=== PATIENT | male | born 1940 | race Caucasian/White ===

== ENCOUNTER 2017-09-14 12:47 | Inpatient (IN) | payer OTHER ==
[2017-09-14] MEDS ORDERED: NS 500 ML IV 500 ML IV ONE (15:21)
[2017-09-14 15:59] LABS: BASOPHILS % (AUTO) 0.8 % (0.2-1.0); EOSINOPHILS # (AUTO) 0.1 x10^3/uL (0.0-0.2); EOSINOPHILS % (AUTO) 2.7 % (0.9-2.9); HEMATOCRIT 22.6 % (42.0-54.0); LYMPHOCYTES # (AUTO) 1.3 X10^3/uL (1.3-2.9); LYMPHOCYTES % (AUTO) 23.3 % (21.0-51.0); MEAN CORPUSCULAR HEMOGLOBIN 20.1 pg (27.0-34.0); MEAN CORPUSCULAR HGB CONC 29.2 g/dL (33.0-35.0); MEAN CORPUSCULAR VOLUME 68.8 fL (80.0-100.0); MEAN PLATELET VOLUME 7.1 fL (7.4-11.0); MONOCYTES # (AUTO) 0.4 x10^3/uL (0.3-0.8); MONOCYTES % (AUTO) 6.7 % (0.0-13.0); NEUTROPHILS # (AUTO) 3.7 x10^3/uL (2.2-4.8); NEUTROPHILS % (AUTO) 66.5 % (42.0-75.0); PLATELET COUNT 212 X10^3/uL (150.0-450.0); RED BLOOD COUNT 3.28 X10^6/uL (4.7-6.0); RED CELL DISTRIBUTION WIDTH 18.8 % (11.6-16.5); WHITE BLOOD COUNT 5.6 X10^3/uL (3.6-10.0)
[2017-09-14 16:03] LABS: ALANINE AMINOTRANSFERASE 22 Units/L (12-78); ALBUMIN 3.3 g/dL (3.4-5.0); ALKALINE PHOSPHATASE 71 Units/L (46-116); ASPARTATE AMINO TRANSFERASE 15 Units/L (15-37); BLOOD UREA NITROGEN 16 mg/dL (7-18); CALCIUM 7.8 mg/dL (8.5-10.1); CARBON DIOXIDE 27.8 mmol/L (21-32); CHLORIDE 106 mmol/L (98-107); COR CA(FOR HYPOALB) 8.4 mg/dL (8.5-10.1); CREATININE 0.71 mg/dL (0.70-1.30); HEMOGLOBIN 6.6 g/dL (13.5-18.0); SODIUM 141 mmol/L (136-145); eGFR BLACK RACES > 60 (>60); eGFR NON BLACK RACES > 60 (>60)
[2017-09-14 16:09] LABS: ANISOCYTOSIS 1+; HYPOCHROMASIA 2+; MICROCYTOSIS 1+; PLATELET MORPHOLOGY COMMENT NORMAL (NORMAL)
[2017-09-14 16:32] VITALS: BMI 27.0
[2017-09-14] MEDS ORDERED: NS 250 ML IV 250 ML IV ONE (16:56)
[2017-09-14] MEDS: BENADRYL INJ 50 MG VIAL IVP PRN (17:07)
[2017-09-14] MEDS: TYLENOL 325 MG TAB PO PRN (17:07)
[2017-09-15] MEDS ORDERED: NS 250 ML IV 250 ML IV ONE (01:03)
[2017-09-15] MEDS: NS 1000 ML 1,000 ML IV SCH ×2 (05:58→20:42)
[2017-09-15 06:07] LABS: ALANINE AMINOTRANSFERASE 23 Units/L (12-78); ALKALINE PHOSPHATASE 69 Units/L (46-116); ASPARTATE AMINO TRANSFERASE 14 Units/L (15-37); CALCIUM 7.6 mg/dL (8.5-10.1); CARBON DIOXIDE 29.4 mmol/L (21-32); CHLORIDE 106 mmol/L (98-107); COR CA(FOR HYPOALB) 8.4 mg/dL (8.5-10.1); COR NA(FOR HYPERGLY) 140 mmol/L (136-145); CREATININE 0.79 mg/dL (0.70-1.30); SODIUM 139 mmol/L (136-145); TOTAL PROTEIN 6.4 g/dL (6.4-8.2); eGFR BLACK RACES > 60 (>60); eGFR NON BLACK RACES > 60 (>60)
[2017-09-15 06:18] LABS: BASOPHILS % (AUTO) 0.6 % (0.2-1.0); EOSINOPHILS # (AUTO) 0.2 x10^3/uL (0.0-0.2); EOSINOPHILS % (AUTO) 3.6 % (0.9-2.9); HEMATOCRIT 26.3 % (42.0-54.0); LYMPHOCYTES # (AUTO) 1.9 X10^3/uL (1.3-2.9); LYMPHOCYTES % (AUTO) 33.5 % (21.0-51.0); MEAN CORPUSCULAR HEMOGLOBIN 22.4 pg (27.0-34.0); MEAN CORPUSCULAR HGB CONC 30.6 g/dL (33.0-35.0); MEAN CORPUSCULAR VOLUME 73.3 fL (80.0-100.0); MEAN PLATELET VOLUME 7.3 fL (7.4-11.0); MONOCYTES # (AUTO) 0.4 x10^3/uL (0.3-0.8); MONOCYTES % (AUTO) 7.4 % (0.0-13.0); NEUTROPHILS # (AUTO) 3.1 x10^3/uL (2.2-4.8); NEUTROPHILS % (AUTO) 54.9 % (42.0-75.0); PLATELET COUNT 195 X10^3/uL (150.0-450.0); RED BLOOD COUNT 3.59 X10^6/uL (4.7-6.0); RED CELL DISTRIBUTION WIDTH 21.1 % (11.6-16.5); WHITE BLOOD COUNT 5.6 X10^3/uL (3.6-10.0)
[2017-09-15 06:27] LABS: BLOOD UREA NITROGEN 17 mg/dL (7-18)
[2017-09-15 06:37] LABS: ANISOCYTOSIS SLIGHT; HYPOCHROMASIA 1+; PLATELET MORPHOLOGY COMMENT NORMAL (NORMAL)
[2017-09-15] MEDS ORDERED: NS 500 ML IV 500 ML IV ONE (10:22)
[2017-09-15] MEDS ORDERED: MIRALAX POWDER (255 GM BTL) PO PRN (12:08)
[2017-09-15] MEDS ORDERED: COLACE CAP 100 MG PO PRN (12:08)
[2017-09-15] MEDS ORDERED: PERCOCET TAB 5/325 MG PO PRN (13:10)
[2017-09-15] MEDS: PROTONIX INJ 40 MG VIAL IVP SCH ×2 (13:46→20:38)
[2017-09-15] MEDS: PROCARDIA XL PO SCH (13:46)
[2017-09-15] MEDS: PEPCID 20 MG IV PREMIX* 20 MG/50 ML BAG IV SCH ×2 (13:47→20:38)
[2017-09-15] MEDS: DETROL LA 4 MG CAP EXT REL PO SCH (13:47)
[2017-09-15] MEDS: CYMBALTA PO SCH (13:47)
[2017-09-15] MEDS: ALFUZOSIN HCL 10 MG PO SCH (15:25)
[2017-09-15] MEDS: ELAVIL PO SCH (20:38)
[2017-09-15] MEDS ORDERED: LIPITOR TAB 40 MG PO SCH (21:00)
[2017-09-16] MEDS: BENADRYL INJ 50 MG VIAL IVP PRN (02:28)
[2017-09-16] MEDS: TYLENOL 325 MG TAB PO PRN (02:28)
[2017-09-16] MEDS ORDERED: NS 500 ML IV 500 ML IV ONE (02:33)
[2017-09-16] MEDS: ELAVIL PO SCH (03:04)
[2017-09-16 07:50] LABS: ALANINE AMINOTRANSFERASE 25 Units/L (12-78); ALBUMIN 3.1 g/dL (3.4-5.0); ALKALINE PHOSPHATASE 65 Units/L (46-116); ASPARTATE AMINO TRANSFERASE 14 Units/L (15-37); BLOOD UREA NITROGEN 9 mg/dL (7-18); CALCIUM 7.5 mg/dL (8.5-10.1); CARBON DIOXIDE 27.7 mmol/L (21-32); CHLORIDE 105 mmol/L (98-107); COR CA(FOR HYPOALB) 8.2 mg/dL (8.5-10.1); COR NA(FOR HYPERGLY) 142 mmol/L (136-145); CREATININE 0.74 mg/dL (0.70-1.30); SODIUM 141 mmol/L (136-145); TOTAL PROTEIN 6.5 g/dL (6.4-8.2); eGFR BLACK RACES > 60 (>60); eGFR NON BLACK RACES > 60 (>60)
[2017-09-16 07:58] LABS: BASOPHILS % (AUTO) 0.7 % (0.2-1.0); EOSINOPHILS # (AUTO) 0.3 x10^3/uL (0.0-0.2); EOSINOPHILS % (AUTO) 4.7 % (0.9-2.9); HEMATOCRIT 30.9 % (42.0-54.0); HEMOGLOBIN 9.9 g/dL (13.5-18.0); LYMPHOCYTES # (AUTO) 1.5 X10^3/uL (1.3-2.9); LYMPHOCYTES % (AUTO) 22.6 % (21.0-51.0); MEAN CORPUSCULAR HEMOGLOBIN 23.7 pg (27.0-34.0); MEAN CORPUSCULAR HGB CONC 31.9 g/dL (33.0-35.0); MEAN CORPUSCULAR VOLUME 74.3 fL (80.0-100.0); MEAN PLATELET VOLUME 6.9 fL (7.4-11.0); MONOCYTES # (AUTO) 0.5 x10^3/uL (0.3-0.8); MONOCYTES % (AUTO) 7.5 % (0.0-13.0); NEUTROPHILS # (AUTO) 4.4 x10^3/uL (2.2-4.8); NEUTROPHILS % (AUTO) 64.5 % (42.0-75.0); PLATELET COUNT 197 X10^3/uL (150.0-450.0); RED BLOOD COUNT 4.16 X10^6/uL (4.7-6.0); RED CELL DISTRIBUTION WIDTH 21.1 % (11.6-16.5); WHITE BLOOD COUNT 6.8 X10^3/uL (3.6-10.0)
[2017-09-16 08:05] LABS: ANISOCYTOSIS 1+; HYPOCHROMASIA 1+; PLATELET MORPHOLOGY COMMENT NORMAL (NORMAL); POIKILOCYTOSIS 1+
[2017-09-16 08:17] VITALS: BP 127/76
[2017-09-16] MEDS ORDERED: JANUVIA PO SCH (09:00)
[2017-09-16] MEDS ORDERED: ACCUPRIL PO SCH (09:00)
[2017-09-16] MEDS: PROCARDIA XL PO SCH (09:46)
[2017-09-16] MEDS: ALFUZOSIN HCL 10 MG PO SCH (09:47)
[2017-09-16] MEDS: CYMBALTA PO SCH (09:47)
[2017-09-16] MEDS: DETROL LA 4 MG CAP EXT REL PO SCH (09:47)
[2017-09-16] MEDS: PEPCID 20 MG IV PREMIX* 20 MG/50 ML BAG IV SCH ×2 (09:47→09:48)
[2017-09-16] MEDS: PROTONIX INJ 40 MG VIAL IVP SCH (09:48)
--- NOTE | 2017-09-17 22:24 | DR.UPDATE ---
H&P Update History and Physical Update: History and Physical reviewed and patient examined. Changes noted: Yes with the following: WAS SEEN IN THE OFFICE YESTERDAY FOR LABWORK. LAB RESULTS WERE OBTAINED TODAY AND REVELED A CRITICALLY LOW HEMOGLOBIN. PATIENT WAS CALLED FOR ADMISSION TO THE HOSPITAL FOR TRANSFUSION OF 2 UNITS OF PACKED RED BLOOD CELLS. ON ADMISSION, WE WILL OBTAIN LABS AND TRANSFUSE BLOOD. WE PLAN TO MONITOR H&H FOLLOWING TRANSFUSION.
--- NOTE | 2017-09-17 22:29 | PCM.PROG ---
Progress Note - Progress Note for Day of Date: 09/15/17 - Subjective Subjective: WAS ADMITTED FOR ANEMIA AND GENERALIZED WEAKNESS. TODAY , HE IS ALERT AND ORIENTED, LYING IN BED ON MORNING ROUNDS. HE CONTINUES WITH GENERALIZED WEAKNESS. HE RECEIVED TWO UNITS OF PACKED RED BLOOD CELLS LAST NIGHT. HIS VITAL TODAY ARE 98.4-64-20-94%-138/76. ABNORMAL LAB VALUES INCLUDE THE FOLLOWING: RBC 3.59, HGB 8.0, HCT 26.3, GLUCOSE 131, CALCIUM 7.6, AST 14, ALBUMIN 3.0. TODAY, WE WILL OBTAIN STOOL FOR OCCULT BLOOD. WE WILL TRANSFUSE TWO ADDITIONAL UNITS OF PACKED RED BLOOD CELLS AND CONTINUE TO MONITOR H&H. OTHERWISE, WE WILL FOLLOW UP WITH AM LABS AND CONTINUE TO MONITOR PATIENT. - Past Medical Family Social History Past Med/Fam/Surg Hx: No changes since H&P Allergies: Allergies No Known Drug Allergies Allergy (Verified 09/14/17 15:21) - Review of Systems ROS: No change since H&P - Vital Signs and I&O's Vital Signs: Temperature 97.6 F Pulse Rate [Left Brachial] 70 Pulse Rate [Right Radial] 76 Respiratory Rate 20 Blood Pressure [Right Arm] 145/82 Blood Pressure [Left Arm] 127/76 Blood Pressure 135/61 O2 Sat by Pulse Oximetry 92 Intake and Output: Intake & Output 09/15/17 09/16/17 09/17/17 09/18/17 11:59 11:59 11:59 11:59 Intake Total 1380 1960 Output Total 450 1065 Balance 930 895 - Physical Exam Oriented: Normal Eyes: Normal Ear: Normal Nose: Normal Throat: Normal Respiratory: Normal Cardiovascular: Normal : Normal Auscultation: Bowel Sounds: Normal Palpation: Normal Tenderness: Normal Skin: Normal Musculoskeletal: Normal Psychiatric: Normal Mood Description: Calm Affect: Normal Speech Pattern: Clear, Appropriate - Laboratory and Diagnostics Result Diagrams: 09/16/17 07:07 09/16/17 07:07 Labs: Laboratory WBC 6.8 X10^3/uL (3.6-10.0) 09/16/17 07:07 RBC 4.16 X10^6/uL (4.7-6.0) L 09/16/17 07:07 Hgb 9.9 g/dL (13.5-18.0) L 09/16/17 07:07 Hct 30.9 % (42.0-54.0) L 09/16/17 07:07 MCV 74.3 fL (80.0-100.0) L 09/16/17 07:07 MCH 23.7 pg (27.0-34.0) L 09/16/17 07:07 MCHC 31.9 g/dL (33.0-35.0) L 09/16/17 07:07 RDW 21.1 % (11.6-16.5) H 09/16/17 07:07 Plt Count 197 X10^3/uL (150.0-450.0) 09/16/17 07:07 Plt Count Comment Adequate (ADEQUATE) 09/16/17 07:07 MPV 6.9 fL (7.4-11.0) L 09/16/17 07:07 Neut % (Auto) 64.5 % (42.0-75.0) 09/16/17 07:07 Lymph % (Auto) 22.6 % (21.0-51.0) 09/16/17 07:07 [place] % (Auto) 7.5 % (0.0-13.0) 09/16/17 07:07 Eos % (Auto) 4.7 % (0.9-2.9) H 09/16/17 07:07 Baso % (Auto) 0.7 % (0.2-1.0) 09/16/17 07:07 Neut # (Auto) 4.4 x10^3/uL (2.2-4.8) 09/16/17 07:07 Lymph # (Auto) 1.5 X10^3/uL (1.3-2.9) 09/16/17 07:07 [place] # (Auto) 0.5 x10^3/uL (0.3-0.8) 09/16/17 07:07 Eos # (Auto) 0.3 x10^3/uL (0.0-0.2) H 09/16/17 07:07 Baso # (Auto) 0.0 X10^3/uL (0.0-0.1) 09/16/17 07:07 Absolute Nucleated RBC 0.3 /100WBC 09/16/17 07:07 Plt Morphology Comment Normal (NORMAL) 09/16/17 07:07 RBC Morphology Abnormal (NORMAL) 09/16/17 07:07 Hypochromasia 1+ A 09/16/17 07:07 Poikilocytosis 1+ A 09/16/17 07:07 Anisocytosis 1+ A 09/16/17 07:07 Microcytosis 1+ A 09/14/17 15:32 Sodium 141 mmol/L (136-145) 09/16/17 07:07 Corrected Sodium 142 mmol/L (136-145) 09/16/17 07:07 Potassium 3.7 mmol/L (3.5-5.1) 09/16/17 07:07 Chloride 105 mmol/L (98-107) 09/16/17 07:07 Carbon Dioxide 27.7 mmol/L (21-32) 09/16/17 07:07 BUN 9 mg/dL (7-18) 09/16/17 07:07 Creatinine 0.74 mg/dL (0.70-1.30) 09/16/17 07:07 Est GFR (MDRD) Af Amer > 60 (>60) 09/16/17 07:07 Est GFR (MDRD) Non-Af > 60 (>60) 09/16/17 07:07 Glucose 124 mg/dL (65-99) H 09/16/17 07:07 Calcium 7.5 mg/dL (8.5-10.1) L 09/16/17 07:07 Corrected Calcium 8.2 mg/dL (8.5-10.1) L 09/16/17 07:07 Total Bilirubin 0.40 mg/dL (0.2-1.0) 09/16/17 07:07 AST 14 Units/L (15-37) L 09/16/17 07:07 ALT 25 Units/L (12-78) 09/16/17 07:07 Alkaline Phosphatase 65 Units/L (46-116) 09/16/17 07:07 Total Protein 6.5 g/dL (6.4-8.2) 09/16/17 07:07 Albumin 3.1 g/dL (3.4-5.0) L 09/16/17 07:07 Globulin 3.4 g/dL (2.5-4.5) 09/16/17 07:07 Albumin/Globulin Ratio 0.9 Ratio (1.1-2.1) L 09/16/17 07:07 Stool Description 6oz,semi-formed,brwn 09/15/17 13:07 Stl Occult Blood (IFOB) Positive (NEGATIVE) A 09/15/17 13:07 Blood Type O POSITIVE 09/14/17 15:32 Antibody Screen Negative 09/14/17 15:32 Crossmatch See Detail 09/14/17 15:32 - Plan (1) Anemia Status: Acute Qualifiers: Anemia type: unspecified type Qualified Code(s): D64.9 - Anemia, unspecified Plan: TRANSFUSE 2 UNITS PACKED RED BLOOD CELLS, OBTAIN STOOL FOR OCCULT BLOOD, CONTINUE TO MONITOR
== END 2017-09-16 09:50 | disposition home or self-care (01) | DRG 812 ==
LOC: UNDOADMIN 12:47 → MED/SURG 12:47
PROVIDERS: ADMIT Internal Medicine; ATTEND Internal Medicine
PROC: 30233N1 Transfusion of Nonautologous Red Blood Cells into Peripheral Vein, Percutaneous Approach (ICD-10-PCS; principal; 2017-09-14)
PROC: 30233N1 Transfusion of Nonautologous Red Blood Cells into Peripheral Vein, Percutaneous Approach (ICD-10-PCS; 2017-09-15)
PROC: 30233N1 Transfusion of Nonautologous Red Blood Cells into Peripheral Vein, Percutaneous Approach (ICD-10-PCS; 2017-09-16)
DX: D64.89 Other specified anemias (principal); I10 Essential (primary) hypertension; E78.2 Mixed hyperlipidemia; E11.65 Type 2 diabetes mellitus with hyperglycemia; Z66 Do not resuscitate
CPT/HCPCS: 36415; 36430; 80053; 82274; 85025; 86850; 86900; 86901; 86922; A4216; A4222; C9113; P9016; S0028; J1200

== ENCOUNTER 2018-11-20 16:43 | Inpatient (IN) ==
[2018-11-20] MEDS ORDERED: NS 1/2 1000 ML IV IV ONE (17:46)
[2018-11-20] MEDS ORDERED: ROBITUSSIN DM PO ONE (21:45)
[2018-11-20] MEDS ORDERED: LEVAQUIN PREMIX IV 500 MG IV ONE (21:45)
[2018-11-20] MEDS ORDERED: FORTAZ or TAZICEF VIAL INJ IVP ONE (22:00)
[2018-11-21] MEDS ORDERED: FORTAZ or TAZICEF VIAL INJ IVP ONE ×2 (06:00→22:00)
[2018-11-21] MEDS ORDERED: NS 1/2 1000 ML IV IV ONE ×2 (07:12→08:00)
[2018-11-21] MEDS ORDERED: ROBITUSSIN DM PO ONE ×4 (09:00→21:00)
[2018-11-21] MEDS ORDERED: LEVAQUIN PREMIX IV 500 MG IV ONE ×2 (09:00→09:13)
[2018-11-21] MEDS ORDERED: TYLENOL 325 MG TAB PO ONE (09:13)
[2018-11-21] MEDS ORDERED: BENADRYL CAP/TAB 25 MG PO ONE (09:13)
[2018-11-21] MEDS ORDERED: PROTONIX INJ 40 MG VIAL IVP ONE (10:00)
[2018-11-21] MEDS ORDERED: NS 250 ML IV IV ONE ×2 (11:10→14:28)
[2018-11-21] MEDS ORDERED: LASIX IVP ONE (13:51)
[2018-11-21] MEDS ORDERED: DETROL LA 4 MG CAP EXT REL PO ONE ×2 (16:20→16:21)
[2018-11-21] MEDS ORDERED: FLOMAX PO ONE ×2 (16:21→16:30)
[2018-11-21] MEDS ORDERED: ZyrTEC TAB 10 MG PO ONE ×2 (16:21→16:30)
[2018-11-21] MEDS ORDERED: LIPITOR TAB 40 MG PO ONE (21:22)
[2018-11-21] MEDS ORDERED: ACCUPRIL PO ONE (21:23)
[2018-11-21] MEDS ORDERED: CYMBALTA PO ONE (21:23)
[2018-11-21] MEDS ORDERED: PROCARDIA XL PO ONE (21:23)
[2018-11-21] MEDS ORDERED: COLACE CAP 100 MG PO ONE (21:23)
[2018-11-21] MEDS ORDERED: ELAVIL PO ONE (21:23)
[2018-11-22] MEDS ORDERED: FORTAZ or TAZICEF VIAL INJ IVP ONE ×3 (05:25→22:00)
[2018-11-22] MEDS ORDERED: NS 1/2 1000 ML IV IV ONE ×3 (07:00→22:00)
[2018-11-22] MEDS ORDERED: LEVAQUIN PREMIX IV 500 MG IV ONE (09:20)
[2018-11-22] MEDS ORDERED: DIPRIVAN VIAL ONE ×2 (12:26→12:39)
[2018-11-22] MEDS ORDERED: PROTONIX INJ 40 MG VIAL IVP ONE ×2 (13:45→21:30)
[2018-11-22] MEDS ORDERED: FLOMAX PO ONE (13:45)
[2018-11-22] MEDS ORDERED: ACCUPRIL PO ONE ×2 (13:45→21:26)
[2018-11-22] MEDS ORDERED: ZyrTEC TAB 10 MG PO ONE (13:45)
[2018-11-22] MEDS ORDERED: ROBITUSSIN (PLAIN) PO ONE ×3 (13:45→21:26)
[2018-11-22] MEDS ORDERED: DETROL LA 4 MG CAP EXT REL PO ONE (13:45)
[2018-11-22] MEDS ORDERED: STERILE WATER IRRIGATION ONE (15:47)
[2018-11-22] MEDS ORDERED: COLACE CAP 100 MG PO ONE (21:26)
[2018-11-22] MEDS ORDERED: CYMBALTA PO ONE (21:26)
[2018-11-22] MEDS ORDERED: ELAVIL PO ONE (21:26)
[2018-11-22] MEDS ORDERED: LIPITOR TAB 40 MG PO ONE (21:26)
[2018-11-22] MEDS ORDERED: PROCARDIA XL PO ONE (21:26)
[2018-11-23] MEDS ORDERED: PERCOCET TAB 5/325 MG PO PRN (06:08)
[2018-11-23 06:09] LABS: EOSINOPHILS # (AUTO) 0.3 x10^3/uL (0.0-0.2); HEMOGLOBIN 8.5 g/dL (13.5-18.0); PLATELET COUNT 229 X10^3/uL (150.0-450.0); RED CELL DISTRIBUTION WIDTH 22.2 % (11.6-16.5)
[2018-11-23] MEDS ORDERED: TUSSIONEX PENNKINETIC SUSP PO PRN (06:11)
[2018-11-23 06:18] LABS: BASOPHILS % (AUTO) 0.7 % (0.2-1.0); EOSINOPHILS % (AUTO) 4.8 % (0.9-2.9); HEMATOCRIT 27.5 % (42.0-54.0); LYMPHOCYTES # (AUTO) 2.6 X10^3/uL (1.3-2.9); LYMPHOCYTES % (AUTO) 38.9 % (21.0-51.0); MEAN CORPUSCULAR HEMOGLOBIN 22.3 pg (27.0-34.0); MEAN CORPUSCULAR VOLUME 72.1 fL (80.0-100.0); MEAN PLATELET VOLUME 6.6 fL (7.4-11.0); MONOCYTES # (AUTO) 0.4 x10^3/uL (0.3-0.8); MONOCYTES % (AUTO) 5.6 % (0.0-13.0); NEUTROPHILS # (AUTO) 3.3 x10^3/uL (2.2-4.8); RED BLOOD COUNT 3.82 X10^6/uL (4.7-6.0); WHITE BLOOD COUNT 6.6 X10^3/uL (3.6-10.0)
[2018-11-23 06:24] LABS: ALANINE AMINOTRANSFERASE 18 Units/L (12-78); ALKALINE PHOSPHATASE 83 Units/L (46-116); ASPARTATE AMINO TRANSFERASE 17 Units/L (15-37); BLOOD UREA NITROGEN 8 mg/dL (7-18); CALCIUM 8.1 mg/dL (8.5-10.1); CARBON DIOXIDE 28.8 mmol/L (21-32); CHLORIDE 105 mmol/L (98-107); COR CA(FOR HYPOALB) 8.9 mg/dL (8.5-10.1); COR NA(FOR HYPERGLY) 142 mmol/L (136-145); SODIUM 141 mmol/L (136-145); TOTAL PROTEIN 6.8 g/dL (6.4-8.2); eGFR NON BLACK RACES > 60 (>60)
[2018-11-23 06:40] LABS: ASPARTATE AMINO TRANSFERASE 25 Units/L (15-37); BLOOD UREA NITROGEN 11 mg/dL (7-18); CALCIUM 8.2 mg/dL (8.5-10.1); CARBON DIOXIDE 28.6 mmol/L (21-32); CHLORIDE 106 mmol/L (98-107); COR NA(FOR HYPERGLY) 143 mmol/L (136-145); CREATININE 0.77 mg/dL (0.70-1.30); SODIUM 142 mmol/L (136-145); eGFR NON BLACK RACES > 60 (>60)
[2018-11-23 06:41] LABS: ALANINE AMINOTRANSFERASE 27 Units/L (12-78); ALBUMIN 3.3 g/dL (3.4-5.0); ALKALINE PHOSPHATASE 89 Units/L (46-116); COR CA(FOR HYPOALB) 8.8 mg/dL (8.5-10.1); TOTAL PROTEIN 7.2 g/dL (6.4-8.2)
[2018-11-23 06:43] LABS: BASOPHILS % (AUTO) 0.5 % (0.2-1.0); EOSINOPHILS # (AUTO) 0.1 x10^3/uL (0.0-0.2); EOSINOPHILS % (AUTO) 2.3 % (0.9-2.9); HEMATOCRIT 24.4 % (42.0-54.0); LYMPHOCYTES # (AUTO) 2.7 X10^3/uL (1.3-2.9); LYMPHOCYTES % (AUTO) 45.1 % (21.0-51.0); MEAN CORPUSCULAR HEMOGLOBIN 20.2 pg (27.0-34.0); MEAN CORPUSCULAR HGB CONC 28.8 g/dL (33.0-35.0); MEAN PLATELET VOLUME 6.5 fL (7.4-11.0); MONOCYTES # (AUTO) 0.3 x10^3/uL (0.3-0.8); MONOCYTES % (AUTO) 4.3 % (0.0-13.0); NEUTROPHILS # (AUTO) 2.9 x10^3/uL (2.2-4.8); NEUTROPHILS % (AUTO) 47.8 % (42.0-75.0); PLATELET COUNT 247 X10^3/uL (150.0-450.0); RED BLOOD COUNT 3.49 X10^6/uL (4.7-6.0); RED CELL DISTRIBUTION WIDTH 19.9 % (11.6-16.5); WHITE BLOOD COUNT 6.1 X10^3/uL (3.6-10.0)
[2018-11-23 06:44] LABS: PLATELET MORPHOLOGY COMMENT NORMAL (NORMAL)
[2018-11-23 06:45] LABS: ANISOCYTOSIS SLIGHT; HYPOCHROMASIA 2+; OVALOCYTES PRESENT
[2018-11-23 06:46] LABS: SODIUM 140 mmol/L (136-145)
[2018-11-23 06:47] LABS: BLOOD UREA NITROGEN 11 mg/dL (7-18); CARBON DIOXIDE 26.7 mmol/L (21-32); CHLORIDE 105 mmol/L (98-107); COR NA(FOR HYPERGLY) 141 mmol/L (136-145); CREATININE 0.74 mg/dL (0.70-1.30); IRON 17 ug/dL (50-175); eGFR NON BLACK RACES > 60 (>60)
[2018-11-23 06:48] LABS: ALANINE AMINOTRANSFERASE 28 Units/L (12-78); ALBUMIN 2.9 g/dL (3.4-5.0); ALKALINE PHOSPHATASE 77 Units/L (46-116); ASPARTATE AMINO TRANSFERASE 22 Units/L (15-37); COR CA(FOR HYPOALB) 8.9 mg/dL (8.5-10.1); TOTAL PROTEIN 6.5 g/dL (6.4-8.2)
[2018-11-23 06:49] LABS: RED BLOOD COUNT 3.17 X10^6/uL (4.7-6.0); WHITE BLOOD COUNT 6.3 X10^3/uL (3.6-10.0)
[2018-11-23 06:50] LABS: BASOPHILS % (AUTO) 0.7 % (0.2-1.0); EOSINOPHILS # (AUTO) 0.2 x10^3/uL (0.0-0.2); EOSINOPHILS % (AUTO) 3.1 % (0.9-2.9); HEMATOCRIT 22.2 % (42.0-54.0); HEMOGLOBIN 6.5 g/dL (13.5-18.0); LYMPHOCYTES % (AUTO) 48.2 % (21.0-51.0); MEAN CORPUSCULAR HEMOGLOBIN 20.4 pg (27.0-34.0); MEAN CORPUSCULAR HGB CONC 29.2 g/dL (33.0-35.0); MEAN CORPUSCULAR VOLUME 69.9 fL (80.0-100.0); MEAN PLATELET VOLUME 6.6 fL (7.4-11.0); MONOCYTES # (AUTO) 0.3 x10^3/uL (0.3-0.8); MONOCYTES % (AUTO) 5.1 % (0.0-13.0); NEUTROPHILS # (AUTO) 2.7 x10^3/uL (2.2-4.8); NEUTROPHILS % (AUTO) 42.9 % (42.0-75.0); PLATELET COUNT 220 X10^3/uL (150.0-450.0); RED CELL DISTRIBUTION WIDTH 19.5 % (11.6-16.5)
[2018-11-23 06:51] LABS: ANISOCYTOSIS 1+; HYPOCHROMASIA 2+; MICROCYTOSIS 1+; PLATELET MORPHOLOGY COMMENT NORMAL (NORMAL)
[2018-11-23 06:52] LABS: OVALOCYTES PRESENT
[2018-11-23 06:53] LABS: CHLORIDE 105 mmol/L (98-107); SODIUM 141 mmol/L (136-145)
[2018-11-23 06:54] LABS: ALANINE AMINOTRANSFERASE 23 Units/L (12-78); ALBUMIN 3.1 g/dL (3.4-5.0); ALKALINE PHOSPHATASE 83 Units/L (46-116); ASPARTATE AMINO TRANSFERASE 20 Units/L (15-37); BLOOD UREA NITROGEN 9 mg/dL (7-18); CALCIUM 8.3 mg/dL (8.5-10.1); COR NA(FOR HYPERGLY) 142 mmol/L (136-145); CREATININE 0.76 mg/dL (0.70-1.30); TOTAL PROTEIN 6.9 g/dL (6.4-8.2); eGFR NON BLACK RACES > 60 (>60)
[2018-11-23 06:55] LABS: BASOPHILS % (AUTO) 0.6 % (0.2-1.0); EOSINOPHILS % (AUTO) 3.9 % (0.9-2.9); HEMOGLOBIN 8.7 g/dL (13.5-18.0); LYMPHOCYTES % (AUTO) 33.1 % (21.0-51.0); MEAN CORPUSCULAR HEMOGLOBIN 21.9 pg (27.0-34.0); MEAN CORPUSCULAR HGB CONC 29.9 g/dL (33.0-35.0); MEAN CORPUSCULAR VOLUME 73.3 fL (80.0-100.0); MONOCYTES % (AUTO) 5.7 % (0.0-13.0); NEUTROPHILS % (AUTO) 56.7 % (42.0-75.0); PLATELET COUNT 236 X10^3/uL (150.0-450.0); RED BLOOD COUNT 3.95 X10^6/uL (4.7-6.0); RED CELL DISTRIBUTION WIDTH 22.4 % (11.6-16.5); WHITE BLOOD COUNT 7.5 X10^3/uL (3.6-10.0)
[2018-11-23 06:56] LABS: EOSINOPHILS # (AUTO) 0.3 x10^3/uL (0.0-0.2); LYMPHOCYTES # (AUTO) 2.5 X10^3/uL (1.3-2.9); MONOCYTES # (AUTO) 0.4 x10^3/uL (0.3-0.8); NEUTROPHILS # (AUTO) 4.3 x10^3/uL (2.2-4.8)
[2018-11-23 06:57] LABS: ANISOCYTOSIS 2+; HYPOCHROMASIA 2+; OVALOCYTES PRESENT; PLATELET MORPHOLOGY COMMENT NORMAL (NORMAL); TARGET CELLS PRESENT
[2018-11-23 08:00] LABS: ANISOCYTOSIS 2+; HYPOCHROMASIA 1+; PLATELET MORPHOLOGY COMMENT NORMAL (NORMAL)
[2018-11-23 12:25] LABS: RETICULOCYTE % 2.48 % (0.8-2.2)
[2018-11-23] MEDS: FORTAZ or TAZICEF VIAL INJ IVP SCH ×2 (13:35→20:59)
[2018-11-23] MEDS: NS 1/2 1000 ML IV 1,000 ML IV SCH ×2 (13:55→20:56)
[2018-11-23] MEDS: ACCUPRIL PO SCH ×2 (13:56→20:53)
[2018-11-23] MEDS: PROTONIX INJ 40 MG VIAL IVP SCH ×3 (13:56→20:51)
[2018-11-23] MEDS: LEVAQUIN PREMIX IV 500 MG 500 MG/100 ML BAG IV SCH (13:56)
[2018-11-23] MEDS: FLOMAX PO SCH (13:56)
[2018-11-23] MEDS: DETROL LA 4 MG CAP EXT REL PO SCH (13:56)
[2018-11-23] MEDS: ROBITUSSIN (PLAIN) PO SCH ×3 (13:57→20:50)
[2018-11-23] MEDS: ZyrTEC TAB 10 MG PO SCH (13:57)
[2018-11-23] MEDS: DUONEB 0.5 MG/3 MG NEB SCH ×2 (17:00→20:25)
[2018-11-23] MEDS ORDERED: K-DUR TAB 20 MEQ PO PRN (20:22)
[2018-11-23] MEDS ORDERED: MICRO K EXTEN CAP 10 MEQ PO PRN (20:22)
[2018-11-23] MEDS ORDERED: POTASSIUM CHL 60 MEQ/NS 0.45% 500 ML IV PRN (20:22)
[2018-11-23] MEDS ORDERED: POTASSIUM CHLORIDE LIQ 20 MEQ UDC PO PRN (20:22)
[2018-11-23] MEDS ORDERED: POTASSIUM CHL 40 MEQ/NS 0.45% 500 ML IV PRN (20:22)
[2018-11-23] MEDS ORDERED: K-RIDER 10 MEQ/NS 100 ML 10 MEQ/100 ML BAG IV PRN (20:22)
[2018-11-23] MEDS: ELAVIL PO SCH (20:53)
[2018-11-23] MEDS: LIPITOR TAB 40 MG PO SCH (20:53)
[2018-11-23] MEDS: PROCARDIA XL PO SCH (20:53)
[2018-11-23] MEDS: CYMBALTA PO SCH (20:53)
[2018-11-23] MEDS: COLACE CAP 100 MG PO SCH (20:53)
[2018-11-23] MEDS: KLOR-CON PO PRN (23:35)
--- NOTE | 2018-11-23 23:35 | PCM.PROG ---
Progress Note - Progress Note for Day of Date of Exam: 11/22/18 - Subjective Subjective: the patient is an 78-year-old white male who was admitted secondary to bronchial pneumonia. Patient was also anemic and has received 2 units of packed red blood cells. Patient is scheduled today for an EGD. Patient at present is resting quietly does complain of a dry nonproductive cough. Patient denies any other complaints at present. - Past Medical Family Social History Past Med/Fam/Surg Hx: No changes since H&P Allergies: Allergies No Known Drug Allergies Allergy (Verified 09/14/17 15:21) - Review of Systems ROS: No change since H&P - Vital Signs and I&O's Vital Signs: Temperature 98.7 F Pulse Rate [Right] 83 Pulse Rate 92 Respiratory Rate 22 Blood Pressure [Right Arm] 121/74 Blood Pressure [Left Arm] 127/76 Blood Pressure 127/76 O2 Sat by Pulse Oximetry 97 Intake and Output: Intake & Output 11/20/18 11/21/18 11/22/18 11/23/18 23:59 23:59 23:59 23:59 Intake Total 1020 / 1020 Output Total 950 / 950 Balance 70 / 70 - Physical Exam Oriented: Normal Eyes: Normal Ear: Normal Nose: Normal Throat: Normal Respiratory: Diminished Cardiovascular: Normal : Normal Auscultation: Bowel Sounds: Normal Palpation: Normal Tenderness: Normal Skin: Normal Musculoskeletal: Normal Psychiatric: Normal Mood Description: Calm Affect: Normal Speech Pattern: Clear - Laboratory and Diagnostics Result Diagrams: 11/23/18 04:56 11/23/18 04:56 Labs: 11/20/18 18:29 Blood Blood Culture - Preliminary 11/20/18 18:29 Blood Blood Culture - Preliminary 11/20/18 19:30 Sputum - Expectorated Sputum Sputum Culture - Final 11/20/18 19:30 Sputum - Expectorated Sputum - Final Laboratory WBC 6.6 X10^3/uL (3.6-10.0) 11/23/18 04:56 RBC 3.82 X10^6/uL (4.7-6.0) L 11/23/18 04:56 Hgb 8.5 g/dL (13.5-18.0) L 11/23/18 04:56 Hct 27.5 % (42.0-54.0) L 11/23/18 04:56 MCV 72.1 fL (80.0-100.0) L 11/23/18 04:56 MCH 22.3 pg (27.0-34.0) L 11/23/18 04:56 MCHC 31.0 g/dL (33.0-35.0) L 11/23/18 04:56 RDW 22.2 % (11.6-16.5) H 11/23/18 04:56 Plt Count 229 X10^3/uL (150.0-450.0) 11/23/18 04:56 Plt Count Comment Adequate (ADEQUATE) 11/23/18 04:56 MPV 6.6 fL (7.4-11.0) L 11/23/18 04:56 Neut % (Auto) 50.0 % (42.0-75.0) 11/23/18 04:56 Lymph % (Auto) 38.9 % (21.0-51.0) 11/23/18 04:56 [place] % (Auto) 5.6 % (0.0-13.0) 11/23/18 04:56 Eos % (Auto) 4.8 % (0.9-2.9) H 11/23/18 04:56 Baso % (Auto) 0.7 % (0.2-1.0) 11/23/18 04:56 Neut # (Auto) 3.3 x10^3/uL (2.2-4.8) 11/23/18 04:56 Lymph # (Auto) 2.6 X10^3/uL (1.3-2.9) 11/23/18 04:56 [place] # (Auto) 0.4 x10^3/uL (0.3-0.8) 11/23/18 04:56 Eos # (Auto) 0.3 x10^3/uL (0.0-0.2) H 11/23/18 04:56 Baso # (Auto) 0.0 X10^3/uL (0.0-0.1) 11/23/18 04:56 Absolute Nucleated RBC 0.0 /100WBC 11/23/18 04:56 Total Counted 100 11/23/18 04:56 Neutrophils % (Manual) 74 % (39-76) 11/23/18 04:56 Lymphocytes % (Manual) 24 % (13-43) 11/23/18 04:56 Monocytes % (Manual) 2 % (4-9) L 11/23/18 04:56 Eosinophils % (Manual) 4 % (0-6) 11/23/18 04:56 Plt Morphology Comment Normal (NORMAL) 11/23/18 04:56 RBC Morphology Abnormal (NORMAL) 11/23/18 04:56 Hypochromasia 1+ A 11/23/18 04:56 Anisocytosis 2+ A 11/23/18 04:56 Microcytosis 1+ A 11/21/18 04:42 Target Cells Present 11/22/18 05:04 Ovalocytes Present 11/22/18 05:04 Percent Retic 2.48 % (0.8-2.2) H 11/21/18 04:42 Sodium 141 mmol/L (136-145) 11/23/18 04:56 Corrected Sodium 142 mmol/L (136-145) 11/23/18 04:56 Potassium 3.3 mmol/L (3.5-5.1) L 11/23/18 04:56 Chloride 105 mmol/L (98-107) 11/23/18 04:56 Carbon Dioxide 28.8 mmol/L (21-32) 11/23/18 04:56 BUN 8 mg/dL (7-18) 11/23/18 04:56 Creatinine 0.70 mg/dL (0.70-1.30) 11/23/18 04:56 Est GFR (MDRD) Af Amer > 60 (>60) 11/23/18 04:56 Est GFR (MDRD) Non-Af > 60 (>60) 11/23/18 04:56 Glucose 145 mg/dL (65-99) H 11/23/18 04:56 Calcium 8.1 mg/dL (8.5-10.1) L 11/23/18 04:56 Corrected Calcium 8.9 mg/dL (8.5-10.1) 11/23/18 04:56 Magnesium 1.8 mg/dL (1.7-2.9) 11/23/18 04:56 Iron 17 ug/dL (50-175) L 11/21/18 04:42 Transferrin 290 mg/dL (202-364) 11/21/18 04:42 Ferritin 7 ng/mL (26-388) L 11/21/18 04:42 Total Bilirubin 0.30 mg/dL (0.2-1.0) 11/23/18 04:56 AST 17 Units/L (15-37) 11/23/18 04:56 ALT 18 Units/L (12-78) 11/23/18 04:56 Alkaline Phosphatase 83 Units/L (46-116) 11/23/18 04:56 Total Protein 6.8 g/dL (6.4-8.2) 11/23/18 04:56 Albumin 3.0 g/dL (3.4-5.0) L 11/23/18 04:56 Globulin 3.8 g/dL (2.5-4.5) 11/23/18 04:56 Albumin/Globulin Ratio 0.8 Ratio (1.1-2.1) L 11/23/18 04:56 Vitamin B12 391 pg/mL (193-986) 11/21/18 04:42 Folate 6.5 ng/mL (>8.6) L 11/21/18 04:42 Blood Type O POSITIVE 11/21/18 06:15 Antibody Screen Negative 11/21/18 06:15 Crossmatch See Detail 11/21/18 06:15 Radiology Reviewed: Yes EKG Reviewed: Yes - Plan (1) Anemia Status: Acute Qualifiers: Plan: EGD today. Continue CBC monitoring (2) Bronchopneumonia Status: Acute Plan: IV antibiotics, nebulizer treatments, repeat chest x-ray (3) Diabetes Status: Chronic Qualifiers: Diabetes mellitus type: type 2 Plan: monitor blood sugars with sliding scale coverage as needed (4) Hypertension Status: Chronic Plan: monitor blood pressure. Continue home medications (5) CAD (coronary artery disease) Status: Chronic
--- NOTE | 2018-11-23 23:38 | PCM.PROG ---
Progress Note - Progress Note for Day of Date of Exam: 11/23/18 - Subjective Subjective: the patient is an 78-year-old white male who was admitted secondary to bronchial pneumonia. Patient was also anemic and has received 2 units of packed red blood cells. Patient underwent EGD with findings of esophagitis as well as gastric ulcer. No active bleeding identified. Does have improvement of chest x-ray. Patient states that chest is breaking up. Is having a productive cough. Does continue to be weak. Patient denies any other complaints at present. - Past Medical Family Social History Past Med/Fam/Surg Hx: No changes since H&P Allergies: Allergies No Known Drug Allergies Allergy (Verified 09/14/17 15:21) - Review of Systems ROS: No change since H&P - Vital Signs and I&O's Vital Signs: Temperature 98.7 F Pulse Rate [Right] 83 Pulse Rate 92 Respiratory Rate 22 Blood Pressure [Right Arm] 121/74 Blood Pressure [Left Arm] 127/76 Blood Pressure 127/76 O2 Sat by Pulse Oximetry 97 Intake and Output: Intake & Output 11/20/18 11/21/18 11/22/18 11/23/18 23:59 23:59 23:59 23:59 Intake Total 1020 / 1020 Output Total 950 / 950 Balance 70 / 70 - Physical Exam Oriented: Normal Eyes: Normal Ear: Normal Nose: Normal Throat: Normal Respiratory: Diminished Cardiovascular: Normal : Normal Auscultation: Bowel Sounds: Normal Palpation: Normal Tenderness: Normal Skin: Normal Musculoskeletal: Normal Psychiatric: Normal Mood Description: Calm Affect: Normal Speech Pattern: Clear - Laboratory and Diagnostics Result Diagrams: 11/23/18 04:56 11/23/18 04:56 Labs: 11/20/18 18:29 Blood Blood Culture - Preliminary 11/20/18 18:29 Blood Blood Culture - Preliminary 11/20/18 19:30 Sputum - Expectorated Sputum Sputum Culture - Final 11/20/18 19:30 Sputum - Expectorated Sputum - Final Laboratory WBC 6.6 X10^3/uL (3.6-10.0) 11/23/18 04:56 RBC 3.82 X10^6/uL (4.7-6.0) L 11/23/18 04:56 Hgb 8.5 g/dL (13.5-18.0) L 11/23/18 04:56 Hct 27.5 % (42.0-54.0) L 11/23/18 04:56 MCV 72.1 fL (80.0-100.0) L 11/23/18 04:56 MCH 22.3 pg (27.0-34.0) L 11/23/18 04:56 MCHC 31.0 g/dL (33.0-35.0) L 11/23/18 04:56 RDW 22.2 % (11.6-16.5) H 11/23/18 04:56 Plt Count 229 X10^3/uL (150.0-450.0) 11/23/18 04:56 Plt Count Comment Adequate (ADEQUATE) 11/23/18 04:56 MPV 6.6 fL (7.4-11.0) L 11/23/18 04:56 Neut % (Auto) 50.0 % (42.0-75.0) 11/23/18 04:56 Lymph % (Auto) 38.9 % (21.0-51.0) 11/23/18 04:56 [place] % (Auto) 5.6 % (0.0-13.0) 11/23/18 04:56 Eos % (Auto) 4.8 % (0.9-2.9) H 11/23/18 04:56 Baso % (Auto) 0.7 % (0.2-1.0) 11/23/18 04:56 Neut # (Auto) 3.3 x10^3/uL (2.2-4.8) 11/23/18 04:56 Lymph # (Auto) 2.6 X10^3/uL (1.3-2.9) 11/23/18 04:56 [place] # (Auto) 0.4 x10^3/uL (0.3-0.8) 11/23/18 04:56 Eos # (Auto) 0.3 x10^3/uL (0.0-0.2) H 11/23/18 04:56 Baso # (Auto) 0.0 X10^3/uL (0.0-0.1) 11/23/18 04:56 Absolute Nucleated RBC 0.0 /100WBC 11/23/18 04:56 Total Counted 100 11/23/18 04:56 Neutrophils % (Manual) 74 % (39-76) 11/23/18 04:56 Lymphocytes % (Manual) 24 % (13-43) 11/23/18 04:56 Monocytes % (Manual) 2 % (4-9) L 11/23/18 04:56 Eosinophils % (Manual) 4 % (0-6) 11/23/18 04:56 Plt Morphology Comment Normal (NORMAL) 11/23/18 04:56 RBC Morphology Abnormal (NORMAL) 11/23/18 04:56 Hypochromasia 1+ A 11/23/18 04:56 Anisocytosis 2+ A 11/23/18 04:56 Microcytosis 1+ A 11/21/18 04:42 Target Cells Present 11/22/18 05:04 Ovalocytes Present 11/22/18 05:04 Percent Retic 2.48 % (0.8-2.2) H 11/21/18 04:42 Sodium 141 mmol/L (136-145) 11/23/18 04:56 Corrected Sodium 142 mmol/L (136-145) 11/23/18 04:56 Potassium 3.3 mmol/L (3.5-5.1) L 11/23/18 04:56 Chloride 105 mmol/L (98-107) 11/23/18 04:56 Carbon Dioxide 28.8 mmol/L (21-32) 11/23/18 04:56 BUN 8 mg/dL (7-18) 11/23/18 04:56 Creatinine 0.70 mg/dL (0.70-1.30) 11/23/18 04:56 Est GFR (MDRD) Af Amer > 60 (>60) 11/23/18 04:56 Est GFR (MDRD) Non-Af > 60 (>60) 11/23/18 04:56 Glucose 145 mg/dL (65-99) H 11/23/18 04:56 Calcium 8.1 mg/dL (8.5-10.1) L 11/23/18 04:56 Corrected Calcium 8.9 mg/dL (8.5-10.1) 11/23/18 04:56 Magnesium 1.8 mg/dL (1.7-2.9) 11/23/18 04:56 Iron 17 ug/dL (50-175) L 11/21/18 04:42 Transferrin 290 mg/dL (202-364) 11/21/18 04:42 Ferritin 7 ng/mL (26-388) L 11/21/18 04:42 Total Bilirubin 0.30 mg/dL (0.2-1.0) 11/23/18 04:56 AST 17 Units/L (15-37) 11/23/18 04:56 ALT 18 Units/L (12-78) 11/23/18 04:56 Alkaline Phosphatase 83 Units/L (46-116) 11/23/18 04:56 Total Protein 6.8 g/dL (6.4-8.2) 11/23/18 04:56 Albumin 3.0 g/dL (3.4-5.0) L 11/23/18 04:56 Globulin 3.8 g/dL (2.5-4.5) 11/23/18 04:56 Albumin/Globulin Ratio 0.8 Ratio (1.1-2.1) L 11/23/18 04:56 Vitamin B12 391 pg/mL (193-986) 11/21/18 04:42 Folate 6.5 ng/mL (>8.6) L 11/21/18 04:42 Blood Type O POSITIVE 11/21/18 06:15 Antibody Screen Negative 11/21/18 06:15 Crossmatch See Detail 11/21/18 06:15 - Plan (1) Anemia Status: Acute Qualifiers: Plan: Continue CBC monitoring (2) Bronchopneumonia Status: Acute Plan: IV antibiotics, nebulizer treatments, repeat chest x-ray (3) Diabetes Status: Chronic Qualifiers: Diabetes mellitus type: type 2 Plan: monitor blood sugars with sliding scale coverage as needed (4) Hypertension Status: Chronic Plan: monitor blood pressure. Continue home medications (5) CAD (coronary artery disease) Status: Chronic (6) Gastric ulcer Status: Acute Plan: PPI
[2018-11-24 05:21] LABS: BASOPHILS % (AUTO) 0.6 % (0.2-1.0); EOSINOPHILS # (AUTO) 0.3 x10^3/uL (0.0-0.2); EOSINOPHILS % (AUTO) 4.4 % (0.9-2.9); HEMOGLOBIN 8.6 g/dL (13.5-18.0); LYMPHOCYTES # (AUTO) 1.6 X10^3/uL (1.3-2.9); LYMPHOCYTES % (AUTO) 21.3 % (21.0-51.0); MEAN CORPUSCULAR HEMOGLOBIN 22.4 pg (27.0-34.0); MEAN CORPUSCULAR HGB CONC 30.7 g/dL (33.0-35.0); MEAN CORPUSCULAR VOLUME 72.9 fL (80.0-100.0); MEAN PLATELET VOLUME 6.9 fL (7.4-11.0); MONOCYTES # (AUTO) 0.5 x10^3/uL (0.3-0.8); MONOCYTES % (AUTO) 6.2 % (0.0-13.0); NEUTROPHILS # (AUTO) 5.2 x10^3/uL (2.2-4.8); NEUTROPHILS % (AUTO) 67.5 % (42.0-75.0); PLATELET COUNT 236 X10^3/uL (150.0-450.0); RED BLOOD COUNT 3.83 X10^6/uL (4.7-6.0); RED CELL DISTRIBUTION WIDTH 21.8 % (11.6-16.5); WHITE BLOOD COUNT 7.7 X10^3/uL (3.6-10.0)
[2018-11-24 05:30] LABS: ALANINE AMINOTRANSFERASE 23 Units/L (12-78); ALBUMIN 3.1 g/dL (3.4-5.0); ALKALINE PHOSPHATASE 84 Units/L (46-116); ASPARTATE AMINO TRANSFERASE 17 Units/L (15-37); BLOOD UREA NITROGEN 9 mg/dL (7-18); CALCIUM 8.4 mg/dL (8.5-10.1); CARBON DIOXIDE 27.8 mmol/L (21-32); CHLORIDE 103 mmol/L (98-107); COR CA(FOR HYPOALB) 9.1 mg/dL (8.5-10.1); COR NA(FOR HYPERGLY) 141 mmol/L (136-145); CREATININE 0.68 mg/dL (0.70-1.30); SODIUM 140 mmol/L (136-145); TOTAL PROTEIN 6.9 g/dL (6.4-8.2); eGFR NON BLACK RACES > 60 (>60)
[2018-11-24 06:12] LABS: ANISOCYTOSIS 1+; HYPOCHROMASIA 1+; OVALOCYTES SLIGHT; PLATELET MORPHOLOGY COMMENT NORMAL (NORMAL)
[2018-11-24] MEDS: FORTAZ or TAZICEF VIAL INJ IVP SCH ×3 (06:19→21:23)
[2018-11-24] MEDS: DUONEB 0.5 MG/3 MG NEB SCH ×4 (09:04→19:59)
[2018-11-24] MEDS: FLOMAX PO SCH (09:18)
[2018-11-24] MEDS: ZyrTEC TAB 10 MG PO SCH (09:18)
[2018-11-24] MEDS: DETROL LA 4 MG CAP EXT REL PO SCH (09:18)
[2018-11-24] MEDS: ROBITUSSIN (PLAIN) PO SCH ×4 (09:18→21:02)
[2018-11-24] MEDS: LEVAQUIN PREMIX IV 500 MG 500 MG/100 ML BAG IV SCH (09:19)
[2018-11-24] MEDS: PROTONIX INJ 40 MG VIAL IVP SCH ×3 (09:19→21:18)
[2018-11-24] MEDS: ACCUPRIL PO SCH ×2 (09:26→21:36)
[2018-11-24] MEDS ORDERED: NS 100 ML IV 100 ML with VENOFER 400 MG IV SCH ×2 (11:00)
[2018-11-24] MEDS ORDERED: NS 100 ML IV 100 ML with VENOFER 400 MG IV NR ×2 (12:00)
[2018-11-24] MEDS ORDERED: LEVAQUIN TAB 500 MG ONE (14:54)
[2018-11-24] MEDS: LEVAQUIN TAB 500 MG PO SCH (14:55)
[2018-11-24] MEDS ORDERED: NS 1/2 1000 ML IV 1,000 ML ONE (20:24)
[2018-11-24] MEDS: COLACE CAP 100 MG PO SCH (21:10)
[2018-11-24] MEDS: ELAVIL PO SCH (21:12)
[2018-11-24] MEDS: PROCARDIA XL PO SCH (21:13)
[2018-11-24] MEDS: CYMBALTA PO SCH (21:13)
[2018-11-24] MEDS: LIPITOR TAB 40 MG PO SCH (21:14)
[2018-11-25 04:40] LABS: BASOPHILS % (AUTO) 0.5 % (0.2-1.0); EOSINOPHILS # (AUTO) 0.3 x10^3/uL (0.0-0.2); EOSINOPHILS % (AUTO) 3.9 % (0.9-2.9); HEMATOCRIT 27.5 % (42.0-54.0); HEMOGLOBIN 8.4 g/dL (13.5-18.0); LYMPHOCYTES # (AUTO) 2.4 X10^3/uL (1.3-2.9); LYMPHOCYTES % (AUTO) 35.7 % (21.0-51.0); MEAN CORPUSCULAR HEMOGLOBIN 22.3 pg (27.0-34.0); MEAN CORPUSCULAR HGB CONC 30.6 g/dL (33.0-35.0); MEAN PLATELET VOLUME 6.6 fL (7.4-11.0); MONOCYTES # (AUTO) 0.4 x10^3/uL (0.3-0.8); MONOCYTES % (AUTO) 6.3 % (0.0-13.0); NEUTROPHILS # (AUTO) 3.6 x10^3/uL (2.2-4.8); NEUTROPHILS % (AUTO) 53.6 % (42.0-75.0); PLATELET COUNT 220 X10^3/uL (150.0-450.0); RED BLOOD COUNT 3.77 X10^6/uL (4.7-6.0); RED CELL DISTRIBUTION WIDTH 22.1 % (11.6-16.5); WHITE BLOOD COUNT 6.7 X10^3/uL (3.6-10.0)
[2018-11-25 04:48] LABS: ALANINE AMINOTRANSFERASE 20 Units/L (12-78); ALKALINE PHOSPHATASE 80 Units/L (46-116); ASPARTATE AMINO TRANSFERASE 16 Units/L (15-37); BLOOD UREA NITROGEN 10 mg/dL (7-18); CALCIUM 7.9 mg/dL (8.5-10.1); CARBON DIOXIDE 29.2 mmol/L (21-32); CHLORIDE 105 mmol/L (98-107); COR CA(FOR HYPOALB) 8.7 mg/dL (8.5-10.1); COR NA(FOR HYPERGLY) 143 mmol/L (136-145); CREATININE 0.71 mg/dL (0.70-1.30); SODIUM 142 mmol/L (136-145); TOTAL PROTEIN 6.6 g/dL (6.4-8.2); eGFR NON BLACK RACES > 60 (>60)
[2018-11-25] MEDS: FORTAZ or TAZICEF VIAL INJ IVP SCH ×3 (05:21→22:00)
[2018-11-25] MEDS: KLOR-CON PO PRN (05:39)
[2018-11-25] MEDS ORDERED: NS 100 ML IV 100 ML with VENOFER 200 MG IV SCH ×2 (09:00)
[2018-11-25] MEDS: DUONEB 0.5 MG/3 MG NEB SCH ×4 (09:20→21:00)
[2018-11-25] MEDS: LEVAQUIN TAB 500 MG PO SCH (09:30)
[2018-11-25] MEDS: FLOMAX PO SCH (09:30)
[2018-11-25] MEDS: DETROL LA 4 MG CAP EXT REL PO SCH (09:30)
[2018-11-25] MEDS: ACCUPRIL PO SCH ×2 (09:30→21:34)
[2018-11-25] MEDS: ZyrTEC TAB 10 MG PO SCH (09:30)
[2018-11-25] MEDS: PROTONIX INJ 40 MG VIAL IVP SCH ×3 (09:30→21:15)
[2018-11-25] MEDS: ROBITUSSIN (PLAIN) PO SCH ×4 (09:30→21:36)
[2018-11-25] MEDS ORDERED: NS 1/2 1000 ML IV 1,000 ML ONE ×2 (20:35→21:29)
[2018-11-25] MEDS: NS 1/2 1000 ML IV 1,000 ML IV SCH ×3 (21:31→22:25)
[2018-11-25] MEDS: ELAVIL PO SCH (21:34)
[2018-11-25] MEDS: CYMBALTA PO SCH (21:34)
[2018-11-25] MEDS: PROCARDIA XL PO SCH (21:34)
[2018-11-25] MEDS: LIPITOR TAB 40 MG PO SCH (21:34)
[2018-11-25] MEDS: COLACE CAP 100 MG PO SCH (21:34)
[2018-11-26 05:13] LABS: BASOPHILS # (AUTO) 0.1 X10^3/uL (0.0-0.1); BASOPHILS % (AUTO) 0.8 % (0.2-1.0); EOSINOPHILS # (AUTO) 0.2 x10^3/uL (0.0-0.2); EOSINOPHILS % (AUTO) 3.3 % (0.9-2.9); HEMATOCRIT 27.3 % (42.0-54.0); HEMOGLOBIN 8.4 g/dL (13.5-18.0); LYMPHOCYTES # (AUTO) 2.9 X10^3/uL (1.3-2.9); MEAN CORPUSCULAR HEMOGLOBIN 22.4 pg (27.0-34.0); MEAN CORPUSCULAR HGB CONC 30.8 g/dL (33.0-35.0); MEAN CORPUSCULAR VOLUME 72.6 fL (80.0-100.0); MEAN PLATELET VOLUME 6.8 fL (7.4-11.0); MONOCYTES # (AUTO) 0.3 x10^3/uL (0.3-0.8); MONOCYTES % (AUTO) 4.8 % (0.0-13.0); NEUTROPHILS # (AUTO) 3.8 x10^3/uL (2.2-4.8); NEUTROPHILS % (AUTO) 52.1 % (42.0-75.0); PLATELET COUNT 236 X10^3/uL (150.0-450.0); RED BLOOD COUNT 3.76 X10^6/uL (4.7-6.0); RED CELL DISTRIBUTION WIDTH 22.7 % (11.6-16.5); WHITE BLOOD COUNT 7.3 X10^3/uL (3.6-10.0)
[2018-11-26 05:23] LABS: ALANINE AMINOTRANSFERASE 15 Units/L (12-78); ALBUMIN 2.9 g/dL (3.4-5.0); ALKALINE PHOSPHATASE 79 Units/L (46-116); ASPARTATE AMINO TRANSFERASE 17 Units/L (15-37); BLOOD UREA NITROGEN 9 mg/dL (7-18); CALCIUM 8.3 mg/dL (8.5-10.1); CARBON DIOXIDE 29.2 mmol/L (21-32); CHLORIDE 104 mmol/L (98-107); COR CA(FOR HYPOALB) 9.2 mg/dL (8.5-10.1); COR NA(FOR HYPERGLY) 143 mmol/L (136-145); CREATININE 0.72 mg/dL (0.70-1.30); SODIUM 142 mmol/L (136-145); TOTAL PROTEIN 6.6 g/dL (6.4-8.2); eGFR NON BLACK RACES > 60 (>60)
[2018-11-26] MEDS: FORTAZ or TAZICEF VIAL INJ IVP SCH ×2 (06:10→15:00)
[2018-11-26] MEDS: KLOR-CON PO PRN (06:25)
[2018-11-26] MEDS: DUONEB 0.5 MG/3 MG NEB SCH ×2 (09:17→12:02)
[2018-11-26] MEDS: DETROL LA 4 MG CAP EXT REL PO SCH (10:07)
[2018-11-26] MEDS: LEVAQUIN TAB 500 MG PO SCH (10:07)
[2018-11-26] MEDS: ZyrTEC TAB 10 MG PO SCH (10:07)
[2018-11-26] MEDS: FLOMAX PO SCH (10:07)
[2018-11-26] MEDS: ACCUPRIL PO SCH (10:07)
[2018-11-26] MEDS: ROBITUSSIN (PLAIN) PO SCH ×2 (10:08→15:00)
[2018-11-26] MEDS: PROTONIX INJ 40 MG VIAL IVP SCH ×2 (10:08→10:09)
[2018-11-26] MEDS ORDERED: NS 100 ML IV 100 ML with VENOFER 400 MG IV NR ×2 (14:00)
[2018-11-26 17:36] VITALS: BP 136/84
== END 2018-11-26 16:25 | disposition home or self-care (01) | DRG 193 ==
LOC: MED/SURG 16:43
PROVIDERS: ADMIT Internal Medicine; ATTEND Internal Medicine
DX: K25.9 Gastric ulcer, unspecified as acute or chronic, without hemorrhage or perforation; K21.9 Gastro-esophageal reflux disease without esophagitis; I25.10 Atherosclerotic heart disease of native coronary artery without angina pectoris; I10 Essential (primary) hypertension; D50.8 Other iron deficiency anemias; R06.02 Shortness of breath; K29.61 Other gastritis with bleeding; R53.1 Weakness; J18.0 Bronchopneumonia, unspecified organism; K20.8 Other esophagitis
CPT/HCPCS: 36415; 36430; 71010; 71020; 71045; 71046; 80053; 82607; 82728; 82746; 83540; 83735; 84132; 84466; 85025; 85045; 86850; 86900; 86901; 86922; 87040; 87070; 87205; 94640; 94669; 94760; 97161; 99100; A4217; A4222; C9113; P9016; J0713; J1756; J1940; J1956; J2704; J3490; J7050; J7620

== ENCOUNTER 2019-11-20 15:23 | Inpatient (IN) ==
[2019-11-20] MEDS ORDERED: BENADRYL CAP/TAB 25 MG PO ONE ×2 (17:42→20:05)
[2019-11-20] MEDS ORDERED: TYLENOL 325 MG TAB PO ONE ×2 (17:42→20:05)
[2019-11-20] MEDS ORDERED: LASIX IVP ONE (17:42)
[2019-11-20 18:07] LABS: BASOPHILS % (AUTO) 0.8 % (0.2-1.0); EOSINOPHILS # (AUTO) 0.1 x10^3/uL (0.0-0.2); EOSINOPHILS % (AUTO) 2.5 % (0.9-2.9); LYMPHOCYTES # (AUTO) 1.9 X10^3/uL (1.3-2.9); LYMPHOCYTES % (AUTO) 33.5 % (21.0-51.0); MEAN CORPUSCULAR HEMOGLOBIN 18.7 pg (27.0-34.0); MEAN CORPUSCULAR HGB CONC 27.7 g/dL (33.0-35.0); MEAN CORPUSCULAR VOLUME 67.4 fL (80.0-100.0); MEAN PLATELET VOLUME 7.4 fL (7.4-11.0); MONOCYTES # (AUTO) 0.3 x10^3/uL (0.3-0.8); MONOCYTES % (AUTO) 5.1 % (0.0-13.0); NEUTROPHILS # (AUTO) 3.3 x10^3/uL (2.2-4.8); NEUTROPHILS % (AUTO) 58.1 % (42.0-75.0); PLATELET COUNT 231 X10^3/uL (150.0-450.0); RED BLOOD COUNT 2.96 X10^6/uL (4.7-6.0); WHITE BLOOD COUNT 5.8 X10^3/uL (3.6-10.0)
[2019-11-20 18:09] LABS: HEMOGLOBIN 5.5 g/dL (13.5-18.0)
[2019-11-20 18:14] LABS: PLATELET MORPHOLOGY COMMENT NORMAL (NORMAL)
[2019-11-20 18:16] LABS: ANISOCYTOSIS SLIGHT; HYPOCHROMASIA 3+; MICROCYTOSIS 1+; OVALOCYTES PRESENT
[2019-11-20] MEDS ORDERED: AFLURIA II4 or FLUARIX II4 IM ONE (18:30)
[2019-11-20 18:41] LABS: ALANINE AMINOTRANSFERASE 26 Units/L (12-78); ALBUMIN 3.3 g/dL (3.4-5.0); ALKALINE PHOSPHATASE 90 Units/L (46-116); ASPARTATE AMINO TRANSFERASE 22 Units/L (15-37); BLOOD UREA NITROGEN 17 mg/dL (7-18); CALCIUM 8.6 mg/dL (8.5-10.1); CARBON DIOXIDE 27.4 mmol/L (21-32); CHLORIDE 104 mmol/L (98-107); COR CA(FOR HYPOALB) 9.2 mg/dL (8.5-10.1); COR NA(FOR HYPERGLY) 142 mmol/L (136-145); SODIUM 140 mmol/L (136-145); eGFR NON BLACK RACES > 60 (>60)
[2019-11-20] MEDS: NS 1000 ML 1,000 ML IV SCH (19:00)
[2019-11-20 19:15] LABS: IRON 13 ug/dL (50-175)
[2019-11-20 19:19] LABS: BILIRUBIN,URINE NEGATIVE (NEGATIVE); BLOOD/HEMOGLOBIN,URINE NEGATIVE (NEGATIVE); GLUCOSE, URINE NEGATIVE (NEGATIVE); KETONES,URINE 1+ (NEGATIVE); LEUKOCYTE ESTERASE ,URINE NEGATIVE (NEGATIVE); NITRITES,URINE NEGATIVE (NEGATIVE); PROTEIN,URINE 1+ (NEGATIVE); UROBILINOGEN,URINE NORMAL (NORMAL)
[2019-11-20 19:21] LABS: APPEARANCE,URINE CLEAR (CLEAR); COLOR,URINE YELLOW (YELLOW)
[2019-11-20 19:22] LABS: BACTERIA,URINE TRACE /HPF (NEGATIVE); MUCUS,URINE MODERATE /HPF (NEGATIVE); RBC,URINE 0-2 /HPF (0-3); SQUAMOUS EPITHELIAL CELL,UR RARE /HPF (NEGATIVE)
--- NOTE | 2019-11-20 20:21 | RAD ---
CHEST, PA/LAT ADULTHistory: anemia shortness of breathComparison: NoneFindings: Cardiac silhouette is enlarged without congestive failure. There are patchy opacities within the left lung base. Right lung is clear. No pleural effusion. No pneumothorax.Impression:Patchy left basilar opacities, suspicious for pneumonia. Clinical correlation and continued PA/lateral radiographic follow-up recommended.Electronically signed by: YAN MONTANEZ (Nov 20, 2019 20:20:41)
[2019-11-20] MEDS ORDERED: NS 250 ML IV 250 ML IV ONE (21:10)
[2019-11-20 22:22] VITALS: BMI 30.4
[2019-11-20] MEDS ORDERED: LASIX ONE (22:51)
[2019-11-21 05:24] LABS: BASOPHILS # (AUTO) 0.1 X10^3/uL (0.0-0.1); EOSINOPHILS # (AUTO) 0.2 x10^3/uL (0.0-0.2); EOSINOPHILS % (AUTO) 3.4 % (0.9-2.9); HEMATOCRIT 25.1 % (42.0-54.0); LYMPHOCYTES # (AUTO) 2.4 X10^3/uL (1.3-2.9); MEAN CORPUSCULAR HEMOGLOBIN 21.4 pg (27.0-34.0); MEAN CORPUSCULAR HGB CONC 29.9 g/dL (33.0-35.0); MEAN CORPUSCULAR VOLUME 71.5 fL (80.0-100.0); MEAN PLATELET VOLUME 7.2 fL (7.4-11.0); MONOCYTES # (AUTO) 0.4 x10^3/uL (0.3-0.8); NEUTROPHILS # (AUTO) 3.4 x10^3/uL (2.2-4.8); NEUTROPHILS % (AUTO) 52.6 % (42.0-75.0); PLATELET COUNT 215 X10^3/uL (150.0-450.0); RED BLOOD COUNT 3.51 X10^6/uL (4.7-6.0); RED CELL DISTRIBUTION WIDTH 21.2 % (11.6-16.5); WHITE BLOOD COUNT 6.4 X10^3/uL (3.6-10.0)
[2019-11-21 05:33] LABS: ALANINE AMINOTRANSFERASE 24 Units/L (12-78); ALBUMIN 3.3 g/dL (3.4-5.0); ALKALINE PHOSPHATASE 90 Units/L (46-116); ASPARTATE AMINO TRANSFERASE 21 Units/L (15-37); BLOOD UREA NITROGEN 15 mg/dL (7-18); CARBON DIOXIDE 26.9 mmol/L (21-32); CHLORIDE 103 mmol/L (98-107); COR CA(FOR HYPOALB) 8.6 mg/dL (8.5-10.1); COR NA(FOR HYPERGLY) 142 mmol/L (136-145); CREATININE 0.81 mg/dL (0.70-1.30); SODIUM 140 mmol/L (136-145); TOTAL PROTEIN 6.9 g/dL (6.4-8.2); eGFR NON BLACK RACES > 60 (>60)
[2019-11-21 05:43] LABS: HEMOGLOBIN 7.5 g/dL (13.5-18.0)
[2019-11-21 05:44] LABS: ANISOCYTOSIS 1+; HYPOCHROMASIA 2+; MICROCYTOSIS 1+; OVALOCYTES PRESENT; PLATELET MORPHOLOGY COMMENT NORMAL (NORMAL)
[2019-11-21] MEDS ORDERED: KLOR-CON PO PRN (05:53)
[2019-11-21] MEDS ORDERED: K-DUR TAB 20 MEQ PO PRN (05:53)
[2019-11-21] MEDS ORDERED: POTASSIUM CHL 40 MEQ/NS 0.45% 500 ML IV PRN (05:53)
[2019-11-21] MEDS ORDERED: MICRO K EXTEN CAP 10 MEQ PO PRN (05:53)
[2019-11-21] MEDS ORDERED: K-RIDER 10 MEQ/NS 100 ML 10 MEQ/100 ML BAG IV PRN (05:53)
[2019-11-21] MEDS ORDERED: POTASSIUM CHL 60 MEQ/NS 0.45% 500 ML IV PRN (05:53)
[2019-11-21] MEDS ORDERED: POTASSIUM CHLORIDE LIQ 20 MEQ UDC PO PRN (05:53)
[2019-11-21] MEDS ORDERED: KLOR-CON ONE (06:20)
[2019-11-21] MEDS ORDERED: MAGNESIUM SULFATE 1 GRAM/100 mL PREMIX 1 G/100 ML BAG IV ONE (06:21)
[2019-11-21] MEDS: MAGNESIUM SULFATE 1 GRAM/100 mL PREMIX 1 GM/100 ML BAG IV PRN ×2 (06:25→08:19)
[2019-11-21] MEDS ORDERED: PERCOCET TAB 5/325 MG PO PRN (08:37)
[2019-11-21] MEDS ORDERED: COLACE CAP 100 MG PO PRN (08:37)
[2019-11-21] MEDS ORDERED: NS 250 ML IV 250 ML IV ONE (09:46)
[2019-11-21] MEDS: PROTONIX TAB 40 MG PO SCH ×2 (09:47→20:00)
[2019-11-21] MEDS: ZyrTEC TAB 10 MG PO SCH (09:47)
[2019-11-21] MEDS: FLOMAX PO SCH (09:47)
[2019-11-21] MEDS: HEMOCYTE-PLUS PO SCH (09:51)
[2019-11-21] MEDS: DUONEB 0.5 MG/3 MG (3 mL) NEB SCH ×5 (09:56→21:15)
[2019-11-21] MEDS: FORTAZ or TAZICEF VIAL INJ 1 G in NS 100 ML IV + SPIKE MINIBAG* 100 ML IV SCH ×3 (10:18→22:39)
[2019-11-21] MEDS: QUINAPRIL 40 MG PO SCH ×2 (10:37→20:04)
--- NOTE | 2019-11-21 11:07 | DR.H&P ---
H&P - History & Physical for Day of: H&P Date: 11/20/19 - Chief Complaint Chief Complaint: ANEMIA, WEAKNESS, SOB - History of Present Illness History of Present Illness: IS A 79 YEAR OLD PATIENT OF OURS WHO PRESENTED TO THE HOSPITAL A DIRECT ADMISSION DUE TO COMPLAINTS OF INCREASED SHORTNESS OF BREATH, ELEVATED HEART RATE, AND ANEMIA. HIS PMH INCLUDES: CVA, TIA, HYPERLIPIDEMIA, HTN, GERD, PUD, CONSTIPATION, KIDNEY STONES, DIABETES. ON ARRIVAL TO THE HOSPITAL, VITALS WERE 98.7-86-20-100%-116/71. LABS WERE OBTAINED. ABNORMAL LAB VALUES INCLUDE THE FOLLOWING: RBC 2.96, HGB 5.5, HCT 20.0, GLUCOSE 167, IRON 13, FERRITIN 4, ALBUMIN 3.3. A URINALYSIS WAS OBTAINED AND REVEALED: WBC 0-2, RBC 0-2, LEUKOCYTES NEGATIVE, BACTERIA TRACE, MUCUS MODERATE. BLOOD CULTURES WERE SET UP. A CHEST XRAY WAS OBTAINED ON ADMISSION AND REVEALED: Patchy left basilar opacities, suspicious for pneumonia. WE TYPE AND SCREENED PATIENT FOR TWO UNITS OF PACKED RED BLOOD CELLS AND TRANSFUSED THROUGHOUT THE NIGHT. HE WAS STARTED ON NS AT KVO, DUONEBS QID, FORTAZ 1G IV Q8H, LEVAQUIN 500MG IV DAILY, THE POTASSIUM AND MAGNESIUM PROTOCOLS, AND HIS HOME MEDICATIONS WERE RESUMED. TODAY, WE WILL START HEMOCYTE PLUS 1 TABLET PO DAILY, TRANSFUSE TWO ADDITIONAL UNITS OF PRBC, AND CONSULT WITH , QA DEVELOPER. OTHERWISE, WE WILL FOLLOW UP WITH AM LABS AND CONTINUE TO MONITOR. - Past Medical History Past Medical History: Arthritis, CVA, Diabetes, Dyslipidemia, Hypertension Additional Medical History: TIA, Rheumatoid Athritis - Past Surgical History Surgical History: Other Additional Surgical History: Nasal Fracture with Surgical Repair - Family History Family Medical History: Hypertension - Social History Does patient currently use any type of tobacco product: No Have you used tobacco products in the last 12 months: No Type of Tobacco Use: None Does any household member use tobacco: No Alcohol Use: None Drug Use: None - Medications Home Medications: No Known Drug Allergies Allergy (Verified 11/20/19 18:58) CONTINUE taking the following medications aspirin 325 mg PO DAILY 11/20/19 [History] - Review of Systems Constitutional: Weakness Eyes: No Symptoms Reported ENT: No Symptoms Reported Respiratory: See HPI, Cough, Shortness of Breath, SOB with Excertion Cardiovascular: No Symptoms Reported Gastrointestinal: No Symptoms Reported Genitourinary: No Symptoms Reported Musculoskeletal: No Symptoms Reported Skin: No Symptoms Reported Neurological: Weakness - Physical Exam Vital Signs: Temperature 98.4 F Pulse Rate [Right Brachial] 96 Respiratory Rate 18 Blood Pressure [Right Arm] 169/90 Blood Pressure [Left Arm] 127/76 Blood Pressure 133/76 Oriented: Normal Eyes: Normal Ear: Normal Nose: Normal Throat: Normal Respiratory: Diminished Throughout Cardiovascular: Normal : Normal Auscultation: Bowel Sounds: Normal Palpation: Normal Tenderness: Normal Skin: Normal Musculoskeletal: Normal Psychiatric: Normal Mood Description: Calm Affect: Normal Speech Pattern: Clear - Assessment/Plan (1) Pneumonia Qualifiers: Pneumonia type: due to unspecified organism Laterality: left Lung location: lower lobe of lung Qualified Code(s): J18.9 - Pneumonia, unspecified organism Status: Acute Plan: ADMIT, NS AT [facility], DUONEBS QID, FORTAZ 1G IV Q8H, LEVAQUIN 500MG IV DAILY, THE POTASSIUM AND MAGNESIUM PROTOCOLS, AND HIS HOME MEDICATIONS WERE RESUMED, (2) Anemia Qualifiers: Anemia type: iron deficiency Iron deficiency anemia type: chronic blood loss Qualified Code(s): D50.0 - Iron deficiency anemia secondary to blood loss (chronic) Status: Acute Plan: TRANSFUSE TOTAL OF 4 UNITS PRBC, MONITOR H&H - Allergies Allergies/Adverse Reactions: Allergies Allergy/AdvReac Type Severity Reaction Status Date / Time No Known Drug Allergies Allergy Verified 11/20/19 18:58
[2019-11-21] MEDS: LEVAQUIN PREMIX IV 500 MG 500 MG/100 ML BAG IV SCH (17:19)
[2019-11-21] MEDS: NS 1000 ML 1,000 ML IV SCH (18:07)
[2019-11-21 18:54] LABS: HEMATOCRIT 34.6 % (42.0-54.0); HEMOGLOBIN 10.5 g/dL (13.5-18.0)
[2019-11-21] MEDS ORDERED: RESTORIL CAP 15 MG PO PRN (19:11)
[2019-11-21] MEDS ORDERED: LIPITOR TAB 40 MG ONE (19:51)
[2019-11-21] MEDS ORDERED: CYMBALTA PO ONE (19:51)
[2019-11-21] MEDS ORDERED: ELAVIL ONE (19:51)
[2019-11-21] MEDS ORDERED: ACCUPRIL PO ONE (19:52)
[2019-11-21] MEDS ORDERED: XANAX PO ONE (19:59)
[2019-11-21] MEDS ORDERED: LIPITOR TAB 40 MG PO SCH (21:00)
[2019-11-21] MEDS ORDERED: CYMBALTA PO SCH (21:00)
[2019-11-21] MEDS ORDERED: ELAVIL PO SCH (21:00)
[2019-11-22] MEDS: FORTAZ or TAZICEF VIAL INJ 1 G in NS 100 ML IV + SPIKE MINIBAG* 100 ML IV SCH (06:00)
[2019-11-22 06:16] LABS: BASOPHILS # (AUTO) 0.1 X10^3/uL (0.0-0.1); BASOPHILS % (AUTO) 0.8 % (0.2-1.0); EOSINOPHILS # (AUTO) 0.2 x10^3/uL (0.0-0.2); EOSINOPHILS % (AUTO) 3.6 % (0.9-2.9); HEMATOCRIT 29.9 % (42.0-54.0); HEMOGLOBIN 9.3 g/dL (13.5-18.0); LYMPHOCYTES # (AUTO) 2.3 X10^3/uL (1.3-2.9); LYMPHOCYTES % (AUTO) 33.4 % (21.0-51.0); MEAN CORPUSCULAR HEMOGLOBIN 22.5 pg (27.0-34.0); MEAN CORPUSCULAR VOLUME 72.5 fL (80.0-100.0); MONOCYTES # (AUTO) 0.4 x10^3/uL (0.3-0.8); NEUTROPHILS # (AUTO) 3.8 x10^3/uL (2.2-4.8); NEUTROPHILS % (AUTO) 56.2 % (42.0-75.0); PLATELET COUNT 200 X10^3/uL (150.0-450.0); RED BLOOD COUNT 4.13 X10^6/uL (4.7-6.0); RED CELL DISTRIBUTION WIDTH 21.2 % (11.6-16.5); WHITE BLOOD COUNT 6.8 X10^3/uL (3.6-10.0)
--- NOTE | 2019-11-22 06:19 | RAD ---
HISTORYSOBSTUDYCHEST, 1 [id number] is deviated to the right. Heart size is enlarged with moderate tortuosity and potentially ectasia of the thoracic aorta. There is improved aeration within the left lung base. Chronic interstitial lung changes are noted bilaterally without residual focal airspace consolidation. No pleural effusion or pneumothorax. Healed fracture deformities noted within the right posterior lateral ribs.IMPRESSIONCardiomegaly with tortuosity and/or ectasia of the thoracic aorta.Improved aeration of the left lung base without convincing residual focal airspace opacity or CHF.Electronically signed by: TELLY GUARDADO (Nov 22, 2019 06:18:34)
[2019-11-22 06:28] LABS: ALANINE AMINOTRANSFERASE 24 Units/L (12-78); ALBUMIN 3.1 g/dL (3.4-5.0); ALKALINE PHOSPHATASE 88 Units/L (46-116); ASPARTATE AMINO TRANSFERASE 19 Units/L (15-37); BLOOD UREA NITROGEN 13 mg/dL (7-18); CALCIUM 8.3 mg/dL (8.5-10.1); CARBON DIOXIDE 26.7 mmol/L (21-32); CHLORIDE 106 mmol/L (98-107); COR NA(FOR HYPERGLY) 142 mmol/L (136-145); CREATININE 0.81 mg/dL (0.70-1.30); MAGNESIUM 1.7 mg/dL (1.7-2.9); SODIUM 141 mmol/L (136-145); TOTAL PROTEIN 6.7 g/dL (6.4-8.2); eGFR NON BLACK RACES > 60 (>60)
[2019-11-22 06:39] LABS: ANISOCYTOSIS 1+; HYPOCHROMASIA 1+; MICROCYTOSIS SLIGHT; PLATELET MORPHOLOGY COMMENT NORMAL (NORMAL)
[2019-11-22] MEDS: LEVAQUIN PREMIX IV 500 MG 500 MG/100 ML BAG IV SCH (08:11)
[2019-11-22] MEDS: ZyrTEC TAB 10 MG PO SCH (08:12)
[2019-11-22] MEDS: PROTONIX TAB 40 MG PO SCH (08:12)
[2019-11-22] MEDS: FLOMAX PO SCH (08:12)
[2019-11-22] MEDS: HEMOCYTE-PLUS PO SCH (08:13)
[2019-11-22] MEDS: MAGNESIUM SULFATE 1 GRAM/100 mL PREMIX 1 GM/100 ML BAG IV PRN (08:13)
[2019-11-22] MEDS: DUONEB 0.5 MG/3 MG (3 mL) NEB SCH (08:48)
[2019-11-22] MEDS: QUINAPRIL 40 MG PO SCH (09:11)
[2019-11-22] MEDS ORDERED: MAG-OX TAB PO ONE (10:00)
[2019-11-22 12:37] VITALS: BP 130/80
[2019-11-22] MEDS ORDERED: ACCUPRIL PO SCH (21:00)
== END 2019-11-22 12:40 | disposition home or self-care (01) | DRG 194 ==
LOC: MED/SURG → OBSVTOIN 15:23
PROVIDERS: ADMIT Internal Medicine; ATTEND Internal Medicine
DX: I10 Essential (primary) hypertension; E11.8 Type 2 diabetes mellitus with unspecified complications; R06.02 Shortness of breath; R10.13 Epigastric pain; J18.9 Pneumonia, unspecified organism; D62 Acute posthemorrhagic anemia; E78.5 Hyperlipidemia, unspecified; Z86.73 Personal history of transient ischemic attack (TIA), and cerebral infarction without residual deficits
CPT/HCPCS: 36415; 36430; 71010; 71020; 71045; 71046; 80053; 81001; 82607; 82728; 82746; 83540; 83735; 84132; 84466; 85014; 85018; 85025; 86850; 86900; 86901; 86922; 87040; 94640; A4222; J0713; J1940; J1956; J3475; J3490; J7030; J7050; J7620; P9016

== ENCOUNTER 2020-10-14 11:13 | Inpatient (IN) ==
[2020-10-14] MEDS ORDERED: XOPENEX 1.25 MG/3 ML NEBULE NEB PRN ×2 (13:20→13:26)
[2020-10-14] MEDS ORDERED: TYLENOL 325 MG TAB PO ONE (13:49)
[2020-10-14] MEDS ORDERED: BENADRYL INJ 50 MG VIAL IVP ONE (13:49)
[2020-10-14 14:06] LABS: BASOPHILS % (AUTO) 0.7 % (0.2-1.0); EOSINOPHILS # (AUTO) 0.1 x10^3/uL (0.0-0.2); EOSINOPHILS % (AUTO) 0.9 % (0.9-2.9); HEMATOCRIT 21.2 % (42.0-54.0); LYMPHOCYTES # (AUTO) 2.2 X10^3/uL (1.3-2.9); LYMPHOCYTES % (AUTO) 35.5 % (21.0-51.0); MEAN CORPUSCULAR HGB CONC 28.1 g/dL (33.0-35.0); MEAN CORPUSCULAR VOLUME 67.4 fL (80.0-100.0); MEAN PLATELET VOLUME 6.8 fL (7.4-11.0); MONOCYTES # (AUTO) 0.3 x10^3/uL (0.3-0.8); MONOCYTES % (AUTO) 4.5 % (0.0-13.0); NEUTROPHILS # (AUTO) 3.5 x10^3/uL (2.2-4.8); NEUTROPHILS % (AUTO) 58.4 % (42.0-75.0); PLATELET COUNT 260 X10^3/uL (150.0-450.0); RED BLOOD COUNT 3.14 X10^6/uL (4.7-6.0); RED CELL DISTRIBUTION WIDTH 19.1 % (11.6-16.5); WHITE BLOOD COUNT 6.1 X10^3/uL (3.6-10.0)
[2020-10-14 14:22] VITALS: BMI 30.4
[2020-10-14 14:22] LABS: ALANINE AMINOTRANSFERASE 23 Units/L (12-78); ALBUMIN 3.4 g/dL (3.4-5.0); ALKALINE PHOSPHATASE 99 Units/L (46-116); ASPARTATE AMINO TRANSFERASE 14 Units/L (15-37); BLOOD UREA NITROGEN 18 mg/dL (7-18); CALCIUM 8.8 mg/dL (8.5-10.1); CARBON DIOXIDE 29.8 mmol/L (21-32); CHLORIDE 107 mmol/L (98-107); COR NA(FOR HYPERGLY) 146 mmol/L (136-145); CREATININE 0.79 mg/dL (0.70-1.30); SODIUM 144 mmol/L (136-145); TOTAL PROTEIN 7.2 g/dL (6.4-8.2); eGFR NON BLACK RACES > 60 (>60)
[2020-10-14 14:23] LABS: ANISOCYTOSIS 1+; HYPOCHROMASIA 2+; MICROCYTOSIS 1+; PLATELET MORPHOLOGY COMMENT NORMAL (NORMAL); POIKILOCYTOSIS SLIGHT
[2020-10-14] MEDS: PROTONIX INJ 40 MG VIAL IVP SCH ×2 (14:45→21:00)
[2020-10-14] MEDS: PEPCID 20 MG IV PREMIX* 20 MG/50 ML BAG IV SCH ×2 (14:45→21:00)
[2020-10-14] MEDS: NS 1000 ML 1,000 ML IV SCH (14:46)
[2020-10-14] MEDS ORDERED: NS 500 ML IV 500 ML IV PRN (14:59)
[2020-10-14 20:58] LABS: HEMATOCRIT 23.1 % (42.0-54.0)
[2020-10-14] MEDS: ACCUPRIL PO SCH (21:00)
[2020-10-14 21:03] LABS: HEMOGLOBIN 6.8 g/dL (13.5-18.0)
[2020-10-15] MEDS: NS 1000 ML 1,000 ML IV SCH ×2 (04:46→17:27)
[2020-10-15 05:26] LABS: BASOPHILS # (AUTO) 0.1 X10^3/uL (0.0-0.1); BASOPHILS % (AUTO) 1.1 % (0.2-1.0); EOSINOPHILS # (AUTO) 0.1 x10^3/uL (0.0-0.2); EOSINOPHILS % (AUTO) 1.7 % (0.9-2.9); HEMATOCRIT 23.7 % (42.0-54.0); HEMOGLOBIN 7.3 g/dL (13.5-18.0); LYMPHOCYTES # (AUTO) 1.8 X10^3/uL (1.3-2.9); LYMPHOCYTES % (AUTO) 24.2 % (21.0-51.0); MEAN CORPUSCULAR HGB CONC 30.8 g/dL (33.0-35.0); MEAN CORPUSCULAR VOLUME 71.5 fL (80.0-100.0); MONOCYTES # (AUTO) 0.5 x10^3/uL (0.3-0.8); MONOCYTES % (AUTO) 6.2 % (0.0-13.0); NEUTROPHILS % (AUTO) 66.8 % (42.0-75.0); PLATELET COUNT 237 X10^3/uL (150.0-450.0); RED BLOOD COUNT 3.31 X10^6/uL (4.7-6.0); RED CELL DISTRIBUTION WIDTH 23.2 % (11.6-16.5); WHITE BLOOD COUNT 7.4 X10^3/uL (3.6-10.0)
[2020-10-15 05:39] LABS: ALANINE AMINOTRANSFERASE 21 Units/L (12-78); ALBUMIN 3.2 g/dL (3.4-5.0); ALKALINE PHOSPHATASE 93 Units/L (46-116); ASPARTATE AMINO TRANSFERASE 14 Units/L (15-37); BLOOD UREA NITROGEN 15 mg/dL (7-18); CALCIUM 8.3 mg/dL (8.5-10.1); CARBON DIOXIDE 26.2 mmol/L (21-32); CHLORIDE 109 mmol/L (98-107); COR CA(FOR HYPOALB) 8.9 mg/dL (8.5-10.1); COR NA(FOR HYPERGLY) 145 mmol/L (136-145); CREATININE 0.67 mg/dL (0.70-1.30); SODIUM 144 mmol/L (136-145); TOTAL PROTEIN 6.6 g/dL (6.4-8.2); eGFR NON BLACK RACES > 60 (>60)
[2020-10-15 06:10] LABS: ANISOCYTOSIS 2+; HYPOCHROMASIA 1+; PLATELET MORPHOLOGY COMMENT NORMAL (NORMAL)
[2020-10-15 06:11] LABS: MICROCYTOSIS SLIGHT
--- NOTE | 2020-10-15 10:17 | DR.H&P ---
H&P - History & Physical for Day of: H&P Date: 10/14/20 - Chief Complaint Chief Complaint: weakness, sob, anemia - History of Present Illness History of Present Illness: IS A 79 YEAR OLD PATIENT OF OURS WHO PRESENTED TO THE HOSPITAL A DIRECT ADMISSION DUE TO COMPLAINTS OF INCREASED SHORTNESS OF BREATH, WEAKNESS, AND ANEMIA. OUTPATIENT LABS WERE OBTAINED IN THE OFFICE AND REVEALED A LOW HEMOGLOBIN OF 6.0. HIS PMH INCLUDES: CVA, TIA, HYPERLIPIDEMIA, HTN, GERD, PUD, CONSTIPATION, KIDNEY STONES, DIABETES. HE HAD A COLONOSCOPY ON 02/27/2020 WHICH REVEALED COLON POLYPS, ONE IN TRANSVERSE COLON REQUIRING PIECE MEAL POLYPECTOMY, SIGMOID DIVERTICULOSIS, AND INTERNAL HEMORRHOIDS. EGD ON 01/30/2020 REVEALED EROSIVE GASTRITIS AND MILD DISTAL ESOPHAGITIS. FAMILY REPORTS THAT THEY BELIEVE HIS HAS A HISTORY OF AVMs. ON ARRIVAL TO THE HOSPITAL, VITALS WERE 98.3-95-20-100%-141/91. LABS WERE OBTAINED. ABNORMAL LAB VALUES INCLUDE THE FOLLOWING: LABS WERE OBTAINED. ABNORMAL LAB VALUES INCLUDE THE FOLLOWING: RBC 3.14, HGB 6.0, HCT 21.2, GLUCOSE 168, AST 14. COVID-19 NEGATIVE. WE TYPED AND SCREENED PATIENT FOR TWO UNITS OF PACKED RED BLOOD CELLS AND TRANSFUSED THROUGHOUT YESTERDAY AFTERNOON AND LAST NIGHT. TODAY, HIS HEMOGLOBIN IS 7.3, HCT 23.7. HE WAS STARTED ON NS AT 50 ML/HR, PEPCID 20MG IV Q12H, PROTONIX 40MG IV BID, AND HOME MEDICATIONS WERE RESUMED. TODAY, WE WILL TRANSFUSE TWO ADDITIONAL UNITS OF PRBC WHEN THEY BECOME AVAILABLE. OTHERWISE, WE WILL FOLLOW UP WITH AM LABS AND CONTINUE TO MONITOR. TIME SPENT ON CLINICAL ASSESSMENT, REVIEWING LABS AND IMAGING, DECISION MAKING, AND DOCUMENTATION GREATER THAN 75 MINUTES. 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) Have you used tobacco products in the last 12 months: No Type of Tobacco Use: None Does any household member use tobacco: No Alcohol Use: None Drug Use: None - Medications Home Medications: No Known Drug Allergies Allergy (Verified 02/27/20 08:00) - Review of Systems Constitutional: Weakness Eyes: No Symptoms Reported ENT: No Symptoms Reported Respiratory: Shortness of Breath Cardiovascular: No Symptoms Reported Gastrointestinal: No Symptoms Reported Genitourinary: No Symptoms Reported Musculoskeletal: No Symptoms Reported Skin: No Symptoms Reported Neurological: Weakness - Physical Exam Vital Signs: Temperature 98.3 F Pulse Rate 95 Respiratory Rate 20 Blood Pressure [Right Arm] 130/80 Blood Pressure [Left Arm] 127/76 Blood Pressure 170/91 O2 Sat by Pulse Oximetry 97 Oriented: Normal Eyes: Normal Ear: Normal Nose: Normal Throat: Normal Respiratory: Diminished Throughout Cardiovascular: Normal : Normal Auscultation: Bowel Sounds: Normal Palpation: Normal Tenderness: Normal Skin: Normal Musculoskeletal: Normal Psychiatric: Normal Mood Description: Calm Affect: Normal Speech Pattern: Clear - Assessment/Plan (1) Anemia Qualifiers: Anemia type: iron deficiency Iron deficiency anemia type: chronic blood loss Qualified Code(s): D50.0 - Iron deficiency anemia secondary to blood loss (chronic) Status: Acute Plan: ADMIT, NS AT 50 ML/HR, PEPCID 20MG IV Q12H, PROTONIX 40MG IV BID, AND HOME MEDICATIONS WERE RESUMED. TRANSFUSE 2 ADDITIONAL UNITS OF PRBC - Allergies Allergies/Adverse Reactions: Allergies Allergy/AdvReac Type Severity Reaction Status Date / Time No Known Drug Allergies Allergy Verified 02/27/20 08:00
[2020-10-15] MEDS ORDERED: KLONOPIN TAB 0.5 MG PO PRN (10:30)
[2020-10-15] MEDS: ACCUPRIL PO SCH ×2 (11:00→22:00)
[2020-10-15] MEDS: FLOMAX PO SCH (11:00)
[2020-10-15] MEDS: PROTONIX INJ 40 MG VIAL IVP SCH ×2 (11:00→22:00)
[2020-10-15] MEDS: PEPCID 20 MG IV PREMIX* 20 MG/50 ML BAG IV SCH ×2 (11:01→22:00)
[2020-10-15] MEDS: PERCOCET TAB 5/325 MG PO PRN (15:54)
[2020-10-15] MEDS ORDERED: ELAVIL PO SCH (21:00)
[2020-10-15] MEDS ORDERED: ZyrTEC TAB 10 MG PO SCH (21:00)
[2020-10-15 23:56] LABS: HEMOGLOBIN 8.8 g/dL (13.5-18.0)
[2020-10-16] MEDS: PERCOCET TAB 5/325 MG PO PRN (03:55)
[2020-10-16 05:48] LABS: ALANINE AMINOTRANSFERASE 20 Units/L (12-78); ALBUMIN 3.1 g/dL (3.4-5.0); ALKALINE PHOSPHATASE 100 Units/L (46-116); ASPARTATE AMINO TRANSFERASE 12 Units/L (15-37); BLOOD UREA NITROGEN 16 mg/dL (7-18); CALCIUM 8.6 mg/dL (8.5-10.1); CARBON DIOXIDE 30.8 mmol/L (21-32); CHLORIDE 109 mmol/L (98-107); COR CA(FOR HYPOALB) 9.3 mg/dL (8.5-10.1); COR NA(FOR HYPERGLY) 146 mmol/L (136-145); CREATININE 0.82 mg/dL (0.70-1.30); SODIUM 145 mmol/L (136-145); TOTAL PROTEIN 6.6 g/dL (6.4-8.2); eGFR NON BLACK RACES > 60 (>60)
[2020-10-16 06:12] LABS: BASOPHILS # (AUTO) 0.1 X10^3/uL (0.0-0.1); EOSINOPHILS # (AUTO) 0.3 x10^3/uL (0.0-0.2); EOSINOPHILS % (AUTO) 3.5 % (0.9-2.9); HEMATOCRIT 29.3 % (42.0-54.0); LYMPHOCYTES # (AUTO) 1.9 X10^3/uL (1.3-2.9); LYMPHOCYTES % (AUTO) 25.4 % (21.0-51.0); MEAN CORPUSCULAR HGB CONC 30.7 g/dL (33.0-35.0); MEAN CORPUSCULAR VOLUME 74.7 fL (80.0-100.0); MEAN PLATELET VOLUME 7.3 fL (7.4-11.0); MONOCYTES # (AUTO) 0.5 x10^3/uL (0.3-0.8); NEUTROPHILS # (AUTO) 4.9 x10^3/uL (2.2-4.8); NEUTROPHILS % (AUTO) 64.1 % (42.0-75.0); PLATELET COUNT 229 X10^3/uL (150.0-450.0); RED BLOOD COUNT 3.92 X10^6/uL (4.7-6.0); RED CELL DISTRIBUTION WIDTH 23.8 % (11.6-16.5); WHITE BLOOD COUNT 7.6 X10^3/uL (3.6-10.0)
[2020-10-16 06:56] LABS: ANISOCYTOSIS 2+; HYPOCHROMASIA 1+; PLATELET MORPHOLOGY COMMENT NORMAL (NORMAL)
[2020-10-16] MEDS: NS 1000 ML 1,000 ML IV SCH (08:09)
[2020-10-16] MEDS: ACCUPRIL PO SCH (08:20)
[2020-10-16] MEDS: FLOMAX PO SCH (08:20)
[2020-10-16] MEDS: PEPCID 20 MG IV PREMIX* 20 MG/50 ML BAG IV SCH (08:20)
[2020-10-16] MEDS: PROTONIX INJ 40 MG VIAL IVP SCH (08:20)
--- NOTE | 2020-10-16 09:24 | W.DIS.FURT ---
Summary of Discharge Admission Diagnosis Patient Problems (Updated 10/15/20 @ 10:17 by Len Mendez) Anemia (Acute) D64.9 Vital Signs: Vital Signs (72 hours) 10/14/20 13:00 10/14/20 13:30 10/14/20 13:34 Temperature Pulse Rate 95 H 56 L Respiratory Rate 20 20 Blood Pressure 141/91 142/86 O2 Sat by Pulse Oximetry 100 94 L 94 L 10/14/20 14:29 10/14/20 14:30 10/14/20 14:45 Temperature 98 F Pulse Rate 94 H 98 H Respiratory Rate 22 22 21 Blood Pressure O2 Sat by Pulse Oximetry 99 100 97 10/14/20 15:00 10/14/20 15:15 10/14/20 15:30 Temperature Pulse Rate 97 H 100 H 104 H Respiratory Rate 22 22 21 Blood Pressure 151/81 O2 Sat by Pulse Oximetry 99 97 100 10/14/20 15:31 10/14/20 15:45 10/14/20 15:56 Temperature Pulse Rate 101 H 98 H Respiratory Rate 20 26 H 18 Blood Pressure 167/96 O2 Sat by Pulse Oximetry 100 100 10/14/20 16:00 10/14/20 16:01 10/14/20 16:10 Temperature Pulse Rate 101 H 104 H 96 H Respiratory Rate 22 26 H 22 Blood Pressure 156/91 168/91 O2 Sat by Pulse Oximetry 100 100 100 10/14/20 16:15 10/14/20 16:30 10/14/20 16:31 Temperature Pulse Rate 103 H 94 H Respiratory Rate 38 H 33 H 19 Blood Pressure O2 Sat by Pulse Oximetry 100 100 10/14/20 16:45 10/14/20 17:00 10/14/20 17:14 Temperature Pulse Rate 97 H 100 H 93 H Respiratory Rate 24 20 21 Blood Pressure 160/79 157/82 O2 Sat by Pulse Oximetry 99 99 99 10/14/20 17:15 10/14/20 17:30 10/14/20 17:45 Temperature Pulse Rate 102 H 100 H 104 H Respiratory Rate 22 21 21 Blood Pressure O2 Sat by Pulse Oximetry 100 99 99 10/14/20 18:01 10/14/20 18:08 10/14/20 18:11 Temperature Pulse Rate 105 H 107 H 95 H Respiratory Rate 30 H 25 H 22 Blood Pressure 172/98 162/124 152/96 O2 Sat by Pulse Oximetry 100 100 100 10/14/20 19:00 10/14/20 20:00 10/14/20 21:00 Temperature 98.4 F Pulse Rate 100 H 109 H 107 H Respiratory Rate 19 22 18 Blood Pressure 165/94 179/81 179/97 O2 Sat by Pulse Oximetry 97 100 98 10/14/20 22:00 10/14/20 23:00 10/14/20 23:02 Temperature Pulse Rate 91 H 95 H 116 H Respiratory Rate 24 21 Blood Pressure 176/90 169/84 O2 Sat by Pulse Oximetry 98 98 98 10/15/20 00:00 10/15/20 01:00 10/15/20 01:44 Temperature 98.2 F Pulse Rate 90 80 83 Respiratory Rate 22 24 23 Blood Pressure 132/65 144/76 O2 Sat by Pulse Oximetry 94 L 98 99 10/15/20 01:45 10/15/20 02:00 10/15/20 02:15 Temperature Pulse Rate 81 84 86 Respiratory Rate 26 H 24 22 Blood Pressure 142/86 O2 Sat by Pulse Oximetry 100 100 99 10/15/20 02:31 10/15/20 02:45 10/15/20 02:46 Temperature Pulse Rate 93 H 96 H 80 Respiratory Rate 26 H 35 H 26 H Blood Pressure 158/89 O2 Sat by Pulse Oximetry 99 98 99 10/15/20 02:47 10/15/20 02:50 10/15/20 03:00 Temperature Pulse Rate 94 H 83 88 Respiratory Rate 24 24 21 Blood Pressure 171/99 166/98 162/86 O2 Sat by Pulse Oximetry 100 97 95 10/15/20 03:15 10/15/20 03:30 10/15/20 03:45 Temperature Pulse Rate 89 91 H 92 H Respiratory Rate 31 H 20 Blood Pressure O2 Sat by Pulse Oximetry 98 94 L 10/15/20 04:00 10/15/20 04:15 10/15/20 04:16 Temperature 98.1 F Pulse Rate 97 H 98 H 100 H Respiratory Rate 25 H 23 22 Blood Pressure 160/92 175/99 O2 Sat by Pulse Oximetry 97 99 100 10/15/20 04:20 10/15/20 04:25 10/15/20 04:30 Temperature Pulse Rate 91 H 98 H 92 H Respiratory Rate 24 19 23 Blood Pressure 160/92 151/103 O2 Sat by Pulse Oximetry 100 100 96 10/15/20 04:31 10/15/20 04:32 10/15/20 04:45 Temperature Pulse Rate 99 H 100 H 95 H Respiratory Rate 29 H 28 H 24 Blood Pressure 153/108 166/99 O2 Sat by Pulse Oximetry 96 99 10/15/20 05:00 10/15/20 05:15 10/15/20 05:30 Temperature Pulse Rate 94 H 93 H 90 Respiratory Rate 21 20 19 Blood Pressure O2 Sat by Pulse Oximetry 10/15/20 05:45 10/15/20 06:00 10/15/20 06:15 Temperature Pulse Rate 92 H 112 H 79 Respiratory Rate 21 27 H 21 Blood Pressure O2 Sat by Pulse Oximetry 10/15/20 06:30 10/15/20 06:45 10/15/20 07:00 Temperature Pulse Rate 88 101 H 103 H Respiratory Rate 21 29 H 21 Blood Pressure O2 Sat by Pulse Oximetry 10/15/20 07:16 10/15/20 07:26 10/15/20 07:30 Temperature Pulse Rate 108 H 99 H 94 H Respiratory Rate 26 H 27 H 21 Blood Pressure 170/91 O2 Sat by Pulse Oximetry 91 L 10/15/20 07:45 10/15/20 08:00 10/15/20 08:15 Temperature 98.3 F Pulse Rate 103 H 100 H 107 H Respiratory Rate 19 19 50 H Blood Pressure O2 Sat by Pulse Oximetry 10/15/20 08:24 10/15/20 08:30 10/15/20 08:45 Temperature Pulse Rate 108 H 108 H 95 H Respiratory Rate 20 20 Blood Pressure O2 Sat by Pulse Oximetry 97 10/15/20 09:00 10/15/20 09:15 10/15/20 09:30 Temperature Pulse Rate 98 H 95 H 102 H Respiratory Rate 14 20 21 Blood Pressure O2 Sat by Pulse Oximetry 10/15/20 09:45 10/15/20 10:00 10/15/20 10:15 Temperature Pulse Rate 99 H 89 89 Respiratory Rate 22 18 17 Blood Pressure O2 Sat by Pulse Oximetry 10/15/20 10:30 10/15/20 10:45 10/15/20 11:00 Temperature Pulse Rate 84 84 100 H Respiratory Rate 15 23 21 Blood Pressure O2 Sat by Pulse Oximetry 10/15/20 11:15 10/15/20 11:30 10/15/20 11:45 Temperature Pulse Rate 91 H 80 105 H Respiratory Rate 22 15 35 H Blood Pressure O2 Sat by Pulse Oximetry 10/15/20 11:51 10/15/20 12:02 10/15/20 12:15 Temperature 98.3 F Pulse Rate 84 82 Respiratory Rate 17 13 Blood Pressure 145/87 O2 Sat by Pulse Oximetry 10/15/20 12:30 10/15/20 12:45 10/15/20 13:00 Temperature Pulse Rate 80 88 97 H Respiratory Rate 19 20 31 H Blood Pressure O2 Sat by Pulse Oximetry 10/15/20 13:15 10/15/20 15:54 10/15/20 16:54 Temperature Pulse Rate 101 H Respiratory Rate 26 H 18 18 Blood Pressure O2 Sat by Pulse Oximetry 10/15/20 17:03 10/15/20 17:04 10/15/20 17:15 Temperature Pulse Rate 82 90 94 H Respiratory Rate Blood Pressure 145/83 O2 Sat by Pulse Oximetry 96 95 93 L 10/15/20 18:20 10/15/20 21:00 10/15/20 21:20 Temperature Pulse Rate 86 74 84 Respiratory Rate 20 Blood Pressure 144/79 O2 Sat by Pulse Oximetry 96 98 95 10/16/20 00:00 10/16/20 00:06 10/16/20 00:15 Temperature 98.1 F Pulse Rate 86 86 84 Respiratory Rate 21 Blood Pressure 165/91 165/91 O2 Sat by Pulse Oximetry 99 99 98 10/16/20 00:30 10/16/20 00:45 10/16/20 01:00 Temperature Pulse Rate 85 83 86 Respiratory Rate Blood Pressure O2 Sat by Pulse Oximetry 97 99 93 L 10/16/20 01:01 10/16/20 01:18 10/16/20 01:30 Temperature Pulse Rate 88 91 H 85 Respiratory Rate Blood Pressure 152/91 O2 Sat by Pulse Oximetry 96 97 100 10/16/20 01:45 10/16/20 02:00 10/16/20 02:01 Temperature Pulse Rate 78 79 77 Respiratory Rate Blood Pressure 133/68 O2 Sat by Pulse Oximetry 99 100 100 10/16/20 02:15 10/16/20 02:30 10/16/20 02:45 Temperature Pulse Rate 79 96 H 75 Respiratory Rate Blood Pressure O2 Sat by Pulse Oximetry 100 96 99 10/16/20 03:00 10/16/20 03:15 10/16/20 03:30 Temperature Pulse Rate 81 82 83 Respiratory Rate Blood Pressure O2 Sat by Pulse Oximetry 99 99 96 10/16/20 03:41 10/16/20 03:55 10/16/20 04:00 Temperature 98.2 F Pulse Rate 82 77 Respiratory Rate 22 19 Blood Pressure 156/96 171/97 O2 Sat by Pulse Oximetry 98 100 10/16/20 04:02 10/16/20 04:15 10/16/20 04:30 Temperature Pulse Rate 79 84 Respiratory Rate Blood Pressure 171/97 O2 Sat by Pulse Oximetry 100 100 10/16/20 04:45 10/16/20 04:55 10/16/20 05:00 Temperature Pulse Rate 85 84 Respiratory Rate 19 Blood Pressure O2 Sat by Pulse Oximetry 100 99 10/16/20 05:01 10/16/20 05:02 10/16/20 05:03 Temperature Pulse Rate 84 84 80 Respiratory Rate Blood Pressure 189/101 178/108 179/93 O2 Sat by Pulse Oximetry 100 100 100 10/16/20 05:15 10/16/20 05:30 10/16/20 05:45 Temperature Pulse Rate 83 81 75 Respiratory Rate Blood Pressure O2 Sat by Pulse Oximetry 100 100 100 10/16/20 06:00 10/16/20 06:01 10/16/20 06:15 Temperature Pulse Rate 70 75 78 Respiratory Rate Blood Pressure 134/69 O2 Sat by Pulse Oximetry 100 100 100 10/16/20 06:30 10/16/20 06:45 10/16/20 07:00 Temperature Pulse Rate 88 80 75 Respiratory Rate Blood Pressure 140/70 O2 Sat by Pulse Oximetry 100 97 100 10/16/20 07:15 10/16/20 07:30 10/16/20 07:45 Temperature Pulse Rate 74 71 75 Respiratory Rate Blood Pressure O2 Sat by Pulse Oximetry 100 100 100 10/16/20 08:00 Temperature 98 F Pulse Rate Respiratory Rate Blood Pressure 126/66 O2 Sat by Pulse Oximetry Labs: Laboratory Last Values WBC 7.6 X10^3/uL (3.6-10.0) 10/16/20 05:05 RBC 3.92 X10^6/uL (4.7-6.0) L 10/16/20 05:05 Hgb 9.0 g/dL (13.5-18.0) L 10/16/20 05:05 Hct 29.3 % (42.0-54.0) L 10/16/20 05:05 MCV 74.7 fL (80.0-100.0) L 10/16/20 05:05 MCH 23.0 pg (27.0-34.0) L 10/16/20 05:05 MCHC 30.7 g/dL (33.0-35.0) L 10/16/20 05:05 RDW 23.8 % (11.6-16.5) H 10/16/20 05:05 Plt Count 229 X10^3/uL (150.0-450.0) 10/16/20 05:05 Plt Count Comment Adequate (ADEQUATE) 10/16/20 05:05 MPV 7.3 fL (7.4-11.0) L 10/16/20 05:05 Neut % (Auto) 64.1 % (42.0-75.0) 10/16/20 05:05 Lymph % (Auto) 25.4 % (21.0-51.0) 10/16/20 05:05 Door % (Auto) 6.0 % (0.0-13.0) 10/16/20 05:05 Eos % (Auto) 3.5 % (0.9-2.9) H 10/16/20 05:05 Baso % (Auto) 1.0 % (0.2-1.0) 10/16/20 05:05 Neut # (Auto) 4.9 x10^3/uL (2.2-4.8) H 10/16/20 05:05 Lymph # (Auto) 1.9 X10^3/uL (1.3-2.9) 10/16/20 05:05 Door # (Auto) 0.5 x10^3/uL (0.3-0.8) 10/16/20 05:05 Eos # (Auto) 0.3 x10^3/uL (0.0-0.2) H 10/16/20 05:05 Baso # (Auto) 0.1 X10^3/uL (0.0-0.1) 10/16/20 05:05 Absolute Nucleated RBC 0.1 /100WBC 10/16/20 05:05 Plt Morphology Comment Normal (NORMAL) 10/16/20 05:05 RBC Morphology Abnormal (NORMAL) 10/16/20 05:05 Hypochromasia 1+ A 10/16/20 05:05 Poikilocytosis Slight A 10/14/20 13:40 Anisocytosis 2+ A 10/16/20 05:05 Microcytosis Slight A 10/15/20 04:55 Sodium 145 mmol/L (136-145) 10/16/20 05:05 Corrected Sodium 146 mmol/L (136-145) H 10/16/20 05:05 Potassium 3.8 mmol/L (3.5-5.1) 10/16/20 05:05 Chloride 109 mmol/L (98-107) H 10/16/20 05:05 Carbon Dioxide 30.8 mmol/L (21-32) 10/16/20 05:05 BUN 16 mg/dL (7-18) 10/16/20 05:05 Creatinine 0.82 mg/dL (0.70-1.30) 10/16/20 05:05 Est GFR (MDRD) Af Amer > 60 (>60) 10/16/20 05:05 Est GFR (MDRD) Non-Af > 60 (>60) 10/16/20 05:05 Glucose 153 mg/dL (65-99) H 10/16/20 05:05 Calcium 8.6 mg/dL (8.5-10.1) 10/16/20 05:05 Corrected Calcium 9.3 mg/dL (8.5-10.1) 10/16/20 05:05 Total Bilirubin 0.30 mg/dL (0.2-1.0) 10/16/20 05:05 AST 12 Units/L (15-37) L 10/16/20 05:05 ALT 20 Units/L (12-78) 10/16/20 05:05 Alkaline Phosphatase 100 Units/L (46-116) 10/16/20 05:05 Total Protein 6.6 g/dL (6.4-8.2) 10/16/20 05:05 Albumin 3.1 g/dL (3.4-5.0) L 10/16/20 05:05 Globulin 3.5 g/dL (2.5-4.5) 10/16/20 05:05 Albumin/Globulin Ratio 0.9 Ratio (1.1-2.1) L 10/16/20 05:05 Stool Description 10g brn unformed 10/15/20 09:52 Stl Occult Blood (IFOB) Positive (NEGATIVE) A 10/15/20 09:52 SARS CoV-2 RNA Rapid MATTHEW Negative (NEGATIVE) 10/14/20 12:24 Blood Type O POSITIVE 10/14/20 13:40 Antibody Screen Negative 10/14/20 13:40 Crossmatch See Detail 10/14/20 13:40 Reason For Visit: ANEMIA, WEAKNESS Discharge Diagnosis All Active Problems (Updated 10/15/20 @ 10:17 by Len Mendez) Muscle weakness (generalized) (Acute) Anemia (Acute) Diabetes (Chronic) Hypertension (Chronic) CAD (coronary artery disease) (Chronic) CVA (cerebral vascular accident) (Chronic) History of CVA (cerebrovascular accident) (Chronic) History of TIA (transient ischemic attack) (Chronic) Rheumatoid arthritis (Chronic) Hyperlipidemia (Chronic) TIA (transient ischemic attack) (Chronic) Depression (Chronic) Insomnia (Chronic) Overactive bladder (Chronic) Plan of Treatment: Continue with present treatment and follow up plan. Pt is to keep follow up appointment as instructed and take medications as ordered. Discharge Medications Discharge Medications: No Known Drug Allergies Allergy (Verified 02/27/20 08:00) Discharge Plan Discharge Plan Patient Disposition: 01 HOME, SELF-CARE Condition: Stable Health Concerns: Post Hospitalization: new medications and changes needed to prevent readmission or further decline. Pt educated and given instructions on all concerns. Plan of Treatment: Continue with present treatment and follow up plan. Pt is to keep follow up appointment as instructed and take medications as ordered. Prescription drug monitoring program results: PDMP reviewed and no concerns identified Prescriptions: Continued quinapril [Accupril] 40 MG tablet 40 mg PO BID RF: 0 amitriptyline 25 MG tablet 25 mg PO HS RF: 0 cetirizine 10 mg Tablet 10 mg PO HS RF: 0 oxycodone-acetaminophen 10-325 mg Tablet 1 tab PO QID PRN (Reason: Pain) RF: 0 tamsulosin 0.4 mg capsule 0.4 mg PO DAILY RF: 0 docusate sodium 100 MG capsule 100 mg PO BID PRN (Reason: Constipation) RF: 0 pantoprazole [Protonix] 40 mg Tablet,Delayed Release (Dr/Ec) 40 mg PO BID Qty: 60 RF: 3 aspirin 325 mg tablet,delayed release (DR/EC) 325 mg PO DAILY RF: 0 Follow ups/Referrals Follow ups/Referrals: Len Mendez [Primary Care Provider] - 1 WEEK YULIA REDDY [STAFF PHYSICIAN] - 1 WEEK Instructions Stand Alone Forms: Excuse From Work or School, Precautions for COVID19, Patient Portal, Social Distancing
[2020-10-16 13:48] VITALS: BP 145/85
== END 2020-10-16 13:30 | disposition home or self-care (01) | DRG 812 ==
LOC: ICU 12:04
PROVIDERS: ADMIT Internal Medicine; ATTEND Internal Medicine
DX: E78.2 Mixed hyperlipidemia; E11.65 Type 2 diabetes mellitus with hyperglycemia; Z20.822 Contact with and (suspected) exposure to COVID-19; I10 Essential (primary) hypertension; D50.0 Iron deficiency anemia secondary to blood loss (chronic); K21.9 Gastro-esophageal reflux disease without esophagitis; R53.1 Weakness; R06.02 Shortness of breath; Z86.73 Personal history of transient ischemic attack (TIA), and cerebral infarction without residual deficits

== ENCOUNTER 2021-10-26 10:44 | Inpatient (IN) ==
[2021-10-26] MEDS ORDERED: LASIX IVP ONE ×2 (12:42→22:00)
[2021-10-26] MEDS: PROTONIX INJ 40 MG VIAL IVP SCH ×2 (13:07→21:36)
[2021-10-26] MEDS: PEPCID 20 MG VIAL 20 MG in NS 50 ML IV 50 ML IV SCH ×2 (13:07→21:36)
[2021-10-26] MEDS: NS 1,000 ML IV 1,000 ML IV SCH (13:07)
[2021-10-26 13:30] LABS: ALANINE AMINOTRANSFERASE 17 Units/L (12-78); ALBUMIN 3.1 g/dL (3.4-5.0); ALKALINE PHOSPHATASE 77 Units/L (46-116); ASPARTATE AMINO TRANSFERASE 11 Units/L (15-37); BLOOD UREA NITROGEN 15 mg/dL (7-18); CALCIUM 8.2 mg/dL (8.5-10.1); CARBON DIOXIDE 29.5 mmol/L (21-32); CHLORIDE 109 mmol/L (98-107); COR CA(FOR HYPOALB) 8.9 mg/dL (8.5-10.1); COR NA(FOR HYPERGLY) 143 mmol/L (136-145); CREATININE 0.72 mg/dL (0.70-1.30); SODIUM 143 mmol/L (136-145); TOTAL PROTEIN 6.5 g/dL (6.4-8.2); eGFR NON BLACK RACES > 60 (>60)
[2021-10-26 13:34] LABS: EOSINOPHILS # (AUTO) 0.1 x10^3/uL (0.0-0.2); EOSINOPHILS % (AUTO) 1.6 % (0.9-2.9); LYMPHOCYTES # (AUTO) 1.6 X10^3/uL (1.3-2.9); LYMPHOCYTES % (AUTO) 41.6 % (21.0-51.0); MEAN CORPUSCULAR HGB CONC 28.2 g/dL (33.0-35.0); MEAN PLATELET VOLUME 7.4 fL (7.4-11.0); MONOCYTES # (AUTO) 0.2 x10^3/uL (0.3-0.8); MONOCYTES % (AUTO) 5.3 % (0.0-13.0); NEUTROPHILS % (AUTO) 50.5 % (42.0-75.0); RED BLOOD COUNT 2.34 X10^6/uL (4.7-6.0); RED CELL DISTRIBUTION WIDTH 21.7 % (11.6-16.5); WHITE BLOOD COUNT 3.9 X10^3/uL (3.6-10.0)
[2021-10-26 13:36] LABS: HEMOGLOBIN 4.2 g/dL (13.5-18.0)
[2021-10-26 13:50] LABS: ANISOCYTOSIS 1+; MICROCYTOSIS 2+; OVALOCYTES SLIGHT; PLATELET MORPHOLOGY COMMENT NORMAL (NORMAL)
[2021-10-26 13:51] LABS: HYPOCHROMASIA 3+; POIKILOCYTOSIS 1+
[2021-10-26] MEDS: TYLENOL 325 MG TAB PO PRN ×2 (16:01→22:03)
[2021-10-26] MEDS: BENADRYL INJ 50 MG VIAL IVP PRN ×2 (16:02→22:03)
[2021-10-26] MEDS: NS 500 ML IV 500 ML IV ONE (16:09)
[2021-10-26] MEDS ORDERED: PATIENT'S HOME MEDICATION (Oxycodone-Acetaminophen 10-325 mg Tablet) PO PRN (20:09)
[2021-10-26] MEDS ORDERED: COLACE CAP 100 MG PO PRN (20:09)
[2021-10-26] MEDS ORDERED: QUINAPRIL 40 MG PO SCH (21:00)
[2021-10-26] MEDS: ACCUPRIL PO SCH (21:35)
[2021-10-26] MEDS: ZyrTEC TAB 10 MG PO SCH (21:36)
[2021-10-26] MEDS: ELAVIL PO SCH (21:36)
[2021-10-27] MEDS ORDERED: VALIUM INJ IM ONE (03:41)
[2021-10-27] MEDS: NS 1,000 ML IV 1,000 ML IV SCH ×2 (04:12→20:55)
[2021-10-27 04:41] LABS: BASOPHILS % (AUTO) 0.5 % (0.2-1.0); EOSINOPHILS # (AUTO) 0.2 x10^3/uL (0.0-0.2); EOSINOPHILS % (AUTO) 2.6 % (0.9-2.9); HEMATOCRIT 21.7 % (42.0-54.0); LYMPHOCYTES # (AUTO) 2.4 X10^3/uL (1.3-2.9); LYMPHOCYTES % (AUTO) 37.8 % (21.0-51.0); MEAN CORPUSCULAR HEMOGLOBIN 21.6 pg (27.0-34.0); MEAN CORPUSCULAR HGB CONC 30.9 g/dL (33.0-35.0); MEAN CORPUSCULAR VOLUME 69.9 fL (80.0-100.0); MEAN PLATELET VOLUME 7.1 fL (7.4-11.0); MONOCYTES # (AUTO) 0.4 x10^3/uL (0.3-0.8); NEUTROPHILS # (AUTO) 3.4 x10^3/uL (2.2-4.8); NEUTROPHILS % (AUTO) 53.1 % (42.0-75.0); RED BLOOD COUNT 3.11 X10^6/uL (4.7-6.0); RED CELL DISTRIBUTION WIDTH 25.4 % (11.6-16.5); WHITE BLOOD COUNT 6.5 X10^3/uL (3.6-10.0)
[2021-10-27 04:48] LABS: HEMOGLOBIN 6.7 g/dL (13.5-18.0)
[2021-10-27 05:03] LABS: ALANINE AMINOTRANSFERASE 16 Units/L (12-78); ALBUMIN 3.1 g/dL (3.4-5.0); ALKALINE PHOSPHATASE 78 Units/L (46-116); ASPARTATE AMINO TRANSFERASE 16 Units/L (15-37); BLOOD UREA NITROGEN 14 mg/dL (7-18); CALCIUM 8.1 mg/dL (8.5-10.1); CHLORIDE 106 mmol/L (98-107); COR CA(FOR HYPOALB) 8.8 mg/dL (8.5-10.1); COR NA(FOR HYPERGLY) 141 mmol/L (136-145); SODIUM 141 mmol/L (136-145); TOTAL PROTEIN 6.6 g/dL (6.4-8.2); eGFR NON BLACK RACES > 60 (>60)
[2021-10-27 06:15] LABS: ANISOCYTOSIS 3+; HYPOCHROMASIA 2+; MICROCYTOSIS 1+; OVALOCYTES PRESENT; PLATELET MORPHOLOGY COMMENT NORMAL (NORMAL)
[2021-10-27] MEDS ORDERED: POTASSIUM CHL 40 MEQ/NS 0.45% 500 ML IV PRN (07:32)
[2021-10-27] MEDS ORDERED: KLOR-CON PO PRN (07:32)
[2021-10-27] MEDS ORDERED: K-RIDER 10 MEQ/NS 100 ML 10 MEQ/100 ML BAG IV PRN (07:32)
[2021-10-27] MEDS ORDERED: POTASSIUM CHLORIDE LIQ 20 MEQ UDC PO PRN (07:32)
[2021-10-27] MEDS ORDERED: MICRO K EXTEN CAP 10 MEQ PO PRN (07:32)
[2021-10-27] MEDS ORDERED: POTASSIUM CHL 60 MEQ/NS 0.45% 500 ML IV PRN (07:32)
[2021-10-27] MEDS: ACCUPRIL PO SCH ×2 (08:36→20:00)
[2021-10-27] MEDS: CYMBALTA PO SCH (08:37)
[2021-10-27] MEDS: PEPCID 20 MG VIAL 20 MG in NS 50 ML IV 50 ML IV SCH ×2 (08:37→20:50)
[2021-10-27] MEDS: FLOMAX PO SCH ×2 (08:37→19:59)
[2021-10-27] MEDS: PROTONIX INJ 40 MG VIAL IVP SCH ×2 (08:38→20:50)
[2021-10-27] MEDS: TYLENOL 325 MG TAB PO PRN (11:30)
[2021-10-27] MEDS: BENADRYL INJ 50 MG VIAL IVP PRN (11:30)
[2021-10-27] MEDS ORDERED: NS 500 ML IV 500 ML IV ONE (11:35)
[2021-10-27] MEDS: NS 500 ML IV 500 ML IV ONE (12:00)
[2021-10-27] MEDS: NORCO 10/325 TAB PO PRN (16:00)
--- NOTE | 2021-10-27 16:33 | DR.H&P ---
H&P - History & Physical for Day of: H&P Date: 10/26/21 - Chief Complaint Chief Complaint: WEAKNESS, SOB, ANEMIA - History of Present Illness History of Present Illness: IS A 81 YEAR OLD PATIENT OF OURS WHO WAS A DIRECT ADMISSION DUE TO COMPLAINTS OF INCREASNG WEAKNESS, INTERMITTENT SHORTNESS OF BREATH, AND ANEMIA. OUTPATIENT LABS WERE OBTAINED IN THE OFFICE AND REVEALED A LOW HEMOGLOBIN OF 4.1. HIS PMH INCLUDES: CVA, TIA, HYPERLIPIDEMIA, HTN, GERD, PUD, CONSTIPATION, KIDNEY STONES, DIABETES, SMALL BOWEL AVMs. HIS LAST EGD AND COLONOSCOPY WAS IN JANUARY AND MARCH OF 2020. ON ARRIVAL TO THE HOSPITAL, VITALS WERE 97.9-85-21-96%-145/82. LABS WERE OBTAINED. ABNORMAL LAB VALUES INCLUDE THE FOLLOWING: LABS WERE OBTAINED. WBC 3.9, RBC 2.34, HGB 4.2, HCT 15.0, PLT COUNT 190, SODIUM 143, POTASSIUM 3.6, CHLORIDE 109, BUN 15, CREATININE 0.72, GLUCOSE 116, CALCIUM 8.2, AST 11, ALT 17, ALK PHOS 77, TOTAL PROTEIN 6.5, ALBUMIN 3.1. HE WAS STARTED ON NORMAL SALINE AT 50 ML/HR, FAMOTIDINE 20MG IV Q12H, PROTONINX 40MG IV BID, THE POTASSIUM AND MAGNESIUM PROTOCOLS, AND HIS HOME MEDICATIONS OF AMITRIPTYLINE, ZYRTEC, COLACE, CYMBALTA, NORCO, QUINAPRIL, AND FLOMAX WERE RESUMED. WE PLAN TO TYPE AND SCREEN, CROSSMATCH, AND TRANSFUSE TWO UNITS OF PACKED RED BLOOD CELLS. WE WILL ADMINISTER LASIX IN BETWEEN UNITS. WE WILL CHECK HEMOGLOBIN AFTER TRANSFUSIONS AND MAKE FURTHER DECISIONS BASED ON RESULTS. OTHERWISE, WE WILL FOLLOW UP WITH AM LABS AND CONTINUE TO MONITOR. TIME SPENT ON CLINICAL ASSESSMENT, REVIEWING LABS AND IMAGING, DECISION MAKING, AND DOCUMENTATION GREATER THAN 75 MINUTES. - Past Medical History Past Medical History: Arthritis, CVA, Diabetes, Dyslipidemia, GERD, Hypertension, PUD Additional Medical History: TIA, Rheumatoid Athritis, SMALL BOWEL AVMs - Past Surgical History Surgical History: Other Additional Surgical History: Nasal Fracture with Surgical Repair - Family History Family Medical History: Hypertension - Social History Does patient currently use any type of tobacco product: Yes Have you used tobacco products in the last 12 months: Yes Type of Tobacco Use: Smokeless Does any household member use tobacco: No Alcohol Use: None Drug Use: None - Medications Home Medications: No Known Drug Allergies Allergy (Verified 02/27/20 08:00) CONTINUE taking the following medications duloxetine 30 mg capsule,delayed release 1 cap PO DAILY 10/26/21 [History] - Review of Systems Constitutional: Weakness Eyes: No Symptoms Reported ENT: No Symptoms Reported Respiratory: Shortness of Breath Cardiovascular: No Symptoms Reported Gastrointestinal: No Symptoms Reported Genitourinary: No Symptoms Reported Musculoskeletal: No Symptoms Reported Skin: No Symptoms Reported Neurological: Weakness - Physical Exam Vital Signs: Temperature 98.2 F Pulse Rate [Apical] 83 Pulse Rate 93 Respiratory Rate 22 Blood Pressure [Right Arm] 130/80 Blood Pressure [Left Arm] 160/76 Blood Pressure 139/87 O2 Sat by Pulse Oximetry 97 Oriented: Normal Eyes: Normal Ear: Normal Nose: Normal Throat: Normal Respiratory: Diminished Throughout Cardiovascular: Normal : Normal Auscultation: Bowel Sounds: Normal Palpation: Normal Tenderness: Normal Skin: Decreased [place], Bruising Musculoskeletal: Normal Psychiatric: Normal Mood Description: Calm Affect: Normal Speech Pattern: Clear - Assessment/Plan (1) Severe anemia Status: Acute Plan: SUPPLEMENTAL OXYGEN, NORMAL SALINE AT 50 ML/HR, FAMOTIDINE 20MG IV Q12H, PROTONINX 40MG IV BID, THE POTASSIUM AND MAGNESIUM PROTOCOLS, AND HIS HOME MEDICATIONS OF AMITRIPTYLINE, ZYRTEC, COLACE, CYMBALTA, NORCO, QUINAPRIL, AND FLOMAX WERE RESUMED. TYPE AND SCREEN, CROSSMATCH, AND TRANSFUSE TWO UNITS OF PACKED RED BLOOD CELLS. ADMINISTER LASIX IN BETWEEN UNITS. (2) Diabetes Qualifiers: Diabetes mellitus type: type 2 Diabetes mellitus intermediate school teacher insulin use: with intermediate school teacher use Diabetes mellitus complication status: with hyperglycemia Qualified Code(s): E11.65 - Type 2 diabetes mellitus with hyperglycemia; Z79.4 - intermediate (current) use of insulin Status: Chronic (3) Hypertension Qualifiers: Hypertension type: primary hypertension Qualified Code(s): I10 - Essential (primary) hypertension Status: Chronic (4) CAD (coronary artery disease) Qualifiers: Coronary Disease-Associated Artery/Lesion type: unspecified vessel or lesion type [place] vs. transplanted heart: [place] heart Associated angina: unspecified whether angina present Qualified Code(s): I25.10 - Atherosclerotic heart disease of [place] coronary artery without angina pectoris Status: Chronic (5) History of CVA (cerebrovascular accident) Status: Chronic (6) Hyperlipidemia Qualifiers: Hyperlipidemia type: mixed hyperlipidemia Qualified Code(s): E78.2 - Mixed hyperlipidemia Status: Chronic - Review H&P Reviewed: Yes Patient was examined?: Yes - Allergies Allergies/Adverse Reactions: Allergies Allergy/AdvReac Type Severity Reaction Status Date / Time No Known Drug Allergies Allergy Verified 02/27/20 08:00
--- NOTE | 2021-10-27 17:07 | DR.CONSULT ---
Consult - Consultation for Day of: Date: 10/27/21 - Chief Complaint Chief Complaint: Severe anemia - History of Present Illness History of Present Illness: Pt is an 81 y/o who is referred for severe anemia. Pt reports occasional dysphagia and constipation. Denies dyspepsia, abdominal pain, N/V, diarrhea, hematochezia, and melena. Last colon 02/27/20- had adenoma requiring piecemeal polypectomy. Last EGD 01/30/20- multiple gastric ulcers. Pt appears to be confused at times, unable to obtain thorough HPI. IS A 81 YEAR OLD PATIENT OF OURS WHO WAS A DIRECT ADMISSION DUE TO COMPLAINTS OF INCREASNG WEAKNESS, INTERMITTENT SHORTNESS OF BREATH, AND ANEMIA. OUTPATIENT LABS WERE OBTAINED IN THE OFFICE AND REVEALED A LOW HEMOGLOBIN OF 4.1. HIS PMH INCLUDES: CVA, TIA, HYPERLIPIDEMIA, HTN, GERD, PUD, CONSTIPATION, KIDNEY STONES, DIABETES, SMALL BOWEL AVMs. HIS LAST EGD AND COLONOSCOPY WAS IN JANUARY AND MARCH OF 2020 - Past Medical History Past Medical History: Arthritis, CVA, Diabetes, Dyslipidemia, GERD, Hypertension, PUD Additional Medical History: TIA, Rheumatoid Athritis, SMALL BOWEL AVMs - Past Surgical History Surgical History: Other Additional Surgical History: Nasal Fracture with Surgical Repair - Family History Family Medical History: Hypertension - Social History Does patient currently use any type of tobacco product: Yes Have you used tobacco products in the last 12 months: Yes Type of Tobacco Use: Smokeless Does any household member use tobacco: No Alcohol Use: None Drug Use: None - Medications Home Medications: No Known Drug Allergies Allergy (Verified 02/27/20 08:00) CONTINUE taking the following medications duloxetine 30 mg capsule,delayed release 1 cap PO DAILY 10/26/21 [History] - Review of Systems Constitutional: See HPI Eyes: See HPI ENT: See HPI Respiratory: See HPI Cardiovascular: See HPI Gastrointestinal: See HPI, Constipation, Other (dysphagia) Genitourinary: See HPI Musculoskeletal: See HPI Skin: See HPI Neurological: See HPI - Physical Exam Vital Signs: Temperature 98.2 F Pulse Rate [Apical] 83 Pulse Rate 93 Respiratory Rate 22 Blood Pressure [Right Arm] 130/80 Blood Pressure [Left Arm] 160/76 Blood Pressure 139/87 O2 Sat by Pulse Oximetry 97 Eyes: Normal Ear: Normal Nose: Normal Throat: Normal Respiratory: Clear Throughout Cardiovascular: Normal Auscultation: Bowel Sounds: Normal Tenderness: Normal Skin: Normal Musculoskeletal: Normal Psychiatric: Normal Mood Description: Calm - Plan Plan: Assessment. 1. Severe anemia, iron deficiency. 2. H/O large tubulovillous adenoma. 3. H/O gastric ulcer and GERD. Plan. 1. EGD in AM. Monitor H&H, transfuse as needed. Plan d/w Dr. Mcnair - Allergies Allergies/Adverse Reactions: Allergies Allergy/AdvReac Type Severity Reaction Status Date / Time No Known Drug Allergies Allergy Verified 02/27/20 08:00
[2021-10-27] MEDS: K-DUR TAB 20 MEQ PO PRN (18:06)
[2021-10-27 19:18] LABS: HEMATOCRIT 25.9 % (42.0-54.0); HEMOGLOBIN 8.3 g/dL (13.5-18.0)
[2021-10-27] MEDS: HALDOL INJ IM PRN (19:57)
[2021-10-27] MEDS: ELAVIL PO SCH (19:59)
[2021-10-27] MEDS: ZyrTEC TAB 10 MG PO SCH (19:59)
[2021-10-27 21:34] VITALS: BMI 35.2
[2021-10-27] MEDS: MAGNESIUM SULFATE 1 GRAM/100 mL PREMIX 1 G/100 ML BAG IV PRN ×2 (22:12→23:30)
[2021-10-28 04:58] LABS: ALANINE AMINOTRANSFERASE 17 Units/L (12-78); ALKALINE PHOSPHATASE 77 Units/L (46-116); ASPARTATE AMINO TRANSFERASE 17 Units/L (15-37); BLOOD UREA NITROGEN 18 mg/dL (7-18); CALCIUM 8.1 mg/dL (8.5-10.1); CARBON DIOXIDE 28.8 mmol/L (21-32); CHLORIDE 108 mmol/L (98-107); COR CA(FOR HYPOALB) 8.9 mg/dL (8.5-10.1); COR NA(FOR HYPERGLY) 142 mmol/L (136-145); CREATININE 0.81 mg/dL (0.70-1.30); SODIUM 142 mmol/L (136-145); TOTAL PROTEIN 6.4 g/dL (6.4-8.2); eGFR NON BLACK RACES > 60 (>60)
[2021-10-28 05:06] LABS: BASOPHILS # (AUTO) 0.1 X10^3/uL (0.0-0.1); BASOPHILS % (AUTO) 1.1 % (0.2-1.0); EOSINOPHILS # (AUTO) 0.2 x10^3/uL (0.0-0.2); EOSINOPHILS % (AUTO) 2.5 % (0.9-2.9); HEMATOCRIT 25.9 % (42.0-54.0); HEMOGLOBIN 8.3 g/dL (13.5-18.0); LYMPHOCYTES # (AUTO) 2.6 X10^3/uL (1.3-2.9); LYMPHOCYTES % (AUTO) 31.1 % (21.0-51.0); MEAN CORPUSCULAR HEMOGLOBIN 23.1 pg (27.0-34.0); MEAN CORPUSCULAR VOLUME 72.3 fL (80.0-100.0); MEAN PLATELET VOLUME 7.2 fL (7.4-11.0); MONOCYTES # (AUTO) 0.4 x10^3/uL (0.3-0.8); MONOCYTES % (AUTO) 4.9 % (0.0-13.0); NEUTROPHILS # (AUTO) 5.1 x10^3/uL (2.2-4.8); NEUTROPHILS % (AUTO) 60.4 % (42.0-75.0); RED BLOOD COUNT 3.58 X10^6/uL (4.7-6.0); RED CELL DISTRIBUTION WIDTH 24.8 % (11.6-16.5); WHITE BLOOD COUNT 8.4 X10^3/uL (3.6-10.0)
[2021-10-28 05:37] LABS: ANISOCYTOSIS 3+; HYPOCHROMASIA 1+; MICROCYTOSIS 1+; OVALOCYTES PRESENT; PLATELET MORPHOLOGY COMMENT NORMAL (NORMAL)
[2021-10-28] MEDS: NS 1,000 ML IV 1,000 ML IV SCH ×2 (05:42→17:59)
[2021-10-28] MEDS ORDERED: LASIX IVP ONE (10:08)
[2021-10-28] MEDS: PROTONIX INJ 40 MG VIAL IVP SCH ×2 (10:23→20:17)
[2021-10-28] MEDS: PEPCID 20 MG VIAL 20 MG in NS 50 ML IV 50 ML IV SCH ×2 (10:23→20:21)
[2021-10-28] MEDS: ACCUPRIL PO SCH ×2 (10:23→20:18)
[2021-10-28] MEDS: HALDOL INJ IM PRN (10:24)
[2021-10-28] MEDS: CYMBALTA PO SCH (12:24)
[2021-10-28] MEDS: FLOMAX PO SCH (12:25)
[2021-10-28] MEDS: TOPROL XL PO SCH (15:34)
[2021-10-28] MEDS: XANAX PO PRN (16:38)
[2021-10-28] MEDS ORDERED: NS 50 ML IV 50 ML IV ONE (19:43)
[2021-10-28] MEDS: NORCO 10/325 TAB PO PRN (20:18)
[2021-10-28] MEDS: ELAVIL PO SCH (20:18)
[2021-10-28] MEDS: ZyrTEC TAB 10 MG PO SCH (20:20)
[2021-10-28] MEDS: K-DUR TAB 20 MEQ PO PRN (20:20)
--- NOTE | 2021-10-28 23:45 | PCM.PROG ---
Progress Note - Progress Note for Day of Date of Exam: 10/28/21 - Subjective Subjective: IS CURRENTLY INPATIENT STATUS FOR TREATMENT OF ANEMIA, SHORTNESS OF BREATH, AND GENERALIZED WEAKNESS. TODAY, HE IS ALERT LYING IN BED ON MORNING ROUNDS. HE IS DISORIENTED THIS MORNING. HE SPEAKS WHEN HE IS SPOKEN TO, BUT DOES NOT RESPOND APPROPRIATELY. NURSING STAFF REPORTS THAT HE HAS BEEN CONFUSED AND AGITATED THROUGHOUT THE NIGHT. THEY ALSO REPORT THAT HE HAS HAD ELEVATED BLOOD PRESSURE THIS MORNING AND THROUGHOUT THE NIGHT. ON EXAMINATION, HEART IS REGULAR IN RATE AND RHYTHM. HE HAS RECEIVED A TOTAL OF FOUR UNITS OF PACKED RED BLOOD CELLS THIS MORNING. ON EXAMINATION, HEART IS REGULAR IN RATE AND RHYTHM. BILATERAL LUNGS ARE NOTED WITH EXPIRATORY WHEEZIG THROUGHOUT. A BDOMEN IS ROUND, SOFT, AND NON-TENDER WITH NORMAL BOWEL SOUNDS NOTED IN ALL QUADRNATS. HIS VITAL TODAY ARE 97.7-94-32-90%-170/92. ABNORMAL LAB VALUES INCLUDE THE FOLLOWING: RBC 8.4, RBC 3.58, HGB 8.3, HCT 25.9, PLT COUNT 239, SODIUM 142, POTASSIUM 3.6, CARBON DIOXIDE 28.8, BUN 18, CREATININE 0.81, GLUCOSE 114, CALCIUM 8.1, AST 17, ALT 17, ALK PHOS 77, TOTAL PROTEIN 6.4, ALBUMIN 3.0. HE IS CURRENTLY RECEIVING NORMAL SALINE AT 50 ML/HR, FAMOTIDINE 20MG IV Q12H, PROTONINX 40MG IV BID, THE POTASSIUM AND MAGNESIUM PROTOCOLS, AND HIS HOME MEDICATIONS OF AMITRIPTYLINE, ZYRTEC, COLACE, CYMBALTA, NORCO, QUINAPRIL, AND FLOMAX WERE RESUMED. CONSULTED WITH PATIENT AND PLANNED FOR AN EGD TODAY. PATIENT REFUSED EGD AND WISHED TO BE DISCHARGED TO RETURN ON A FUTURE DATE UNLESS SYMTPOMS HAVE RESOLVED. WE DISCUSSED THE IMPORTANCE OF MONITORING HEMOGLOBIN TODAY TO BE SURE THAT IT WILL NOT CONTINUE TO DROP. PATIENT AND DAUGHTER VERBALIZED UNDERSTANDING AND HAVE AGREED TO REMAIN IN THE HOSPTIAL T [facility]. WE WILL ADD METOPROLOL 25MG PO DAILY. WE WILL ALSO ADMINISTER LASIX 40MG IV X 1 DOSE DUE TO INCREASED FLUID ON LUNGS. OTHERWISE, WE WILL FOLLOW UP WITH AM LABS AND CONTINUE TO MONITOR PATIENT. - Past Medical Family Social History Past Med/Fam/Surg Hx: No changes since H&P Allergies: Allergies No Known Drug Allergies Allergy (Verified 10/29/20 08:00) - Review of Systems ROS: No change since H&P - Vital Signs and I&O's Vital Signs: Temperature 97.6 F Pulse Rate [Apical] 83 Pulse Rate 72 Respiratory Rate 22 Blood Pressure [Right Arm] 130/80 Blood Pressure [Left Arm] 160/76 Blood Pressure 146/79 O2 Sat by Pulse Oximetry 95 Intake and Output: Intake & Output 10/26/21 10/27/21 10/28/21 10/29/21 11:59 11:59 11:59 11:59 Intake Total 1737 / 1737 3799 / 3799 464 / 464 Output Total 1350 / 1350 1290 / 1290 850 / 850 Balance 387 / 387 2509 / 2509 -386 / -386 - Physical Exam Oriented: Normal Eyes: Normal Ear: Normal Nose: Normal Throat: Normal Respiratory: Generalized, Wheezes Cardiovascular: Normal : Normal Auscultation: Bowel Sounds: Normal Palpation: Normal Tenderness: Normal Skin: Normal Musculoskeletal: Normal Psychiatric: Normal Mood Description: Calm Affect: Normal Speech Pattern: Clear, Inappropriate - Laboratory and Diagnostics Result Diagrams: 10/28/21 03:40 10/28/21 03:40 Labs: Laboratory WBC 8.4 X10^3/uL (3.6-10.0) 10/28/21 03:40 RBC 3.58 X10^6/uL (4.7-6.0) L 10/28/21 03:40 Hgb 8.3 g/dL (13.5-18.0) L 10/28/21 03:40 Hct 25.9 % (42.0-54.0) L 10/28/21 03:40 MCV 72.3 fL (80.0-100.0) L 10/28/21 03:40 MCH 23.1 pg (27.0-34.0) L 10/28/21 03:40 MCHC 32.0 g/dL (33.0-35.0) L 10/28/21 03:40 RDW 24.8 % (11.6-16.5) H 10/28/21 03:40 Plt Count 239 X10^3/uL (150.0-450.0) 10/28/21 03:40 Plt Count Comment Adequate (ADEQUATE) 10/28/21 03:40 MPV 7.2 fL (7.4-11.0) L 10/28/21 03:40 Neut % (Auto) 60.4 % (42.0-75.0) 10/28/21 03:40 Lymph % (Auto) 31.1 % (21.0-51.0) 10/28/21 03:40 [place] % (Auto) 4.9 % (0.0-13.0) 10/28/21 03:40 Eos % (Auto) 2.5 % (0.9-2.9) 10/28/21 03:40 Baso % (Auto) 1.1 % (0.2-1.0) H 10/28/21 03:40 Neut # (Auto) 5.1 x10^3/uL (2.2-4.8) H 10/28/21 03:40 Lymph # (Auto) 2.6 X10^3/uL (1.3-2.9) 10/28/21 03:40 [place] # (Auto) 0.4 x10^3/uL (0.3-0.8) 10/28/21 03:40 Eos # (Auto) 0.2 x10^3/uL (0.0-0.2) 10/28/21 03:40 Baso # (Auto) 0.1 X10^3/uL (0.0-0.1) 10/28/21 03:40 Absolute Nucleated RBC 0.0 /100WBC 10/28/21 03:40 Plt Morphology Comment Normal (NORMAL) 10/28/21 03:40 RBC Morphology Abnormal (NORMAL) 10/28/21 03:40 Dimorphic RBCs Present 10/27/21 03:55 Hypochromasia 1+ A 10/28/21 03:40 Poikilocytosis 1+ A 10/26/21 12:55 Anisocytosis 3+ A 10/28/21 03:40 Microcytosis 1+ A 10/28/21 03:40 Ovalocytes Present 10/28/21 03:40 Acanthocytes (Spur) Present 10/27/21 03:55 Sodium 142 mmol/L (136-145) 10/28/21 03:40 Corrected Sodium 142 mmol/L (136-145) 10/28/21 03:40 Potassium 3.6 mmol/L (3.5-5.1) 10/28/21 03:40 Chloride 108 mmol/L (98-107) H 10/28/21 03:40 Carbon Dioxide 28.8 mmol/L (21-32) 10/28/21 03:40 BUN 18 mg/dL (7-18) 10/28/21 03:40 Creatinine 0.81 mg/dL (0.70-1.30) 10/28/21 03:40 Est GFR (MDRD) Af Amer > 60 (>60) 10/28/21 03:40 Est GFR (MDRD) Non-Af > 60 (>60) 10/28/21 03:40 Glucose 114 mg/dL (65-99) H 10/28/21 03:40 POC Glucose (mg/dL) 116 mg/dL (65-99) H 10/26/21 11:53 Calcium 8.1 mg/dL (8.5-10.1) L 10/28/21 03:40 Corrected Calcium 8.9 mg/dL (8.5-10.1) 10/28/21 03:40 Magnesium 2.1 mg/dL (1.7-2.9) 10/28/21 03:40 Total Bilirubin 0.50 mg/dL (0.2-1.0) 10/28/21 03:40 AST 17 Units/L (15-37) 10/28/21 03:40 ALT 17 Units/L (12-78) 10/28/21 03:40 Alkaline Phosphatase 77 Units/L (46-116) 10/28/21 03:40 Total Protein 6.4 g/dL (6.4-8.2) 10/28/21 03:40 Albumin 3.0 g/dL (3.4-5.0) L 10/28/21 03:40 Globulin 3.4 g/dL (2.5-4.5) 10/28/21 03:40 Albumin/Globulin Ratio 0.9 Ratio (1.1-2.1) L 10/28/21 03:40 Blood Type O POSITIVE 10/26/21 12:55 Antibody Screen Negative 10/26/21 12:55 Crossmatch See Detail 10/26/21 12:55 - Plan (1) Severe anemia Status: Acute Plan: SUPPLEMENTAL OXYGEN, NORMAL SALINE AT 50 ML/HR, FAMOTIDINE 20MG IV Q12H, PROTONIX 40MG IV BID, THE POTASSIUM AND MAGNESIUM PROTOCOLS, METOPROLOL 25MG PO DAILY, AND HIS HOME MEDICATIONS OF AMITRIPTYLINE, ZYRTEC, COLACE, CYMBALTA, NO RCO, QUINAPRIL, AND FLOMAX WERE RESUMED. TYPE AND SCREEN, CROSSMATCH, AND TRANSFUSE ONE ADDITIONAL UNITS OF PACKED RED BLOOD CELLS. ADMINISTER LASIX IN BETWEEN UNITS. (2) Diabetes Status: Chronic Qualifiers: Diabetes mellitus type: type 2 Diabetes mellitus dedicated intermodal truck driver insulin use: with dedicated intermodal truck driver use Diabetes mellitus complication status: with hyperglycemia Qualified Code(s): E11.65 - Type 2 diabetes mellitus with hyperglycemia; Z79.4 - roasterman (current) use of insulin (3) Hypertension Status: Chronic Qualifiers: Hypertension type: primary hypertension Qualified Code(s): I10 - Essential (primary) hypertension (4) CAD (coronary artery disease) Status: Chronic Qualifiers: Coronary Disease-Associated Artery/Lesion type: unspecified vessel or lesion type [place] vs. transplanted heart: [place] heart Associated angina: unspecified whether angina present Qualified Code(s): I25.10 - Atherosclerotic heart disease of [place] coronary artery without angina pectoris (5) History of CVA (cerebrovascular accident) Status: Chronic (6) Hyperlipidemia Status: Chronic Qualifiers: Hyperlipidemia type: mixed hyperlipidemia Qualified Code(s): E78.2 - Mixed hyperlipidemia
[2021-10-29] MEDS: XANAX PO PRN (05:14)
[2021-10-29 05:15] LABS: ALANINE AMINOTRANSFERASE 14 Units/L (12-78); ALKALINE PHOSPHATASE 76 Units/L (46-116); ASPARTATE AMINO TRANSFERASE 21 Units/L (15-37); BLOOD UREA NITROGEN 15 mg/dL (7-18); CALCIUM 8.2 mg/dL (8.5-10.1); CARBON DIOXIDE 28.3 mmol/L (21-32); CHLORIDE 106 mmol/L (98-107); CREATININE 0.78 mg/dL (0.70-1.30); SODIUM 141 mmol/L (136-145); TOTAL PROTEIN 6.4 g/dL (6.4-8.2); eGFR NON BLACK RACES > 60 (>60)
[2021-10-29 05:17] LABS: BASOPHILS # (AUTO) 0.1 X10^3/uL (0.0-0.1); BASOPHILS % (AUTO) 0.8 % (0.2-1.0); EOSINOPHILS # (AUTO) 0.2 x10^3/uL (0.0-0.2); EOSINOPHILS % (AUTO) 2.7 % (0.9-2.9); HEMATOCRIT 26.4 % (42.0-54.0); HEMOGLOBIN 8.3 g/dL (13.5-18.0); LYMPHOCYTES # (AUTO) 1.7 X10^3/uL (1.3-2.9); LYMPHOCYTES % (AUTO) 21.3 % (21.0-51.0); MEAN CORPUSCULAR HEMOGLOBIN 22.8 pg (27.0-34.0); MEAN CORPUSCULAR HGB CONC 31.5 g/dL (33.0-35.0); MEAN CORPUSCULAR VOLUME 72.3 fL (80.0-100.0); MEAN PLATELET VOLUME 7.2 fL (7.4-11.0); MONOCYTES # (AUTO) 0.6 x10^3/uL (0.3-0.8); MONOCYTES % (AUTO) 7.9 % (0.0-13.0); NEUTROPHILS # (AUTO) 5.2 x10^3/uL (2.2-4.8); NEUTROPHILS % (AUTO) 67.3 % (42.0-75.0); RED BLOOD COUNT 3.65 X10^6/uL (4.7-6.0); RED CELL DISTRIBUTION WIDTH 25.7 % (11.6-16.5); WHITE BLOOD COUNT 7.8 X10^3/uL (3.6-10.0)
[2021-10-29 05:35] LABS: ANISOCYTOSIS 3+; HYPOCHROMASIA 1+; MICROCYTOSIS SLIGHT; OVALOCYTES PRESENT; PLATELET MORPHOLOGY COMMENT NORMAL (NORMAL)
[2021-10-29] MEDS: K-DUR TAB 20 MEQ PO PRN (06:10)
[2021-10-29] MEDS ORDERED: LASIX IVP ONE (07:00)
[2021-10-29] MEDS: FLOMAX PO SCH (09:10)
[2021-10-29] MEDS: PEPCID 20 MG VIAL 20 MG in NS 50 ML IV 50 ML IV SCH (09:10)
[2021-10-29] MEDS: CYMBALTA PO SCH (09:10)
[2021-10-29] MEDS: PROTONIX INJ 40 MG VIAL IVP SCH (09:13)
[2021-10-29] MEDS: TOPROL XL PO SCH (09:13)
[2021-10-29] MEDS: ACCUPRIL PO SCH (09:16)
[2021-10-29 12:44] VITALS: BP 122/96
== END 2021-10-29 12:06 | disposition home health service (06) | DRG 812 ==
LOC: ICU → OBSVTOIN 11:24
PROVIDERS: ADMIT Internal Medicine; ATTEND Internal Medicine
DX: Z79.4 Long term (current) use of insulin; E78.2 Mixed hyperlipidemia; I10 Essential (primary) hypertension; R94.31 Abnormal electrocardiogram [ECG] [EKG]; R45.1 Restlessness and agitation; R53.1 Weakness; R06.02 Shortness of breath; D64.89 Other specified anemias; E11.65 Type 2 diabetes mellitus with hyperglycemia; I25.10 Atherosclerotic heart disease of native coronary artery without angina pectoris; Z78.1 Physical restraint status; Z86.73 Personal history of transient ischemic attack (TIA), and cerebral infarction without residual deficits; I48.91 Unspecified atrial fibrillation; K21.9 Gastro-esophageal reflux disease without esophagitis

== ENCOUNTER 2021-10-29 14:36 | Inpatient (IN) ==
[2021-10-29 15:21] LABS: BASOPHILS % (AUTO) 0.6 % (0.2-1.0); EOSINOPHILS # (AUTO) 0.1 x10^3/uL (0.0-0.2); WHITE BLOOD COUNT 7.7 X10^3/uL (3.6-10.0)
[2021-10-29 15:33] LABS: ALANINE AMINOTRANSFERASE 23 Units/L (12-78); ALBUMIN 3.4 g/dL (3.4-5.0); ALKALINE PHOSPHATASE 90 Units/L (46-116); ASPARTATE AMINO TRANSFERASE 24 Units/L (15-37); BLOOD UREA NITROGEN 16 mg/dL (7-18); CALCIUM 8.6 mg/dL (8.5-10.1); CARBON DIOXIDE 30.5 mmol/L (21-32); CHLORIDE 103 mmol/L (98-107); COR NA(FOR HYPERGLY) 142 mmol/L (136-145); CREATININE 0.99 mg/dL (0.70-1.30); SODIUM 141 mmol/L (136-145); TOTAL PROTEIN 7.3 g/dL (6.4-8.2); eGFR NON BLACK RACES > 60 (>60)
[2021-10-29 15:37] LABS: HEMATOCRIT 30.8 % (42.0-54.0); HEMOGLOBIN 9.6 g/dL (13.5-18.0); LYMPHOCYTES % (AUTO) 25.5 % (21.0-51.0); MEAN CORPUSCULAR HEMOGLOBIN 22.9 pg (27.0-34.0); MEAN CORPUSCULAR HGB CONC 31.1 g/dL (33.0-35.0); MEAN CORPUSCULAR VOLUME 73.5 fL (80.0-100.0); MEAN PLATELET VOLUME 7.2 fL (7.4-11.0); MONOCYTES # (AUTO) 0.4 x10^3/uL (0.3-0.8); MONOCYTES % (AUTO) 4.8 % (0.0-13.0); NEUTROPHILS # (AUTO) 5.2 x10^3/uL (2.2-4.8); NEUTROPHILS % (AUTO) 68.1 % (42.0-75.0); RED BLOOD COUNT 4.19 X10^6/uL (4.7-6.0); RED CELL DISTRIBUTION WIDTH 25.8 % (11.6-16.5)
--- NOTE | 2021-10-29 16:04 | DR.DIZZY ---
HPI Time seen Time Seen by Provider: 10/29/21 15:45 PCP Primary Care Physician: YEHUDA Complaint Chief Complaint Doctor Comments: PER EMS THE PATIENT WAS DISCHARGED FROM THE HOSPITAL TODAY AND SHE HAD TO GO AND TAKE HER SOMETHING FOR 30 MINUTES AND WHEN SHE CAME BACK HOME HE GOT OUT OF THE CHAIR AND WENT TO THE BATHROOM AND FELL. THEY BROUGHT HIM HERE FOR FURTHER EVALUATION. Chief Complaint:: PATIENT COMES IN VIA EMS FOR WEAKNESS AND DIZZINESS. PATIENT [place] DISCHARGED ON TODAYS DATE FROM HOSPITAL FOR ANEMIA. PATIENTS DAUGHTER STATED TO EMS THAT PATIENT WAS EXTREMELY WEAK. PATIENTS DAUGHTER IS CONCERNED PATIENT MAYBE HAVING ANOTHER STROKE. COVID-19 Coronavirus risk:travel/contact w/high risk person: No Has patient experienced Coronavirus symptoms: No Source History Provided: EMS Mode of Arrival Mode of Arrival: EMS Timing Onset of Chief Complaint: 10/29/21 Context Stroke Symptoms: None PMH PMH Past Medical History: Yes Past Medical History: Anemia, Arthritis, CVA, Diabetes, Dyslipidemia, GERD, Hypertension and PUD Past Surgical History: No Surgical History: Other Family History History of Family Medical Conditions: Yes Family Medical History: Hypertension Social History Does patient currently use any type of tobacco product: Yes Have you used tobacco products in the last 12 months: Yes Type of Tobacco Use: CHEWING Does any household member use tobacco: Yes Alcohol Use: None Do you use any recreational Drugs:: No Lives With: Family Lives Where: Home Travel Risk Coronavirus risk:travel/contact w/high risk person: No Has patient experienced Coronavirus symptoms: No Infectious screening In the last 2 months have you had wt loss of >10#?: NO Have you had fever, night sweats or hemotysis?: No Have you traveled outside the country in the last 6 months?: No Isolation: Standard ROS Review of Systems Constitutional: Malaise, Weakness, Fatigue and Other (UNSTABLE GAIT) Eyes: No Symptoms Reported Respiratoy: No Symptoms Reported Cardiovascular: No Symptoms Reported Gastrointestinal/Abdominal: No Symptoms Reported Genitourinary: No Symptoms Reported Neurological: No Symptoms Reported Musculoskeletal: No Symptoms Reported Integumentary: No Symptoms Reported Hematologic/Lymphatic: Anemia Endocrine: No Symptoms Reported Psychiatric: Depression PE Vital Signs Vitals: Pulse Rate 76 Respiratory Rate 21 Blood Pressure [Right Arm] 130/80 Blood Pressure [Left Arm] 160/76 Blood Pressure 157/95 O2 Sat by Pulse Oximetry 98 General Limitations: Physical Limitation General Appearance: Lethargic Eyes Eye exam: Normal Appearance, PERRL and EOMI Pupils: Regular, Round: Bilateral ENT ENT Exam: Normal Exam and Normal Oropharynx Neck Neck Exam: Normal Inspection and Full ROM Chest Chest Inspection: Normal Inspection and Symmetric Chest Wall Rise Respiratory Respiratory Exam: Normal Lung Sounds Bilat Cardiovascular Cardiovascular Exam: Regular Rate and Normal Rhythm Rectal Rectal Exam: Deferred Back Back Exam: Normal Inspection Neurologic Neurological Exam: Other (NOT ABLE TO EVALUATE) MDM Differential Diagnosis Differential Diagnosis: Anemia, Electrolyte disorder and Other (DECONDITIONING ,UNSTABLE GAIT) COURSE Treatment Treatment: PATIENT REMAINED STABLE IN ER . CT OF BRAIN WAS NORMAL AND H/H WAS 9.6 AND 30. CMP WAS NORMAL. DUE TO THE UNSTABLE GAIT AND DECONDITIONING PATIENT WAS DISCUSSED WITH DR GREY AND HE STATE TO REFER THE PATIENT TO OBSERVATION. UTILIZATION REVIEW SATED TO REFER TO OBSERVATION. ROR Labs Reviewed Laboratory Results Reviewed?: Yes Result Diagrams: 10/29/21 15:10 10/29/21 15:10 Laboratory: WBC 7.7 X10^3/uL (3.6-10.0) 10/29/21 15:10 RBC 4.19 X10^6/uL (4.7-6.0) L 10/29/21 15:10 Hgb 9.6 g/dL (13.5-18.0) L 10/29/21 15:10 Hct 30.8 % (42.0-54.0) L 10/29/21 15:10 MCV 73.5 fL (80.0-100.0) L 10/29/21 15:10 MCH 22.9 pg (27.0-34.0) L 10/29/21 15:10 MCHC 31.1 g/dL (33.0-35.0) L 10/29/21 15:10 RDW 25.8 % (11.6-16.5) H 10/29/21 15:10 Plt Count 299 X10^3/uL (150.0-450.0) 10/29/21 15:10 Plt Count Comment Adequate (ADEQUATE) 10/29/21 15:10 MPV 7.2 fL (7.4-11.0) L 10/29/21 15:10 Neut % (Auto) 68.1 % (42.0-75.0) 10/29/21 15:10 Lymph % (Auto) 25.5 % (21.0-51.0) 10/29/21 15:10 [place] % (Auto) 4.8 % (0.0-13.0) 10/29/21 15:10 Eos % (Auto) 1.0 % (0.9-2.9) 10/29/21 15:10 Baso % (Auto) 0.6 % (0.2-1.0) 10/29/21 15:10 Neut # (Auto) 5.2 x10^3/uL (2.2-4.8) H 10/29/21 15:10 Lymph # (Auto) 2.0 X10^3/uL (1.3-2.9) 10/29/21 15:10 [place] # (Auto) 0.4 x10^3/uL (0.3-0.8) 10/29/21 15:10 Eos # (Auto) 0.1 x10^3/uL (0.0-0.2) 10/29/21 15:10 Baso # (Auto) 0.0 X10^3/uL (0.0-0.1) 10/29/21 15:10 Absolute Nucleated RBC 0.0 /100WBC 10/29/21 15:10 Total Counted 100 10/29/21 15:10 Neutrophils % (Manual) 80 % (39-76) H 10/29/21 15:10 Band Neutrophils % 2 % (0-10) 10/29/21 15:10 Lymphocytes % (Manual) 11 % (13-43) L 10/29/21 15:10 Monocytes % (Manual) 4 % (4-9) 10/29/21 15:10 Eosinophils % (Manual) 3 % (0-6) 10/29/21 15:10 Plt Morphology Comment Normal (NORMAL) 10/29/21 15:10 RBC Morphology Abnormal (NORMAL) 10/29/21 15:10 Dimorphic RBCs Slight 10/29/21 15:10 Hypochromasia Slight A 10/29/21 15:10 Poikilocytosis Slight A 10/29/21 15:10 Anisocytosis Slight A 10/29/21 15:10 Microcytosis Slight A 10/29/21 15:10 Sodium 141 mmol/L (136-145) 10/29/21 15:10 Corrected Sodium 142 mmol/L (136-145) 10/29/21 15:10 Potassium 3.6 mmol/L (3.5-5.1) 10/29/21 15:10 Chloride 103 mmol/L (98-107) 10/29/21 15:10 Carbon Dioxide 30.5 mmol/L (21-32) 10/29/21 15:10 BUN 16 mg/dL (7-18) 10/29/21 15:10 Creatinine 0.99 mg/dL (0.70-1.30) 10/29/21 15:10 Est GFR (MDRD) Af Amer > 60 (>60) 10/29/21 15:10 Est GFR (MDRD) Non-Af > 60 (>60) 10/29/21 15:10 Glucose 126 mg/dL (65-99) H 10/29/21 15:10 Calcium 8.6 mg/dL (8.5-10.1) 10/29/21 15:10 Corrected Calcium TNP 10/29/21 15:10 Total Bilirubin 0.70 mg/dL (0.2-1.0) 10/29/21 15:10 AST 24 Units/L (15-37) 10/29/21 15:10 ALT 23 Units/L (12-78) 10/29/21 15:10 Alkaline Phosphatase 90 Units/L (46-116) 10/29/21 15:10 Total Protein 7.3 g/dL (6.4-8.2) 10/29/21 15:10 Albumin 3.4 g/dL (3.4-5.0) 10/29/21 15:10 Globulin 3.9 g/dL (2.5-4.5) 10/29/21 15:10 Albumin/Globulin Ratio 0.9 Ratio (1.1-2.1) L 10/29/21 15:10 Opioid Opioid Risk Tool Age (Ariel box if 16-45): No History of Preadolescent Sexual Abuse: No Total: 0 Total Score Risk Category: Low Risk Copyright: Jong WHITE predicting aberrant behaviors Discharge Plan Diagnosis Discharge Problem: Severe muscle deconditioning, Anemia, Falls frequently Discharge Plan Patient Disposition: 09 ADMITTED INPATIENT Condition: Stable Prescriptions: No Action quinapril [Accupril] 40 MG tablet 40 mg PO BID Rx Instructions: TAKE 1 TABLET TWICE A DAY FOR BLOOD PRESSURE amitriptyline 25 MG tablet 25 mg PO HS Rx Instructions: TAKE 1 TABLET BY MOUTH EVERY EVENING cetirizine 10 mg Tablet 10 mg PO HS Rx Instructions: TAKE 1 TABLET BY MOUTH EVERY MORNING FOR ALLERGIES oxycodone-acetaminophen 10-325 mg Tablet 1 tab PO QID PRN (Reason: Pain) Rx Instructions: TAKE 1 TABLET 4 TIMES EACH DAY NEEDED FOR PAIN tamsulosin 0.4 mg capsule 0.4 mg PO DAILY Rx Instructions: TAKE 1 CAPSULE BY MOUTH EVERY EVENING DIRECTED docusate sodium 100 MG capsule 100 mg PO BID PRN (Reason: Constipation) Rx Instructions: TAKE 1 CAPSULE BY MOUTH TWICE A DAY NEEDED FOR CONSTIPATION pantoprazole [Protonix] 40 mg Tablet,Delayed Release (Dr/Ec) 40 mg PO BID Qty: 60 3RF Rx Instructions: TAKE ONE TABLET TWICE A DAY FOR STOMACH aspirin 325 mg tablet,delayed release (DR/EC) 325 mg PO DAILY Rx Instructions: TAKE 1 TABLET BY MOUTH EVERY DAY DIRECTED duloxetine 30 mg capsule,delayed release(DR/EC) 1 cap PO DAILY ferrous gluconate 324 mg (37.5 mg iron) Tablet 324 mg PO QDAY Qty: 30 3RF Rx Instructions: TAKE ONE TABLET DAILY Health Concerns: Post Hospitalization: new medications and changes needed to prevent readmission or further decline. Pt educated and given instructions on all concerns. Plan of Treatment: Continue with present treatment and follow up plan. Pt is to keep follow up appointment as instructed and take medications as ordered. Orders to Discharge Patient Discharge Orders: Transfer (Routine); Ordered 10/29/21 Ordered By: Brian Trammell Follow ups/Referrals Follow ups/Referrals: Len Mendez [Primary Care Provider] - 3 days Instructions Stand Alone Forms: [facility] [place] [facility], Patient Portal, Social Distancing
--- NOTE | 2021-10-29 16:13 | CT ---
HISTORYTRAUMA.brDIZZINESS .brWEAKNESSSTUDYBRAIN W/O CONCOMPARISONNoneTECHNIQUEMultiple axial images of the head were performed from the skull base to the vertex using standard departmental protocol. Sagittal and coronal reformatted images were performed. Dose reduction techniques including Automated Exposure Control (AEC) and adjustment of mA and kV were utilized.FINDINGSNo evidence of acute territorial infarct. No acute intracranial hemorrhage. No evidence of intracranial mass or midline shift. No hydrocephalus. No abnormal intra or extra-axial fluid collections. Chronic small vessel ischemic changes and global volume loss with commensurate ventricular dilatation. Intracranial vascular calcifications.The calvaria is intact. The bilateral mastoid air cells and visualized paranasal sinuses are well pneumatized. The bilateral orbits are unremarkable.IMPRESSIONNo acute intracranial findings.Electronically signed by: ROBBIE BENTLEY (Oct 29, 2021 16:12:05)
[2021-10-29 16:23] LABS: BAND NEUTROPHILS % 2 % (0-10)
[2021-10-29 16:24] LABS: PLATELET MORPHOLOGY COMMENT NORMAL (NORMAL)
[2021-10-29 16:25] LABS: ANISOCYTOSIS SLIGHT; HYPOCHROMASIA SLIGHT; POIKILOCYTOSIS SLIGHT
[2021-10-29 16:26] LABS: MICROCYTOSIS SLIGHT
[2021-10-29] MEDS ORDERED: PATIENT'S HOME MEDICATION (Oxycodone-Acetaminophen 10-325 mg Tablet) PO PRN (20:03)
[2021-10-29] MEDS ORDERED: COLACE CAP 100 MG PO PRN (20:03)
[2021-10-29] MEDS: ELAVIL PO SCH (20:44)
[2021-10-29] MEDS: PROTONIX TAB 40 MG PO SCH (20:44)
[2021-10-29] MEDS: ZyrTEC TAB 10 MG PO SCH (20:45)
[2021-10-29] MEDS: FERROUS GLUCONATE PO SCH (20:49)
[2021-10-29] MEDS ORDERED: QUINAPRIL 40 MG PO SCH (21:00)
[2021-10-29] MEDS: ACCUPRIL PO SCH (22:20)
[2021-10-30] MEDS ORDERED: K-RIDER 10 MEQ/NS 100 ML 10 MEQ/100 ML BAG IV PRN (00:55)
[2021-10-30] MEDS ORDERED: POTASSIUM CHLORIDE LIQ 20 MEQ UDC PO PRN (00:55)
[2021-10-30] MEDS ORDERED: POTASSIUM CHL 40 MEQ/NS 0.45% 500 ML IV PRN (00:55)
[2021-10-30] MEDS ORDERED: POTASSIUM CHL 60 MEQ/NS 0.45% 500 ML IV PRN (00:55)
[2021-10-30] MEDS ORDERED: MICRO K EXTEN CAP 10 MEQ PO PRN (00:55)
[2021-10-30] MEDS ORDERED: KLOR-CON PO PRN (00:55)
[2021-10-30 05:14] LABS: BASOPHILS # (AUTO) 0.1 X10^3/uL (0.0-0.1); BASOPHILS % (AUTO) 0.6 % (0.2-1.0); EOSINOPHILS # (AUTO) 0.2 x10^3/uL (0.0-0.2); EOSINOPHILS % (AUTO) 2.7 % (0.9-2.9); HEMATOCRIT 28.5 % (42.0-54.0); LYMPHOCYTES # (AUTO) 2.5 X10^3/uL (1.3-2.9); LYMPHOCYTES % (AUTO) 29.6 % (21.0-51.0); MEAN CORPUSCULAR HEMOGLOBIN 23.2 pg (27.0-34.0); MEAN CORPUSCULAR HGB CONC 31.7 g/dL (33.0-35.0); MEAN CORPUSCULAR VOLUME 73.3 fL (80.0-100.0); MEAN PLATELET VOLUME 7.2 fL (7.4-11.0); MONOCYTES # (AUTO) 0.6 x10^3/uL (0.3-0.8); MONOCYTES % (AUTO) 6.8 % (0.0-13.0); NEUTROPHILS % (AUTO) 60.3 % (42.0-75.0); RED BLOOD COUNT 3.89 X10^6/uL (4.7-6.0); RED CELL DISTRIBUTION WIDTH 26.4 % (11.6-16.5); WHITE BLOOD COUNT 8.4 X10^3/uL (3.6-10.0)
[2021-10-30 05:22] LABS: ALANINE AMINOTRANSFERASE 23 Units/L (12-78); ALBUMIN 3.1 g/dL (3.4-5.0); ALKALINE PHOSPHATASE 82 Units/L (46-116); ASPARTATE AMINO TRANSFERASE 24 Units/L (15-37); BLOOD UREA NITROGEN 15 mg/dL (7-18); CALCIUM 8.4 mg/dL (8.5-10.1); CARBON DIOXIDE 31.9 mmol/L (21-32); CHLORIDE 105 mmol/L (98-107); COR CA(FOR HYPOALB) 9.1 mg/dL (8.5-10.1); COR NA(FOR HYPERGLY) 144 mmol/L (136-145); CREATININE 0.76 mg/dL (0.70-1.30); SODIUM 143 mmol/L (136-145); TOTAL PROTEIN 6.8 g/dL (6.4-8.2); eGFR NON BLACK RACES > 60 (>60)
[2021-10-30 05:53] LABS: ANISOCYTOSIS 3+; HYPOCHROMASIA 1+; MICROCYTOSIS SLIGHT; OVALOCYTES PRESENT; PLATELET MORPHOLOGY COMMENT NORMAL (NORMAL)
[2021-10-30 08:17] VITALS: BMI 26.9
[2021-10-30] MEDS: ACCUPRIL PO SCH ×3 (09:26→20:54)
[2021-10-30] MEDS: CYMBALTA PO SCH ×2 (09:26→09:35)
[2021-10-30] MEDS: ECOTRIN TAB 325 MG PO SCH (09:35)
[2021-10-30] MEDS: FLOMAX PO SCH (09:36)
[2021-10-30] MEDS: FERROUS GLUCONATE PO SCH (09:36)
[2021-10-30] MEDS: PROTONIX TAB 40 MG PO SCH ×2 (09:36→20:54)
[2021-10-30] MEDS ORDERED: LOPRESSOR INJ 5 MG AMP IVP PRN (11:45)
[2021-10-30] MEDS ORDERED: LOPRESSOR INJ 5 MG AMP ONE (11:50)
--- NOTE | 2021-10-30 18:35 | DR.H&P ---
H&P History & Physical for Day of: H&P Date: 10/30/21 Chief Complaint Chief Complaint: Weakness status post fall concern for stroke. Allergies Allergies Allergy/AdvReac Type Severity Reaction Status Date / Time No Known Drug Allergies Allergy Verified 02/27/20 08:00 History of Present Illness History of Present Illness: This is a pleasant 81-year-old white male who was discharged yesterday for anemia. He had received blood transfusions throughout his hemoglobin 9.4. After he got home his daughter left for about 30 minutes to carry her something and upon her return they found that he had fallen in the bathroom. He was weak and seemed confused and disoriented. Because it is his he was brought back to the emergency department here [facility] where they received his head which did not show any acute changes. There was no bleed seen. His hemoglobin had come up to 9.6 and his vital signs are stable. I was called by ER physician Dr. Trammell and I decided to go ahead and put him in the hospital for observation status. His daughter does report that about 7 years ago he had a small stroke and exhibited the same symptoms. At this time he does not have any ptosis of the eyelid drooping of the corner of the mouth but he does not respond to commands very well as he continues to closes eyes asleep. Past Medical History Past Medical History: Anemia, Arthritis, CVA, Diabetes, Dyslipidemia, GERD, Hypertension and PUD Additional Medical History: TIA, Rheumatoid Athritis, SMALL BOWEL AVMs Past Surgical History Surgical History: Other Additional Surgical History: Nasal Fracture with Surgical Repair Family History Family Medical History: Hypertension Social History Does patient currently use any type of tobacco product: Yes Have you used tobacco products in the last 12 months: Yes Type of Tobacco Use: CHEWING Does any household member use tobacco: Yes Alcohol Use: None Drug Use: None Medications Home Medications: No Known Drug Allergies Allergy (Verified 02/27/20 08:00) Labs Result Diagrams: 10/30/21 04:46 10/30/21 04:46 Labs: Laboratory WBC 8.4 X10^3/uL (3.6-10.0) 10/30/21 04:46 RBC 3.89 X10^6/uL (4.7-6.0) L 10/30/21 04:46 Hgb 9.0 g/dL (13.5-18.0) L 10/30/21 04:46 Hct 28.5 % (42.0-54.0) L 10/30/21 04:46 MCV 73.3 fL (80.0-100.0) L 10/30/21 04:46 MCH 23.2 pg (27.0-34.0) L 10/30/21 04:46 MCHC 31.7 g/dL (33.0-35.0) L 10/30/21 04:46 RDW 26.4 % (11.6-16.5) H 10/30/21 04:46 Plt Count 299 X10^3/uL (150.0-450.0) 10/30/21 04:46 Plt Count Comment Adequate (ADEQUATE) 10/30/21 04:46 MPV 7.2 fL (7.4-11.0) L 10/30/21 04:46 Neut % (Auto) 60.3 % (42.0-75.0) 10/30/21 04:46 Lymph % (Auto) 29.6 % (21.0-51.0) 10/30/21 04:46 Gila % (Auto) 6.8 % (0.0-13.0) 10/30/21 04:46 Eos % (Auto) 2.7 % (0.9-2.9) 10/30/21 04:46 Baso % (Auto) 0.6 % (0.2-1.0) 10/30/21 04:46 Neut # (Auto) 5.0 x10^3/uL (2.2-4.8) H 10/30/21 04:46 Lymph # (Auto) 2.5 X10^3/uL (1.3-2.9) 10/30/21 04:46 Gila # (Auto) 0.6 x10^3/uL (0.3-0.8) 10/30/21 04:46 Eos # (Auto) 0.2 x10^3/uL (0.0-0.2) 10/30/21 04:46 Baso # (Auto) 0.1 X10^3/uL (0.0-0.1) 10/30/21 04:46 Absolute Nucleated RBC 0.1 /100WBC 10/30/21 04:46 Total Counted 100 10/29/21 15:10 Neutrophils % (Manual) 80 % (39-76) H 10/29/21 15:10 Band Neutrophils % 2 % (0-10) 10/29/21 15:10 Lymphocytes % (Manual) 11 % (13-43) L 10/29/21 15:10 Monocytes % (Manual) 4 % (4-9) 10/29/21 15:10 Eosinophils % (Manual) 3 % (0-6) 10/29/21 15:10 Plt Morphology Comment Normal (NORMAL) 10/30/21 04:46 RBC Morphology Abnormal (NORMAL) 10/30/21 04:46 Dimorphic RBCs Present 10/30/21 04:46 Hypochromasia 1+ A 10/30/21 04:46 Poikilocytosis Slight A 10/29/21 15:10 Anisocytosis 3+ A 10/30/21 04:46 Microcytosis Slight A 10/30/21 04:46 Ovalocytes Present 10/30/21 04:46 Sodium 143 mmol/L (136-145) 10/30/21 04:46 Corrected Sodium 144 mmol/L (136-145) 10/30/21 04:46 Potassium 3.3 mmol/L (3.5-5.1) L 10/30/21 04:46 Chloride 105 mmol/L (98-107) 10/30/21 04:46 Carbon Dioxide 31.9 mmol/L (21-32) 10/30/21 04:46 BUN 15 mg/dL (7-18) 10/30/21 04:46 Creatinine 0.76 mg/dL (0.70-1.30) 10/30/21 04:46 Est GFR (MDRD) Af Amer > 60 (>60) 10/30/21 04:46 Est GFR (MDRD) Non-Af > 60 (>60) 10/30/21 04:46 Glucose 123 mg/dL (65-99) H 10/30/21 04:46 Calcium 8.4 mg/dL (8.5-10.1) L 10/30/21 04:46 Corrected Calcium 9.1 mg/dL (8.5-10.1) 10/30/21 04:46 Magnesium 1.9 mg/dL (1.7-2.9) 10/30/21 04:46 Total Bilirubin 0.50 mg/dL (0.2-1.0) 10/30/21 04:46 AST 24 Units/L (15-37) 10/30/21 04:46 ALT 23 Units/L (12-78) 10/30/21 04:46 Alkaline Phosphatase 82 Units/L (46-116) 10/30/21 04:46 Total Protein 6.8 g/dL (6.4-8.2) 10/30/21 04:46 Albumin 3.1 g/dL (3.4-5.0) L 10/30/21 04:46 Globulin 3.7 g/dL (2.5-4.5) 10/30/21 04:46 Albumin/Globulin Ratio 0.8 Ratio (1.1-2.1) L 10/30/21 04:46 SARS-CoV-2 (PCR) Negative (NEGATIVE) 10/29/21 18:57 Review of Systems Constitutional: No Symptoms Reported Eyes: No Symptoms Reported ENT: No Symptoms Reported Respiratory: No Symptoms Reported Cardiovascular: No Symptoms Reported Gastrointestinal: No Symptoms Reported Genitourinary: No Symptoms Reported Musculoskeletal: No Symptoms Reported Skin: No Symptoms Reported Neurological: Weakness, Incoordination and Confusion Physical Exam Vital Signs: Temperature 97.5 F Pulse Rate [Right Brachial] 82 Pulse Rate 78 Respiratory Rate 20 Blood Pressure [Right Arm] 130/80 Blood Pressure [Left Arm] 125/79 Blood Pressure 172/88 O2 Sat by Pulse Oximetry 97 Oriented: Not Oriented Eyes: Normal Ear: Normal Nose: Normal Throat: Normal Respiratory: Clear Throughout Cardiovascular: Normal : Normal Palpation: Normal Tenderness: Normal Skin: Normal Musculoskeletal: Normal Psychiatric: Other (Patient is not answering questions.) Mood Description: Calm Affect: Normal Speech Pattern: Aphasic Assessment/Plan (1) Falls frequently: Status: Acute Plan: Readmitted the patient because of concern of possible CVA versus TIA. Initial CT has been negative but we will plan on MRI. (2) Confusion: Narrative Support Text: I am concerned the patient may have had another small stroke versus TIA. Status: Acute Plan: Continue to monitor patient at this time. Given the history of the patient's symptoms from his previous stroke several years ago it is very likely that he may have had another 1. Since he has had his ongoing anemia problem we will hold off on Plavix at this time as I think that would worsen his anemia. I am going to hold his p.o. medications at this time as well. (3) Muscle weakness (generalized): Status: Acute (4) Anemia: Qualifiers: Anemia type: iron deficiency Iron deficiency anemia type: chronic blood loss Qualified Code(s): D50.0 - Iron deficiency anemia secondary to blood loss (chronic) Narrative Support Text: Hemoglobin is stable at this time for him. Status: Acute Plan: Monitor daily CBCs. (5) Hypertension: Qualifiers: Hypertension type: primary hypertension Qualified Code(s): I10 - Essential (primary) hypertension Status: Chronic Plan: Monitor daily blood pressures. (6) Diabetes: Qualifiers: Diabetes mellitus type: type 2 Diabetes mellitus complication status: with hyperglycemia Diabetes mellitus dairy farm manager insulin use: with dairy farm manager use Qualified Code(s): E11.65 - Type 2 diabetes mellitus with hyperglycemia; Z79.4 - jail (current) use of insulin Status: Chronic (7) History of CVA (cerebrovascular accident): Status: Chronic (8) History of TIA (transient ischemic attack): Status: Chronic (9) Depression: Qualifiers: Depression Type: major depressive disorder Major depression recurrence: recurrent Active/Remission status: currently active Major depression episode severity: mild Qualified Code(s): 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
[2021-10-30] MEDS: ZyrTEC TAB 10 MG PO SCH (20:54)
[2021-10-30] MEDS: ELAVIL PO SCH (20:54)
[2021-10-31 05:39] LABS: BASOPHILS # (AUTO) 0.1 X10^3/uL (0.0-0.1); BASOPHILS % (AUTO) 0.9 % (0.2-1.0); EOSINOPHILS # (AUTO) 0.3 x10^3/uL (0.0-0.2); EOSINOPHILS % (AUTO) 4.5 % (0.9-2.9); HEMATOCRIT 29.9 % (42.0-54.0); HEMOGLOBIN 9.2 g/dL (13.5-18.0); LYMPHOCYTES # (AUTO) 2.2 X10^3/uL (1.3-2.9); LYMPHOCYTES % (AUTO) 33.8 % (21.0-51.0); MEAN CORPUSCULAR HGB CONC 30.8 g/dL (33.0-35.0); MEAN CORPUSCULAR VOLUME 74.6 fL (80.0-100.0); MEAN PLATELET VOLUME 7.3 fL (7.4-11.0); MONOCYTES # (AUTO) 0.3 x10^3/uL (0.3-0.8); MONOCYTES % (AUTO) 5.4 % (0.0-13.0); NEUTROPHILS # (AUTO) 3.6 x10^3/uL (2.2-4.8); NEUTROPHILS % (AUTO) 55.4 % (42.0-75.0); RED BLOOD COUNT 4.01 X10^6/uL (4.7-6.0); RED CELL DISTRIBUTION WIDTH 25.9 % (11.6-16.5); WHITE BLOOD COUNT 6.5 X10^3/uL (3.6-10.0)
[2021-10-31 05:50] LABS: ALANINE AMINOTRANSFERASE 24 Units/L (12-78); ALKALINE PHOSPHATASE 80 Units/L (46-116); ASPARTATE AMINO TRANSFERASE 24 Units/L (15-37); BLOOD UREA NITROGEN 13 mg/dL (7-18); CALCIUM 8.3 mg/dL (8.5-10.1); CARBON DIOXIDE 31.4 mmol/L (21-32); CHLORIDE 106 mmol/L (98-107); COR CA(FOR HYPOALB) 9.1 mg/dL (8.5-10.1); COR NA(FOR HYPERGLY) 143 mmol/L (136-145); CREATININE 0.73 mg/dL (0.70-1.30); SODIUM 143 mmol/L (136-145); TOTAL PROTEIN 6.6 g/dL (6.4-8.2); eGFR NON BLACK RACES > 60 (>60)
[2021-10-31 06:21] LABS: ANISOCYTOSIS 3+; HYPOCHROMASIA 1+; MICROCYTOSIS SLIGHT; PLATELET MORPHOLOGY COMMENT NORMAL (NORMAL)
[2021-10-31 06:22] LABS: OVALOCYTES PRESENT
[2021-10-31] MEDS: K-DUR TAB 20 MEQ PO PRN (06:53)
[2021-10-31] MEDS: PROTONIX TAB 40 MG PO SCH ×2 (09:32→20:58)
[2021-10-31] MEDS: ACCUPRIL PO SCH ×2 (09:32→21:57)
[2021-10-31] MEDS: ECOTRIN TAB 325 MG PO SCH (09:32)
[2021-10-31] MEDS: CYMBALTA PO SCH (09:32)
[2021-10-31] MEDS: FERROUS GLUCONATE PO SCH (09:33)
[2021-10-31] MEDS: FLOMAX PO SCH (09:33)
[2021-10-31] MEDS ORDERED: BUTT CREAM (COMPOUND) TOP PRN (14:36)
--- NOTE | 2021-10-31 18:43 | PCM.PROG ---
Progress Note Progress Note for Day of Date of Exam: 10/31/21 Subjective Subjective: The patient is alert and oriented this morning. He is speaking and answering questions appropriately. He is moving all extremities in all directions and has no complaints. Past Medical Family Social History Allergies: Allergies No Known Drug Allergies Allergy (Verified 02/27/20 08:00) Review of Systems ROS: No change since H&P Vital Signs and I&O's Vital Signs: Temperature 98.0 F Pulse Rate [Right Brachial] 80 Pulse Rate 78 Respiratory Rate 20 Blood Pressure [Right Arm] 137/76 Blood Pressure [Left Arm] 175/89 Blood Pressure 172/88 O2 Sat by Pulse Oximetry 91 Intake and Output: Intake & Output 10/29/21 10/30/21 10/31/21 11/01/21 11:59 11:59 11:59 11:59 Intake Total 150 / 150 740 / 740 480 / 480 Output Total 500 / 500 Balance -350 / -350 740 / 740 480 / 480 Physical Exam Oriented: Not Oriented Eyes: Normal Ear: Normal Nose: Normal Throat: Normal Respiratory: Normal Cardiovascular: Normal : Normal Palpation: Normal Tenderness: Normal Skin: Normal Musculoskeletal: Normal Psychiatric: Other (Patient is not answering questions.) Mood Description: Calm Affect: Normal Speech Pattern: Appropriate Laboratory and Diagnostics Result Diagrams: 10/31/21 04:57 10/31/21 04:57 Labs: Laboratory WBC 6.5 X10^3/uL (3.6-10.0) 10/31/21 04:57 RBC 4.01 X10^6/uL (4.7-6.0) L 10/31/21 04:57 Hgb 9.2 g/dL (13.5-18.0) L 10/31/21 04:57 Hct 29.9 % (42.0-54.0) L 10/31/21 04:57 MCV 74.6 fL (80.0-100.0) L 10/31/21 04:57 MCH 23.0 pg (27.0-34.0) L 10/31/21 04:57 MCHC 30.8 g/dL (33.0-35.0) L 10/31/21 04:57 RDW 25.9 % (11.6-16.5) H 10/31/21 04:57 Plt Count 304 X10^3/uL (150.0-450.0) 10/31/21 04:57 Plt Count Comment Adequate (ADEQUATE) 10/31/21 04:57 MPV 7.3 fL (7.4-11.0) L 10/31/21 04:57 Neut % (Auto) 55.4 % (42.0-75.0) 10/31/21 04:57 Lymph % (Auto) 33.8 % (21.0-51.0) 10/31/21 04:57 Beckham % (Auto) 5.4 % (0.0-13.0) 10/31/21 04:57 Eos % (Auto) 4.5 % (0.9-2.9) H 10/31/21 04:57 Baso % (Auto) 0.9 % (0.2-1.0) 10/31/21 04:57 Neut # (Auto) 3.6 x10^3/uL (2.2-4.8) 10/31/21 04:57 Lymph # (Auto) 2.2 X10^3/uL (1.3-2.9) 10/31/21 04:57 Beckham # (Auto) 0.3 x10^3/uL (0.3-0.8) 10/31/21 04:57 Eos # (Auto) 0.3 x10^3/uL (0.0-0.2) H 10/31/21 04:57 Baso # (Auto) 0.1 X10^3/uL (0.0-0.1) 10/31/21 04:57 Absolute Nucleated RBC 0.0 /100WBC 10/31/21 04:57 Total Counted 100 10/29/21 15:10 Neutrophils % (Manual) 80 % (39-76) H 10/29/21 15:10 Band Neutrophils % 2 % (0-10) 10/29/21 15:10 Lymphocytes % (Manual) 11 % (13-43) L 10/29/21 15:10 Monocytes % (Manual) 4 % (4-9) 10/29/21 15:10 Eosinophils % (Manual) 3 % (0-6) 10/29/21 15:10 Plt Morphology Comment Normal (NORMAL) 10/31/21 04:57 RBC Morphology Abnormal (NORMAL) 10/31/21 04:57 Dimorphic RBCs Present 10/31/21 04:57 Hypochromasia 1+ A 10/31/21 04:57 Poikilocytosis Slight A 10/29/21 15:10 Anisocytosis 3+ A 10/31/21 04:57 Microcytosis Slight A 10/31/21 04:57 Ovalocytes Present 10/31/21 04:57 Sodium 143 mmol/L (136-145) 10/31/21 04:57 Corrected Sodium 143 mmol/L (136-145) 10/31/21 04:57 Potassium 3.3 mmol/L (3.5-5.1) L 10/31/21 04:57 Chloride 106 mmol/L (98-107) 10/31/21 04:57 Carbon Dioxide 31.4 mmol/L (21-32) 10/31/21 04:57 BUN 13 mg/dL (7-18) 10/31/21 04:57 Creatinine 0.73 mg/dL (0.70-1.30) 10/31/21 04:57 Est GFR (MDRD) Af Amer > 60 (>60) 10/31/21 04:57 Est GFR (MDRD) Non-Af > 60 (>60) 10/31/21 04:57 Glucose 120 mg/dL (65-99) H 10/31/21 04:57 Calcium 8.3 mg/dL (8.5-10.1) L 10/31/21 04:57 Corrected Calcium 9.1 mg/dL (8.5-10.1) 10/31/21 04:57 Magnesium 1.8 mg/dL (1.7-2.9) 10/31/21 04:27 Total Bilirubin 0.50 mg/dL (0.2-1.0) 10/31/21 04:57 AST 24 Units/L (15-37) 10/31/21 04:57 ALT 24 Units/L (12-78) 10/31/21 04:57 Alkaline Phosphatase 80 Units/L (46-116) 10/31/21 04:57 Total Protein 6.6 g/dL (6.4-8.2) 10/31/21 04:57 Albumin 3.0 g/dL (3.4-5.0) L 10/31/21 04:57 Globulin 3.6 g/dL (2.5-4.5) 10/31/21 04:57 Albumin/Globulin Ratio 0.8 Ratio (1.1-2.1) L 10/31/21 04:57 SARS-CoV-2 (PCR) Negative (NEGATIVE) 10/29/21 18:57 Plan (1) Falls frequently: Status: Acute Plan: Readmitted the patient because of concern of possible CVA versus TIA. Initial CT has been negative but we will plan on MRI. (2) Confusion: Status: Acute Plan: Continue to monitor patient at this time. Given the history of the patient's symptoms from his previous stroke several years ago it is very likely that he may have had another 1. Since he has had his ongoing anemia problem we will hold off on Plavix at this time as I think that would worsen his anemia. I am going to hold his p.o. medications at this time as well. (3) Muscle weakness (generalized): Status: Acute (4) Anemia: Status: Acute Qualifiers: Anemia type: iron deficiency Iron deficiency anemia type: chronic blood loss Qualified Code(s): D50.0 - Iron deficiency anemia secondary to blood loss (chronic) Plan: Monitor daily CBCs. (5) Hypertension: Status: Chronic Qualifiers: Hypertension type: primary hypertension Qualified Code(s): I10 - Essential (primary) hypertension Plan: Monitor daily blood pressures. (6) Diabetes: Status: Chronic Qualifiers: Diabetes mellitus type: type 2 Diabetes mellitus complication status: with hyperglycemia Diabetes mellitus long-term insulin use: with long chain quiller tender use Qualified Code(s): E11.65 - Type 2 diabetes mellitus with hyperglycemia; Z79.4 - exterminator (current) use of insulin (7) History of CVA (cerebrovascular accident): Status: Chronic (8) History of TIA (transient ischemic attack): Status: Chronic Plan: We will check MRI brain once the staff is passed the october hol. 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
[2021-10-31] MEDS: ZyrTEC TAB 10 MG PO SCH (21:00)
[2021-10-31] MEDS: ELAVIL PO SCH (21:57)
[2021-11-01] MEDS: MAGNESIUM SULFATE 1 GRAM/100 mL PREMIX 1 G/100 ML BAG IV PRN ×2 (00:24→01:24)
[2021-11-01 06:13] LABS: BLOOD UREA NITROGEN 13 mg/dL (7-18); CALCIUM 8.7 mg/dL (8.5-10.1); CARBON DIOXIDE 27.7 mmol/L (21-32); CHLORIDE 105 mmol/L (98-107); COR NA(FOR HYPERGLY) 140 mmol/L (136-145); CREATININE 0.63 mg/dL (0.70-1.30); SODIUM 140 mmol/L (136-145); eGFR NON BLACK RACES > 60 (>60)
[2021-11-01 06:25] LABS: BASOPHILS # (AUTO) 0.1 X10^3/uL (0.0-0.1); BASOPHILS % (AUTO) 1.2 % (0.2-1.0); EOSINOPHILS # (AUTO) 0.2 x10^3/uL (0.0-0.2); HEMATOCRIT 27.3 % (42.0-54.0); HEMOGLOBIN 8.7 g/dL (13.5-18.0); LYMPHOCYTES # (AUTO) 1.6 X10^3/uL (1.3-2.9); LYMPHOCYTES % (AUTO) 25.9 % (21.0-51.0); MEAN CORPUSCULAR HEMOGLOBIN 23.7 pg (27.0-34.0); MEAN CORPUSCULAR HGB CONC 31.8 g/dL (33.0-35.0); MEAN CORPUSCULAR VOLUME 74.6 fL (80.0-100.0); MEAN PLATELET VOLUME 6.9 fL (7.4-11.0); MONOCYTES # (AUTO) 0.5 x10^3/uL (0.3-0.8); MONOCYTES % (AUTO) 8.5 % (0.0-13.0); NEUTROPHILS # (AUTO) 3.8 x10^3/uL (2.2-4.8); NEUTROPHILS % (AUTO) 60.4 % (42.0-75.0); RED BLOOD COUNT 3.66 X10^6/uL (4.7-6.0); RED CELL DISTRIBUTION WIDTH 26.1 % (11.6-16.5); WHITE BLOOD COUNT 6.2 X10^3/uL (3.6-10.0)
[2021-11-01 06:45] LABS: ALANINE AMINOTRANSFERASE 17 Units/L (12-78); ALBUMIN 2.7 g/dL (3.4-5.0); ALKALINE PHOSPHATASE 73 Units/L (46-116); ASPARTATE AMINO TRANSFERASE 22 Units/L (15-37); COR CA(FOR HYPOALB) 9.7 mg/dL (8.5-10.1); MAGNESIUM 2.1 mg/dL (1.7-2.9); TOTAL PROTEIN 6.1 g/dL (6.4-8.2)
[2021-11-01 07:45] LABS: ANISOCYTOSIS 3+; HYPOCHROMASIA 1+; MICROCYTOSIS SLIGHT; OVALOCYTES PRESENT; PLATELET MORPHOLOGY COMMENT NORMAL (NORMAL)
[2021-11-01] MEDS: FLOMAX PO SCH (09:59)
[2021-11-01] MEDS: FERROUS GLUCONATE PO SCH (09:59)
[2021-11-01] MEDS: CYMBALTA PO SCH (09:59)
[2021-11-01] MEDS: ECOTRIN TAB 325 MG PO SCH (09:59)
[2021-11-01] MEDS: PROTONIX TAB 40 MG PO SCH ×2 (10:00→21:28)
[2021-11-01] MEDS: ACCUPRIL PO SCH ×2 (10:00→21:27)
--- NOTE | 2021-11-01 17:55 | PCM.PROG ---
Progress Note Progress Note for Day of Date of Exam: 11/01/21 Subjective Subjective: The patient is alert and oriented this morning. He is speaking and answering questions appropriately. He is moving all extremities in all directions and has no complaints. There has been no further complications since he was admitted 2 days ago. Vital signs remained stable. He is satting 98% on 2 L nasal cannula. Heart rate is 88 blood pressure is slightly elevated at 154/96. Past Medical Family Social History Allergies: Allergies No Known Drug Allergies Allergy (Verified 02/27/20 08:00) Review of Systems ROS: No change since H&P Vital Signs and I&O's Vital Signs: Temperature 98.7 F Pulse Rate [Right Brachial] 88 Pulse Rate 78 Respiratory Rate 22 Blood Pressure [Right Arm] 154/96 Blood Pressure [Left Arm] 175/89 Blood Pressure 172/88 O2 Sat by Pulse Oximetry 98 Intake and Output: Intake & Output 10/30/21 10/31/21 11/01/21 11/02/21 11:59 11:59 11:59 11:59 Intake Total 150 / 150 740 / 740 1170 / 1170 660 / 660 Output Total 500 / 500 500 / 500 Balance -350 / -350 740 / 740 670 / 670 660 / 660 Physical Exam Oriented: Not Oriented Eyes: Normal Ear: Normal Nose: Normal Throat: Normal Respiratory: Normal Cardiovascular: Normal : Normal Tenderness: Normal Skin: Normal Musculoskeletal: Normal Psychiatric: Other (Patient is not answering questions.) Mood Description: Calm Affect: Normal Speech Pattern: Appropriate Laboratory and Diagnostics Result Diagrams: 11/01/21 05:36 11/01/21 05:36 Labs: Laboratory WBC 6.2 X10^3/uL (3.6-10.0) 11/01/21 05:36 RBC 3.66 X10^6/uL (4.7-6.0) L 11/01/21 05:36 Hgb 8.7 g/dL (13.5-18.0) L 11/01/21 05:36 Hct 27.3 % (42.0-54.0) L 11/01/21 05:36 MCV 74.6 fL (80.0-100.0) L 11/01/21 05:36 MCH 23.7 pg (27.0-34.0) L 11/01/21 05:36 MCHC 31.8 g/dL (33.0-35.0) L 11/01/21 05:36 RDW 26.1 % (11.6-16.5) H 11/01/21 05:36 Plt Count 238 X10^3/uL (150.0-450.0) 11/01/21 05:36 Plt Count Comment Adequate (ADEQUATE) 11/01/21 05:36 MPV 6.9 fL (7.4-11.0) L 11/01/21 05:36 Neut % (Auto) 60.4 % (42.0-75.0) 11/01/21 05:36 Lymph % (Auto) 25.9 % (21.0-51.0) 11/01/21 05:36 Mora % (Auto) 8.5 % (0.0-13.0) 11/01/21 05:36 Eos % (Auto) 4.0 % (0.9-2.9) H 11/01/21 05:36 Baso % (Auto) 1.2 % (0.2-1.0) H 11/01/21 05:36 Neut # (Auto) 3.8 x10^3/uL (2.2-4.8) 11/01/21 05:36 Lymph # (Auto) 1.6 X10^3/uL (1.3-2.9) 11/01/21 05:36 Mora # (Auto) 0.5 x10^3/uL (0.3-0.8) 11/01/21 05:36 Eos # (Auto) 0.2 x10^3/uL (0.0-0.2) 11/01/21 05:36 Baso # (Auto) 0.1 X10^3/uL (0.0-0.1) 11/01/21 05:36 Absolute Nucleated RBC 0.0 /100WBC 11/01/21 05:36 Total Counted 100 10/29/21 15:10 Neutrophils % (Manual) 80 % (39-76) H 10/29/21 15:10 Band Neutrophils % 2 % (0-10) 10/29/21 15:10 Lymphocytes % (Manual) 11 % (13-43) L 10/29/21 15:10 Monocytes % (Manual) 4 % (4-9) 10/29/21 15:10 Eosinophils % (Manual) 3 % (0-6) 10/29/21 15:10 Plt Morphology Comment Normal (NORMAL) 11/01/21 05:36 RBC Morphology Abnormal (NORMAL) 11/01/21 05:36 Dimorphic RBCs Present 11/01/21 05:36 Hypochromasia 1+ A 11/01/21 05:36 Poikilocytosis Slight A 10/29/21 15:10 Anisocytosis 3+ A 11/01/21 05:36 Microcytosis Slight A 11/01/21 05:36 Ovalocytes Present 11/01/21 05:36 Sodium 140 mmol/L (136-145) 11/01/21 05:36 Corrected Sodium 140 mmol/L (136-145) 11/01/21 05:36 Potassium 3.7 mmol/L (3.5-5.1) 11/01/21 05:36 Chloride 105 mmol/L (98-107) 11/01/21 05:36 Carbon Dioxide 27.7 mmol/L (21-32) 11/01/21 05:36 BUN 13 mg/dL (7-18) 11/01/21 05:36 Creatinine 0.63 mg/dL (0.70-1.30) L 11/01/21 05:36 Est GFR (MDRD) Af Amer > 60 (>60) 11/01/21 05:36 Est GFR (MDRD) Non-Af > 60 (>60) 11/01/21 05:36 Glucose 119 mg/dL (65-99) H 11/01/21 05:36 Calcium 8.7 mg/dL (8.5-10.1) 11/01/21 05:36 Corrected Calcium 9.7 mg/dL (8.5-10.1) 11/01/21 05:36 Magnesium 2.1 mg/dL (1.7-2.9) 11/01/21 05:36 Total Bilirubin 0.30 mg/dL (0.2-1.0) 11/01/21 05:36 AST 22 Units/L (15-37) 11/01/21 05:36 ALT 17 Units/L (12-78) 11/01/21 05:36 Alkaline Phosphatase 73 Units/L (46-116) 11/01/21 05:36 Total Protein 6.1 g/dL (6.4-8.2) L 11/01/21 05:36 Albumin 2.7 g/dL (3.4-5.0) L 11/01/21 05:36 Globulin 3.4 g/dL (2.5-4.5) 11/01/21 05:36 Albumin/Globulin Ratio 0.8 Ratio (1.1-2.1) L 11/01/21 05:36 SARS-CoV-2 (PCR) Negative (NEGATIVE) 10/29/21 18:57 Plan (1) Falls frequently: Status: Acute Plan: Readmitted the patient because of concern of possible CVA versus TIA. Initial CT has been negative but we will plan on MRI. (2) Confusion: Status: Acute Plan: Continue to monitor patient at this time. Given the history of the patient's symptoms from his previous stroke several years ago it is very likely that he may have had another 1. Since he has had his ongoing anemia problem we will hold off on Plavix at this time as I think that would worsen his anemia. I am going to hold his p.o. medications at this time as well. (3) Muscle weakness (generalized): Status: Acute Narrative Support Text: Increase strength since admission. (4) Anemia: Status: Acute Qualifiers: Anemia type: iron deficiency Iron deficiency anemia type: chronic blood loss Qualified Code(s): D50.0 - Iron deficiency anemia secondary to blood loss (chronic) Plan: Monitor daily CBCs. Continue ferrous gluconate. (5) Hypertension: Status: Chronic Qualifiers: Hypertension type: primary hypertension Qualified Code(s): I10 - Essential (primary) hypertension Plan: Monitor daily blood pressures. (6) Diabetes: Status: Chronic Qualifiers: Diabetes mellitus type: type 2 Diabetes mellitus complication status: with hyperglycemia Diabetes mellitus salvage determiner insulin use: with salvage determiner use Qualified Code(s): E11.65 - Type 2 diabetes mellitus with hyperglycemia; Z79.4 - salvage determiner (current) use of insulin (7) History of CVA (cerebrovascular accident): Status: Chronic (8) History of TIA (transient ischemic attack): Status: Chronic Plan: We will check MRI brain once the staff is passed the october hol. 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
[2021-11-01] MEDS: K-DUR TAB 20 MEQ PO PRN (21:28)
[2021-11-01] MEDS: ELAVIL PO SCH (21:28)
[2021-11-01] MEDS: ZyrTEC TAB 10 MG PO SCH (21:28)
[2021-11-02 06:18] LABS: BASOPHILS # (AUTO) 0.1 X10^3/uL (0.0-0.1); EOSINOPHILS # (AUTO) 0.1 x10^3/uL (0.0-0.2); EOSINOPHILS % (AUTO) 2.6 % (0.9-2.9); HEMOGLOBIN 9.1 g/dL (13.5-18.0); LYMPHOCYTES # (AUTO) 1.8 X10^3/uL (1.3-2.9); LYMPHOCYTES % (AUTO) 31.4 % (21.0-51.0); MEAN CORPUSCULAR HEMOGLOBIN 23.4 pg (27.0-34.0); MEAN CORPUSCULAR HGB CONC 31.5 g/dL (33.0-35.0); MEAN CORPUSCULAR VOLUME 74.2 fL (80.0-100.0); MEAN PLATELET VOLUME 7.1 fL (7.4-11.0); MONOCYTES # (AUTO) 0.5 x10^3/uL (0.3-0.8); MONOCYTES % (AUTO) 9.6 % (0.0-13.0); NEUTROPHILS # (AUTO) 3.1 x10^3/uL (2.2-4.8); NEUTROPHILS % (AUTO) 55.4 % (42.0-75.0); RED BLOOD COUNT 3.91 X10^6/uL (4.7-6.0); RED CELL DISTRIBUTION WIDTH 26.6 % (11.6-16.5); WHITE BLOOD COUNT 5.7 X10^3/uL (3.6-10.0)
[2021-11-02 06:38] LABS: ALANINE AMINOTRANSFERASE 24 Units/L (12-78); ALKALINE PHOSPHATASE 76 Units/L (46-116); ASPARTATE AMINO TRANSFERASE 21 Units/L (15-37); BLOOD UREA NITROGEN 13 mg/dL (7-18); CALCIUM 8.4 mg/dL (8.5-10.1); CHLORIDE 105 mmol/L (98-107); COR CA(FOR HYPOALB) 9.2 mg/dL (8.5-10.1); COR NA(FOR HYPERGLY) 143 mmol/L (136-145); CREATININE 0.71 mg/dL (0.70-1.30); SODIUM 142 mmol/L (136-145); TOTAL PROTEIN 6.6 g/dL (6.4-8.2); eGFR NON BLACK RACES > 60 (>60)
[2021-11-02 06:44] LABS: ANISOCYTOSIS 3+; HYPOCHROMASIA 1+; MICROCYTOSIS SLIGHT; OVALOCYTES PRESENT; PLATELET MORPHOLOGY COMMENT NORMAL (NORMAL); POIKILOCYTOSIS SLIGHT
[2021-11-02] MEDS: K-DUR TAB 20 MEQ PO PRN (06:53)
[2021-11-02] MEDS: FLOMAX PO SCH (09:45)
[2021-11-02] MEDS: PROTONIX TAB 40 MG PO SCH ×2 (09:45→21:25)
[2021-11-02] MEDS: CYMBALTA PO SCH (09:48)
[2021-11-02] MEDS: ECOTRIN TAB 325 MG PO SCH (09:48)
[2021-11-02] MEDS: FERROUS GLUCONATE PO SCH (09:48)
[2021-11-02] MEDS: ACCUPRIL PO SCH ×2 (09:48→21:25)
--- NOTE | 2021-11-02 13:06 | MRI ---
HISTORYAMS, HX OF CVA, WEAKNESSSTUDYBRAIN W/O CONCOMPARISONHead CT 10/29/2021TECHNIQUEMultiplanar multisequence MRI of the brain was obtained without contrast using standard departmental protocol.FINDINGSDiffusion-weighted images show a small punctate area of high signal in the right cerebellar hemisphere. I believe I can see this as focal high signal on exponential ADC maps and focal low signal on ADC maps. Probably represents an acute small lacunar infarct. But there is a small area low signal on susceptibility at this location so this could be artifactual.No evidence for cortical infarct or other deep white matter infarct.Age-related findings include central and cortical atrophy with abnormal signal in the periventricular white matter, most likely the micro-ischemic changes of aging. Other ballard and white matter have normal differentiation.No mass, shift, or hemorrhage.Cerebellar tonsils are at an appropriate level.There is normal signal flow void in the central vessels. Small focal areas of low signal are present in the right cerebellar hemisphere and the left thalamus consistent with old focal hemorrhage. These are tiny and not acute.No fluid in the sinuses or mucosal thickening to suggest sinusitis. There is no mastoid effusion.IMPRESSION1. Findings suggesting small acute right cerebellar hemisphere infarct2. No hemorrhage or mass effectElectronically signed by: Mo Gonsalves (Nov 02, 2021 13:04:39)
[2021-11-02] MEDS ORDERED: MAG-OX TAB PO ONE (17:00)
--- NOTE | 2021-11-02 19:46 | PCM.PROG ---
Progress Note Progress Note for Day of Date of Exam: 11/02/21 Subjective Subjective: IS A PATIENT OF . HE WAS A READMISSION ON 10/29/21 DUE TO FREQUENT FALLS, DECONDITIONING, GENERALIZED WEAKNESS, AND ANEMIA. HE WAS DISCHARGED FROM THE HOSPITAL ON 10/29/21 FOLLOWING TREATMENT OF ANEMIA, BUT AFTER HE RETURNED HOME, PATIENT FELL AND HIS DAUGHTER BROUGHT HIM BACK. TODAY, HE IS ALERT, LYING IN BED ON MORNING ROUNDS. HE CONTINUES TO BE DISORIENTED THIS MORNING. HE IS NOT ANSWERING QUESTIONS APPROPRIATELY AND IS RAMBLING. NURSING STAFF REPORTS THAT HE CONTINUES TO BE WEAK. HE REQUIRES ASSISTANCE FOR AMBULATION AND HAS AN UNSTEADY GAIT. HE HAS ATTEMPTED TO GET OUT OF BED WITHOUT ASSISTANCE ON MULTIPLE OCCASIONS. ON EXAMINATION, HEART IS REGULAR IN RATE AND RHYTHM. BILATERAL LUNGS ARE CLEAR TO AUSCULTATION. ABDOMEN IS ROUND, SOFT, AND NON-TENDER WITH NORMAL BOWEL SOUNDS NOTED IN ALL QUADRNATS. HE IS ABLE TO MOVE ALL EXTREMITIES APPROPRIATELY. HIS VITAL TODAY ARE 97.8-100-18-97%-160/85. ABNORMAL LAB VALUES INCLUDE THE FOLLOWING: RBC 3.91, HGB 9.1, HCT 29.0, GLUCOSE 135, CALCIUM 8.4, ALBUMIN 3.0. HE IS CURRENTLY RECEIVING ELAVIL 25MG PO HS, ECOTRIN 325MG PO DAILY, LIPITOR 20MG PO HS, ZYRTEC 10MG PO HS, COLACE 100MG PO BID PRN, CYMBALTA 30MG PO DAILY, FERROUS GLUCONATE 324MG PO DAILY, HALDOL 2-4MG IM Q4H PRN, LOPRESSOR 5MG IV Q12H PRN, PROTONIX 40MG PO BID, AC CUPRIL 40MG PO BID, FLOMAX 0.4MG PO DAILY, AND THE POTASSIUM AND MAGNESIUM PROTOCOLS. WE WILL OBTAIN A BRAIN MRI WITHOUT CONTRAST TODAY DUE TO PERSISTENT AMS AND WEAKNESS. WE WILL HAVE PHYSICAL THERAPY EVALUATE PATIENT TODAY. OTHERWISE, WE WILL FOLLOW UP WITH AM LABS AND CONTINUE TO MONITOR PATIENT. TIME SPENT ON CLINICAL ASSESSMENT, REVIEWING LABS AND IMAGING, DECISION MAKING, AND DOCUMENTATION GREATER THAN 45 MINUTES. Past Medical Family Social History Allergies: Allergies No Known Drug Allergies Allergy (Verified 02/27/20 08:00) Review of Systems ROS: No change since H&P Vital Signs and I&O's Vital Signs: Temperature 98.0 F Pulse Rate [Right Brachial] 83 Pulse Rate 78 Respiratory Rate 18 Blood Pressure [Right Arm] 151/81 Blood Pressure [Left Arm] 175/89 Blood Pressure 172/88 O2 Sat by Pulse Oximetry 96 Intake and Output: Intake & Output 10/31/21 11/01/21 11/02/21 11/03/21 11:59 11:59 11:59 11:59 Intake Total 740 / 740 1170 / 1170 960 / 960 240 / 240 Output Total 500 / 500 Balance 740 / 740 670 / 670 960 / 960 240 / 240 Physical Exam Oriented: Not Oriented Eyes: Normal Ear: Normal Nose: Normal Throat: Normal Respiratory: Normal Cardiovascular: Normal : Normal Tenderness: Normal Skin: Normal Musculoskeletal: Normal Psychiatric: Other (Patient is not answering questions appropriately) Mood Description: Calm Affect: Normal Speech Pattern: Appropriate Laboratory and Diagnostics Result Diagrams: 11/02/21 05:12 11/02/21 05:12 Labs: Laboratory WBC 5.7 X10^3/uL (3.6-10.0) 11/02/21 05:12 RBC 3.91 X10^6/uL (4.7-6.0) L 11/02/21 05:12 Hgb 9.1 g/dL (13.5-18.0) L 11/02/21 05:12 Hct 29.0 % (42.0-54.0) L 11/02/21 05:12 MCV 74.2 fL (80.0-100.0) L 11/02/21 05:12 MCH 23.4 pg (27.0-34.0) L 11/02/21 05:12 MCHC 31.5 g/dL (33.0-35.0) L 11/02/21 05:12 RDW 26.6 % (11.6-16.5) H 11/02/21 05:12 Plt Count 241 X10^3/uL (150.0-450.0) 11/02/21 05:12 Plt Count Comment Adequate (ADEQUATE) 11/02/21 05:12 MPV 7.1 fL (7.4-11.0) L 11/02/21 05:12 Neut % (Auto) 55.4 % (42.0-75.0) 11/02/21 05:12 Lymph % (Auto) 31.4 % (21.0-51.0) 11/02/21 05:12 [place] % (Auto) 9.6 % (0.0-13.0) 11/02/21 05:12 Eos % (Auto) 2.6 % (0.9-2.9) 11/02/21 05:12 Baso % (Auto) 1.0 % (0.2-1.0) 11/02/21 05:12 Neut # (Auto) 3.1 x10^3/uL (2.2-4.8) 11/02/21 05:12 Lymph # (Auto) 1.8 X10^3/uL (1.3-2.9) 11/02/21 05:12 [place] # (Auto) 0.5 x10^3/uL (0.3-0.8) 11/02/21 05:12 Eos # (Auto) 0.1 x10^3/uL (0.0-0.2) 11/02/21 05:12 Baso # (Auto) 0.1 X10^3/uL (0.0-0.1) 11/02/21 05:12 Absolute Nucleated RBC 0.1 /100WBC 11/02/21 05:12 Total Counted 100 10/29/21 15:10 Neutrophils % (Manual) 80 % (39-76) H 10/29/21 15:10 Band Neutrophils % 2 % (0-10) 10/29/21 15:10 Lymphocytes % (Manual) 11 % (13-43) L 10/29/21 15:10 Monocytes % (Manual) 4 % (4-9) 10/29/21 15:10 Eosinophils % (Manual) 3 % (0-6) 10/29/21 15:10 Plt Morphology Comment Normal (NORMAL) 11/02/21 05:12 RBC Morphology Abnormal (NORMAL) 11/02/21 05:12 Dimorphic RBCs Present 11/01/21 05:36 Hypochromasia 1+ A 11/02/21 05:12 Poikilocytosis Slight A 11/02/21 05:12 Anisocytosis 3+ A 11/02/21 05:12 Microcytosis Slight A 11/02/21 05:12 Ovalocytes Present 11/02/21 05:12 Sodium 142 mmol/L (136-145) 11/02/21 05:12 Corrected Sodium 143 mmol/L (136-145) 11/02/21 05:12 Potassium 3.7 mmol/L (3.5-5.1) 11/02/21 05:12 Chloride 105 mmol/L (98-107) 11/02/21 05:12 Carbon Dioxide 30.0 mmol/L (21-32) 11/02/21 05:12 BUN 13 mg/dL (7-18) 11/02/21 05:12 Creatinine 0.71 mg/dL (0.70-1.30) 11/02/21 05:12 Est GFR (MDRD) Af Amer > 60 (>60) 11/02/21 05:12 Est GFR (MDRD) Non-Af > 60 (>60) 11/02/21 05:12 Glucose 135 mg/dL (65-99) H 11/02/21 05:12 Calcium 8.4 mg/dL (8.5-10.1) L 11/02/21 05:12 Corrected Calcium 9.2 mg/dL (8.5-10.1) 11/02/21 05:12 Magnesium 1.8 mg/dL (1.7-2.9) 11/02/21 05:12 Total Bilirubin 0.30 mg/dL (0.2-1.0) 11/02/21 05:12 AST 21 Units/L (15-37) 11/02/21 05:12 ALT 24 Units/L (12-78) 11/02/21 05:12 Alkaline Phosphatase 76 Units/L (46-116) 11/02/21 05:12 Total Protein 6.6 g/dL (6.4-8.2) 11/02/21 05:12 Albumin 3.0 g/dL (3.4-5.0) L 11/02/21 05:12 Globulin 3.6 g/dL (2.5-4.5) 11/02/21 05:12 Albumin/Globulin Ratio 0.8 Ratio (1.1-2.1) L 11/02/21 05:12 SARS-CoV-2 (PCR) Negative (NEGATIVE) 10/29/21 18:57 Plan (1) Falls frequently: Status: Acute Plan: Readmitted the patient because of concern of possible CVA versus TIA. Initial CT has been negative but we will plan on MRI today (2) Confusion: Status: Acute Plan: Continue to monitor patient at this time. Given the history of the patient's symptoms from his previous stroke several years ago it is very likely that he may have had another 1. Since he has had his ongoing anemia problem we will hold off on Plavix at this time as I think that would worsen his anemia. I am going to hold his p.o. medications at this time as well. (3) Muscle weakness (generalized): Status: Acute (4) Anemia: Status: Acute Qualifiers: Anemia type: iron deficiency Iron deficiency anemia type: chronic blood loss Qualified Code(s): D50.0 - Iron deficiency anemia secondary to blood loss (chronic) Plan: Monitor daily CBCs. Continue ferrous gluconate. (5) Hypertension: Status: Chronic Qualifiers: Hypertension type: primary hypertension Qualified Code(s): I10 - Essential (primary) hypertension Plan: Monitor daily blood pressures. (6) Diabetes: Status: Chronic Qualifiers: Diabetes mellitus type: type 2 Diabetes mellitus complication status: with hyperglycemia Diabetes mellitus assisted insulin use: with tank terminal gauger use Qualified Code(s): E11.65 - Type 2 diabetes mellitus with hyperglycemia; Z79.4 - [facility] (current) use of insulin (7) History of CVA (cerebrovascular accident): Status: Chronic (8) History of TIA (transient ischemic attack): Status: Chronic Plan: We will check MRI brain (9) Depression: Status: Chronic Qualifiers: Depression Type: major depressive disorder Major depression recurrence: recurrent Active/Remission status: currently active Major depression episode severity: mild Qualified Code(s): 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
[2021-11-02] MEDS ORDERED: LIPITOR TAB 20 MG PO SCH (21:00)
[2021-11-02] MEDS: ZyrTEC TAB 10 MG PO SCH (21:25)
[2021-11-02] MEDS: ELAVIL PO SCH (21:25)
[2021-11-03 05:54] LABS: BASOPHILS # (AUTO) 0.1 X10^3/uL (0.0-0.1); BASOPHILS % (AUTO) 0.9 % (0.2-1.0); EOSINOPHILS # (AUTO) 0.2 x10^3/uL (0.0-0.2); EOSINOPHILS % (AUTO) 3.1 % (0.9-2.9); HEMOGLOBIN 9.2 g/dL (13.5-18.0); LYMPHOCYTES # (AUTO) 2.5 X10^3/uL (1.3-2.9); LYMPHOCYTES % (AUTO) 37.8 % (21.0-51.0); MEAN CORPUSCULAR HEMOGLOBIN 23.3 pg (27.0-34.0); MEAN CORPUSCULAR HGB CONC 31.7 g/dL (33.0-35.0); MEAN CORPUSCULAR VOLUME 73.7 fL (80.0-100.0); MONOCYTES # (AUTO) 0.6 x10^3/uL (0.3-0.8); MONOCYTES % (AUTO) 8.9 % (0.0-13.0); NEUTROPHILS # (AUTO) 3.2 x10^3/uL (2.2-4.8); NEUTROPHILS % (AUTO) 49.3 % (42.0-75.0); RED BLOOD COUNT 3.93 X10^6/uL (4.7-6.0); RED CELL DISTRIBUTION WIDTH 26.2 % (11.6-16.5); WHITE BLOOD COUNT 6.5 X10^3/uL (3.6-10.0)
[2021-11-03 06:08] LABS: ALANINE AMINOTRANSFERASE 28 Units/L (12-78); ALKALINE PHOSPHATASE 72 Units/L (46-116); ASPARTATE AMINO TRANSFERASE 31 Units/L (15-37); BLOOD UREA NITROGEN 13 mg/dL (7-18); CALCIUM 8.6 mg/dL (8.5-10.1); CARBON DIOXIDE 27.6 mmol/L (21-32); CHLORIDE 105 mmol/L (98-107); COR CA(FOR HYPOALB) 9.4 mg/dL (8.5-10.1); COR NA(FOR HYPERGLY) 142 mmol/L (136-145); CREATININE 0.67 mg/dL (0.70-1.30); MAGNESIUM 1.7 mg/dL (1.7-2.9); SODIUM 141 mmol/L (136-145); TOTAL PROTEIN 6.6 g/dL (6.4-8.2); eGFR NON BLACK RACES > 60 (>60)
[2021-11-03 06:12] LABS: ANISOCYTOSIS 3+; HYPOCHROMASIA SLIGHT; PLATELET MORPHOLOGY COMMENT NORMAL (NORMAL)
[2021-11-03 06:13] LABS: MICROCYTOSIS SLIGHT; OVALOCYTES PRESENT
[2021-11-03] MEDS: FERROUS GLUCONATE PO SCH (09:25)
[2021-11-03] MEDS: ACCUPRIL PO SCH ×2 (09:25→21:19)
[2021-11-03] MEDS: CYMBALTA PO SCH (09:25)
[2021-11-03] MEDS: FLOMAX PO SCH (09:25)
[2021-11-03] MEDS: PROTONIX TAB 40 MG PO SCH ×2 (09:25→21:19)
[2021-11-03] MEDS: ECOTRIN TAB 325 MG PO SCH (09:25)
--- NOTE | 2021-11-03 13:06 | PCM.PROG ---
Progress Note - Progress Note for Day of Date of Exam: 11/03/21 - Subjective Subjective: IS A PATIENT OF OURS. HE WAS A READMISSION ON 10/29/21 DUE TO FREQUENT FALLS, DECONDITIONING, GENERALIZED WEAKNESS, AND ANEMIA. HE WAS DISCHARGED FROM THE HOSPITAL ON 10/29/21 FOLLOWING TREATMENT OF ANEMIA, BUT AFTER HE RETURNED HOME, PATIENT FELL AND HIS DAUGHTER BROUGHT HIM BACK. TODAY, HE IS LYING IN BED WITH EYES CLOSED ON MORNING ROUNDS. HE AWAKENS TO VERBAL STIMULI. HE CONTINUES TO BE DISORIENTED THIS MORNING. HE IS NOT ANSWERING QUESTIONS APPROPRIATELY AND IS RAMBLING. NURSING STAFF REPORTS THAT HE CONTINUES TO BE WEAK. HE REQUIRES ASSISTANCE FOR AMBULATION AND HAS AN UNSTEADY GAIT. HE HAS ATTEMPTED TO GET OUT OF BED WITHOUT ASSISTANCE ON MULTIPLE OCCASIONS. ON EXAMINA TION, HEART IS REGULAR IN RATE AND RHYTHM. BILATERAL LUNGS ARE CLEAR TO AUSCULTATION. ABDOMEN IS ROUND, SOFT, AND NON-TENDER WITH NORMAL BOWEL SOUNDS NOTED IN ALL QUADRNATS. HE IS ABLE TO MOVE ALL EXTREMITIES APPROPRIATELY. HIS VITAL TODAY ARE 98.3-93-18-97%-152/97. HE IS CURRENTLY UTILIZING OXYGEN VIA NASAL CANNULA AT 3 LPM. LABS WERE OBTAINED. ABNORMAL LAB VALUES INCLUDE THE FOLLOWING: RBC 3.93, HGB 9.2, HCT 29.0, CREATININE 0.67, GLUCOSE 127, ALBUMIN 3.0. A BRAIN MRI WAS OBTAINED YESTERDAY AND REVEALED: 1. Findings suggesting small acute right cerebellar hemisphere infarct2. No hemorrhage or mass effect. HE IS CURRENTLY RECEIVING ELAVIL 25MG PO HS, ECOTRIN 325MG PO DAILY, LIPITOR 20MG PO HS, ZYRTEC 10MG PO HS, COLACE 100MG PO BID PRN, CYMBALTA 30MG PO DAILY, FERROUS GLUCONATE 324MG PO DAILY, HALDOL 2-4MG IM Q4H PRN, LOPRESSOR 5MG IV Q12H PRN, PROTONIX 40MG PO BID, ACCUPRIL 40MG PO BID, FLOMAX 0.4MG PO DAILY, AND THE POTASSIUM AND MAGNESIUM PROTOCOLS. WE WILL INCREASE ATORVASTATIN TO 40MG PO HS. PHYSICAL THERAPY WILL WORK WITH HIM AGAIN TODAY. OTHERWISE, WE WILL FOLLOW UP WITH AM LABS AND CONTINUE TO MONITOR PATIENT. TIME SPENT ON CLINICAL ASSESSMENT, REVIEWING LABS AND IMAGING, DECISION MAKING, AND DOCUMENTATION GREATER THAN 45 MINUTES. - Past Medical Family Social History Past Med/Fam/Surg Hx: No changes since H&P Allergies: Allergies No Known Drug Allergies Allergy (Verified 02/27/20 08:00) - Review of Systems ROS: No change since H&P - Vital Signs and I&O's Vital Signs: Temperature 98.3 F Pulse Rate [Right Brachial] 93 Pulse Rate 78 Respiratory Rate 18 Blood Pressure [Right Arm] 152/97 Blood Pressure [Left Arm] 175/89 Blood Pressure 172/88 O2 Sat by Pulse Oximetry 97 Intake and Output: Intake & Output 11/01/21 11/02/21 11/03/21 11/04/21 11:59 11:59 11:59 11:59 Intake Total 1170 / 1170 960 / 960 675 / 675 Output Total 500 / 500 Balance 670 / 670 960 / 960 675 / 675 - Physical Exam Oriented: Not Oriented Eyes: Normal Ear: Normal Nose: Normal Throat: Normal Respiratory: Normal Cardiovascular: Normal : Normal Auscultation: Bowel Sounds: Normal Palpation: Normal Tenderness: Normal Skin: Normal Musculoskeletal: Normal Psychiatric: Other (Patient is not answering questions appropriately) Mood Description: Calm Affect: Normal Speech Pattern: Appropriate - Laboratory and Diagnostics Result Diagrams: 11/03/21 05:26 11/03/21 05:26 Labs: Laboratory WBC 6.5 X10^3/uL (3.6-10.0) 11/03/21 05:26 RBC 3.93 X10^6/uL (4.7-6.0) L 11/03/21 05:26 Hgb 9.2 g/dL (13.5-18.0) L 11/03/21 05:26 Hct 29.0 % (42.0-54.0) L 11/03/21 05:26 MCV 73.7 fL (80.0-100.0) L 11/03/21 05:26 MCH 23.3 pg (27.0-34.0) L 11/03/21 05:26 MCHC 31.7 g/dL (33.0-35.0) L 11/03/21 05:26 RDW 26.2 % (11.6-16.5) H 11/03/21 05:26 Plt Count 253 X10^3/uL (150.0-450.0) 11/03/21 05:26 Plt Count Comment Adequate (ADEQUATE) 11/03/21 05:26 MPV 7.0 fL (7.4-11.0) L 11/03/21 05:26 Neut % (Auto) 49.3 % (42.0-75.0) 11/03/21 05:26 Lymph % (Auto) 37.8 % (21.0-51.0) 11/03/21 05:26 [place] % (Auto) 8.9 % (0.0-13.0) 11/03/21 05:26 Eos % (Auto) 3.1 % (0.9-2.9) H 11/03/21 05:26 Baso % (Auto) 0.9 % (0.2-1.0) 11/03/21 05:26 Neut # (Auto) 3.2 x10^3/uL (2.2-4.8) 11/03/21 05:26 Lymph # (Auto) 2.5 X10^3/uL (1.3-2.9) 11/03/21 05:26 [place] # (Auto) 0.6 x10^3/uL (0.3-0.8) 11/03/21 05:26 Eos # (Auto) 0.2 x10^3/uL (0.0-0.2) 11/03/21 05:26 Baso # (Auto) 0.1 X10^3/uL (0.0-0.1) 11/03/21 05:26 Absolute Nucleated RBC 0.0 /100WBC 11/03/21 05:26 Total Counted 100 10/29/21 15:10 Neutrophils % (Manual) 80 % (39-76) H 10/29/21 15:10 Band Neutrophils % 2 % (0-10) 10/29/21 15:10 Lymphocytes % (Manual) 11 % (13-43) L 10/29/21 15:10 Monocytes % (Manual) 4 % (4-9) 10/29/21 15:10 Eosinophils % (Manual) 3 % (0-6) 10/29/21 15:10 Plt Morphology Comment Normal (NORMAL) 11/03/21 05:26 RBC Morphology Abnormal (NORMAL) 11/03/21 05:26 Dimorphic RBCs Present 11/03/21 05:26 Hypochromasia Slight A 11/03/21 05:26 Poikilocytosis Slight A 11/02/21 05:12 Anisocytosis 3+ A 11/03/21 05:26 Microcytosis Slight A 11/03/21 05:26 Ovalocytes Present 11/03/21 05:26 Sodium 141 mmol/L (136-145) 11/03/21 05:26 Corrected Sodium 142 mmol/L (136-145) 11/03/21 05:26 Potassium 3.9 mmol/L (3.5-5.1) 11/03/21 05:26 Chloride 105 mmol/L (98-107) 11/03/21 05:26 Carbon Dioxide 27.6 mmol/L (21-32) 11/03/21 05:26 BUN 13 mg/dL (7-18) 11/03/21 05:26 Creatinine 0.67 mg/dL (0.70-1.30) L 11/03/21 05:26 Est GFR (MDRD) Af Amer > 60 (>60) 11/03/21 05:26 Est GFR (MDRD) Non-Af > 60 (>60) 11/03/21 05:26 Glucose 127 mg/dL (65-99) H 11/03/21 05:26 Calcium 8.6 mg/dL (8.5-10.1) 11/03/21 05:26 Corrected Calcium 9.4 mg/dL (8.5-10.1) 11/03/21 05:26 Magnesium 1.7 mg/dL (1.7-2.9) 11/03/21 05:26 Total Bilirubin 0.40 mg/dL (0.2-1.0) 11/03/21 05:26 AST 31 Units/L (15-37) 11/03/21 05:26 ALT 28 Units/L (12-78) 11/03/21 05:26 Alkaline Phosphatase 72 Units/L (46-116) 11/03/21 05:26 Total Protein 6.6 g/dL (6.4-8.2) 11/03/21 05:26 Albumin 3.0 g/dL (3.4-5.0) L 11/03/21 05:26 Globulin 3.6 g/dL (2.5-4.5) 11/03/21 05:26 Albumin/Globulin Ratio 0.8 Ratio (1.1-2.1) L 11/03/21 05:26 SARS-CoV-2 (PCR) Negative (NEGATIVE) 10/29/21 18:57 - Plan (1) Acute CVA (cerebrovascular accident) Status: Acute Plan: PHYSICAL THERAPY, ASA 325MG PO DAILY, ATORVASTATIN 40MG PO HS, CONTINUE BLOOD PRESSURE AND BLOOD GLUCOSE CONTROL (2) Falls frequently Status: Acute (3) Confusion Status: Acute (4) Muscle weakness (generalized) Status: Acute (5) Anemia Status: Chronic Qualifiers: Anemia type: iron deficiency Iron deficiency anemia type: chronic blood loss Qualified Code(s): D50.0 - Iron deficiency anemia secondary to blood loss (chronic) (6) Diabetes Status: Chronic Qualifiers: Diabetes mellitus type: type 2 Diabetes mellitus filler leaf cutter long insulin use: w ith shelter use Diabetes mellitus complication status: with hyperglycemia Qualified Code(s): E11.65 - Type 2 diabetes mellitus with hyperglycemia; Z79.4 - [facility] (current) use of insulin (7) History of CVA (cerebrovascular accident) Status: Chronic (8) Hyperlipidemia Status: Chronic Qualifiers: Hyperlipidemia type: mixed hyperlipidemia (9) Hypertension Status: Chronic Qualifiers: Hypertension type: primary hypertension Plan: Monitor daily blood pressures.
[2021-11-03] MEDS: ZyrTEC TAB 10 MG PO SCH (21:19)
[2021-11-03] MEDS: LIPITOR TAB 20 MG PO SCH (21:19)
[2021-11-03] MEDS: ELAVIL PO SCH (21:19)
[2021-11-04 06:32] LABS: BASOPHILS # (AUTO) 0.1 X10^3/uL (0.0-0.1); EOSINOPHILS # (AUTO) 0.1 x10^3/uL (0.0-0.2); HEMATOCRIT 29.6 % (42.0-54.0); HEMOGLOBIN 9.2 g/dL (13.5-18.0); LYMPHOCYTES # (AUTO) 1.2 X10^3/uL (1.3-2.9); LYMPHOCYTES % (AUTO) 21.6 % (21.0-51.0); MEAN CORPUSCULAR HEMOGLOBIN 23.1 pg (27.0-34.0); MEAN CORPUSCULAR HGB CONC 31.1 g/dL (33.0-35.0); MEAN CORPUSCULAR VOLUME 74.5 fL (80.0-100.0); MEAN PLATELET VOLUME 7.1 fL (7.4-11.0); MONOCYTES # (AUTO) 0.5 x10^3/uL (0.3-0.8); MONOCYTES % (AUTO) 9.8 % (0.0-13.0); NEUTROPHILS # (AUTO) 3.6 x10^3/uL (2.2-4.8); NEUTROPHILS % (AUTO) 65.6 % (42.0-75.0); RED BLOOD COUNT 3.98 X10^6/uL (4.7-6.0); RED CELL DISTRIBUTION WIDTH 26.1 % (11.6-16.5); WHITE BLOOD COUNT 5.5 X10^3/uL (3.6-10.0)
[2021-11-04 06:35] LABS: ALANINE AMINOTRANSFERASE 36 Units/L (12-78); ALBUMIN 3.1 g/dL (3.4-5.0); ALKALINE PHOSPHATASE 74 Units/L (46-116); ASPARTATE AMINO TRANSFERASE 33 Units/L (15-37); BLOOD UREA NITROGEN 11 mg/dL (7-18); CALCIUM 8.5 mg/dL (8.5-10.1); CARBON DIOXIDE 29.4 mmol/L (21-32); CHLORIDE 103 mmol/L (98-107); COR CA(FOR HYPOALB) 9.2 mg/dL (8.5-10.1); COR NA(FOR HYPERGLY) 141 mmol/L (136-145); CREATININE 0.75 mg/dL (0.70-1.30); SODIUM 140 mmol/L (136-145); TOTAL PROTEIN 6.7 g/dL (6.4-8.2); eGFR NON BLACK RACES > 60 (>60)
[2021-11-04 07:07] LABS: ANISOCYTOSIS 3+; HYPOCHROMASIA SLIGHT; MICROCYTOSIS SLIGHT; OVALOCYTES PRESENT; PLATELET MORPHOLOGY COMMENT NORMAL (NORMAL)
--- NOTE | 2021-11-04 09:52 | PCM.PROG ---
Progress Note - Progress Note for Day of Date of Exam: 11/04/21 - Subjective Subjective: IS A PATIENT OF OURS. HE WAS A READMISSION ON 10/29/21 DUE TO FREQUENT FALLS, DECONDITIONING, GENERALIZED WEAKNESS, AND ANEMIA. BRAIN CT REVEALED AN ACUTE RIGHT CEREBELLAR HEMISPHERE INFARCT. HE WAS DISCHARGED FROM THE HOSPITAL ON 10/29/21 FOLLOWING TREATMENT OF ANEMIA, BUT AFTER HE RETURNED HOME, PATIENT FELL AND HIS DAUGHTER BROUGHT HIM BACK. TODAY, HE IS LYING IN BED WITH EYES CLOSED ON MORNING ROUNDS. HE AWAKENS TO VERBAL STIMULI. HE CONTINUES TO BE DISORIENTED THIS MORNING. HE IS NOT ANSWERING QUESTIONS APPROPRIATELY. NURSING STAFF REPORTS THAT HE CONTINUES TO BE WEAK. HE REQUIRES ASSISTANCE FOR AMBULATION AND HAS AN UNSTEADY GAIT. ON EXAMINATION, HEART IS REGULAR IN RATE AND RHYTHM. BILATERAL LUNGS ARE CLEAR TO AUSCULTATION. ABDOMEN IS ROUND, SOFT, AND NON-TENDER WITH NORMAL BOWEL SOUNDS NOTED IN ALL QUADRNATS. HE IS ABLE TO MOVE ALL EXTREMITIES APPROPRIATELY. HIS VITAL TODAY ARE 99.6-100-20-93%-144/88. HE IS CURRENTLY UTILIZING OXYGEN VIA NASAL CANNULA AT 3 LPM. LABS WERE OBTAINED. WBC 5.5, RBC 3.98, HGB 9.2, HCT 29.6, SODIUM 140, POTASSIUM 3.8, CHLORIDE 103, BUN 11, CREATININE 0.75, GLUCOSE 131, CALCIUM 8.5, AST 33, ALT 36, ALK PHOS 74, TOTAL PROTIEN 6.7, ALBUMIN 3.1. HE IS CURRENTLY RECEIVING ELAVIL 25MG PO HS, ECOTRIN 325MG PO DAILY, ATORVASTATIN 40MG PO HS, ZYRTEC 10MG PO HS, COLACE 100MG PO BID PRN, CYMBALTA 30MG PO DAILY, FERROUS GLUCONATE 324MG PO DAILY, HALDOL 2- 4MG IM Q4H PRN, LOPRESSOR 5MG IV Q12H PRN, PROTONIX 40MG PO BID, ACCUPRIL 40MG PO BID, FLOMAX 0.4MG PO DAILY, AND THE POTASSIUM AND MAGNESIUM PROTOCOLS. PHYSICAL THERAPY WILL CONTINUE TO WORK WITH HIM TODAY. OTHERWISE, WE WILL FOLLOW UP WITH AM LABS AND CONTINUE TO MONITOR PATIENT. TIME SPENT ON CLINICAL ASSESSMENT, REVIEWING LABS AND IMAGING, DECISION MAKING, AND DOCUMENTATION G REATER THAN 45 MINUTES. - Past Medical Family Social History Past Med/Fam/Surg Hx: No changes since H&P Allergies: Allergies No Known Drug Allergies Allergy (Verified 02/27/20 08:00) - Review of Systems ROS: No change since H&P - Vital Signs and I&O's Vital Signs: Temperature 99.6 F Pulse Rate [Right Brachial] 101 Pulse Rate 78 Respiratory Rate 20 Blood Pressure [Right Arm] 144/88 Blood Pressure [Left Arm] 175/89 Blood Pressure 172/88 O2 Sat by Pulse Oximetry 93 Intake and Output: Intake & Output 11/01/21 11/02/21 11/03/21 11/04/21 11:59 11:59 11:59 11:59 Intake Total 1170 / 1170 960 / 960 675 / 675 360 / 360 Output Total 500 / 500 Balance 670 / 670 960 / 960 675 / 675 360 / 360 - Physical Exam Oriented: Not Oriented Eyes: Normal Ear: Normal Nose: Normal Throat: Normal Respiratory: Normal Cardiovascular: Normal : Normal Auscultation: Bowel Sounds: Normal Palpation: Normal Tenderness: Normal Skin: Normal Musculoskeletal: Normal Psychiatric: Other (Patient is not answering questions appropriately) Mood Description: Calm Affect: Normal Speech Pattern: Appropriate - Laboratory and Diagnostics Result Diagrams: 11/04/21 05:18 11/04/21 05:18 Labs: Laboratory WBC 5.5 X10^3/uL (3.6-10.0) 11/04/21 05:18 RBC 3.98 X10^6/uL (4.7-6.0) L 11/04/21 05:18 Hgb 9.2 g/dL (13.5-18.0) L 11/04/21 05:18 Hct 29.6 % (42.0-54.0) L 11/04/21 05:18 MCV 74.5 fL (80.0-100.0) L 11/04/21 05:18 MCH 23.1 pg (27.0-34.0) L 11/04/21 05:18 MCHC 31.1 g/dL (33.0-35.0) L 11/04/21 05:18 RDW 26.1 % (11.6-16.5) H 11/04/21 05:18 Plt Count 243 X10^3/uL (150.0-450.0) 11/04/21 05:18 Plt Count Comment Adequate (ADEQUATE) 11/04/21 05:18 MPV 7.1 fL (7.4-11.0) L 11/04/21 05:18 Neut % (Auto) 65.6 % (42.0-75.0) 11/04/21 05:18 Lymph % (Auto) 21.6 % (21.0-51.0) 11/04/21 05:18 [place] % (Auto) 9.8 % (0.0-13.0) 11/04/21 05:18 Eos % (Auto) 2.0 % (0.9-2.9) 11/04/21 05:18 Baso % (Auto) 1.0 % (0.2-1.0) 11/04/21 05:18 Neut # (Auto) 3.6 x10^3/uL (2.2-4.8) 11/04/21 05:18 Lymph # (Auto) 1.2 X10^3/uL (1.3-2.9) L 11/04/21 05:18 [place] # (Auto) 0.5 x10^3/uL (0.3-0.8) 11/04/21 05:18 Eos # (Auto) 0.1 x10^3/uL (0.0-0.2) 11/04/21 05:18 Baso # (Auto) 0.1 X10^3/uL (0.0-0.1) 11/04/21 05:18 Absolute Nucleated RBC 0.1 /100WBC 11/04/21 05:18 Total Counted 100 10/29/21 15:10 Neutrophils % (Manual) 80 % (39-76) H 10/29/21 15:10 Band Neutrophils % 2 % (0-10) 10/29/21 15:10 Lymphocytes % (Manual) 11 % (13-43) L 10/29/21 15:10 Monocytes % (Manual) 4 % (4-9) 10/29/21 15:10 Eosinophils % (Manual) 3 % (0-6) 10/29/21 15:10 Plt Morphology Comment Normal (NORMAL) 11/04/21 05:18 RBC Morphology Abnormal (NORMAL) 11/04/21 05:18 Dimorphic RBCs Present 11/03/21 05:26 Hypochromasia Slight A 11/04/21 05:18 Poikilocytosis Slight A 11/02/21 05:12 Anisocytosis 3+ A 11/04/21 05:18 Microcytosis Slight A 11/04/21 05:18 Ovalocytes Present 11/04/21 05:18 Sodium 140 mmol/L (136-145) 11/04/21 05:18 Corrected Sodium 141 mmol/L (136-145) 11/04/21 05:18 Potassium 3.8 mmol/L (3.5-5.1) 11/04/21 05:18 Chloride 103 mmol/L (98-107) 11/04/21 05:18 Carbon Dioxide 29.4 mmol/L (21-32) 11/04/21 05:18 BUN 11 mg/dL (7-18) 11/04/21 05:18 Creatinine 0.75 mg/dL (0.70-1.30) 11/04/21 05:18 Est GFR (MDRD) Af Amer > 60 (>60) 11/04/21 05:18 Est GFR (MDRD) Non-Af > 60 (>60) 11/04/21 05:18 Glucose 131 mg/dL (65-99) H 11/04/21 05:18 Calcium 8.5 mg/dL (8.5-10.1) 11/04/21 05:18 Corrected Calcium 9.2 mg/dL (8.5-10.1) 11/04/21 05:18 Magnesium 1.7 mg/dL (1.7-2.9) 11/03/21 05:26 Total Bilirubin 0.40 mg/dL (0.2-1.0) 11/04/21 05:18 AST 33 Units/L (15-37) 11/04/21 05:18 ALT 36 Units/L (12-78) 11/04/21 05:18 Alkaline Phosphatase 74 Units/L (46-116) 11/04/21 05:18 Total Protein 6.7 g/dL (6.4-8.2) 11/04/21 05:18 Albumin 3.1 g/dL (3.4-5.0) L 11/04/21 05:18 Globulin 3.6 g/dL (2.5-4.5) 11/04/21 05:18 Albumin/Globulin Ratio 0.9 Ratio (1.1-2.1) L 11/04/21 05:18 SARS-CoV-2 (PCR) Negative (NEGATIVE) 10/29/21 18:57 - Plan (1) Acute CVA (cerebrovascular accident) Status: Acute Plan: PHYSICAL THERAPY, ASA 325MG PO DAILY, ATORVASTATIN 40MG PO HS, CONTINUE BLOOD PRESSURE AND BLOOD GLUCOSE CONTROL (2) Falls frequently Status: Acute Plan: PT, CONTINUE TO MONITOR (3) Confusion Status: Acute Plan: MONITOR (4) Muscle weakness (generalized) Status: Acute (5) Anemia Status: Chronic Qualifiers: Anemia type: iron deficiency Iron deficiency anemia type: chronic blood loss Qualified Code(s): D50.0 - Iron deficiency anemia secondary to blood loss (chronic) (6) Diabetes Status: Chronic Qualifiers: Diabetes mellitus type: type 2 Diabetes mellitus medical terminologist insulin use: with medical terminologist use Diabetes mellitus complication status: with hyperglycemia Qualified Code(s): E11.65 - Type 2 diabetes mellitus with hyperglycemia; Z79.4 - medical terminologist (current) use of insulin (7) History of CVA (cerebrovascular accident) Status: Chronic (8) Hyperlipidemia Status: Chronic Qualifiers: Hyperlipidemia type: mixed hyperlipidemia (9) Hypertension Status: Chronic Qualifiers: Hypertension type: primary hypertension Plan: Monitor daily blood pressures.
[2021-11-04] MEDS: CYMBALTA PO SCH (10:01)
[2021-11-04] MEDS: FLOMAX PO SCH (10:01)
[2021-11-04] MEDS: ACCUPRIL PO SCH ×2 (10:01→21:14)
[2021-11-04] MEDS: PROTONIX TAB 40 MG PO SCH ×2 (10:01→21:14)
[2021-11-04] MEDS: FERROUS GLUCONATE PO SCH (10:02)
[2021-11-04] MEDS: ECOTRIN TAB 325 MG PO SCH (10:02)
[2021-11-04] MEDS ORDERED: PEPCID TAB 20 MG ONE (19:27)
[2021-11-04] MEDS: ELAVIL PO SCH (21:14)
[2021-11-04] MEDS: PEPCID TAB 20 MG PO SCH (21:15)
[2021-11-04] MEDS: LIPITOR TAB 20 MG PO SCH (21:15)
[2021-11-04] MEDS: ZyrTEC TAB 10 MG PO SCH (21:16)
[2021-11-04] MEDS: SOLU-Medrol 40 MG VIAL IVP SCH (21:16)
[2021-11-04] MEDS: PATIENT'S HOME MEDICATION PO SCH (21:16)
[2021-11-04] MEDS: RESTORIL CAP 15 MG PO PRN (23:00)
[2021-11-05] MEDS: SOLU-Medrol 40 MG VIAL IVP SCH ×2 (05:28→07:14)
[2021-11-05 06:02] LABS: BASOPHILS % (AUTO) 0.5 % (0.2-1.0); HEMATOCRIT 29.5 % (42.0-54.0); HEMOGLOBIN 9.3 g/dL (13.5-18.0); LYMPHOCYTES % (AUTO) 29.9 % (21.0-51.0); MEAN CORPUSCULAR HEMOGLOBIN 23.6 pg (27.0-34.0); MEAN CORPUSCULAR HGB CONC 31.6 g/dL (33.0-35.0); MEAN CORPUSCULAR VOLUME 74.6 fL (80.0-100.0); MEAN PLATELET VOLUME 6.8 fL (7.4-11.0); MONOCYTES # (AUTO) 0.1 x10^3/uL (0.3-0.8); MONOCYTES % (AUTO) 4.1 % (0.0-13.0); NEUTROPHILS # (AUTO) 2.3 x10^3/uL (2.2-4.8); NEUTROPHILS % (AUTO) 65.5 % (42.0-75.0); RED BLOOD COUNT 3.95 X10^6/uL (4.7-6.0); RED CELL DISTRIBUTION WIDTH 25.9 % (11.6-16.5); WHITE BLOOD COUNT 3.4 X10^3/uL (3.6-10.0)
[2021-11-05 06:10] LABS: ALANINE AMINOTRANSFERASE 44 Units/L (12-78); ALBUMIN 3.1 g/dL (3.4-5.0); ALKALINE PHOSPHATASE 75 Units/L (46-116); ASPARTATE AMINO TRANSFERASE 42 Units/L (15-37); BLOOD UREA NITROGEN 13 mg/dL (7-18); CALCIUM 8.5 mg/dL (8.5-10.1); CARBON DIOXIDE 26.9 mmol/L (21-32); CHLORIDE 103 mmol/L (98-107); COR CA(FOR HYPOALB) 9.2 mg/dL (8.5-10.1); COR NA(FOR HYPERGLY) 141 mmol/L (136-145); CREATININE 0.65 mg/dL (0.70-1.30); SODIUM 139 mmol/L (136-145); TOTAL PROTEIN 6.9 g/dL (6.4-8.2); eGFR NON BLACK RACES > 60 (>60)
[2021-11-05 07:06] LABS: ANISOCYTOSIS 3+; PLATELET MORPHOLOGY COMMENT NORMAL (NORMAL)
[2021-11-05 07:07] LABS: HYPOCHROMASIA SLIGHT; MICROCYTOSIS SLIGHT; OVALOCYTES PRESENT
--- NOTE | 2021-11-05 07:14 | RAD ---
HISTORYSOBSTUDYCHEST, 1 [id number]/24/2020.TECHNIQUEAP view of the chestFINDINGSThere is prominence of the right paratracheal stripe. The cardiac silhouette is mildly enlarged. No consolidation or segmental lung collapse. There is blunting of the right costophrenic sulcus. No pneumothorax.IMPRESSIONProminence the right paratracheal stripe can be seen with prominent vascular structure, mediastinal mass, or adenopathy. Recommend CT chest with contrast for further evaluation. Blunted right costophrenic sulcus can be seen with small pleural effusion or pleural parenchymal scarring.Electronically signed by: Adi Aly (Nov 05, 2021 07:13:10)
[2021-11-05] MEDS: PEPCID TAB 20 MG PO SCH ×2 (08:16→20:34)
[2021-11-05] MEDS: PROTONIX TAB 40 MG PO SCH ×2 (08:16→20:33)
[2021-11-05] MEDS: ECOTRIN TAB 325 MG PO SCH (08:16)
[2021-11-05] MEDS: CYMBALTA PO SCH (08:16)
[2021-11-05] MEDS: FERROUS GLUCONATE PO SCH (08:16)
[2021-11-05] MEDS: FLOMAX PO SCH (08:16)
[2021-11-05] MEDS: PATIENT'S HOME MEDICATION PO SCH ×2 (08:18→21:00)
[2021-11-05] MEDS: ACCUPRIL PO SCH ×2 (09:00→20:33)
[2021-11-05] MEDS: PREDNISONE TAB 5 MG PO SCH ×2 (12:52→20:34)
[2021-11-05] MEDS ORDERED: NS 100 ML IV 100 ML ONE (14:35)
--- NOTE | 2021-11-05 17:52 | CT ---
HISTORYANEMIA, WEAKNESS, FOLLOW UP CHEST XRAYSTUDYCHEST WITH CONCOMPARISONTECHNIQUEMultiple axial images of the chest were obtained from the thoracic inlet to the upper abdomen after the administration of IV contrast. Dose reduction techniques including Automated Exposure Control (AEC) and adjustment of mA and kV were utilized.FINDINGSThe heart size is enlarged. There is dilation of the ascending aorta up to 4.3 centimeter diameter. Main pulmonary trunk measures 3.5 centimeter in diameter. Both ventricles are dilated. There is no filling defect to suggest a pulmonary embolus. There is no pathologic adenopathy. There is atherosclerosis in the LAD, RCA, and circumflex. The airways are clear. The lungs are grossly clear with some mild basilar atelectasis. There are 2 blebs along the right hemidiaphragm. Thyroid gland is normal. There is cholelithiasis but no cholecystitis. There is no worrisome bone marrow lesion.IMPRESSION1. Cardiomegaly. 2. No evidence of pulmonary embolus. 3. 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 4. Cholelithiasis without cholecystitis.Electronically signed by: Sam Arnold (Nov 05, 2021 17:50:30)
[2021-11-05] MEDS: RESTORIL CAP 15 MG PO PRN (20:33)
[2021-11-05] MEDS: ZyrTEC TAB 10 MG PO SCH (20:33)
[2021-11-05] MEDS: ELAVIL PO SCH (20:33)
[2021-11-05] MEDS: LIPITOR TAB 20 MG PO SCH (20:34)
[2021-11-06 05:23] LABS: BASOPHILS % (AUTO) 0.2 % (0.2-1.0); HEMATOCRIT 29.6 % (42.0-54.0); HEMOGLOBIN 9.5 g/dL (13.5-18.0); LYMPHOCYTES # (AUTO) 0.5 X10^3/uL (1.3-2.9); LYMPHOCYTES % (AUTO) 9.5 % (21.0-51.0); MEAN CORPUSCULAR HEMOGLOBIN 23.7 pg (27.0-34.0); MEAN CORPUSCULAR HGB CONC 31.9 g/dL (33.0-35.0); MEAN CORPUSCULAR VOLUME 74.3 fL (80.0-100.0); MEAN PLATELET VOLUME 8.3 fL (7.4-11.0); MONOCYTES # (AUTO) 0.3 x10^3/uL (0.3-0.8); MONOCYTES % (AUTO) 4.4 % (0.0-13.0); NEUTROPHILS # (AUTO) 4.9 x10^3/uL (2.2-4.8); NEUTROPHILS % (AUTO) 85.9 % (42.0-75.0); RED BLOOD COUNT 3.99 X10^6/uL (4.7-6.0); RED CELL DISTRIBUTION WIDTH 25.6 % (11.6-16.5); WHITE BLOOD COUNT 5.7 X10^3/uL (3.6-10.0)
[2021-11-06 05:28] LABS: ALANINE AMINOTRANSFERASE 38 Units/L (12-78); ALBUMIN 3.1 g/dL (3.4-5.0); ALKALINE PHOSPHATASE 70 Units/L (46-116); ASPARTATE AMINO TRANSFERASE 26 Units/L (15-37); BLOOD UREA NITROGEN 20 mg/dL (7-18); CALCIUM 8.4 mg/dL (8.5-10.1); CHLORIDE 105 mmol/L (98-107); COR CA(FOR HYPOALB) 9.1 mg/dL (8.5-10.1); COR NA(FOR HYPERGLY) 142 mmol/L (136-145); CREATININE 0.63 mg/dL (0.70-1.30); SODIUM 140 mmol/L (136-145); TOTAL PROTEIN 6.7 g/dL (6.4-8.2); eGFR NON BLACK RACES > 60 (>60)
[2021-11-06 06:14] LABS: PLATELET MORPHOLOGY COMMENT NORMAL (NORMAL)
[2021-11-06 06:15] LABS: ANISOCYTOSIS 3+; HYPOCHROMASIA 1+; MICROCYTOSIS SLIGHT; OVALOCYTES PRESENT; SCHISTOCYTES PRESENT
[2021-11-06 06:16] LABS: POIKILOCYTOSIS 1+
[2021-11-06] MEDS: PEPCID TAB 20 MG PO SCH ×2 (08:02→20:58)
[2021-11-06] MEDS: CYMBALTA PO SCH (08:02)
[2021-11-06] MEDS: PREDNISONE TAB 5 MG PO SCH ×2 (08:02→20:57)
[2021-11-06] MEDS: ACCUPRIL PO SCH ×2 (08:02→20:56)
[2021-11-06] MEDS: ECOTRIN TAB 325 MG PO SCH (08:03)
[2021-11-06] MEDS: PATIENT'S HOME MEDICATION PO SCH ×2 (08:03→20:58)
[2021-11-06] MEDS: FLOMAX PO SCH (08:03)
[2021-11-06] MEDS: FERROUS GLUCONATE PO SCH (08:03)
[2021-11-06] MEDS: PROTONIX TAB 40 MG PO SCH ×2 (08:03→20:57)
[2021-11-06] MEDS: HALDOL INJ IM PRN (11:34)
[2021-11-06] MEDS ORDERED: TESSALON PERLES PO PRN (11:50)
--- NOTE | 2021-11-06 11:50 | PCM.PROG ---
Progress Note Progress Note for Day of Date of Exam: 11/06/21 Subjective Subjective: Patient seen at bedside, no events overnight. He is currently admitted for acute right cerebellar VA, recurrent falls, deconditioning and generalized weakness. He is also being treated for covid infection. Patient has severe dementia, only alert to name, that seems to be his baseline mentation. He does report having productive cough. Patient has not been as agitated as before, no haldol given yesterday. Labs/imaging reviewed: Hgb 9.5 CTA-chest: no PE, aortic aneurysm noted at 4.[address]-brain: right cerebellar infarct Plan: continue current treatment, supportive care for covid infection. Continue haldol prn for agitation. PT/OT as tolerated. Continue home medications. Will add duonebs and tessalon pearls. Monitor AM labs/imaging. Past Medical Family Social History Past Med/Fam/Surg Hx: No changes since H&P Allergies: Allergies No Known Drug Allergies Allergy (Verified 02/27/20 08:00) Review of Systems ROS: No change since H&P Vital Signs and I&O's Vital Signs: Temperature 97.6 F Pulse Rate [Right Brachial] 73 Pulse Rate 78 Respiratory Rate 18 Blood Pressure [Right Arm] 139/84 Blood Pressure [Left Arm] 175/89 Blood Pressure 172/88 O2 Sat by Pulse Oximetry 94 Intake and Output: Intake & Output 11/03/21 11/04/21 11/05/21 11/06/21 23:59 23:59 23:59 23:59 Intake Total 695 / 695 960 / 960 950 / 950 30 / 30 Output Total 200 / 200 Balance 695 / 695 960 / 960 750 / 750 30 / 30 Physical Exam Oriented: Not Oriented Eyes: Normal Ear: Normal Nose: Normal Throat: Normal Respiratory: Generalized and Diminished Cardiovascular: Normal Auscultation: Bowel Sounds: Normal Tenderness: Normal Skin: Normal Musculoskeletal: Normal Psychiatric: Other (Patient is not answering questions appropriately) Mood Description: Calm Affect: Normal Speech Pattern: Appropriate Laboratory and Diagnostics Result Diagrams: 11/06/21 04:20 11/06/21 04:20 Labs: Laboratory WBC 5.7 X10^3/uL (3.6-10.0) 11/06/21 04:20 RBC 3.99 X10^6/uL (4.7-6.0) L 11/06/21 04:20 Hgb 9.5 g/dL (13.5-18.0) L 11/06/21 04:20 Hct 29.6 % (42.0-54.0) L 11/06/21 04:20 MCV 74.3 fL (80.0-100.0) L 11/06/21 04:20 MCH 23.7 pg (27.0-34.0) L 11/06/21 04:20 MCHC 31.9 g/dL (33.0-35.0) L 11/06/21 04:20 RDW 25.6 % (11.6-16.5) H 11/06/21 04:20 Plt Count 242 X10^3/uL (150.0-450.0) 11/06/21 04:20 Plt Count Comment Adequate (ADEQUATE) 11/06/21 04:20 MPV 8.3 fL (7.4-11.0) 11/06/21 04:20 Neut % (Auto) 85.9 % (42.0-75.0) H 11/06/21 04:20 Lymph % (Auto) 9.5 % (21.0-51.0) L 11/06/21 04:20 [place] % (Auto) 4.4 % (0.0-13.0) 11/06/21 04:20 Eos % (Auto) 0.0 % (0.9-2.9) L 11/06/21 04:20 Baso % (Auto) 0.2 % (0.2-1.0) 11/06/21 04:20 Neut # (Auto) 4.9 x10^3/uL (2.2-4.8) H 11/06/21 04:20 Lymph # (Auto) 0.5 X10^3/uL (1.3-2.9) L 11/06/21 04:20 [place] # (Auto) 0.3 x10^3/uL (0.3-0.8) 11/06/21 04:20 Eos # (Auto) 0.0 x10^3/uL (0.0-0.2) 11/06/21 04:20 Baso # (Auto) 0.0 X10^3/uL (0.0-0.1) 11/06/21 04:20 Absolute Nucleated RBC 0.0 /100WBC 11/06/21 04:20 Total Counted 100 10/29/21 15:10 Neutrophils % (Manual) 80 % (39-76) H 10/29/21 15:10 Band Neutrophils % 2 % (0-10) 10/29/21 15:10 Lymphocytes % (Manual) 11 % (13-43) L 10/29/21 15:10 Monocytes % (Manual) 4 % (4-9) 10/29/21 15:10 Eosinophils % (Manual) 3 % (0-6) 10/29/21 15:10 Plt Morphology Comment Normal (NORMAL) 11/06/21 04:20 RBC Morphology Abnormal (NORMAL) 11/06/21 04:20 Dimorphic RBCs Present 11/03/21 05:26 Hypochromasia 1+ A 11/06/21 04:20 Poikilocytosis 1+ A 11/06/21 04:20 Anisocytosis 3+ A 11/06/21 04:20 Microcytosis Slight A 11/06/21 04:20 Ovalocytes Present 11/06/21 04:20 Acanthocytes (Spur) Present 11/06/21 04:20 Schistocytes Present 11/06/21 04:20 Sodium 140 mmol/L (136-145) 11/06/21 04:20 Corrected Sodium 142 mmol/L (136-145) 11/06/21 04:20 Potassium 4.1 mmol/L (3.5-5.1) 11/06/21 04:20 Chloride 105 mmol/L (98-107) 11/06/21 04:20 Carbon Dioxide 27.0 mmol/L (21-32) 11/06/21 04:20 BUN 20 mg/dL (7-18) H 11/06/21 04:20 Creatinine 0.63 mg/dL (0.70-1.30) L 11/06/21 04:20 Est GFR (MDRD) Af Amer > 60 (>60) 11/06/21 04:20 Est GFR (MDRD) Non-Af > 60 (>60) 11/06/21 04:20 Glucose 163 mg/dL (65-99) H 11/06/21 04:20 Calcium 8.4 mg/dL (8.5-10.1) L 11/06/21 04:20 Corrected Calcium 9.1 mg/dL (8.5-10.1) 11/06/21 04:20 Magnesium 1.7 mg/dL (1.7-2.9) 11/03/21 05:26 Total Bilirubin 0.30 mg/dL (0.2-1.0) 11/06/21 04:20 AST 26 Units/L (15-37) 11/06/21 04:20 ALT 38 Units/L (12-78) 11/06/21 04:20 Alkaline Phosphatase 70 Units/L (46-116) 11/06/21 04:20 C-Reactive Protein 0.80 mg/L (0-3.0) 11/06/21 04:20 Total Protein 6.7 g/dL (6.4-8.2) 11/06/21 04:20 Albumin 3.1 g/dL (3.4-5.0) L 11/06/21 04:20 Globulin 3.6 g/dL (2.5-4.5) 11/06/21 04:20 Albumin/Globulin Ratio 0.9 Ratio (1.1-2.1) L 11/06/21 04:20 SARS-CoV-2 (PCR) Positive (NEGATIVE) A 11/04/21 13:35 Plan (1) Acute CVA (cerebrovascular accident): Status: Acute Plan: PHYSICAL THERAPY, ASA 325MG PO DAILY, ATORVASTATIN 40MG PO HS, CONTINUE BLOOD PRESSURE AND BLOOD GLUCOSE CONTROL (2) COVID-19: Status: Acute (3) Falls frequently: Status: Acute Plan: PT, CONTINUE TO MONITOR (4) Confusion: Status: Acute Plan: MONITOR (5) Muscle weakness (generalized): Status: Acute (6) Anemia: Status: Chronic Qualifiers: Anemia type: iron deficiency Iron deficiency anemia type: chronic blood loss Qualified Code(s): D50.0 - Iron deficiency anemia secondary to blood loss (chronic) (7) Diabetes: Status: Chronic Qualifiers: Diabetes mellitus complication status: with hyperglycemia Diabetes m [employer] middle or intermediate school principal insulin use: with middle or intermediate school principal use Diabetes mellitus type: type 2 Qualified Code(s): E11.65 - Type 2 diabetes mellitus with hyperglycemia; Z79.4 - medical terminologist (current) use of insulin (8) History of CVA (cerebrovascular accident): Status: Chronic (9) Hyperlipidemia: Status: Chronic Qualifiers: Hyperlipidemia type: mixed hyperlipidemia (10) Hypertension: Status: Chronic Qualifiers: Hypertension type: primary hypertension Plan: Monitor daily blood pressures. (11) Aortic aneurysm: Status: Acute (12) Dementia: Status: Acute
[2021-11-06] MEDS: DUONEB 0.5 MG/3 MG (3 mL) NEB SCH ×2 (18:22→20:10)
[2021-11-06] MEDS: LIPITOR TAB 20 MG PO SCH (20:57)
[2021-11-06] MEDS: ELAVIL PO SCH (20:57)
[2021-11-06] MEDS: ZyrTEC TAB 10 MG PO SCH (20:57)
[2021-11-06] MEDS: RESTORIL CAP 15 MG PO PRN (20:58)
[2021-11-07] MEDS: DUONEB 0.5 MG/3 MG (3 mL) NEB SCH ×3 (05:05→20:45)
[2021-11-07 05:07] LABS: BASOPHILS % (AUTO) 0.6 % (0.2-1.0); EOSINOPHILS % (AUTO) 0.3 % (0.9-2.9); HEMATOCRIT 30.3 % (42.0-54.0); HEMOGLOBIN 9.3 g/dL (13.5-18.0); LYMPHOCYTES # (AUTO) 0.2 X10^3/uL (1.3-2.9); LYMPHOCYTES % (AUTO) 3.2 % (21.0-51.0); MEAN CORPUSCULAR HEMOGLOBIN 23.1 pg (27.0-34.0); MEAN CORPUSCULAR HGB CONC 30.7 g/dL (33.0-35.0); MEAN CORPUSCULAR VOLUME 75.2 fL (80.0-100.0); MEAN PLATELET VOLUME 7.1 fL (7.4-11.0); MONOCYTES # (AUTO) 0.8 x10^3/uL (0.3-0.8); MONOCYTES % (AUTO) 10.3 % (0.0-13.0); NEUTROPHILS # (AUTO) 6.7 x10^3/uL (2.2-4.8); NEUTROPHILS % (AUTO) 85.6 % (42.0-75.0); RED BLOOD COUNT 4.03 X10^6/uL (4.7-6.0); RED CELL DISTRIBUTION WIDTH 25.7 % (11.6-16.5); WHITE BLOOD COUNT 7.8 X10^3/uL (3.6-10.0)
[2021-11-07 05:23] LABS: ALANINE AMINOTRANSFERASE 32 Units/L (12-78); ALKALINE PHOSPHATASE 65 Units/L (46-116); ASPARTATE AMINO TRANSFERASE 21 Units/L (15-37); BLOOD UREA NITROGEN 24 mg/dL (7-18); CALCIUM 8.1 mg/dL (8.5-10.1); CARBON DIOXIDE 29.9 mmol/L (21-32); CHLORIDE 106 mmol/L (98-107); COR CA(FOR HYPOALB) 8.9 mg/dL (8.5-10.1); COR NA(FOR HYPERGLY) 144 mmol/L (136-145); CREATININE 0.68 mg/dL (0.70-1.30); SODIUM 143 mmol/L (136-145); TOTAL PROTEIN 6.5 g/dL (6.4-8.2); eGFR NON BLACK RACES > 60 (>60)
[2021-11-07 06:08] LABS: ANISOCYTOSIS 3+; HYPOCHROMASIA 1+; MICROCYTOSIS SLIGHT; OVALOCYTES PRESENT; PLATELET MORPHOLOGY COMMENT NORMAL (NORMAL); SCHISTOCYTES PRESENT; TEAR DROP CELLS PRESENT
[2021-11-07] MEDS: FLOMAX PO SCH (08:51)
[2021-11-07] MEDS: ECOTRIN TAB 325 MG PO SCH (08:51)
[2021-11-07] MEDS: CYMBALTA PO SCH (08:51)
[2021-11-07] MEDS: FERROUS GLUCONATE PO SCH (08:51)
[2021-11-07] MEDS: ACCUPRIL PO SCH ×2 (08:51→20:54)
[2021-11-07] MEDS: PEPCID TAB 20 MG PO SCH ×2 (08:52→20:55)
[2021-11-07] MEDS: PATIENT'S HOME MEDICATION PO SCH ×2 (08:52→20:56)
[2021-11-07] MEDS: PROTONIX TAB 40 MG PO SCH ×2 (08:52→20:55)
[2021-11-07] MEDS: PREDNISONE TAB 5 MG PO SCH ×2 (08:52→20:55)
[2021-11-07] MEDS: HALDOL INJ IM PRN (08:53)
--- NOTE | 2021-11-07 11:40 | PCM.PROG ---
Progress Note Progress Note for Day of Date of Exam: 11/07/21 Subjective Subjective: Patient seen at bedside, no events overnight. Patient resting in bed with no distress. He is currently admitted for acute right cerebellar VA, recurrent falls, deconditioning and generalized weakness. He is also being treated for covid infection. Patient has severe dementia, only alert to name. Labs/imaging reviewed: Hgb 9.3 CTA-chest: no PE, aortic aneurysm noted at 4.[address]-brain: right cerebellar infarct Plan: continue current treatment, supportive care for covid infection. Continue haldol prn for agitation. PT/OT as tolerated. Continue home medications. Continue duonebs and tessalon pearls. Monitor AM labs/imaging. Past Medical Family Social History Past Med/Fam/Surg Hx: No changes since H&P Allergies: Allergies No Known Drug Allergies Allergy (Verified 02/27/20 08:00) Review of Systems ROS: No change since H&P Vital Signs and I&O's Vital Signs: Temperature 97.7 F Pulse Rate [Right Brachial] 86 Pulse Rate 90 Respiratory Rate 20 Blood Pressure [Right Arm] 127/83 Blood Pressure [Left Arm] 175/89 Blood Pressure 172/88 O2 Sat by Pulse Oximetry 94 Intake and Output: Intake & Output 11/04/21 11/05/21 11/06/21 11/07/21 23:59 23:59 23:59 23:59 Intake Total 960 / 960 950 / 950 680 / 680 110 / 110 Output Total 200 / 200 Balance 960 / 960 750 / 750 680 / 680 110 / 110 Physical Exam Oriented: Not Oriented Eyes: Normal Ear: Normal Nose: Normal Throat: Normal Respiratory: Generalized and Diminished Cardiovascular: Normal : Normal Auscultation: Bowel Sounds: Normal Tenderness: Normal Skin: Normal Musculoskeletal: Normal Psychiatric: Other (Patient is not answering questions appropriately) Mood Description: Calm Affect: Normal Speech Pattern: Appropriate Laboratory and Diagnostics Result Diagrams: 11/07/21 04:25 11/07/21 04:25 Labs: Laboratory WBC 7.8 X10^3/uL (3.6-10.0) 11/07/21 04:25 RBC 4.03 X10^6/uL (4.7-6.0) L 11/07/21 04:25 Hgb 9.3 g/dL (13.5-18.0) L 11/07/21 04:25 Hct 30.3 % (42.0-54.0) L 11/07/21 04:25 MCV 75.2 fL (80.0-100.0) L 11/07/21 04:25 MCH 23.1 pg (27.0-34.0) L 11/07/21 04:25 MCHC 30.7 g/dL (33.0-35.0) L 11/07/21 04:25 RDW 25.7 % (11.6-16.5) H 11/07/21 04:25 Plt Count 250 X10^3/uL (150.0-450.0) 11/07/21 04:25 Plt Count Comment Adequate (ADEQUATE) 11/07/21 04:25 MPV 7.1 fL (7.4-11.0) L 11/07/21 04:25 Neut % (Auto) 85.6 % (42.0-75.0) H 11/07/21 04:25 Lymph % (Auto) 3.2 % (21.0-51.0) L 11/07/21 04:25 [place] % (Auto) 10.3 % (0.0-13.0) 11/07/21 04:25 Eos % (Auto) 0.3 % (0.9-2.9) L 11/07/21 04:25 Baso % (Auto) 0.6 % (0.2-1.0) 11/07/21 04:25 Neut # (Auto) 6.7 x10^3/uL (2.2-4.8) H 11/07/21 04:25 Lymph # (Auto) 0.2 X10^3/uL (1.3-2.9) L 11/07/21 04:25 [place] # (Auto) 0.8 x10^3/uL (0.3-0.8) 11/07/21 04:25 Eos # (Auto) 0.0 x10^3/uL (0.0-0.2) 11/07/21 04:25 Baso # (Auto) 0.0 X10^3/uL (0.0-0.1) 11/07/21 04:25 Absolute Nucleated RBC 0.0 /100WBC 11/07/21 04:25 Total Counted 100 10/29/21 15:10 Neutrophils % (Manual) 80 % (39-76) H 10/29/21 15:10 Band Neutrophils % 2 % (0-10) 10/29/21 15:10 Lymphocytes % (Manual) 11 % (13-43) L 10/29/21 15:10 Monocytes % (Manual) 4 % (4-9) 10/29/21 15:10 Eosinophils % (Manual) 3 % (0-6) 10/29/21 15:10 Plt Morphology Comment Normal (NORMAL) 11/07/21 04:25 RBC Morphology Abnormal (NORMAL) 11/07/21 04:25 Dimorphic RBCs Present 11/03/21 05:26 Hypochromasia 1+ A 11/07/21 04:25 Poikilocytosis 1+ A 11/06/21 04:20 Anisocytosis 3+ A 11/07/21 04:25 Microcytosis Slight A 11/07/21 04:25 Tear Drop Cells Present 11/07/21 04:25 Ovalocytes Present 11/07/21 04:25 Acanthocytes (Spur) Present 11/06/21 04:20 Schistocytes Present 11/07/21 04:25 Sodium 143 mmol/L (136-145) 11/07/21 04:25 Corrected Sodium 144 mmol/L (136-145) 11/07/21 04:25 Potassium 4.0 mmol/L (3.5-5.1) 11/07/21 04:25 Chloride 106 mmol/L (98-107) 11/07/21 04:25 Carbon Dioxide 29.9 mmol/L (21-32) 11/07/21 04:25 BUN 24 mg/dL (7-18) H 11/07/21 04:25 Creatinine 0.68 mg/dL (0.70-1.30) L 11/07/21 04:25 Est GFR (MDRD) Af Amer > 60 (>60) 11/07/21 04:25 Est GFR (MDRD) Non-Af > 60 (>60) 11/07/21 04:25 Glucose 128 mg/dL (65-99) H 11/07/21 04:25 Calcium 8.1 mg/dL (8.5-10.1) L 11/07/21 04:25 Corrected Calcium 8.9 mg/dL (8.5-10.1) 11/07/21 04:25 Magnesium 1.7 mg/dL (1.7-2.9) 11/03/21 05:26 Total Bilirubin 0.20 mg/dL (0.2-1.0) 11/07/21 04:25 AST 21 Units/L (15-37) 11/07/21 04:25 ALT 32 Units/L (12-78) 11/07/21 04:25 Alkaline Phosphatase 65 Units/L (46-116) 11/07/21 04:25 C-Reactive Protein < 0.50 mg/L (0-3.0) 11/07/21 04:25 Total Protein 6.5 g/dL (6.4-8.2) 11/07/21 04:25 Albumin 3.0 g/dL (3.4-5.0) L 11/07/21 04:25 Globulin 3.5 g/dL (2.5-4.5) 11/07/21 04:25 Albumin/Globulin Ratio 0.9 Ratio (1.1-2.1) L 11/07/21 04:25 SARS-CoV-2 (PCR) Positive (NEGATIVE) A 11/04/21 13:35 Plan (1) Acute CVA (cerebrovascular accident): Status: Acute Plan: PHYSICAL THERAPY, ASA 325MG PO DAILY, ATORVASTATIN 40MG PO HS, CONTINUE BLOOD PRESSURE AND BLOOD GLUCOSE CONTROL (2) COVID-19: Status: Acute (3) Falls frequently: Status: Acute Plan: PT, CONTINUE TO MONITOR (4) Confusion: Status: Acute Plan: MONITOR (5) Muscle weakness (generalized): Status: Acute (6) Anemia: Status: Chronic Qualifiers: Anemia type: iron deficiency Iron deficiency anemia type: chronic blood loss Qualified Code(s): D50.0 - Iron deficiency anemia secondary to blood loss (chronic) (7) Diabetes: Status: Chronic Qualifiers: Diabetes mellitus complication status: with hyperglycemia Diabetes mellitus folder machine insulin use: with folder machine use Diabetes mellitus type: type 2 Qualified Code(s): E11.65 - Type 2 diabetes mellitus with hyperglycemia; Z79.4 - photoengraving helper (current) use of insulin (8) History of CVA (cerebrovascular accident): Status: Chronic (9) Hyperlipidemia: Status: Chronic Qualifiers: Hyperlipidemia type: mixed hyperlipidemia (10) Hypertension: Status: Chronic Qualifiers: Hypertension type: primary hypertension Plan: Monitor daily blood pressures. (11) Aortic aneurysm: Status: Acute (12) Dementia: Status: Acute
[2021-11-07] MEDS: ELAVIL PO SCH (20:54)
[2021-11-07] MEDS: ZyrTEC TAB 10 MG PO SCH (20:55)
[2021-11-07] MEDS: LIPITOR TAB 20 MG PO SCH (20:55)
[2021-11-08 05:37] LABS: BASOPHILS % (AUTO) 0.3 % (0.2-1.0); HEMATOCRIT 28.5 % (42.0-54.0); HEMOGLOBIN 8.8 g/dL (13.5-18.0); LYMPHOCYTES % (AUTO) 27.3 % (21.0-51.0); MEAN CORPUSCULAR HEMOGLOBIN 23.3 pg (27.0-34.0); MEAN CORPUSCULAR HGB CONC 30.9 g/dL (33.0-35.0); MEAN CORPUSCULAR VOLUME 75.3 fL (80.0-100.0); MEAN PLATELET VOLUME 6.8 fL (7.4-11.0); MONOCYTES # (AUTO) 0.4 x10^3/uL (0.3-0.8); MONOCYTES % (AUTO) 5.1 % (0.0-13.0); NEUTROPHILS # (AUTO) 4.8 x10^3/uL (2.2-4.8); NEUTROPHILS % (AUTO) 67.3 % (42.0-75.0); RED BLOOD COUNT 3.78 X10^6/uL (4.7-6.0); RED CELL DISTRIBUTION WIDTH 26.3 % (11.6-16.5); WHITE BLOOD COUNT 7.2 X10^3/uL (3.6-10.0)
[2021-11-08 05:38] LABS: BLOOD UREA NITROGEN 20 mg/dL (7-18); CALCIUM 8.2 mg/dL (8.5-10.1); CARBON DIOXIDE 32.7 mmol/L (21-32); CHLORIDE 104 mmol/L (98-107); COR NA(FOR HYPERGLY) 141 mmol/L (136-145); CREATININE 0.65 mg/dL (0.70-1.30); SODIUM 140 mmol/L (136-145); eGFR NON BLACK RACES > 60 (>60)
[2021-11-08 06:15] LABS: ANISOCYTOSIS 3+; HYPOCHROMASIA 1+; MICROCYTOSIS SLIGHT; OVALOCYTES PRESENT; PLATELET MORPHOLOGY COMMENT NORMAL (NORMAL); SCHISTOCYTES PRESENT
[2021-11-08] MEDS: HALDOL INJ IM PRN ×2 (07:12→20:11)
[2021-11-08] MEDS: ACCUPRIL PO SCH ×2 (09:11→20:12)
[2021-11-08] MEDS: PREDNISONE TAB 5 MG PO SCH ×2 (09:12→20:16)
[2021-11-08] MEDS: ECOTRIN TAB 325 MG PO SCH (09:12)
[2021-11-08] MEDS: FLOMAX PO SCH (09:12)
[2021-11-08] MEDS: PROTONIX TAB 40 MG PO SCH ×2 (09:12→20:16)
[2021-11-08] MEDS: PEPCID TAB 20 MG PO SCH ×2 (09:13→20:16)
[2021-11-08] MEDS: FERROUS GLUCONATE PO SCH (09:13)
[2021-11-08] MEDS: PATIENT'S HOME MEDICATION PO SCH ×2 (09:14→20:15)
[2021-11-08] MEDS: CYMBALTA PO SCH (09:14)
[2021-11-08] MEDS ORDERED: NORVASC TAB 5 MG PO ONE (10:04)
--- NOTE | 2021-11-08 10:26 | PCM.PROG ---
Progress Note - Progress Note for Day of Date of Exam: 11/05/21 - Subjective Subjective: IS A PATIENT OF OURS. HE WAS A READMISSION ON 10/29/21 DUE TO FREQUENT FALLS, DECONDITIONING, GENERALIZED WEAKNESS, AND ANEMIA. BRAIN CT REVEALED AN ACUTE RIGHT CEREBELLAR HEMISPHERE INFARCT. HE WAS DISCHARGED FROM THE HOSPITAL ON 10/29/21 FOLLOWING TREATMENT OF ANEMIA, BUT AFTER HE RETURNED HOME, PATIENT FELL AND HIS DAUGHTER BROUGHT HIM BACK. TODAY, HE IS LYING IN BED WITH EYES CLOSED ON MORNING ROUNDS. HE AWAKENS TO VERBAL STIMULI. HE CONTINUES TO BE DISORIENTED THIS MORNING. HE RESPONDS WHEN SPOKEN TO, BUT ANSWERS ARE INAPPROPRIATE AND DO NOT MAKE ANY SENSE. NURSING STAFF REPORTS THAT HE CONTINUES TO BE WEAK. HE REQUIRES ASSISTANCE FOR AMBULATION AND HAS AN UNSTEADY GAIT. ON EXAMINATION, HEART IS REGULAR IN RATE AND RHYTHM. BILATERAL LUNGS ARE NOTED WITH DIMINISHED LUNG SOUNDS THROUGHOUT. ABDOMEN IS ROUND, SOFT, AND NON-TENDER WITH NORMAL BOWEL SOUNDS NOTED IN ALL QUADRNATS. HE IS ABLE TO MOVE ALL EXTREMITIES APPROPRIATELY. HIS VITAL TODAY ARE 97.5-76-24-96%-146/85. HE HAS HAD A LOW GRADE TEMPERATURE THROUGHOUT THE NIGHT. HE IS CURRENTLY UTILIZING OXYGEN VIA NASAL CANNULA AT 3 LPM. LABS WERE OBTAINED. WBC 3.4, RBC 3.95, HGB 9.3, HCT 29.5, SODIUM 139, POTASSIUM 4.1, CHLORIDE 103, BUN 13, CREATININE 0.65, GLUCOSE 188, CALCIUM 8.5, AST 42, ALT 44, ALK PHOS 75, CRP 3.00, TOTAL PROTEIN 6.9, ALBUMIN 3.1. WE SWABBED HIM FOR COVID YESTERDAY DUE TO EXPOSURE AND HE WAS POSITIVE. A CHEST XRAY WAS OBTAINED THIS MORNING AND REVEALED: Prominence the right paratracheal stripe can be seen with prominent vascular structure, mediastinal mass, or adenopathy. Recommend CT chest with contrast for further evaluation. Blunted right costophrenic sulcus can be seen with small pleural effusion or pleural parenchymal scarring. HE IS CURRENTLY RECEIVING ELAVIL 25MG PO HS, ECOTRIN 325MG PO DAILY, ATORVASTATIN 40MG PO HS, ZYRTEC 10MG PO HS, COLACE 100MG PO BID PRN, CYMBALTA 30MG PO DAILY, FERROUS GLUCONATE 324MG PO DAILY, HALDOL 2-4MG IM Q4H PRN, LOPRESSOR 5MG IV Q12H PRN, PROTONIX 40MG PO BID, ACCUPRIL 40MG PO BID, FLOMAX 0.4MG PO DAILY, AND THE POTASSIUM AND MAGNESIUM IL OTOCOLS. TODAY, WE WILL ADD PREDNISONE 5MG PO BID AND PAXLOVID X 5 DAYS. PHYSICAL THERAPY WILL CONTINUE TO WORK WITH HIM TODAY. OTHERWISE, WE WILL FOLLOW UP WITH AM LABS AND CONTINUE TO MONITOR PATIENT. TIME SPENT ON CLINICAL ASSESSMENT, REVIEWING LABS AND IMAGING, DECISION MAKING, AND DOCUMENTATION GREATER THAN 45 MINUTES. - Past Medical Family Social History Past Med/Fam/Surg Hx: No changes since H&P Allergies: Allergies No Known Drug Allergies Allergy (Verified 02/27/20 08:00) - Review of Systems ROS: No change since H&P - Vital Signs and I&O's Vital Signs: Temperature 98.2 F Pulse Rate [Left Brachial] 95 Pulse Rate [Right Brachial] 79 Pulse Rate 67 Respiratory Rate 26 Blood Pressure [Right Arm] 138/80 Blood Pressure [Left Arm] 182/98 Blood Pressure 172/88 O2 Sat by Pulse Oximetry 96 Intake and Output: Intake & Output 11/05/21 11/06/21 11/07/21 11/08/21 11:59 11:59 11:59 11:59 Intake Total 1340 / 1340 500 / 500 760 / 760 1040 / 1040 Output Total 200 / 200 400 / 400 Balance 1340 / 1340 300 / 300 760 / 760 640 / 640 - Physical Exam Oriented: Not Oriented Eyes: Normal Ear: Normal Nose: Normal Throat: Normal Respiratory: Generalized, Diminished Cardiovascular: Normal : Normal Auscultation: Bowel Sounds: Normal Palpation: Normal Tenderness: Normal Skin: Normal Musculoskeletal: Normal Psychiatric: Other (Patient is not answering questions appropriately) Mood Description: Calm Affect: Normal Speech Pattern: Clear, Appropriate - Laboratory and Diagnostics Result Diagrams: 11/08/21 04:30 11/08/21 04:30 Labs: Laboratory WBC 7.2 X10^3/uL (3.6-10.0) 11/08/21 04:30 RBC 3.78 X10^6/uL (4.7-6.0) L 11/08/21 04:30 Hgb 8.8 g/dL (13.5-18.0) L 11/08/21 04:30 Hct 28.5 % (42.0-54.0) L 11/08/21 04:30 MCV 75.3 fL (80.0-100.0) L 11/08/21 04:30 MCH 23.3 pg (27.0-34.0) L 11/08/21 04:30 MCHC 30.9 g/dL (33.0-35.0) L 11/08/21 04:30 RDW 26.3 % (11.6-16.5) H 11/08/21 04:30 Plt Count 230 X10^3/uL (150.0-450.0) 11/08/21 04:30 Plt Count Comment Adequate (ADEQUATE) 11/08/21 04:30 MPV 6.8 fL (7.4-11.0) L 11/08/21 04:30 Neut % (Auto) 67.3 % (42.0-75.0) 11/08/21 04:30 Lymph % (Auto) 27.3 % (21.0-51.0) 11/08/21 04:30 [place] % (Auto) 5.1 % (0.0-13.0) 11/08/21 04:30 Eos % (Auto) 0.0 % (0.9-2.9) L 11/08/21 04:30 Baso % (Auto) 0.3 % (0.2-1.0) 11/08/21 04:30 Neut # (Auto) 4.8 x10^3/uL (2.2-4.8) 11/08/21 04:30 Lymph # (Auto) 2.0 X10^3/uL (1.3-2.9) 11/08/21 04:30 [place] # (Auto) 0.4 x10^3/uL (0.3-0.8) 11/08/21 04:30 Eos # (Auto) 0.0 x10^3/uL (0.0-0.2) 11/08/21 04:30 Baso # (Auto) 0.0 X10^3/uL (0.0-0.1) 11/08/21 04:30 Absolute Nucleated RBC 0.0 /100WBC 11/08/21 04:30 Total Counted 100 10/29/21 15:10 Neutrophils % (Manual) 80 % (39-76) H 10/29/21 15:10 Band Neutrophils % 2 % (0-10) 10/29/21 15:10 Lymphocytes % (Manual) 11 % (13-43) L 10/29/21 15:10 Monocytes % (Manual) 4 % (4-9) 10/29/21 15:10 Eosinophils % (Manual) 3 % (0-6) 10/29/21 15:10 Plt Morphology Comment Normal (NORMAL) 11/08/21 04:30 RBC Morphology Abnormal (NORMAL) 11/08/21 04:30 Dimorphic RBCs Present 11/03/21 05:26 Hypochromasia 1+ A 11/08/21 04:30 Poikilocytosis 1+ A 11/06/21 04:20 Anisocytosis 3+ A 11/08/21 04:30 Microcytosis Slight A 11/08/21 04:30 Tear Drop Cells Present 11/07/21 04:25 Ovalocytes Present 11/08/21 04:30 Acanthocytes (Spur) Present 11/06/21 04:20 Schistocytes Present 11/08/21 04:30 Sodium 140 mmol/L (136-145) 11/08/21 04:30 Corrected Sodium 141 mmol/L (136-145) 11/08/21 04:30 Potassium 4.0 mmol/L (3.5-5.1) 11/08/21 04:30 Chloride 104 mmol/L (98-107) 11/08/21 04:30 Carbon Dioxide 32.7 mmol/L (21-32) H 11/08/21 04:30 BUN 20 mg/dL (7-18) H 11/08/21 04:30 Creatinine 0.65 mg/dL (0.70-1.30) L 11/08/21 04:30 Est GFR (MDRD) Af Amer > 60 (>60) 11/08/21 04:30 Est GFR (MDRD) Non-Af > 60 (>60) 11/08/21 04:30 Glucose 136 mg/dL (65-99) H 11/08/21 04:30 Calcium 8.2 mg/dL (8.5-10.1) L 11/08/21 04:30 Corrected Calcium 8.9 mg/dL (8.5-10.1) 11/07/21 04:25 Magnesium 1.7 mg/dL (1.7-2.9) 11/03/21 05:26 Total Bilirubin 0.20 mg/dL (0.2-1.0) 11/07/21 04:25 AST 21 Units/L (15-37) 11/07/21 04:25 ALT 32 Units/L (12-78) 11/07/21 04:25 Alkaline Phosphatase 65 Units/L (46-116) 11/07/21 04:25 C-Reactive Protein < 0.50 mg/L (0-3.0) 11/07/21 04:25 Total Protein 6.5 g/dL (6.4-8.2) 11/07/21 04:25 Albumin 3.0 g/dL (3.4-5.0) L 11/07/21 04:25 Globulin 3.5 g/dL (2.5-4.5) 11/07/21 04:25 Albumin/Globulin Ratio 0.9 Ratio (1.1-2.1) L 11/07/21 04:25 SARS-CoV-2 (PCR) Positive (NEGATIVE) A 11/04/21 13:35 - Plan (1) Acute CVA (cerebrovascular accident) Status: Acute Plan: PHYSICAL THERAPY, ASA 325MG PO DAILY, ATORVASTATIN 40MG PO HS, CONTINUE BLOOD PRESSURE AND BLOOD GLUCOSE CONTROL (2) COVID-19 Status: Acute Plan: PREDNISONE 5MG PO BID AND PAXLOVID X 5 DAYS (3) Falls frequently Status: Acute Plan: PT, CONTINUE TO MONITOR (4) Confusion Status: Acute Plan: MONITOR (5) Muscle weakness (generalized) Status: Acute (6) Anemia Status: Chronic Qualifiers: Anemia type: iron deficiency Iron deficiency anemia type: chronic blood loss Qualified Code(s): D50.0 - Iron deficiency anemia secondary to blood loss (chronic) (7) Diabetes Status: Chronic Qualifiers: Diabetes mellitus type: type 2 Diabetes mellitus correction insulin use: with intermediate frame tender use Diabetes mellitus complication status: with hyperglycemia Qualified Code(s): E11.65 - Type 2 diabetes mellitus with hyperglycemia; Z79.4 - MCC (current) use of insulin (8) History of CVA (cerebrovascular accident) Status: Chronic (9) Hyperlipidemia Status: Chronic Qualifiers: Hyperlipidemia type: mixed hyperlipidemia (10) Hypertension Status: Chronic Qualifiers: Hypertension type: primary hypertension Plan: Monitor daily blood pressures.
--- NOTE | 2021-11-08 10:32 | PCM.PROG ---
Progress Note - Progress Note for Day of Date of Exam: 11/08/21 - Subjective Subjective: IS A PATIENT OF OURS. HE IS CURRENTLY INPATIENT STATUS FOR TREATMENT OF ACUTE CVA, COVID-19, FREQUENT FALLS, DECONDITIONING, GENERALIZED WEAKNESS, AND ANEMIA. TODAY, HE IS LYING IN BED WITH EYES CLOSED ON MORNING ROUNDS. HE AWAKENS TO VERBAL STIMULI. HE CONTINUES TO BE DISORIENTED THIS MORNING. HE RESPONDS WHEN SPOKEN TO, BUT IS DISORIENTED. NURSING STAFF REPORTS THAT HE CONTINUES TO BE WEAK. HE REQUIRES ASSISTANCE FOR AMBULATION AND HAS AN UNSTEADY GAIT. ON EXAMINATION, HEART IS REGULAR IN RATE AND RHYTHM. BILATERAL LUNGS ARE NOTED WITH DIMINISHED LUNG SOUNDS THROUGHOUT. ABDOMEN IS ROUND, SOFT, AND NON-TENDER WITH NORMAL BOWEL SOUNDS NOTED IN ALL QUADRNATS. HE IS ABLE TO MOVE ALL EXTREMITIES APPROPRIATELY. HIS VITAL TODAY ARE 98.2-95-26-96%-182/98. HE IS CURRENTLY UTILIZING OXYGEN VIA NASAL CANNULA AT 2 LPM. LABS WERE OBTAINED. WBC 7.2, RBC 3.78, HGB 8.8, HCT 28.5, SODIUM 140, POTASSIUM 4.0, CARBON DIOXIDE 32.7, BUN 20, CREATININE 0.65, GLUCOSE 136, CALCIUM 8.2. A CHEST CT WAS OBTAINED ON 11/05/21 AND REVEALED: 1. Cardiomegaly. 2. No evidence of pulmonary embolus. 3. 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 4. Cholelithiasis without cholecystitis. HE IS CURRENTLY RECEIVING PREDNISONE 5MG PO BID, PAXLOVID BID, DUONEBS TID, ELAVIL 25MG PO HS, ECOTRIN 325MG PO DAILY, ATORVASTATIN 40MG PO HS, ZYRTEC 10MG PO HS, COLACE 100MG PO BID PRN, CYMBALTA 30MG PO DAILY, FERROUS GLUCONATE 324MG PO DAILY, HALDOL 2-4MG IM Q4H PRN, LOPRESSOR 5MG IV Q12H PRN, PROTONIX 40MG PO BID, ACCUPRIL 40MG PO BID, FLOMAX 0.4MG PO DAILY, AND THE POTASSIUM AND MAGNESIUM PROTOCOLS. PHYSICAL THERAPY WILL CONTINUE TO WORK WITH HIM TODAY. DUE TO PERSISTENTLY ELEVATED BLOOD PRESSURES, WE WILL START AMLODIPINE 5MG PO HS, BUT WILL GO AHEAD AND ADMINISTER A ONE TIME DOSE NOW. OTHERWISE, WE WILL FOLLOW UP WITH AM LABS AND CONTINUE TO MONITOR PATIENT. TIME SPENT ON CLINICAL ASSESSMENT, REVIEWING LABS AND IMAGING, DECISION MAKING, AND DOCUMENTATION GREATER THAN 45 MINUTES. - Past Medical Family Social History Past Med/Fam/Surg Hx: No changes since H&P Allergies: Allergies No Known Drug Allergies Allergy (Verified 02/27/20 08:00) - Review of Systems ROS: No change since H&P - Vital Signs and I&O's Vital Signs: Temperature 98.2 F Pulse Rate [Left Brachial] 95 Pulse Rate [Right Brachial] 79 Pulse Rate 67 Respiratory Rate 26 Blood Pressure [Right Arm] 138/80 Blood Pressure [Left Arm] 182/98 Blood Pressure 172/88 O2 Sat by Pulse Oximetry 96 Intake and Output: Intake & Output 11/05/21 11/06/21 11/07/21 11/08/21 11:59 11:59 11:59 11:59 Intake Total 1340 / 1340 500 / 500 760 / 760 1040 / 1040 Output Total 200 / 200 400 / 400 Balance 1340 / 1340 300 / 300 760 / 760 640 / 640 - Physical Exam Oriented: Not Oriented Eyes: Normal Ear: Normal Nose: Normal Throat: Normal Respiratory: Generalized, Diminished Cardiovascular: Normal : Normal Auscultation: Bowel Sounds: Normal Palpation: Normal Tenderness: Normal Skin: Normal Musculoskeletal: Normal Psychiatric: Other (Patient is not answering questions appropriately) Mood Description: Calm Affect: Normal Speech Pattern: Clear, Appropriate - Laboratory and Diagnostics Result Diagrams: 11/08/21 04:30 11/08/21 04:30 Labs: Laboratory WBC 7.2 X10^3/uL (3.6-10.0) 11/08/21 04:30 RBC 3.78 X10^6/uL (4.7-6.0) L 11/08/21 04:30 Hgb 8.8 g/dL (13.5-18.0) L 11/08/21 04:30 Hct 28.5 % (42.0-54.0) L 11/08/21 04:30 MCV 75.3 fL (80.0-100.0) L 11/08/21 04:30 MCH 23.3 pg (27.0-34.0) L 11/08/21 04:30 MCHC 30.9 g/dL (33.0-35.0) L 11/08/21 04:30 RDW 26.3 % (11.6-16.5) H 11/08/21 04:30 Plt Count 230 X10^3/uL (150.0-450.0) 11/08/21 04:30 Plt Count Comment Adequate (ADEQUATE) 11/08/21 04:30 MPV 6.8 fL (7.4-11.0) L 11/08/21 04:30 Neut % (Auto) 67.3 % (42.0-75.0) 11/08/21 04:30 Lymph % (Auto) 27.3 % (21.0-51.0) 11/08/21 04:30 [place] % (Auto) 5.1 % (0.0-13.0) 11/08/21 04:30 Eos % (Auto) 0.0 % (0.9-2.9) L 11/08/21 04:30 Baso % (Auto) 0.3 % (0.2-1.0) 11/08/21 04:30 Neut # (Auto) 4.8 x10^3/uL (2.2-4.8) 11/08/21 04:30 Lymph # (Auto) 2.0 X10^3/uL (1.3-2.9) 11/08/21 04:30 [place] # (Auto) 0.4 x10^3/uL (0.3-0.8) 11/08/21 04:30 Eos # (Auto) 0.0 x10^3/uL (0.0-0.2) 11/08/21 04:30 Baso # (Auto) 0.0 X10^3/uL (0.0-0.1) 11/08/21 04:30 Absolute Nucleated RBC 0.0 /100WBC 11/08/21 04:30 Total Counted 100 10/29/21 15:10 Neutrophils % (Manual) 80 % (39-76) H 10/29/21 15:10 Band Neutrophils % 2 % (0-10) 10/29/21 15:10 Lymphocytes % (Manual) 11 % (13-43) L 10/29/21 15:10 Monocytes % (Manual) 4 % (4-9) 10/29/21 15:10 Eosinophils % (Manual) 3 % (0-6) 10/29/21 15:10 Plt Morphology Comment Normal (NORMAL) 11/08/21 04:30 RBC Morphology Abnormal (NORMAL) 11/08/21 04:30 Dimorphic RBCs Present 11/03/21 05:26 Hypochromasia 1+ A 11/08/21 04:30 Poikilocytosis 1+ A 11/06/21 04:20 Anisocytosis 3+ A 11/08/21 04:30 Microcytosis Slight A 11/08/21 04:30 Tear Drop Cells Present 11/07/21 04:25 Ovalocytes Present 11/08/21 04:30 Acanthocytes (Spur) Present 11/06/21 04:20 Schistocytes Present 11/08/21 04:30 Sodium 140 mmol/L (136-145) 11/08/21 04:30 Corrected Sodium 141 mmol/L (136-145) 11/08/21 04:30 Potassium 4.0 mmol/L (3.5-5.1) 11/08/21 04:30 Chloride 104 mmol/L (98-107) 11/08/21 04:30 Carbon Dioxide 32.7 mmol/L (21-32) H 11/08/21 04:30 BUN 20 mg/dL (7-18) H 11/08/21 04:30 Creatinine 0.65 mg/dL (0.70-1.30) L 11/08/21 04:30 Est GFR (MDRD) Af Amer > 60 (>60) 11/08/21 04:30 Est GFR (MDRD) Non-Af > 60 (>60) 11/08/21 04:30 Glucose 136 mg/dL (65-99) H 11/08/21 04:30 Calcium 8.2 mg/dL (8.5-10.1) L 11/08/21 04:30 Corrected Calcium 8.9 mg/dL (8.5-10.1) 11/07/21 04:25 Magnesium 1.7 mg/dL (1.7-2.9) 11/03/21 05:26 Total Bilirubin 0.20 mg/dL (0.2-1.0) 11/07/21 04:25 AST 21 Units/L (15-37) 11/07/21 04:25 ALT 32 Units/L (12-78) 11/07/21 04:25 Alkaline Phosphatase 65 Units/L (46-116) 11/07/21 04:25 C-Reactive Protein < 0.50 mg/L (0-3.0) 11/07/21 04:25 Total Protein 6.5 g/dL (6.4-8.2) 11/07/21 04:25 Albumin 3.0 g/dL (3.4-5.0) L 11/07/21 04:25 Globulin 3.5 g/dL (2.5-4.5) 11/07/21 04:25 Albumin/Globulin Ratio 0.9 Ratio (1.1-2.1) L 11/07/21 04:25 SARS-CoV-2 (PCR) Positive (NEGATIVE) A 11/04/21 13:35 - Plan (1) Acute CVA (cerebrovascular accident) Status: Acute Plan: PHYSICAL THERAPY, ASA 325MG PO DAILY, ATORVASTATIN 40MG PO HS, CONTINUE BLOOD PRESSURE AND BLOOD GLUCOSE CONTROL (2) COVID-19 Status: Acute Plan: PREDNISONE 5MG PO BID, PAXLOVID, DUONEBS (3) Falls frequently Status: Acute Plan: PT, CONTINUE TO MONITOR (4) Confusion Status: Acute Plan: MONITOR (5) Muscle weakness (generalized) Status: Acute (6) Anemia Status: Chronic Qualifiers: Anemia type: iron deficiency Iron deficiency anemia type: chronic blood loss Qualified Code(s): D50.0 - Iron deficiency anemia secondary to blood loss (chronic) (7) Diabetes Status: Chronic Qualifiers: Diabetes mellitus type: type 2 Diabetes mellitus half-way insulin use: with half-way use Diabetes mellitus complication status: with hyperglycemia Qualified Code(s): E11.65 - Type 2 diabetes mellitus with hyperglycemia; Z79.4 - lobsterman (current) use of insulin (8) History of CVA (cerebrovascular accident) Status: Chronic (9) Hyperlipidemia Status: Chronic Qualifiers: Hyperlipidemia type: mixed hyperlipidemia (10) Hypertension Status: Chronic Qualifiers: Hypertension type: primary hypertension Plan: Monitor daily blood pressures.
[2021-11-08] MEDS: DUONEB 0.5 MG/3 MG (3 mL) NEB SCH ×2 (13:30→21:05)
[2021-11-08] MEDS: ELAVIL PO SCH (20:13)
[2021-11-08] MEDS: LIPITOR TAB 20 MG PO SCH (20:13)
[2021-11-08] MEDS: ZyrTEC TAB 10 MG PO SCH (20:16)
[2021-11-08] MEDS ORDERED: NORVASC TAB 5 MG PO SCH (21:00)
[2021-11-09] MEDS: RESTORIL CAP 15 MG PO PRN (00:19)
[2021-11-09] MEDS: DUONEB 0.5 MG/3 MG (3 mL) NEB SCH (06:06)
[2021-11-09 06:12] LABS: BASOPHILS % (AUTO) 0.6 % (0.2-1.0); EOSINOPHILS % (AUTO) 0.3 % (0.9-2.9); HEMOGLOBIN 9.2 g/dL (13.5-18.0); LYMPHOCYTES # (AUTO) 2.7 X10^3/uL (1.3-2.9); LYMPHOCYTES % (AUTO) 40.4 % (21.0-51.0); MEAN CORPUSCULAR HEMOGLOBIN 23.6 pg (27.0-34.0); MEAN CORPUSCULAR HGB CONC 31.7 g/dL (33.0-35.0); MEAN CORPUSCULAR VOLUME 74.7 fL (80.0-100.0); MEAN PLATELET VOLUME 7.1 fL (7.4-11.0); MONOCYTES # (AUTO) 0.3 x10^3/uL (0.3-0.8); MONOCYTES % (AUTO) 4.6 % (0.0-13.0); NEUTROPHILS # (AUTO) 3.6 x10^3/uL (2.2-4.8); NEUTROPHILS % (AUTO) 54.1 % (42.0-75.0); RED BLOOD COUNT 3.88 X10^6/uL (4.7-6.0); RED CELL DISTRIBUTION WIDTH 26.2 % (11.6-16.5); WHITE BLOOD COUNT 6.6 X10^3/uL (3.6-10.0)
--- NOTE | 2021-11-09 06:12 | RAD ---
HISTORYShortness of breath, weaknessSTUDYChest AP [id number]/08/2022 chest x-ray and CT chestFINDINGSThe heart is enlarged. No congestive heart failure is noted. The francie are normal. The aorta is calcified. Upper mediastinal widening is due to a tortuous innominate artery. No acute infiltrates or pleural effusions are identified. There is a small bulla in the right costophrenic angle. Bony thorax is unremarkable.IMPRESSIONCardiomegaly without congestive heart failureNo acute infiltratesElectronically signed by: ROBBIE BENTLEY (Nov 09, 2021 06:11:40)
[2021-11-09 06:18] LABS: ALANINE AMINOTRANSFERASE 22 Units/L (12-78); ALBUMIN 3.1 g/dL (3.4-5.0); ALKALINE PHOSPHATASE 67 Units/L (46-116); ASPARTATE AMINO TRANSFERASE 15 Units/L (15-37); BLOOD UREA NITROGEN 13 mg/dL (7-18); CALCIUM 8.3 mg/dL (8.5-10.1); CARBON DIOXIDE 30.8 mmol/L (21-32); CHLORIDE 104 mmol/L (98-107); COR NA(FOR HYPERGLY) 140 mmol/L (136-145); CREATININE 0.61 mg/dL (0.70-1.30); MAGNESIUM 1.8 mg/dL (1.7-2.9); SODIUM 139 mmol/L (136-145); TOTAL PROTEIN 6.5 g/dL (6.4-8.2); eGFR NON BLACK RACES > 60 (>60)
[2021-11-09 07:01] LABS: ANISOCYTOSIS 3+; HYPOCHROMASIA 1+; PLATELET MORPHOLOGY COMMENT NORMAL (NORMAL)
[2021-11-09 07:02] LABS: MICROCYTOSIS SLIGHT; OVALOCYTES PRESENT; SCHISTOCYTES PRESENT
[2021-11-09] MEDS: PROTONIX TAB 40 MG PO SCH (08:30)
[2021-11-09] MEDS: FERROUS GLUCONATE PO SCH (08:30)
[2021-11-09] MEDS: ACCUPRIL PO SCH (08:30)
[2021-11-09] MEDS: ECOTRIN TAB 325 MG PO SCH (08:30)
[2021-11-09] MEDS: PREDNISONE TAB 5 MG PO SCH (08:30)
[2021-11-09] MEDS: FLOMAX PO SCH (08:30)
[2021-11-09] MEDS: CYMBALTA PO SCH (08:30)
[2021-11-09] MEDS: PATIENT'S HOME MEDICATION PO SCH (08:31)
[2021-11-09] MEDS: PEPCID TAB 20 MG PO SCH (08:31)
[2021-11-09 10:13] VITALS: BP 120/91
== END 2021-11-09 10:30 | disposition swing bed (61) | DRG 64 ==
LOC: ER 14:36 → MED/SURG 14:36 → OBSVTOIN 18:58 → MED/SURG 20:03
PROVIDERS: ADMIT Family Medicine; ATTEND Internal Medicine
DX: I63.89 Other cerebral infarction; E78.5 Hyperlipidemia, unspecified; Z79.4 Long term (current) use of insulin; R26.89 Other abnormalities of gait and mobility; K21.9 Gastro-esophageal reflux disease without esophagitis; U07.1 COVID-19; E11.65 Type 2 diabetes mellitus with hyperglycemia; I10 Essential (primary) hypertension; W18.39XA Other fall on same level, initial encounter; M62.81 Muscle weakness (generalized); R29.6 Repeated falls; D50.0 Iron deficiency anemia secondary to blood loss (chronic); I71.9 Aortic aneurysm of unspecified site, without rupture; Y92.002 Bathroom of unspecified non-institutional (private) residence as the place of occurrence of the external cause; F33.0 Major depressive disorder, recurrent, mild; Z86.73 Personal history of transient ischemic attack (TIA), and cerebral infarction without residual deficits; R53.1 Weakness; R41.0 Disorientation, unspecified; E87.6 Hypokalemia; F03.90 Unspecified dementia, unspecified severity, without behavioral disturbance, psychotic disturbance, mood disturbance, and anxiety

== ENCOUNTER 2021-11-09 10:30 | Inpatient (IN) ==
[2021-11-09] MEDS ORDERED: TESSALON PERLES PO PRN (11:38)
[2021-11-09] MEDS ORDERED: KLOR-CON PO PRN (11:38)
[2021-11-09] MEDS ORDERED: MICRO K EXTEN CAP 10 MEQ PO PRN (11:38)
[2021-11-09] MEDS ORDERED: BUTT CREAM (COMPOUND) TOP PRN (11:38)
[2021-11-09] MEDS ORDERED: MAGNESIUM SULFATE 1 GRAM/100 mL PREMIX 1 G/100 ML BAG IV PRN (11:38)
[2021-11-09] MEDS ORDERED: POTASSIUM CHL 40 MEQ/NS 0.45% 500 ML IV PRN (11:38)
[2021-11-09] MEDS ORDERED: K-RIDER 10 MEQ/NS 100 ML 10 MEQ/100 ML BAG IV PRN (11:38)
[2021-11-09] MEDS ORDERED: POTASSIUM CHLORIDE LIQ 20 MEQ UDC PO PRN (11:38)
[2021-11-09] MEDS ORDERED: LOPRESSOR INJ 5 MG AMP IVP PRN (11:38)
[2021-11-09] MEDS ORDERED: POTASSIUM CHL 60 MEQ/NS 0.45% 500 ML IV PRN (11:38)
[2021-11-09] MEDS ORDERED: K-DUR TAB 20 MEQ PO PRN (11:38)
[2021-11-09] MEDS: DUONEB 0.5 MG/3 MG (3 mL) NEB SCH ×3 (12:15→21:00)
[2021-11-09] MEDS ORDERED: DUONEB 0.5 MG/3 MG (3 mL) NEB ONE (12:16)
--- NOTE | 2021-11-09 13:23 | PT/OTEVAL ---
PT/OT OBJECTIVES - HISTORY Prescription: OT consult Diagnosis: Weakness, dizziness, COVID Precautions: COVID, fall risk, decreased safety awareness PMH: Anemia, Arthritis, CVA, Diabetes, Dyslipidemia, GERD, Hypertension and PUD Prior Level of Function: Assistance Required Other: An accurate picture of patient's PLOF has been difficult to obtain. Per documentation, patient lives with a family member who works during the day and patient is expected to stay alone during those hours. Currently, patient's cognitive state makes it unsafe for patient to be alone for that amount of time. - COGNITION Mental Status: Alert, Oriented, Name, Decreased Safety Awarenes Communication Status: Verbal Ability to Follow Directions: 1 Step - TRANSFERS Supine to Sit: Moderate Sit to Stand: Minimal Sit or Stand Pivot: Minimal Sit or Stand Pivot Comment: CGA for balance and correct walker use - ADL'S Feeding: Independent, Setup Toileting: Supervision - BALANCE Static Sitting: Good Standing: Fair Dynamic Sitting: Good Standing: Poor - NEUROMOTOR/SENSATION Alf. Upper Ext Sensation: WFL Coordination: WFL Proprioception: WFL - ROM Bilateral UE ROM: WFL Muscle Tone: WFL - STRENGTH Bilateral LE Strength Number: 4 Other comment: 4+/5 to 5/5 Bilateral UE Strength Number: 3 Right LE Strength Number: 4 Other comment: 4-/5 Left LE Strength Number: 4 Other comment: 4-/5 PT/OT ASSESSMENT - OT Problem List: Decreased Mobility ADL's, Decreased Safety Aware, Decreased UE Strength, Other Other, comment: Decreased functional activity tolerance - OT GOALS Short Term Goals Days: 10 Mobility for ADL's: Will demonstrate functional transfer w/ CGA w/ FWW for BADLs. Safety Awareness: Will demonstrate improved safety awareness when using FWW during ambulation Upper Ext. Strength/Use: Will improve BUE strength to 3+/5 for BADLs. Other: Will demonstrate F.A.T. for >10 min for BADLs in standing. Spool Maker Goals Days: 20 Mobility for ADL's: Will demonstrate functional transfer w/ Supv. w/ FWW for BADLs. Safety Awareness: Will demonstrate improved safety awareness when using FWW during ambulation Upper Ext. Strength/Use: Will improve BUE strength to 4-/5 for BADLs. Other: Will demonstrate F.A.T. for >15 min for BADLs in standing w/ 1 rest break. - PATIENT GOALS Patient/Family Goals: To get stronger and go home Goals Discussed with Patient/Family: Yes Rehabilitation Potential: Fair Justification for Potential: Pt's greatest weakness is cognitive rather than motor-based Weakness and Barriers: Cognitive Barrier If yes, explain: Pt is close to PLOF for BADLs and transfers. - PLAN Suggested Treatment Plan: Therapeutic Activity, Self Care Training, Therapeutic Ex with HEP, Patient Education, Family Education - FREQUENCY AND DURATION OT: 5x/wk x 20 days Expected Continuation of Care at Discharge: Skilled Care Facility
--- NOTE | 2021-11-09 19:15 | PT/OTEVAL ---
PT/OT OBJECTIVES - HISTORY Prescription: PT Consult Diagnosis: CVA, Anemia, Weakness Precautions: Fall Risk, Decreased Safety Awareness d/t Cognition, Droplet Precautions PMH: COVID-19, Anemia, Arthritis, CVA, Diabetes, Dyslipidemia, GERD, HTN, PUD, TIA, RA, Small Bowel AVMs, Nasal Fracture with Surgical Repair Prior Level of Function: Assistance Required Other: Pt is unable to provide accurate history & PLOF. But is known that pt resides at home with his daughter who assists with his care. She does work hide inspector as a teacher so she will be returning back to work soon. Pt's family not present at time of evaluation as pt currently on droplet precautions due to COVID-19. - COGNITION Mental Status: Alert, Name, Confused, Decreased Safety Awarenes Communication Status: Verbal Ability to Follow Directions: 1 Step Identifies: Requires mod/max cues for safety & sequencing with mobility tasks. Pt oriented to self only. Unable to hold meaningful conversation with therapist. Memory Loss: Short term memory loss, assisted memory loss (Able to state that he has a daughter but unable to provide any further information to therapist.) - PAIN No signs of pain Pain Scale: No Pain Comments: No reports or signs of pain noted. - BED MOBILITY Rolling: Supervision Scooting: Minimal - TRANSFERS Supine to Sit: Minimal Supine Comment: Cues for safety Sit to Stand: Minimal (For safety- cues for proper hand placement) Sit or Stand Pivot: Minimal Sit or Stand Pivot Comment: Cues for safety, sequecing & proper hand placement. Safety (requires cues for:): Hand Placement Precaution Safety Comment: Poor safety awareness due to cognitive deficits - BALANCE Static Sitting: Good Standing: Fair Dynamic Sitting: Good Standing: Poor - NEUROMOTOR/SENSATION Alf. Lower Ext Sensation: WFL Coordination: WFL Proprioception: WFL Alf. Upper Ext Sensation: WFL Coordination: WFL Proprioception: WFL - ROM Bilateral LE ROM: Impaired Muscle Tone: WFL Comment: Limited B knee extension ROM - STRENGTH Bilateral LE Strength Number: 3 Other comment: B Hips: 3/5, B Quads: 3-/5, B Hamstrings: 3/5, B Ankles: 4/5 Bilateral UE Strength Number: 3 Right LE Strength Number: 3 Left LE Strength Number: 3 - GAIT Pt. ambulates how many feet?: 60 Amount of assistance required: Minimal Amount of Assistance Required: Minimal Type of Assistive Device: Rolling Walker Comments: Attempting to train pt with FWW for safety & increased balance PT/OT ASSESSMENT - PT Problem List: Decreased Bed Mobility, Decreased Transfers, Decreased Gait, D ecreased Balance, Decreased Safety, Decreased LE Strength - PT GOALS Short Term Goals Days: 10 Mobility: Pt will perform bed mobility tasks with CGA Transfers: Pt will perform functional transfers with CGA Gait: Pt will ambulate 200ft with FWW with CGA Balance: Pt will increase static standing balance to fair+/good- ROM/Strength: Pt will increase B knee extension ROM by 10 degrees Food Trades Assistants Goals Days: 20 Mobility: Pt will perform bed mobility tasks with supervision Transfers: Pt will perform functional transfers with supervision Gait: Pt will ambulate 300ft with LRAD with supervision Balance: Pt will increase dynamic standing balance to fair/fair+ ROM/Strength: Pt will increase BLE strength by 1 MMT grade - OT GOALS Short Term Goals Days: 10 Mobility for ADL's: Will demonstrate functional transfer w/ CGA w/ FWW for BADLs. Safety Awareness: Will demonstrate improved safety awareness when using FWW during ambulation Upper Ext. Strength/Use: Will improve BUE strength to 3+/5 for BADLs. Other: Will demonstrate F.A.T. for >10 min for BADLs in standing. Correction Goals Days: 20 Mobility for ADL's: Will demonstrate functional transfer w/ Supv. w/ FWW for BADLs. Safety Awareness: Will demonstrate improved safety awareness when using FWW during ambulation Upper Ext. Strength/Use: Will improve BUE strength to 4-/5 for BADLs. Other: Will demonstrate F.A.T. for >15 min for BADLs in standing w/ 1 rest break. - PATIENT GOALS Patient/Family Goals: Pt unable to state goals d/t cognitive status & no family present. Goals Discussed with Patient/Family: No (Pt does not comprehend discussion of goals) Rehabilitation Potential: Good to meet stated goals Justification for Potential: Facilitate highest level of function & safe discharge planning. Weakness and Barriers: Cognitive Barrier, Pain If yes, explain: Pt oriented to self only & unable to hold any meaningful conversation. - PLAN Suggested Treatment Plan: Bed Mobility Training, Therapeutic Activity, Gait Training, Neuro Re-education, Therapeutic Ex with HEP, Patient Education, Other - FREQUENCY AND DURATION PT: 5x per week x 20 days Expected Continuation of Care at Discharge: Home Health Anticipated Equipment Needs: Caregiver support at home for safety.
--- NOTE | 2021-11-09 20:22 | DR.UPDATE ---
H&P Update History and Physical Update: History and Physical reviewed and patient examined. Changes noted: Yes with the following: IS A PATIENT OF OURS. HE WAS AN ADMISSION ON 10/29/21 DUE TO ACUTE RIGHT CEREBELLAR HEMISPHERE INFARCT, COVID-19, FREQUENT FALLS, DECONDITIONING, GENERALIZED WEAKNESS, AND ANEMIA. THE WEEK BEFORE THAT, HE RECEIVED FOUR UNITS OF PACKED RED BLOOD CELLS DUE TO SEVERE ANEMIA. DURING HIS RECENT HOSPITAL STAY, HE RECEIVED PHYSICAL AND OCCUPATIONAL THERAPIES DUE TO WEAKNESS AND DECONDITIO ISABELL. HE WAS DISORIENTED THROUGHOUT HIS STAY. PHYSICAL THERAPY RECOMMENDED A SWINGBED STAY FOR AN EXTENDED COURSE OF THERAPY. WE TRANSITIONED PATIENT TO INPATIENT SWINGBED STATUS TODAY. WE WILL RESUME PREDNISONE 5MG PO DAILY X 7 DAYS, DUONEBS TID, ELAVIL 25MG PO HS, ECOTRIN 325MG PO DAILY, ATORVASTATIN 40MG PO HS, ZYRTEC 10MG PO HS, COLACE 100MG PO BID PRN, CYMBALTA 30MG PO DAILY, FERROUS GLUCONATE 324MG PO DAILY, HALDOL 2-4MG IM Q4H PRN, LOPRESSOR 5MG IV Q12H PRN, PROTONIX 40MG PO BID, ACCUPRIL 40MG PO BID, FLOMAX 0.4MG PO DAILY, AND THE POTASSIUM AND MAGNESIUM PROTOCOLS. PHYSICAL THERAPY WILL WORK WITH HIM DAILY DURING HIS STAY. OTHERWISE, WE WILL MONITOR LABS AND CONTINUE TO MONITOR PATIENT. TIME SPENT ON CLINICAL ASSESSMENT, REVIEWING LABS AND IMAGING, DECISION MAKING, AND DOCUMENTATION GREATER THAN 75 MINUTES. H&P Reviewed: Yes Patient was examined?: Yes
[2021-11-09] MEDS: ACCUPRIL PO SCH (20:48)
[2021-11-09] MEDS: ELAVIL PO SCH (20:50)
[2021-11-09] MEDS: LIPITOR TAB 20 MG PO SCH (20:50)
[2021-11-09] MEDS: NORVASC TAB 5 MG PO SCH (20:50)
[2021-11-09] MEDS: PEPCID TAB 20 MG PO SCH (20:51)
[2021-11-09] MEDS: PREDNISONE TAB 5 MG PO SCH (20:51)
[2021-11-09] MEDS: PROTONIX TAB 40 MG PO SCH (20:51)
[2021-11-09] MEDS: ZyrTEC TAB 10 MG PO SCH (20:52)
[2021-11-09] MEDS: RESTORIL CAP 15 MG PO PRN (20:52)
[2021-11-09] MEDS: HALDOL INJ IM PRN (23:10)
[2021-11-10] MEDS: PERCOCET TAB 5/325 MG PO PRN ×3 (01:52→20:55)
--- NOTE | 2021-11-10 04:54 | RAD ---
PROCEDURE: Chest X-ray 1 View .HISTORY: COVID-19 and dyspnea.TECHNIQUE: AP portable done at 3:55 a.m..COMPARISON: 11/09/2021.TECHNICAL QUALITY: Lordotic positioning.FINDINGS:Normal size heart .Mediastinum and hilar regions show no masses or lymphadenopathy. Tortuous aorta.Normal central vascularity .No pulmonary consolidation, masses, pleural fluid, or pneumothorax .No acute bony abnormality .IMPRESSION:No active cardiopulmonary disease .Electronically signed by: Yonas Adames (Nov 10, 2021 04:53:16)
[2021-11-10] MEDS: DUONEB 0.5 MG/3 MG (3 mL) NEB SCH ×3 (06:07→20:00)
[2021-11-10] MEDS: ACCUPRIL PO SCH ×2 (09:39→20:52)
[2021-11-10] MEDS: CYMBALTA PO SCH (09:40)
[2021-11-10] MEDS: ECOTRIN TAB 325 MG PO SCH (09:41)
[2021-11-10] MEDS: FERROUS GLUCONATE PO SCH (09:41)
[2021-11-10] MEDS: PREDNISONE TAB 5 MG PO SCH ×2 (09:42→20:54)
[2021-11-10] MEDS: PEPCID TAB 20 MG PO SCH ×2 (09:42→20:54)
[2021-11-10] MEDS: FLOMAX PO SCH (09:42)
[2021-11-10] MEDS: PROTONIX TAB 40 MG PO SCH ×2 (09:43→20:54)
[2021-11-10 13:50] VITALS: BMI 26.1
[2021-11-10] MEDS: LIPITOR TAB 20 MG PO SCH (20:53)
[2021-11-10] MEDS: NORVASC TAB 5 MG PO SCH (20:53)
[2021-11-10] MEDS: ELAVIL PO SCH (20:53)
[2021-11-10] MEDS: ZyrTEC TAB 10 MG PO SCH (20:54)
[2021-11-10] MEDS: RESTORIL CAP 15 MG PO PRN (20:55)
[2021-11-11] MEDS: DUONEB 0.5 MG/3 MG (3 mL) NEB SCH ×3 (05:50→21:05)
--- NOTE | 2021-11-11 06:49 | RAD ---
HISTORYCOVID, shortness of breathSTUDYChest AP [id number]/13/2022FINDINGSHear t is upper limits normal in size. Maren are normal. Aorta is calcified. Lungs are free of acute infiltrates. There is minimal subsegmental atelectasis in the right costophrenic angle. No pleural effusion or pneumothorax identified. Bony thorax is unremarkable.IMPRESSIONNo infiltratesElectronically signed by: ROBBIE BENTLEY (Nov 11, 2021 06:48:07)
[2021-11-11] MEDS: ACCUPRIL PO SCH ×2 (10:10→20:10)
[2021-11-11] MEDS: PROTONIX TAB 40 MG PO SCH ×2 (10:11→20:10)
[2021-11-11] MEDS: FLOMAX PO SCH (10:11)
[2021-11-11] MEDS: ECOTRIN TAB 325 MG PO SCH (10:11)
[2021-11-11] MEDS: FERROUS GLUCONATE PO SCH (10:11)
[2021-11-11] MEDS: PEPCID TAB 20 MG PO SCH ×2 (10:12→20:10)
[2021-11-11] MEDS: PREDNISONE TAB 5 MG PO SCH ×2 (10:12→20:10)
[2021-11-11] MEDS: CYMBALTA PO SCH (10:14)
[2021-11-11] MEDS: NORVASC TAB 5 MG PO SCH (20:10)
[2021-11-11] MEDS: RESTORIL CAP 15 MG PO PRN (20:10)
[2021-11-11] MEDS: LIPITOR TAB 20 MG PO SCH (20:10)
[2021-11-11] MEDS: ZyrTEC TAB 10 MG PO SCH (20:10)
[2021-11-11] MEDS: ELAVIL PO SCH (20:10)
[2021-11-11] MEDS: PERCOCET TAB 5/325 MG PO PRN (23:46)
[2021-11-12] MEDS: DUONEB 0.5 MG/3 MG (3 mL) NEB SCH ×3 (06:09→21:02)
[2021-11-12 06:28] LABS: ALANINE AMINOTRANSFERASE 25 Units/L (12-78); ALBUMIN 3.1 g/dL (3.4-5.0); ALKALINE PHOSPHATASE 72 Units/L (46-116); ASPARTATE AMINO TRANSFERASE 22 Units/L (15-37); BLOOD UREA NITROGEN 16 mg/dL (7-18); CALCIUM 8.3 mg/dL (8.5-10.1); CARBON DIOXIDE 31.6 mmol/L (21-32); CHLORIDE 101 mmol/L (98-107); COR NA(FOR HYPERGLY) 139 mmol/L (136-145); CREATININE 0.66 mg/dL (0.70-1.30); SODIUM 138 mmol/L (136-145); TOTAL PROTEIN 6.7 g/dL (6.4-8.2); eGFR NON BLACK RACES > 60 (>60)
[2021-11-12 06:34] LABS: BASOPHILS # (AUTO) 0.1 X10^3/uL (0.0-0.1); BASOPHILS % (AUTO) 0.6 % (0.2-1.0); EOSINOPHILS # (AUTO) 0.1 x10^3/uL (0.0-0.2); EOSINOPHILS % (AUTO) 1.5 % (0.9-2.9); HEMATOCRIT 34.5 % (42.0-54.0); HEMOGLOBIN 10.8 g/dL (13.5-18.0); LYMPHOCYTES # (AUTO) 1.8 X10^3/uL (1.3-2.9); MEAN CORPUSCULAR HEMOGLOBIN 23.6 pg (27.0-34.0); MEAN CORPUSCULAR HGB CONC 31.2 g/dL (33.0-35.0); MEAN CORPUSCULAR VOLUME 75.5 fL (80.0-100.0); MEAN PLATELET VOLUME 6.9 fL (7.4-11.0); MONOCYTES # (AUTO) 0.5 x10^3/uL (0.3-0.8); MONOCYTES % (AUTO) 5.5 % (0.0-13.0); NEUTROPHILS % (AUTO) 73.4 % (42.0-75.0); RED BLOOD COUNT 4.58 X10^6/uL (4.7-6.0); RED CELL DISTRIBUTION WIDTH 25.4 % (11.6-16.5); WHITE BLOOD COUNT 9.6 X10^3/uL (3.6-10.0)
--- NOTE | 2021-11-12 07:12 | RAD ---
HISTORYShortness of breathSTUDYChest AP [id number]/14/2022FINDINGSThe lungs are less well inflated than on the prior examination accentuating the heart size. It is likely upper limits normal to minimally enlarged. Aorta is mildly ectatic. Maren are normal. Lungs appear free of acute alveolar infiltrates and areas of consolidation. Linear densities in the right costophrenic angle represent subsegmental atelectasis or scar. Bony thorax is unremarkable with the exception of old healed rib fractures on the right.IMPRESSIONNo significant change from the prior examination with the exception of the lungs being slightly less well inflated than on the prior examination.Electronically signed by: ROBBIE BENTLEY (Nov 12, 2021 07:11:28)
[2021-11-12 08:09] LABS: ANISOCYTOSIS 3+; PLATELET MORPHOLOGY COMMENT NORMAL (NORMAL)
[2021-11-12 08:10] LABS: MICROCYTOSIS SLIGHT; OVALOCYTES PRESENT; POLYCHROMASIA 1+; SCHISTOCYTES PRESENT
[2021-11-12] MEDS: ACCUPRIL PO SCH ×2 (09:02→20:23)
[2021-11-12] MEDS: CYMBALTA PO SCH (09:02)
[2021-11-12] MEDS: PEPCID TAB 20 MG PO SCH ×2 (09:02→20:23)
[2021-11-12] MEDS: ECOTRIN TAB 325 MG PO SCH (09:02)
[2021-11-12] MEDS: FERROUS GLUCONATE PO SCH (09:02)
[2021-11-12] MEDS: PROTONIX TAB 40 MG PO SCH ×2 (09:03→20:24)
[2021-11-12] MEDS: FLOMAX PO SCH (09:03)
[2021-11-12] MEDS: PREDNISONE TAB 5 MG PO SCH ×2 (09:03→20:23)
[2021-11-12] MEDS: PERCOCET TAB 5/325 MG PO PRN ×3 (09:04→20:24)
[2021-11-12] MEDS: NORVASC TAB 5 MG PO SCH (20:23)
[2021-11-12] MEDS: LIPITOR TAB 20 MG PO SCH (20:23)
[2021-11-12] MEDS: ELAVIL PO SCH (20:23)
[2021-11-12] MEDS: ZyrTEC TAB 10 MG PO SCH (20:24)
[2021-11-12] MEDS: RESTORIL CAP 15 MG PO PRN (20:24)
[2021-11-13] MEDS: DUONEB 0.5 MG/3 MG (3 mL) NEB SCH ×4 (05:05→20:08)
--- NOTE | 2021-11-13 07:10 | RAD ---
HISTORYSOBSTUDYAP [id number]/15/2022FINDINGSThere is no change or new abnormality demonstrated. Heart size is similar with dilated aorta and brachiocephalic vessels. There is no evidence for developing airspace pulmonary disease, pulmonary edema or pleural effusion.IMPRESSIONNo acute findings or interval change.Electronically signed by: BECKY HOLDER (Nov 13, 2021 07:08:55)
[2021-11-13] MEDS: HALDOL INJ IM PRN (08:30)
[2021-11-13] MEDS: ACCUPRIL PO SCH ×2 (10:01→20:25)
[2021-11-13] MEDS: FERROUS GLUCONATE PO SCH (10:02)
[2021-11-13] MEDS: PREDNISONE TAB 5 MG PO SCH ×2 (10:02→20:27)
[2021-11-13] MEDS: ECOTRIN TAB 325 MG PO SCH (10:02)
[2021-11-13] MEDS: CYMBALTA PO SCH (10:02)
[2021-11-13] MEDS: FLOMAX PO SCH (10:02)
[2021-11-13] MEDS: PEPCID TAB 20 MG PO SCH ×2 (10:03→20:27)
[2021-11-13] MEDS: PROTONIX TAB 40 MG PO SCH ×2 (10:03→20:27)
[2021-11-13] MEDS: MILK OF MAGNESIA PO SCH ×2 (10:03→20:27)
[2021-11-13] MEDS: PERCOCET TAB 5/325 MG PO PRN ×2 (12:55→20:25)
[2021-11-13] MEDS: LIPITOR TAB 20 MG PO SCH (20:24)
[2021-11-13] MEDS: RESTORIL CAP 15 MG PO PRN (20:25)
[2021-11-13] MEDS: ZyrTEC TAB 10 MG PO SCH (20:26)
[2021-11-13] MEDS: NORVASC TAB 5 MG PO SCH (20:27)
[2021-11-13] MEDS: ELAVIL PO SCH (20:27)
[2021-11-14] MEDS: DUONEB 0.5 MG/3 MG (3 mL) NEB SCH ×3 (05:39→21:15)
[2021-11-14] MEDS: PREDNISONE TAB 5 MG PO SCH ×2 (07:30→20:31)
[2021-11-14] MEDS: CYMBALTA PO SCH (07:30)
[2021-11-14] MEDS: FLOMAX PO SCH (07:30)
[2021-11-14] MEDS: PEPCID TAB 20 MG PO SCH ×2 (07:30→20:32)
[2021-11-14] MEDS: PERCOCET TAB 5/325 MG PO PRN ×2 (07:30→21:26)
[2021-11-14] MEDS: PROTONIX TAB 40 MG PO SCH ×2 (07:30→20:31)
[2021-11-14] MEDS: MILK OF MAGNESIA PO SCH ×2 (07:30→20:32)
[2021-11-14] MEDS: FERROUS GLUCONATE PO SCH (07:30)
[2021-11-14] MEDS: ECOTRIN TAB 325 MG PO SCH (07:30)
[2021-11-14] MEDS: ACCUPRIL PO SCH ×2 (13:00→20:30)
[2021-11-14] MEDS: NORVASC TAB 5 MG PO SCH (20:31)
[2021-11-14] MEDS: ELAVIL PO SCH (20:31)
[2021-11-14] MEDS: LIPITOR TAB 20 MG PO SCH (20:31)
[2021-11-14] MEDS: ZyrTEC TAB 10 MG PO SCH (20:31)
[2021-11-14] MEDS: RESTORIL CAP 15 MG PO PRN (21:27)
[2021-11-15] MEDS: DUONEB 0.5 MG/3 MG (3 mL) NEB SCH ×3 (06:00→20:10)
[2021-11-15 06:22] LABS: EOSINOPHILS # (AUTO) 0.1 x10^3/uL (0.0-0.2); MONOCYTES # (AUTO) 0.7 x10^3/uL (0.3-0.8)
[2021-11-15 06:30] LABS: BASOPHILS % (AUTO) 0.4 % (0.2-1.0); EOSINOPHILS % (AUTO) 1.5 % (0.9-2.9); HEMOGLOBIN 10.1 g/dL (13.5-18.0); LYMPHOCYTES # (AUTO) 1.6 X10^3/uL (1.3-2.9); LYMPHOCYTES % (AUTO) 20.5 % (21.0-51.0); MEAN CORPUSCULAR HEMOGLOBIN 24.3 pg (27.0-34.0); MEAN CORPUSCULAR HGB CONC 31.6 g/dL (33.0-35.0); MEAN CORPUSCULAR VOLUME 76.9 fL (80.0-100.0); MEAN PLATELET VOLUME 7.4 fL (7.4-11.0); MONOCYTES % (AUTO) 9.2 % (0.0-13.0); NEUTROPHILS # (AUTO) 5.3 x10^3/uL (2.2-4.8); NEUTROPHILS % (AUTO) 68.4 % (42.0-75.0); RED BLOOD COUNT 4.17 X10^6/uL (4.7-6.0); RED CELL DISTRIBUTION WIDTH 25.3 % (11.6-16.5); WHITE BLOOD COUNT 7.7 X10^3/uL (3.6-10.0)
[2021-11-15 06:35] LABS: ALANINE AMINOTRANSFERASE 28 Units/L (12-78); ALBUMIN 3.2 g/dL (3.4-5.0); ALKALINE PHOSPHATASE 75 Units/L (46-116); ASPARTATE AMINO TRANSFERASE 18 Units/L (15-37); BLOOD UREA NITROGEN 19 mg/dL (7-18); CALCIUM 8.6 mg/dL (8.5-10.1); CARBON DIOXIDE 33.6 mmol/L (21-32); CHLORIDE 103 mmol/L (98-107); COR CA(FOR HYPOALB) 9.2 mg/dL (8.5-10.1); COR NA(FOR HYPERGLY) 141 mmol/L (136-145); CREATININE 0.66 mg/dL (0.70-1.30); SODIUM 140 mmol/L (136-145); TOTAL PROTEIN 6.8 g/dL (6.4-8.2); eGFR NON BLACK RACES > 60 (>60)
[2021-11-15 07:18] LABS: ANISOCYTOSIS 3+; HYPOCHROMASIA SLIGHT; MICROCYTOSIS SLIGHT; OVALOCYTES PRESENT; PLATELET MORPHOLOGY COMMENT NORMAL (NORMAL); SCHISTOCYTES PRESENT
[2021-11-15] MEDS: PERCOCET TAB 5/325 MG PO PRN ×2 (08:09→20:18)
[2021-11-15] MEDS: ACCUPRIL PO SCH ×2 (08:09→20:16)
[2021-11-15] MEDS: CYMBALTA PO SCH (08:09)
[2021-11-15] MEDS: ECOTRIN TAB 325 MG PO SCH (08:10)
[2021-11-15] MEDS: MILK OF MAGNESIA PO SCH ×2 (08:10→20:17)
[2021-11-15] MEDS: FERROUS GLUCONATE PO SCH (08:10)
[2021-11-15] MEDS: PEPCID TAB 20 MG PO SCH ×2 (08:10→20:17)
[2021-11-15] MEDS: FLOMAX PO SCH (08:10)
[2021-11-15] MEDS: PROTONIX TAB 40 MG PO SCH ×2 (08:11→20:17)
[2021-11-15] MEDS: PREDNISONE TAB 5 MG PO SCH ×2 (08:11→20:17)
[2021-11-15] MEDS: ELAVIL PO SCH (20:16)
[2021-11-15] MEDS: NORVASC TAB 5 MG PO SCH (20:17)
[2021-11-15] MEDS: LIPITOR TAB 20 MG PO SCH (20:17)
[2021-11-15] MEDS: ZyrTEC TAB 10 MG PO SCH (20:18)
[2021-11-15] MEDS: COLACE CAP 100 MG PO PRN (20:18)
[2021-11-15] MEDS: RESTORIL CAP 15 MG PO PRN (20:19)
[2021-11-16] MEDS: PERCOCET TAB 5/325 MG PO PRN ×2 (04:55→21:07)
[2021-11-16] MEDS: DUONEB 0.5 MG/3 MG (3 mL) NEB SCH ×3 (05:00→20:15)
[2021-11-16] MEDS: ACCUPRIL PO SCH ×2 (09:18→21:05)
[2021-11-16] MEDS: ECOTRIN TAB 325 MG PO SCH (09:18)
[2021-11-16] MEDS: PROTONIX TAB 40 MG PO SCH ×2 (09:19→21:06)
[2021-11-16] MEDS: CYMBALTA PO SCH (09:19)
[2021-11-16] MEDS: FLOMAX PO SCH (09:19)
[2021-11-16] MEDS: MILK OF MAGNESIA PO SCH ×2 (09:19→21:06)
[2021-11-16] MEDS: PEPCID TAB 20 MG PO SCH ×2 (09:19→21:06)
[2021-11-16] MEDS: FERROUS GLUCONATE PO SCH (09:19)
[2021-11-16] MEDS: PREDNISONE TAB 5 MG PO SCH ×2 (09:19→21:05)
[2021-11-16] MEDS: LIPITOR TAB 20 MG PO SCH (21:05)
[2021-11-16] MEDS: ELAVIL PO SCH (21:05)
[2021-11-16] MEDS: NORVASC TAB 5 MG PO SCH (21:06)
[2021-11-16] MEDS: ZyrTEC TAB 10 MG PO SCH (21:06)
[2021-11-16] MEDS: RESTORIL CAP 15 MG PO PRN (21:07)
[2021-11-16] MEDS: COLACE CAP 100 MG PO PRN (21:07)
[2021-11-17] MEDS: DUONEB 0.5 MG/3 MG (3 mL) NEB SCH ×3 (05:09→21:00)
[2021-11-17] MEDS: PROTONIX TAB 40 MG PO SCH ×2 (09:10→20:41)
[2021-11-17] MEDS: CYMBALTA PO SCH (09:10)
[2021-11-17] MEDS: ACCUPRIL PO SCH ×2 (09:10→20:40)
[2021-11-17] MEDS: FLOMAX PO SCH (09:10)
[2021-11-17] MEDS: PEPCID TAB 20 MG PO SCH ×2 (09:11→20:41)
[2021-11-17] MEDS: FERROUS GLUCONATE PO SCH (09:11)
[2021-11-17] MEDS: PREDNISONE TAB 5 MG PO SCH ×2 (09:11→20:41)
[2021-11-17] MEDS: ECOTRIN TAB 325 MG PO SCH (09:11)
[2021-11-17] MEDS: MILK OF MAGNESIA PO SCH ×2 (09:12→20:40)
[2021-11-17] MEDS ORDERED: MUCOMYST 20% 200 MG/ML NEB SCH (14:00)
[2021-11-17] MEDS: LIPITOR TAB 20 MG PO SCH (20:40)
[2021-11-17] MEDS: NORVASC TAB 5 MG PO SCH (20:40)
[2021-11-17] MEDS: ELAVIL PO SCH (20:40)
[2021-11-17] MEDS: ZyrTEC TAB 10 MG PO SCH (20:41)
[2021-11-18 05:49] LABS: BASOPHILS # (AUTO) 0.1 X10^3/uL (0.0-0.1); BASOPHILS % (AUTO) 0.6 % (0.2-1.0); EOSINOPHILS # (AUTO) 0.2 x10^3/uL (0.0-0.2); EOSINOPHILS % (AUTO) 1.7 % (0.9-2.9); HEMATOCRIT 30.1 % (42.0-54.0); HEMOGLOBIN 9.7 g/dL (13.5-18.0); LYMPHOCYTES % (AUTO) 20.4 % (21.0-51.0); MEAN CORPUSCULAR HEMOGLOBIN 24.7 pg (27.0-34.0); MEAN CORPUSCULAR HGB CONC 32.1 g/dL (33.0-35.0); MEAN CORPUSCULAR VOLUME 76.7 fL (80.0-100.0); MEAN PLATELET VOLUME 7.4 fL (7.4-11.0); MONOCYTES # (AUTO) 0.4 x10^3/uL (0.3-0.8); MONOCYTES % (AUTO) 4.5 % (0.0-13.0); NEUTROPHILS # (AUTO) 7.2 x10^3/uL (2.2-4.8); NEUTROPHILS % (AUTO) 72.8 % (42.0-75.0); RED BLOOD COUNT 3.92 X10^6/uL (4.7-6.0); RED CELL DISTRIBUTION WIDTH 26.2 % (11.6-16.5); WHITE BLOOD COUNT 9.9 X10^3/uL (3.6-10.0)
[2021-11-18 06:05] LABS: ALANINE AMINOTRANSFERASE 23 Units/L (12-78); ALBUMIN 3.2 g/dL (3.4-5.0); ALKALINE PHOSPHATASE 73 Units/L (46-116); ASPARTATE AMINO TRANSFERASE 18 Units/L (15-37); BLOOD UREA NITROGEN 20 mg/dL (7-18); CALCIUM 8.8 mg/dL (8.5-10.1); CARBON DIOXIDE 32.3 mmol/L (21-32); CHLORIDE 102 mmol/L (98-107); COR CA(FOR HYPOALB) 9.4 mg/dL (8.5-10.1); COR NA(FOR HYPERGLY) 141 mmol/L (136-145); CREATININE 0.73 mg/dL (0.70-1.30); SODIUM 140 mmol/L (136-145); TOTAL PROTEIN 6.7 g/dL (6.4-8.2); eGFR NON BLACK RACES > 60 (>60)
[2021-11-18 06:13] LABS: ANISOCYTOSIS 3+; HYPOCHROMASIA SLIGHT; MICROCYTOSIS SLIGHT; PLATELET MORPHOLOGY COMMENT NORMAL (NORMAL)
[2021-11-18 06:14] LABS: OVALOCYTES PRESENT; SCHISTOCYTES PRESENT
[2021-11-18] MEDS: DUONEB 0.5 MG/3 MG (3 mL) NEB SCH ×2 (08:30→21:08)
[2021-11-18] MEDS ORDERED: SEROquel TAB 25 mg PO ONE (09:24)
[2021-11-18] MEDS ORDERED: HALDOL INJ IM PRN (10:19)
[2021-11-18] MEDS: ACCUPRIL PO SCH ×2 (12:49→20:53)
[2021-11-18] MEDS: FERROUS GLUCONATE PO SCH (12:49)
[2021-11-18] MEDS: CYMBALTA PO SCH (12:49)
[2021-11-18] MEDS: ECOTRIN TAB 325 MG PO SCH (12:49)
[2021-11-18] MEDS: PEPCID TAB 20 MG PO SCH ×2 (12:50→20:55)
[2021-11-18] MEDS: PROTONIX TAB 40 MG PO SCH ×2 (12:50→20:54)
[2021-11-18] MEDS: PREDNISONE TAB 5 MG PO SCH ×2 (12:50→20:54)
[2021-11-18] MEDS: FLOMAX PO SCH (12:50)
[2021-11-18] MEDS: MILK OF MAGNESIA PO SCH ×2 (12:50→20:52)
[2021-11-18] MEDS: PERCOCET TAB 5/325 MG PO PRN (20:00)
[2021-11-18] MEDS: LIPITOR TAB 20 MG PO SCH (20:53)
[2021-11-18] MEDS: ZyrTEC TAB 10 MG PO SCH (20:54)
[2021-11-18] MEDS: SEROquel TAB 25 mg PO SCH (20:55)
[2021-11-18] MEDS: ELAVIL PO SCH (20:55)
[2021-11-18] MEDS: NORVASC TAB 5 MG PO SCH (20:55)
[2021-11-19] MEDS: CYMBALTA PO SCH (08:23)
[2021-11-19] MEDS: ECOTRIN TAB 325 MG PO SCH (08:23)
[2021-11-19] MEDS: PREDNISONE TAB 5 MG PO SCH ×2 (08:23→21:46)
[2021-11-19] MEDS: FLOMAX PO SCH (08:23)
[2021-11-19] MEDS: PROTONIX TAB 40 MG PO SCH ×2 (08:23→21:46)
[2021-11-19] MEDS: ACCUPRIL PO SCH ×2 (08:23→21:42)
[2021-11-19] MEDS: FERROUS GLUCONATE PO SCH (08:24)
[2021-11-19] MEDS: PEPCID TAB 20 MG PO SCH ×2 (08:24→21:46)
[2021-11-19] MEDS: MILK OF MAGNESIA PO SCH ×2 (08:24→21:46)
[2021-11-19] MEDS: DUONEB 0.5 MG/3 MG (3 mL) NEB SCH ×2 (10:30→20:10)
--- NOTE | 2021-11-19 17:24 | PCM.PROG ---
Progress Note - Progress Note for Day of Date of Exam: 11/15/21 - Subjective Subjective: IS A PATIENT OF OURS. HE IS CURRENTLY INPATIENT, SWINGBED STATUS FOR TREATMENT OF ACUTE CVA, COVID-19, FREQUENT FALLS, DECONDITIONING, GENERALIZED WEAKNESS, AND ANEMIA. TODAY, HE IS ALERT AND ORIENTED, SITTING UP IN CHAIR ON MORNING ROUNDS. HE IS DISORIENTED THIS MORNING. STAFF REPORTS THAT HE WAS AGITATED THROUGHOUT THE NIGHT. HE RESPONDS WHEN SPOKEN TO, BUT IS DISORIENTED. NURSING STAFF REPORTS THAT HE CONTINUES TO BE WEAK. ON EXAMINATION, HEART IS REGULAR IN RATE AND RHYTHM. BILATERAL LUNGS ARE NOTED WITH DIMINISHED LUNG SOUNDS THROUGHOUT. ABDOMEN IS ROUND, SOFT, AND NON-TENDER WITH NORMAL BOWEL SOUNDS NOTED IN ALL QUADRNATS. HE IS ABLE TO MOVE ALL EXTREMITIES APPROPRIATELY. HIS VITAL TODAY ARE 98.8-91-18-96%-140/86. HE IS CURRENTLY UTILIZING OXYGEN VIA NASAL CANNULA AT 2 LPM. LABS WERE OBTAINED. WBC 7.7, RBC 4.17, HGB 10.1, HCT 32.0, SODIUM 140, POTASSIUM 3.8, CHLORIDE 103, CARBON DIOXIDE 33.6, BUN 19, CREATININE 0.66, GLUCOSE 134, CALCIUM 8.6, AST 18, ALT 28, ALK PHOS 75, TOTAL PROTEIN 6.8, ALUBMIN 3.2. HE IS CURRENTLY RECEIVING AMLODIPINE 5MG PO HS, PREDNISONE 5MG PO BID, DUONEBS TID, ELAVIL 25MG PO HS, ECOTRIN 325MG PO DAILY, ATORVASTATIN 40MG PO HS, ZYRTEC 10MG PO HS, COLACE 100MG PO BID PRN, CYMBALTA 30MG PO DAILY, FERROUS GLUCONATE 324MG PO DAILY, HALDOL 2- 4MG IM Q4H PRN, LOPRESSOR 5MG IV Q12H PRN, PROTONIX 40MG PO BID, ACCUPRIL 40MG PO BID, FLOMAX 0.4MG PO DAILY, AND THE POTASSIUM AND MAGNESIUM PROTOCOLS. PHYSICAL THERAPY WILL CONTINUE TO WORK WITH HIM TODAY. TODAY, WE WILL DISCONTINUE THE HALDOL AND START ZYPREXA 2.5MG PO HS. OTHERWISE, WE WILL FOLLOW UP WITH AM LABS AND CONTINUE TO MONITOR PATIENT. TIME SPENT ON CLINICAL ASSESSMENT, REVIEWING LABS AND IMAGING, DECISION MAKING, AND DOCUMENTATION GREATER THAN 45 MINUTES. - Past Medical Family Social History Past Med/Fam/Surg Hx: No changes since H&P Allergies: Allergies No Known Drug Allergies Allergy (Verified 02/27/20 08:00) - Review of Systems ROS: No change since H&P - Vital Signs and I&O's Vital Signs: Temperature 97.6 F Pulse Rate [Left] 80 Pulse Rate 71 Respiratory Rate 18 Blood Pressure [Left Arm] 136/78 Blood Pressure [Right Arm] 130/81 O2 Sat by Pulse Oximetry 96 Intake and Output: Intake & Output 11/17/21 11/18/21 11/19/21 11/20/21 11:59 11:59 11:59 11:59 Intake Total 1140 / 1140 1010 / 1010 610 / 610 480 / 480 Output Total 220 / 220 150 / 150 Balance 1140 / 1140 790 / 790 460 / 460 480 / 480 - Physical Exam Oriented: Not Oriented Eyes: Normal Ear: Normal Nose: Normal Throat: Normal Respiratory: Normal Cardiovascular: Normal : Normal Auscultation: Bowel Sounds: Normal Palpation: Normal Tenderness: Normal Skin: Normal Musculoskeletal: Normal Psychiatric: Other (DISORIENTED) Mood Description: Anxious Affect: Anxious Speech Pattern: Clear, Appropriate - Laboratory and Diagnostics Result Diagrams: 11/18/21 05:07 11/18/21 05:07 Labs: Laboratory WBC 9.9 X10^3/uL (3.6-10.0) 11/18/21 05:07 RBC 3.92 X10^6/uL (4.7-6.0) L 11/18/21 05:07 Hgb 9.7 g/dL (13.5-18.0) L 11/18/21 05:07 Hct 30.1 % (42.0-54.0) L 11/18/21 05:07 MCV 76.7 fL (80.0-100.0) L 11/18/21 05:07 MCH 24.7 pg (27.0-34.0) L 11/18/21 05:07 MCHC 32.1 g/dL (33.0-35.0) L 11/18/21 05:07 RDW 26.2 % (11.6-16.5) H 11/18/21 05:07 Plt Count 263 X10^3/uL (150.0-450.0) 11/18/21 05:07 Plt Count Comment Adequate (ADEQUATE) 11/18/21 05:07 MPV 7.4 fL (7.4-11.0) 11/18/21 05:07 Neut % (Auto) 72.8 % (42.0-75.0) 11/18/21 05:07 Lymph % (Auto) 20.4 % (21.0-51.0) L 11/18/21 05:07 [place] % (Auto) 4.5 % (0.0-13.0) 11/18/21 05:07 Eos % (Auto) 1.7 % (0.9-2.9) 11/18/21 05:07 Baso % (Auto) 0.6 % (0.2-1.0) 11/18/21 05:07 Neut # (Auto) 7.2 x10^3/uL (2.2-4.8) H 11/18/21 05:07 Lymph # (Auto) 2.0 X10^3/uL (1.3-2.9) 11/18/21 05:07 [place] # (Auto) 0.4 x10^3/uL (0.3-0.8) 11/18/21 05:07 Eos # (Auto) 0.2 x10^3/uL (0.0-0.2) 11/18/21 05:07 Baso # (Auto) 0.1 X10^3/uL (0.0-0.1) 11/18/21 05:07 Absolute Nucleated RBC 0.0 /100WBC 11/18/21 05:07 Plt Morphology Comment Normal (NORMAL) 11/18/21 05:07 RBC Morphology Abnormal (NORMAL) 11/18/21 05:07 Dimorphic RBCs Present 11/18/21 05:07 Polychromasia 1+ 11/12/21 06:05 Hypochromasia Slight A 11/18/21 05:07 Anisocytosis 3+ A 11/18/21 05:07 Microcytosis Slight A 11/18/21 05:07 Ovalocytes Present 11/18/21 05:07 Schistocytes Present 11/18/21 05:07 Sodium 140 mmol/L (136-145) 11/18/21 05:07 Corrected Sodium 141 mmol/L (136-145) 11/18/21 05:07 Potassium 4.3 mmol/L (3.5-5.1) 11/18/21 05:07 Chloride 102 mmol/L (98-107) 11/18/21 05:07 Carbon Dioxide 32.3 mmol/L (21-32) H 11/18/21 05:07 BUN 20 mg/dL (7-18) H 11/18/21 05:07 Creatinine 0.73 mg/dL (0.70-1.30) 11/18/21 05:07 Est GFR (MDRD) Af Amer > 60 (>60) 11/18/21 05:07 Est GFR (MDRD) Non-Af > 60 (>60) 11/18/21 05:07 Glucose 145 mg/dL (65-99) H 11/18/21 05:07 Calcium 8.8 mg/dL (8.5-10.1) 11/18/21 05:07 Corrected Calcium 9.4 mg/dL (8.5-10.1) 11/18/21 05:07 Total Bilirubin 0.20 mg/dL (0.2-1.0) 11/18/21 05:07 AST 18 Units/L (15-37) 11/18/21 05:07 ALT 23 Units/L (12-78) 11/18/21 05:07 Alkaline Phosphatase 73 Units/L (46-116) 11/18/21 05:07 Total Protein 6.7 g/dL (6.4-8.2) 11/18/21 05:07 Albumin 3.2 g/dL (3.4-5.0) L 11/18/21 05:07 Globulin 3.5 g/dL (2.5-4.5) 11/18/21 05:07 Albumin/Globulin Ratio 0.9 Ratio (1.1-2.1) L 11/18/21 05:07 - Plan (1) Acute CVA (cerebrovascular accident) Status: Acute Plan: PHYSICAL THERAPY, ASA 325MG PO DAILY, ATORVASTATIN 40MG PO HS, CONTINUE BLOOD PRESSURE AND BLOOD GLUCOSE CONTROL (2) COVID-19 Status: Acute (3) Confusion Status: Acute (4) Falls frequently Status: Acute (5) Anemia Status: Chronic Qualifiers: Anemia type: iron deficiency Iron deficiency anemia type: chronic blood loss Qualified Code(s): D50.0 - Iron deficiency anemia secondary to blood loss (chronic) (6) Diabetes Status: Chronic Qualifiers: Diabetes mellitus type: type 2 Diabetes mellitus exterminator termite insulin use: with shelter use Diabetes mellitus complication status: with hyperglycemia Qualified Code(s): E11.65 - Type 2 diabetes mellitus with hyperglycemia; Z79.4 - manager intermediate (current) use of insulin (7) Hyperlipidemia Status: Chronic Qualifiers: Hyperlipidemia type: mixed hyperlipidemia Qualified Code(s): E78.2 - Mixed hyperlipidemia (8) Hypertension Status: Chronic Qualifiers: Hypertension type: primary hypertension Qualified Code(s): I10 - Essential (primary) hypertension
[2021-11-19] MEDS: ELAVIL PO SCH (21:44)
[2021-11-19] MEDS: LIPITOR TAB 20 MG PO SCH (21:45)
[2021-11-19] MEDS: NORVASC TAB 5 MG PO SCH (21:46)
[2021-11-19] MEDS: ZyrTEC TAB 10 MG PO SCH (21:47)
[2021-11-19] MEDS: SEROquel TAB 25 mg PO SCH (21:47)
[2021-11-20] MEDS: CYMBALTA PO SCH (09:25)
[2021-11-20] MEDS: ACCUPRIL PO SCH ×2 (09:25→20:43)
[2021-11-20] MEDS: FERROUS GLUCONATE PO SCH (09:26)
[2021-11-20] MEDS: FLOMAX PO SCH (09:26)
[2021-11-20] MEDS: ECOTRIN TAB 325 MG PO SCH (09:26)
[2021-11-20] MEDS: MILK OF MAGNESIA PO SCH ×2 (09:26→20:44)
[2021-11-20] MEDS: PEPCID TAB 20 MG PO SCH ×2 (09:27→20:44)
[2021-11-20] MEDS: PROTONIX TAB 40 MG PO SCH ×2 (09:27→20:45)
[2021-11-20] MEDS: PREDNISONE TAB 5 MG PO SCH ×2 (09:27→20:44)
[2021-11-20] MEDS: DUONEB 0.5 MG/3 MG (3 mL) NEB SCH ×2 (09:30→21:04)
[2021-11-20] MEDS: ELAVIL PO SCH (20:43)
[2021-11-20] MEDS: LIPITOR TAB 20 MG PO SCH (20:44)
[2021-11-20] MEDS: NORVASC TAB 5 MG PO SCH (20:44)
[2021-11-20] MEDS: ZyrTEC TAB 10 MG PO SCH (20:45)
[2021-11-20] MEDS: SEROquel TAB 25 mg PO SCH (20:45)
[2021-11-21 06:26] LABS: BASOPHILS # (AUTO) 0.1 X10^3/uL (0.0-0.1); BASOPHILS % (AUTO) 0.6 % (0.2-1.0); EOSINOPHILS # (AUTO) 0.1 x10^3/uL (0.0-0.2); EOSINOPHILS % (AUTO) 1.5 % (0.9-2.9); HEMATOCRIT 28.8 % (42.0-54.0); HEMOGLOBIN 9.3 g/dL (13.5-18.0); LYMPHOCYTES % (AUTO) 23.6 % (21.0-51.0); MEAN CORPUSCULAR HEMOGLOBIN 25.2 pg (27.0-34.0); MEAN CORPUSCULAR HGB CONC 32.4 g/dL (33.0-35.0); MEAN CORPUSCULAR VOLUME 77.9 fL (80.0-100.0); MONOCYTES # (AUTO) 0.5 x10^3/uL (0.3-0.8); MONOCYTES % (AUTO) 5.7 % (0.0-13.0); NEUTROPHILS # (AUTO) 5.8 x10^3/uL (2.2-4.8); NEUTROPHILS % (AUTO) 68.6 % (42.0-75.0); RED CELL DISTRIBUTION WIDTH 26.4 % (11.6-16.5); WHITE BLOOD COUNT 8.4 X10^3/uL (3.6-10.0)
[2021-11-21 06:27] LABS: ALANINE AMINOTRANSFERASE 20 Units/L (12-78); ALKALINE PHOSPHATASE 68 Units/L (46-116); ASPARTATE AMINO TRANSFERASE 14 Units/L (15-37); BLOOD UREA NITROGEN 17 mg/dL (7-18); CALCIUM 8.8 mg/dL (8.5-10.1); CARBON DIOXIDE 30.5 mmol/L (21-32); CHLORIDE 104 mmol/L (98-107); COR CA(FOR HYPOALB) 9.6 mg/dL (8.5-10.1); COR NA(FOR HYPERGLY) 141 mmol/L (136-145); CREATININE 0.71 mg/dL (0.70-1.30); SODIUM 140 mmol/L (136-145); TOTAL PROTEIN 6.4 g/dL (6.4-8.2); eGFR NON BLACK RACES > 60 (>60)
[2021-11-21 07:04] LABS: ANISOCYTOSIS 3+; HYPOCHROMASIA SLIGHT; MICROCYTOSIS SLIGHT; OVALOCYTES PRESENT; PLATELET MORPHOLOGY COMMENT NORMAL (NORMAL)
[2021-11-21 07:05] LABS: SCHISTOCYTES PRESENT
[2021-11-21] MEDS: DUONEB 0.5 MG/3 MG (3 mL) NEB SCH ×2 (09:32→20:55)
[2021-11-21] MEDS: PROTONIX TAB 40 MG PO SCH ×2 (09:45→20:11)
[2021-11-21] MEDS: ECOTRIN TAB 325 MG PO SCH ×2 (09:45→10:39)
[2021-11-21] MEDS: PEPCID TAB 20 MG PO SCH ×2 (09:45→20:11)
[2021-11-21] MEDS: ACCUPRIL PO SCH ×2 (09:45→20:10)
[2021-11-21] MEDS: CYMBALTA PO SCH (09:45)
[2021-11-21] MEDS: FLOMAX PO SCH (09:46)
[2021-11-21] MEDS: MILK OF MAGNESIA PO SCH ×2 (09:46→20:07)
[2021-11-21] MEDS: FERROUS GLUCONATE PO SCH (09:46)
[2021-11-21] MEDS: PREDNISONE TAB 5 MG PO SCH ×2 (09:46→20:11)
--- NOTE | 2021-11-21 15:35 | PCM.PROG ---
Progress Note - Progress Note for Day of Date of Exam: 11/18/21 - Subjective Subjective: IS A PATIENT OF OURS. HE IS CURRENTLY INPATIENT, SWINGBED STATUS FOR TREATMENT OF ACUTE CVA, COVID-19, FREQUENT FALLS, DECONDITIONING, GENERALIZED WEAKNESS, AND ANEMIA. HE HAS BEEN RECEIVING PHYSICAL THERAPY AND HAS BEEN COMPLIANT AND COOPERATIVE. TODAY, HE IS ALERT, LYING IN BED ON MORNING ROUNDS. HE IS DISORIENTED THIS MORNING. STAFF REPORTS THAT HE HAS HAD SOME AGITATION AND DISORIENTATION THROUGHOUT THE NIGHT WELL. ON EXAMINATION, HEART IS REGULAR IN RATE AND RHYTHM. BILATERAL LUNGS ARE NOTED WITH DIMINISHED LUNG SOUNDS THROUGHOUT. ABDOMEN IS ROUND, SOFT, AND NON-TENDER WITH NORMAL BOWEL SOUNDS NOTED IN ALL QUADRANTS. HE IS ABLE TO MOVE ALL EXTREMITIES APPROPRIATELY. HIS VITAL TODAY ARE 97.3-74-18-98%-143/91. HE IS CURRENTLY UTILIZING OXYGEN VIA NASAL CANNULA AT 2 LPM. LABS WERE OBTAINED. WBC 9.9, RBC 3.92, HGB 9.7, HCT 30.1, PLT COUNT 263, SODIUM 140, POTASSIUM 4.3, BUN 20, CREATININE 0.73, GLUCOSE 145, CALCIUM 8.8, TOTAL PROTEIN 6.7, ALBUMIN 3.2. HE IS CURRENTLY RECEIVING AMLODIPINE 5MG PO HS, PREDNISONE 5MG PO BID, DUONEBS TID, ELAVIL 25MG PO HS, ECOTRIN 325MG PO DAILY, ATORVASTATIN 40MG PO HS, ZYRTEC 10MG PO HS, COLACE 100MG PO BID PRN, HALDOL 2-4MG IM Q4H PRN, CYMBALTA 30MG PO DAILY, FERROUS GLUCONATE 324MG PO DAILY, LOPRESSOR 5MG IV Q12H PRN, PROTONIX 40MG PO BID, ACCUPRIL 40MG PO BID, FLOMAX 0.4MG PO DAILY, AND THE POTASSIUM AND MAGNESIUM PROTOCOLS. DUE TO AGITATION, WE WILL ADD SEROQUEL 25MG PO HS. WE WILL DISCONTINUE THE HALDOL. PHYSICAL THERAPY WILL CONTINUE TO WORK WITH HIM DAILY. OTHERWISE, WE WILL FOLLOW UP WITH AM LABS AND CONTINUE TO MONITOR PATIENT. TIME SPENT ON CLINICAL ASSESSMENT, REVIEWING LABS AND IMAGING, DECISION MAKING, AND DOCUMENTATION GREATER THAN 45 MINUTES. - Past Medical Family Social History Past Med/Fam/Surg Hx: No changes since H&P Allergies: Allergies No Known Drug Allergies Allergy (Verified 02/27/20 08:00) - Review of Systems ROS: No change since H&P - Vital Signs and I&O's Vital Signs: Temperature 98.5 F Pulse Rate [Left] 86 Pulse Rate 67 Respiratory Rate 20 Blood Pressure [Left Arm] 129/91 Blood Pressure [Right Arm] 130/81 O2 Sat by Pulse Oximetry 94 Intake and Output: Intake & Output 11/19/21 11/20/21 11/21/21 11/22/21 11:59 11:59 11:59 11:59 Intake Total 610 / 610 1380 / 1380 1200 / 1200 520 / 520 Output Total 150 / 150 200 / 200 Balance 460 / 460 1380 / 1380 1000 / 1000 520 / 520 - Physical Exam Oriented: Not Oriented Eyes: Normal Ear: Normal Nose: Normal Throat: Normal Respiratory: Normal Cardiovascular: Normal : Normal Auscultation: Bowel Sounds: Normal Palpation: Normal Tenderness: Normal Skin: Normal Musculoskeletal: Normal Psychiatric: Agitation, Other (DISORIENTED) Mood Description: Anxious Affect: Anxious Speech Pattern: Clear, Inappropriate - Laboratory and Diagnostics Result Diagrams: 11/21/21 05:30 11/21/21 05:30 Labs: Laboratory WBC 8.4 X10^3/uL (3.6-10.0) 11/21/21 05:30 RBC 3.70 X10^6/uL (4.7-6.0) L 11/21/21 05:30 Hgb 9.3 g/dL (13.5-18.0) L 11/21/21 05:30 Hct 28.8 % (42.0-54.0) L 11/21/21 05:30 MCV 77.9 fL (80.0-100.0) L 11/21/21 05:30 MCH 25.2 pg (27.0-34.0) L 11/21/21 05:30 MCHC 32.4 g/dL (33.0-35.0) L 11/21/21 05:30 RDW 26.4 % (11.6-16.5) H 11/21/21 05:30 Plt Count 213 X10^3/uL (150.0-450.0) 11/21/21 05:30 Plt Count Comment Adequate (ADEQUATE) 11/21/21 05:30 MPV 7.0 fL (7.4-11.0) L 11/21/21 05:30 Neut % (Auto) 68.6 % (42.0-75.0) 11/21/21 05:30 Lymph % (Auto) 23.6 % (21.0-51.0) 11/21/21 05:30 [place] % (Auto) 5.7 % (0.0-13.0) 11/21/21 05:30 Eos % (Auto) 1.5 % (0.9-2.9) 11/21/21 05:30 Baso % (Auto) 0.6 % (0.2-1.0) 11/21/21 05:30 Neut # (Auto) 5.8 x10^3/uL (2.2-4.8) H 11/21/21 05:30 Lymph # (Auto) 2.0 X10^3/uL (1.3-2.9) 11/21/21 05:30 [place] # (Auto) 0.5 x10^3/uL (0.3-0.8) 11/21/21 05:30 Eos # (Auto) 0.1 x10^3/uL (0.0-0.2) 11/21/21 05:30 Baso # (Auto) 0.1 X10^3/uL (0.0-0.1) 11/21/21 05:30 Absolute Nucleated RBC 0.0 /100WBC 11/21/21 05:30 Plt Morphology Comment Normal (NORMAL) 11/21/21 05:30 RBC Morphology Abnormal (NORMAL) 11/21/21 05:30 Dimorphic RBCs Present 11/21/21 05:30 Polychromasia 1+ 11/12/21 06:05 Hypochromasia Slight A 11/21/21 05:30 Anisocytosis 3+ A 11/21/21 05:30 Microcytosis Slight A 11/21/21 05:30 Ovalocytes Present 11/21/21 05:30 Schistocytes Present 11/21/21 05:30 Sodium 140 mmol/L (136-145) 11/21/21 05:30 Corrected Sodium 141 mmol/L (136-145) 11/21/21 05:30 Potassium 4.5 mmol/L (3.5-5.1) 11/21/21 05:30 Chloride 104 mmol/L (98-107) 11/21/21 05:30 Carbon Dioxide 30.5 mmol/L (21-32) 11/21/21 05:30 BUN 17 mg/dL (7-18) 11/21/21 05:30 Creatinine 0.71 mg/dL (0.70-1.30) 11/21/21 05:30 Est GFR (MDRD) Af Amer > 60 (>60) 11/21/21 05:30 Est GFR (MDRD) Non-Af > 60 (>60) 11/21/21 05:30 Glucose 154 mg/dL (65-99) H 11/21/21 05:30 Calcium 8.8 mg/dL (8.5-10.1) 11/21/21 05:30 Corrected Calcium 9.6 mg/dL (8.5-10.1) 11/21/21 05:30 Total Bilirubin 0.30 mg/dL (0.2-1.0) 11/21/21 05:30 AST 14 Units/L (15-37) L 11/21/21 05:30 ALT 20 Units/L (12-78) 11/21/21 05:30 Alkaline Phosphatase 68 Units/L (46-116) 11/21/21 05:30 Total Protein 6.4 g/dL (6.4-8.2) 11/21/21 05:30 Albumin 3.0 g/dL (3.4-5.0) L 11/21/21 05:30 Globulin 3.4 g/dL (2.5-4.5) 11/21/21 05:30 Albumin/Globulin Ratio 0.9 Ratio (1.1-2.1) L 11/21/21 05:30 - Plan (1) Acute CVA (cerebrovascular accident) Status: Acute Plan: PHYSICAL THERAPY, ASA 325MG PO DAILY, ATORVASTATIN 40MG PO HS, CONTINUE BLOOD PRESSURE AND BLOOD GLUCOSE CONTROL (2) COVID-19 Status: Acute (3) Confusion Status: Acute (4) Falls frequently Status: Acute (5) Anemia Status: Chronic Qualifiers: Anemia type: iron deficiency Iron deficiency anemia type: chronic blood loss Qualified Code(s): D50.0 - Iron deficiency anemia secondary to blood loss (chronic) (6) Diabetes Status: Chronic Qualifiers: Diabetes mellitus type: type 2 Diabetes mellitus adjunct faculty for medical terminology insulin use: with adjunct faculty for medical terminology use Diabetes mellitus complication status: with hyperglycemia Qualified Code(s): E11.65 - Type 2 diabetes mellitus with hyperglycemia; Z79.4 - truck terminal manager (current) use of insulin (7) Hyperlipidemia Status: Chronic Qualifiers: Hyperlipidemia type: mixed hyperlipidemia Qualified Code(s): E78.2 - Mixed hyperlipidemia (8) Hypertension Status: Chronic Qualifiers: Hypertension type: primary hypertension Qualified Code(s): I10 - Essential (primary) hypertension
--- NOTE | 2021-11-21 15:39 | PCM.PROG ---
Progress Note - Progress Note for Day of Date of Exam: 11/21/21 - Subjective Subjective: IS A PATIENT OF OURS. HE IS CURRENTLY INPATIENT, SWINGBED STATUS FOR TREATMENT OF ACUTE CVA, COVID-19, FREQUENT FALLS, DECONDITIONING, GENERALIZED WEAKNESS, AND ANEMIA. HE HAS BEEN RECEIVING PHYSICAL THERAPY AND HAS BEEN COMPLIANT AND COOPERATIVE. TODAY, HE IS ALERT, SITTING UP I N BED ON MORNING ROUNDS. HE ANSWERS QUESTIONS AND FOLLOWS COMMANDS APPROPRIATELY TODAY. STAFF REPORTS THAT HE CONTINUES WITH DISORIENTATION AT TIMES. ON EXAMINATION, HEART IS REGULAR IN RATE AND RHYTHM. BILATERAL LUNGS ARE NOTED WITH DIMINISHED LUNG SOUNDS THROUGHOUT. ABDOMEN IS ROUND, SOFT, AND NON-TENDER WITH NORMAL BOWEL SOUNDS NOTED IN ALL QUADRANTS. HE IS ABLE TO MOVE ALL EXTREMITIES APPROPRIATELY. HIS VITAL TODAY ARE 98.5-86-20-96%-129/91. HE IS CURRENTLY UTILIZING OXYGEN VIA NASAL CANNULA AT 2 LPM. LABS WERE OBTAINED. WBC 8.4, RBC 3.70, HGB 9.3, HCT 28.8, SODIUM 140, POTASSIUM 4.5, CHLORIDE 104, BUN 17, CREATININE 0.71, GLUCOSE 154, CALCIUM 8.8, AST 14, ALT 20, ALK PHOS 68, TOTAL PROTEIN 6.4, ALBUMIN 3.0. HE IS CURRENTLY RECEIVING AMLODIPINE 5MG PO HS, PREDNISONE 5MG PO BID, DUONEBS TID, ELAVIL 25MG PO HS, ECOTRIN 325MG PO DAILY, ATORVASTATIN 40MG PO HS, ZYRTEC 10MG PO HS, COLACE 100MG PO BID PRN, CYMBALTA 30MG PO DAILY, FERROUS GLUCONATE 324MG PO DAILY, SEROQUEL 25MG PO HS, LOPRESSOR 5MG IV Q12H PRN, PROTONIX 40MG PO BID, ACCUPRIL 40MG PO BID, FLOMAX 0.4MG PO DAILY, AND THE POTASSIUM AND MAGNESIUM PROTOCOLS. PHYSICAL THERAPY WILL CONTINUE TO WORK WITH HIM DAILY. OTHERWISE, WE WILL FOLLOW UP WITH AM LABS AND CONTINUE TO MONITOR PATIENT. TIME SPENT ON CLINICAL ASSESSMENT, REVIEWING LABS AND IMAGING, DECISION MAKING, AND DOCUMENTATION GREATER THAN 45 MINUTES. - Past Medical Family Social History Past Med/Fam/Surg Hx: No changes since H&P Allergies: Allergies No Known Drug Allergies Allergy (Verified 02/27/20 08:00) - Review of Systems ROS: No change since H&P - Vital Signs and I&O's Vital Signs: Temperature 98.5 F Pulse Rate [Left] 86 Pulse Rate 67 Respiratory Rate 20 Blood Pressure [Left Arm] 129/91 Blood Pressure [Right Arm] 130/81 O2 Sat by Pulse Oximetry 94 Intake and Output: Intake & Output 11/19/21 11/20/21 11/21/21 11/22/21 11:59 11:59 11:59 11:59 Intake Total 610 / 610 1380 / 1380 1200 / 1200 520 / 520 Output Total 150 / 150 200 / 200 Balance 460 / 460 1380 / 1380 1000 / 1000 520 / 520 - Physical Exam Oriented: Person Eyes: Normal Ear: Normal Nose: Normal Throat: Normal Respiratory: Normal Cardiovascular: Normal : Normal Auscultation: Bowel Sounds: Normal Palpation: Normal Tenderness: Normal Skin: Normal Musculoskeletal: Normal Psychiatric: Agitation, Other (DISORIENTED) Mood Description: Anxious Affect: Anxious Speech Pattern: Clear, Inappropriate - Laboratory and Diagnostics Result Diagrams: 11/21/21 05:30 11/21/21 05:30 Labs: Laboratory WBC 8.4 X10^3/uL (3.6-10.0) 11/21/21 05:30 RBC 3.70 X10^6/uL (4.7-6.0) L 11/21/21 05:30 Hgb 9.3 g/dL (13.5-18.0) L 11/21/21 05:30 Hct 28.8 % (42.0-54.0) L 11/21/21 05:30 MCV 77.9 fL (80.0-100.0) L 11/21/21 05:30 MCH 25.2 pg (27.0-34.0) L 11/21/21 05:30 MCHC 32.4 g/dL (33.0-35.0) L 11/21/21 05:30 RDW 26.4 % (11.6-16.5) H 11/21/21 05:30 Plt Count 213 X10^3/uL (150.0-450.0) 11/21/21 05:30 Plt Count Comment Adequate (ADEQUATE) 11/21/21 05:30 MPV 7.0 fL (7.4-11.0) L 11/21/21 05:30 Neut % (Auto) 68.6 % (42.0-75.0) 11/21/21 05:30 Lymph % (Auto) 23.6 % (21.0-51.0) 11/21/21 05:30 [place] % (Auto) 5.7 % (0.0-13.0) 11/21/21 05:30 Eos % (Auto) 1.5 % (0.9-2.9) 11/21/21 05:30 Baso % (Auto) 0.6 % (0.2-1.0) 11/21/21 05:30 Neut # (Auto) 5.8 x10^3/uL (2.2-4.8) H 11/21/21 05:30 Lymph # (Auto) 2.0 X10^3/uL (1.3-2.9) 11/21/21 05:30 [place] # (Auto) 0.5 x10^3/uL (0.3-0.8) 11/21/21 05:30 Eos # (Auto) 0.1 x10^3/uL (0.0-0.2) 11/21/21 05:30 Baso # (Auto) 0.1 X10^3/uL (0.0-0.1) 11/21/21 05:30 Absolute Nucleated RBC 0.0 /100WBC 11/21/21 05:30 Plt Morphology Comment Normal (NORMAL) 11/21/21 05:30 RBC Morphology Abnormal (NORMAL) 11/21/21 05:30 Dimorphic RBCs Present 11/21/21 05:30 Polychromasia 1+ 11/12/21 06:05 Hypochromasia Slight A 11/21/21 05:30 Anisocytosis 3+ A 11/21/21 05:30 Microcytosis Slight A 11/21/21 05:30 Ovalocytes Present 11/21/21 05:30 Schistocytes Present 11/21/21 05:30 Sodium 140 mmol/L (136-145) 11/21/21 05:30 Corrected Sodium 141 mmol/L (136-145) 11/21/21 05:30 Potassium 4.5 mmol/L (3.5-5.1) 11/21/21 05:30 Chloride 104 mmol/L (98-107) 11/21/21 05:30 Carbon Dioxide 30.5 mmol/L (21-32) 11/21/21 05:30 BUN 17 mg/dL (7-18) 11/21/21 05:30 Creatinine 0.71 mg/dL (0.70-1.30) 11/21/21 05:30 Est GFR (MDRD) Af Amer > 60 (>60) 11/21/21 05:30 Est GFR (MDRD) Non-Af > 60 (>60) 11/21/21 05:30 Glucose 154 mg/dL (65-99) H 11/21/21 05:30 Calcium 8.8 mg/dL (8.5-10.1) 11/21/21 05:30 Corrected Calcium 9.6 mg/dL (8.5-10.1) 11/21/21 05:30 Total Bilirubin 0.30 mg/dL (0.2-1.0) 11/21/21 05:30 AST 14 Units/L (15-37) L 11/21/21 05:30 ALT 20 Units/L (12-78) 11/21/21 05:30 Alkaline Phosphatase 68 Units/L (46-116) 11/21/21 05:30 Total Protein 6.4 g/dL (6.4-8.2) 11/21/21 05:30 Albumin 3.0 g/dL (3.4-5.0) L 11/21/21 05:30 Globulin 3.4 g/dL (2.5-4.5) 11/21/21 05:30 Albumin/Globulin Ratio 0.9 Ratio (1.1-2.1) L 11/21/21 05:30 - Plan (1) Acute CVA (cerebrovascular accident) Status: Acute Plan: PHYSICAL THERAPY, ASA 325MG PO DAILY, ATORVASTATIN 40MG PO HS, CONTINUE BLOOD PRESSURE AND BLOOD GLUCOSE CONTROL (2) COVID-19 Status: Acute (3) Confusion Status: Acute (4) Falls frequently Status: Acute (5) Anemia Status: Chronic Qualifiers: Anemia type: iron deficiency Iron deficiency anemia type: chronic blood loss Qualified Code(s): D50.0 - Iron deficiency anemia secondary to blood loss (chronic) (6) Diabetes Status: Chronic Qualifiers: Diabetes mellitus type: type 2 Diabetes mellitus termite control technician insulin use: with fci use Diabetes mellitus complication status: with hyperglycemia Qualified Code(s): E11.65 - Type 2 diabetes mellitus with hyperglycemia; Z79.4 - penitentiary (current) use of insulin (7) Hyperlipidemia Status: Chronic Qualifiers: Hyperlipidemia type: mixed hyperlipidemia Qualified Code(s): E78.2 - Mixed hyperlipidemia (8) Hypertension Status: Chronic Qualifiers: Hypertension type: primary hypertension Qualified Code(s): I10 - Essential (primary) hypertension
[2021-11-21] MEDS: ELAVIL PO SCH (20:09)
[2021-11-21] MEDS: LIPITOR TAB 20 MG PO SCH (20:09)
[2021-11-21] MEDS: NORVASC TAB 5 MG PO SCH (20:10)
[2021-11-21] MEDS: SEROquel TAB 25 mg PO SCH (20:11)
[2021-11-21] MEDS: ZyrTEC TAB 10 MG PO SCH (20:11)
[2021-11-21] MEDS: PERCOCET TAB 5/325 MG PO PRN (22:32)
[2021-11-21] MEDS: RESTORIL CAP 15 MG PO PRN (22:33)
[2021-11-22] MEDS: DUONEB 0.5 MG/3 MG (3 mL) NEB SCH ×2 (08:40→20:53)
[2021-11-22] MEDS: ACCUPRIL PO SCH ×2 (08:48→20:00)
[2021-11-22] MEDS: ECOTRIN TAB 325 MG PO SCH (08:49)
[2021-11-22] MEDS: FLOMAX PO SCH (08:50)
[2021-11-22] MEDS: FERROUS GLUCONATE PO SCH (08:50)
[2021-11-22] MEDS: MILK OF MAGNESIA PO SCH ×2 (08:51→20:00)
[2021-11-22] MEDS: PREDNISONE TAB 5 MG PO SCH ×2 (08:51→20:01)
[2021-11-22] MEDS: PEPCID TAB 20 MG PO SCH ×2 (08:51→20:01)
[2021-11-22] MEDS: PROTONIX TAB 40 MG PO SCH ×2 (08:54→20:02)
[2021-11-22] MEDS: CYMBALTA PO SCH (09:05)
[2021-11-22] MEDS: PERCOCET TAB 5/325 MG PO PRN (09:49)
[2021-11-22] MEDS: ZyrTEC TAB 10 MG PO SCH (20:01)
[2021-11-22] MEDS: ELAVIL PO SCH (20:02)
[2021-11-22] MEDS: NORVASC TAB 5 MG PO SCH (20:02)
[2021-11-22] MEDS: LIPITOR TAB 20 MG PO SCH (20:02)
[2021-11-22] MEDS: SEROquel TAB 25 mg PO SCH (20:02)
[2021-11-23 08:05] VITALS: BP 145/96
[2021-11-23] MEDS: DUONEB 0.5 MG/3 MG (3 mL) NEB SCH (08:05)
[2021-11-23] MEDS: ACCUPRIL PO SCH ×2 (08:47→09:36)
[2021-11-23] MEDS: ECOTRIN TAB 325 MG PO SCH ×2 (08:47→09:36)
[2021-11-23] MEDS: FLOMAX PO SCH ×2 (08:48→09:36)
[2021-11-23] MEDS: CYMBALTA PO SCH ×2 (08:48→09:36)
[2021-11-23] MEDS: FERROUS GLUCONATE PO SCH ×2 (08:48→09:36)
[2021-11-23] MEDS: PREDNISONE TAB 5 MG PO SCH ×2 (08:48→09:37)
[2021-11-23] MEDS: PROTONIX TAB 40 MG PO SCH ×2 (08:48→09:35)
[2021-11-23] MEDS: MILK OF MAGNESIA PO SCH ×2 (08:49→09:36)
[2021-11-23] MEDS: PEPCID TAB 20 MG PO SCH ×2 (08:49→09:37)
== END 2021-11-23 13:50 | DRG 64 ==
LOC: MED/SURG 10:30
PROVIDERS: ADMIT Internal Medicine; ATTEND Internal Medicine
DX: Z51.5 Encounter for palliative care; I63.89 Other cerebral infarction; Z86.73 Personal history of transient ischemic attack (TIA), and cerebral infarction without residual deficits; U07.1 COVID-19; D50.0 Iron deficiency anemia secondary to blood loss (chronic); R42 Dizziness and giddiness; Z79.4 Long term (current) use of insulin; I71.9 Aortic aneurysm of unspecified site, without rupture; F03.90 Unspecified dementia, unspecified severity, without behavioral disturbance, psychotic disturbance, mood disturbance, and anxiety; E11.65 Type 2 diabetes mellitus with hyperglycemia; K21.9 Gastro-esophageal reflux disease without esophagitis; R29.6 Repeated falls; F33.0 Major depressive disorder, recurrent, mild; E78.5 Hyperlipidemia, unspecified; I10 Essential (primary) hypertension; M62.81 Muscle weakness (generalized); R26.89 Other abnormalities of gait and mobility; R06.02 Shortness of breath

== ENCOUNTER 2022-02-09 11:12 | Inpatient (IN) ==
[2022-02-09] MEDS: NS 1,000 ML IV 1,000 ML IV SCH (15:45)
[2022-02-09 16:03] LABS: BASOPHILS # (AUTO) 0.1 X10^3/uL (0.0-0.1); BASOPHILS % (AUTO) 1.4 % (0.2-1.0); EOSINOPHILS # (AUTO) 0.2 x10^3/uL (0.0-0.2); EOSINOPHILS % (AUTO) 3.5 % (0.9-2.9); HEMATOCRIT 35.6 % (42.0-54.0); HEMOGLOBIN 11.8 g/dL (13.5-18.0); LYMPHOCYTES # (AUTO) 1.6 X10^3/uL (1.3-2.9); LYMPHOCYTES % (AUTO) 27.4 % (21.0-51.0); MEAN CORPUSCULAR HEMOGLOBIN 30.3 pg (27.0-34.0); MEAN CORPUSCULAR HGB CONC 33.1 g/dL (33.0-35.0); MEAN CORPUSCULAR VOLUME 91.8 fL (80.0-100.0); MEAN PLATELET VOLUME 6.6 fL (7.4-11.0); MONOCYTES # (AUTO) 0.4 x10^3/uL (0.3-0.8); NEUTROPHILS # (AUTO) 3.6 x10^3/uL (2.2-4.8); NEUTROPHILS % (AUTO) 60.7 % (42.0-75.0); RED BLOOD COUNT 3.88 X10^6/uL (4.7-6.0); RED CELL DISTRIBUTION WIDTH 15.5 % (11.6-16.5)
[2022-02-09 16:14] LABS: ALANINE AMINOTRANSFERASE 18 Units/L (12-78); ALKALINE PHOSPHATASE 129 Units/L (46-116); ASPARTATE AMINO TRANSFERASE 14 Units/L (15-37); BLOOD UREA NITROGEN 20 mg/dL (7-18); CALCIUM 8.2 mg/dL (8.5-10.1); CARBON DIOXIDE 33.8 mmol/L (21-32); CHLORIDE 106 mmol/L (98-107); COR NA(FOR HYPERGLY) 144 mmol/L (136-145); CREATININE 1.04 mg/dL (0.70-1.30); SODIUM 143 mmol/L (136-145); TOTAL PROTEIN 6.6 g/dL (6.4-8.2); eGFR NON BLACK RACES > 60 (>60)
[2022-02-09] MEDS: LOVENOX INJ 40 MG SYR SC SCH (16:46)
[2022-02-09 17:24] LABS: BILIRUBIN,URINE NEGATIVE (NEGATIVE); BLOOD/HEMOGLOBIN,URINE 1+ (NEGATIVE); GLUCOSE, URINE NEGATIVE (NEGATIVE); KETONES,URINE 1+ (NEGATIVE); LEUKOCYTE ESTERASE ,URINE NEGATIVE (NEGATIVE); NITRITES,URINE NEGATIVE (NEGATIVE); PROTEIN,URINE 2+ (NEGATIVE); UROBILINOGEN,URINE NORMAL (NORMAL)
[2022-02-09 17:33] LABS: APPEARANCE,URINE CLEAR (CLEAR); BACTERIA,URINE TRACE /HPF (NEGATIVE); COLOR,URINE YELLOW (YELLOW); RBC,URINE 0-2 /HPF (0-3); SQUAMOUS EPITHELIAL CELL,UR RARE /HPF (NEGATIVE)
--- NOTE | 2022-02-09 21:29 | RAD ---
[email or web address], 1 [id number] linear areas in the right lung base could be atelectasis. There is a small right effusion which is also new.Upper right lung and left lung are clear.Cardiomegaly is present. Vascular calcifications are present compatible with atherosclerosis.Bones are unremarkable. []IMPRESSION1. New small right effusion2. New right basilar atelectasis3. CardiomegalyElectronically signed by: Mo Gonsalves (Feb 09, 2022 21:26:54)
[2022-02-09] MEDS ORDERED: VALIUM INJ IM ONE (23:15)
[2022-02-09] MEDS ORDERED: VALIUM INJ ONE (23:17)
[2022-02-10 06:31] LABS: ALANINE AMINOTRANSFERASE 15 Units/L (12-78); ALKALINE PHOSPHATASE 122 Units/L (46-116); ASPARTATE AMINO TRANSFERASE 16 Units/L (15-37); BLOOD UREA NITROGEN 15 mg/dL (7-18); CALCIUM 8.1 mg/dL (8.5-10.1); CARBON DIOXIDE 31.5 mmol/L (21-32); CHLORIDE 106 mmol/L (98-107); COR CA(FOR HYPOALB) 8.9 mg/dL (8.5-10.1); COR NA(FOR HYPERGLY) 144 mmol/L (136-145); CREATININE 0.77 mg/dL (0.70-1.30); SODIUM 143 mmol/L (136-145); TOTAL PROTEIN 6.5 g/dL (6.4-8.2); eGFR NON BLACK RACES > 60 (>60)
[2022-02-10 06:40] LABS: BASOPHILS % (AUTO) 0.8 % (0.2-1.0); EOSINOPHILS # (AUTO) 0.2 x10^3/uL (0.0-0.2); EOSINOPHILS % (AUTO) 4.8 % (0.9-2.9); HEMATOCRIT 33.5 % (42.0-54.0); HEMOGLOBIN 11.5 g/dL (13.5-18.0); LYMPHOCYTES # (AUTO) 1.7 X10^3/uL (1.3-2.9); LYMPHOCYTES % (AUTO) 34.6 % (21.0-51.0); MEAN CORPUSCULAR HEMOGLOBIN 30.8 pg (27.0-34.0); MEAN CORPUSCULAR HGB CONC 34.4 g/dL (33.0-35.0); MEAN CORPUSCULAR VOLUME 89.7 fL (80.0-100.0); MEAN PLATELET VOLUME 6.8 fL (7.4-11.0); MONOCYTES # (AUTO) 0.3 x10^3/uL (0.3-0.8); MONOCYTES % (AUTO) 6.5 % (0.0-13.0); NEUTROPHILS # (AUTO) 2.5 x10^3/uL (2.2-4.8); NEUTROPHILS % (AUTO) 53.3 % (42.0-75.0); RED BLOOD COUNT 3.73 X10^6/uL (4.7-6.0); RED CELL DISTRIBUTION WIDTH 15.3 % (11.6-16.5); WHITE BLOOD COUNT 4.8 X10^3/uL (3.6-10.0)
[2022-02-10] MEDS ORDERED: CYMBALTA PO SCH (09:00)
[2022-02-10] MEDS ORDERED: GENTAK OPHTH OINT OP SCH (09:00)
[2022-02-10] MEDS: PriLOSEC PO SCH (09:25)
[2022-02-10] MEDS: DUONEB 0.5 MG/3 MG (3 mL) NEB SCH ×3 (09:25→20:20)
[2022-02-10] MEDS: ECOTRIN TAB 325 MG PO SCH (09:27)
[2022-02-10] MEDS: FLOMAX PO SCH (09:27)
[2022-02-10] MEDS: LOVENOX INJ 40 MG SYR SC SCH (09:27)
[2022-02-10] MEDS: FERROUS GLUCONATE PO SCH (09:27)
[2022-02-10] MEDS: GENTAMICIN SULF (OPHTH) AFFEYE SCH ×4 (09:27→21:52)
[2022-02-10] MEDS: PEPCID TAB 20 MG PO SCH ×2 (09:28→20:24)
[2022-02-10] MEDS: QUINAPRIL 40 MG PO SCH ×2 (09:33→20:24)
[2022-02-10] MEDS ORDERED: SEROquel TAB 25 mg PO ONE (09:35)
[2022-02-10] MEDS ORDERED: CYMBALTA PO ONE (09:35)
[2022-02-10] MEDS: SEROquel TAB 25 mg PO SCH ×2 (09:36→20:23)
[2022-02-10] MEDS: CYMBALTA PO SCH (09:36)
--- NOTE | 2022-02-10 10:50 | DR.H&P ---
H&P - History & Physical for Day of: H&P Date: 02/09/22 - Chief Complaint Chief Complaint: WEAKNESS, SOB, HYPOTENSION, DEMENTIA - History of Present Illness History of Present Illness: IS A 79 YEAR OLD PATIENT OF OURS WHO PRESENTED TO THE HOSPITAL A DIRECT ADMISSION DUE TO COMPLAINTS OF INCREASING GENERALIZED WEAKNESS, SHORTNESS OF BREATH, HYPOTENSION, AND PROGRESSIVE DEMENTIA. PATIENT HAS BEEN CARED FOR BY HIS FAMILY AT HOME, HOWEVER, DUE TO INCREASING WEAKNESS AND PROGRESSIVE DEMENTIA, THEY ARE NO LONGER ABLE TO PROVIDE THE CARE THAT IS NEEDED. HIS PMH INCLUDES: CVA, TIA, ANEMIA, HYPERLIPIDEMIA, HTN, GERD, PUD, CONSTIPATION, KIDNEY STONES, DIABETES. ON ARRIVAL TO THE HOSPITAL, VITALS WERE 97.8-80-18-92%-141/79. LABS WERE OBTAINED. ABNORMAL LAB VALUES INCLUDE THE FOLLOWING: LABS WERE OBTAINED. ABNORMAL LAB VALUES INCLUDE THE FOLLOWING: WBC 6.0, RBC 3.88, HGB 11.8, HCT 35.6, PLT COUNT 220, SODIUM 143, POTASSIUM 3.6, CARBON DIOXIDE 33.8, BUN 20, CREATININE 1.04, GLUCOSE 129, CALCIUM 8.2, TOTAL BILI 0.20, AST 14, ALT 18, ALK PHOS 129, TOTAL PROTEIN 6.6, ALBUMIN 3.0. A URINALYSIS WAS OBTAINED AND WAS UNREMARKABLE. A CHEST XRAY WAS OBTAINED AND REVEALED: 1. New small right effusion 2. New right basilar atelectasis 3. Cardiomegaly. HE WAS STARTED ON NS AT 50 ML/HR, DUONEBS TID, AND HOME MEDICATIONS WERE RESUMED. OTHERWISE, WE WILL FOLLOW UP WITH AM LABS AND CONTINUE TO MONITOR. TIME SPENT ON CLINICAL ASSESSMENT, REVIEWING LABS AND IMAGING, DECISION MAKING, AND DOCUMENTATION GREATER THAN 75 MINUTES. - Past Medical History Past Medical History: Hypertension, Dyslipidemia, Diabetes, Anemia, CVA, PUD, GERD, Arthritis Additional Medical History: TIA, Rheumatoid Athritis, SMALL BOWEL AVMs - Past Surgical History Surgical History: Other Additional Surgical History: Nasal Fracture with Surgical Repair - Family History Family Medical History: Hypertension - Social History Does patient currently use any type of tobacco product: Yes Have you used tobacco products in the last 12 months: Yes Type of Tobacco Use: CHEWS Does any household member use tobacco: No Alcohol Use: None Drug Use: Prescription Drugs - Medications Home Medications: haloperidol [From Haldol] Adverse Reaction (Verified 02/09/22 16:13) CONTINUE taking the following medications duloxetine 30 mg capsule,delayed release 1 cap PO QDAY 02/09/22 [History] ferrous sulfate 325 mg (65 mg iron) tablet (FeroSul) 1 tab PO QDAY 02/09/22 [History] gentamicin 0.3 % (3 mg/gram) eye ointment (Gentak) 1 ea ophthalmic (eye) TID 02/09/22 [History] omeprazole 40 mg capsule,delayed release 1 cap PO QDAY 02/09/22 [History] - Review of Systems Constitutional: Weakness Eyes: No Symptoms Reported ENT: No Symptoms Reported Respiratory: Shortness of Breath Cardiovascular: No Symptoms Reported Gastrointestinal: No Symptoms Reported Genitourinary: No Symptoms Reported Musculoskeletal: No Symptoms Reported Skin: No Symptoms Reported Neurological: See HPI, Weakness, Confusion - Physical Exam Vital Signs: Temperature 97.0 F Pulse Rate [Left Brachial] 84 Respiratory Rate 20 Blood Pressure [Left Arm] 147/90 Blood Pressure [Right Arm] 145/96 O2 Sat by Pulse Oximetry 93 Oriented: Person, Place Eyes: Normal Ear: Normal Nose: Normal Throat: Normal Respiratory: Diminished Throughout Cardiovascular: Normal : Normal Auscultation: Bowel Sounds: Normal Palpation: Normal Tenderness: Normal Skin: Normal Musculoskeletal: Normal Psychiatric: Normal Mood Description: Calm Affect: Normal Speech Pattern: Clear - Assessment/Plan (1) Generalized weakness Status: Acute Plan: ADMIT, NS AT 50 ML/HR, DUONEBS TID, AND HOME MEDICATIONS WERE RESUMED. 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
[2022-02-10] MEDS: NS 1,000 ML IV 1,000 ML IV SCH ×2 (18:27→20:30)
[2022-02-10] MEDS: NORVASC TAB 5 MG PO SCH (20:23)
[2022-02-10] MEDS: ELAVIL PO SCH (20:23)
[2022-02-10] MEDS: ZyrTEC TAB 10 MG PO SCH (20:24)
[2022-02-10] MEDS ORDERED: SEROquel TAB 25 mg PO SCH (21:00)
[2022-02-11] MEDS: GENTAMICIN SULF (OPHTH) AFFEYE SCH ×6 (01:34→22:27)
[2022-02-11] MEDS: NS 1,000 ML IV 1,000 ML IV SCH ×2 (03:13→16:03)
[2022-02-11] MEDS: DUONEB 0.5 MG/3 MG (3 mL) NEB SCH ×3 (05:35→21:42)
[2022-02-11 06:48] LABS: BASOPHILS % (AUTO) 0.8 % (0.2-1.0); EOSINOPHILS # (AUTO) 0.2 x10^3/uL (0.0-0.2); EOSINOPHILS % (AUTO) 4.5 % (0.9-2.9); HEMATOCRIT 36.2 % (42.0-54.0); HEMOGLOBIN 12.2 g/dL (13.5-18.0); LYMPHOCYTES # (AUTO) 1.7 X10^3/uL (1.3-2.9); LYMPHOCYTES % (AUTO) 31.8 % (21.0-51.0); MEAN CORPUSCULAR HEMOGLOBIN 30.4 pg (27.0-34.0); MEAN CORPUSCULAR HGB CONC 33.8 g/dL (33.0-35.0); MEAN PLATELET VOLUME 6.7 fL (7.4-11.0); MONOCYTES # (AUTO) 0.3 x10^3/uL (0.3-0.8); MONOCYTES % (AUTO) 6.5 % (0.0-13.0); NEUTROPHILS # (AUTO) 2.9 x10^3/uL (2.2-4.8); NEUTROPHILS % (AUTO) 56.4 % (42.0-75.0); RED BLOOD COUNT 4.02 X10^6/uL (4.7-6.0); RED CELL DISTRIBUTION WIDTH 15.6 % (11.6-16.5); WHITE BLOOD COUNT 5.2 X10^3/uL (3.6-10.0)
[2022-02-11 06:59] LABS: ALANINE AMINOTRANSFERASE 16 Units/L (12-78); ALBUMIN 3.2 g/dL (3.4-5.0); ALKALINE PHOSPHATASE 131 Units/L (46-116); ASPARTATE AMINO TRANSFERASE 16 Units/L (15-37); BLOOD UREA NITROGEN 11 mg/dL (7-18); CALCIUM 8.4 mg/dL (8.5-10.1); CHLORIDE 103 mmol/L (98-107); CREATININE 0.69 mg/dL (0.70-1.30); SODIUM 142 mmol/L (136-145); TOTAL PROTEIN 6.8 g/dL (6.4-8.2); eGFR NON BLACK RACES > 60 (>60)
[2022-02-11] MEDS ORDERED: POTASSIUM CHLORIDE LIQ 20 MEQ UDC PO PRN (08:02)
[2022-02-11] MEDS ORDERED: MICRO K EXTEN CAP 10 MEQ PO PRN (08:02)
[2022-02-11] MEDS ORDERED: POTASSIUM CHL 60 MEQ/NS 0.45% 500 ML IV PRN (08:02)
[2022-02-11] MEDS ORDERED: K-RIDER 10 MEQ/NS 100 ML 10 MEQ/100 ML BAG IV PRN (08:02)
[2022-02-11] MEDS ORDERED: KLOR-CON PO PRN (08:02)
[2022-02-11] MEDS ORDERED: POTASSIUM CHL 40 MEQ/NS 0.45% 500 ML IV PRN (08:02)
[2022-02-11] MEDS: CYMBALTA PO SCH (10:03)
[2022-02-11] MEDS: FLOMAX PO SCH (10:03)
[2022-02-11] MEDS: LOVENOX INJ 40 MG SYR SC SCH (10:03)
[2022-02-11] MEDS: PriLOSEC PO SCH (10:04)
[2022-02-11] MEDS: FERROUS GLUCONATE PO SCH (10:04)
[2022-02-11] MEDS: PEPCID TAB 20 MG PO SCH ×2 (10:04→20:44)
[2022-02-11] MEDS: ECOTRIN TAB 325 MG PO SCH (10:04)
[2022-02-11] MEDS: SEROquel TAB 25 mg PO SCH ×2 (10:04→20:42)
[2022-02-11] MEDS: K-DUR TAB 20 MEQ PO PRN (13:26)
[2022-02-11] MEDS: MAGNESIUM SULFATE 1 GRAM/100 mL PREMIX 1 G/100 ML BAG IV PRN ×2 (13:27→15:41)
--- NOTE | 2022-02-11 15:30 | RAD ---
HISTORYSOBSTUDYCHEST x-ray, 1 VIEWCOMPARISONX-ray 02/09/2022FINDINGSProbable CHF. Pulmonary vasculature appears more prominent than prior study. Likely small pleural effusions and mild bibasilar atelectasis. Pleural effusions are likely similar to prior study. No pneumothorax is seen. There is mild prominence of the superior mediastinum that is a chronic appearance and is probably from vascular tortuosity.IMPRESSIONProbable CHF and pulmonary edema, with slight worsening of CHF suspected.Electronically signed by: Demetris Dillon (Feb 11, 2022 15:28:54)
[2022-02-11] MEDS: QUINAPRIL 40 MG PO SCH ×2 (17:07→20:43)
--- NOTE | 2022-02-11 20:34 | PCM.PROG ---
Progress Note - Progress Note for Day of Date of Exam: 02/11/22 - Subjective Subjective: WAS ADMITTED INPATIENT STATUS FOR TREATMENT OF GENERALIZED WEAKNESS, PLEURAL EFFUSION, SHORTNESS OF BREATH, HYPOTENSION, AND PROGRESSIVE DEMENTIA. TODAY, HE IS ALERT, SITTING UP IN BED ON MORNING ROUNDS. HE CONTINUES WITH COMPLAINTS OF SHORTNESS OF BREATH AND WEAKNESS THIS MORNING. NURSING STAFF REPORTS THAT HE RESTED WELL THROGHOUT THE NIGHT. ON EXAMINATION, HEART IS REGULAR IN RATE AND RHYTHM. LUNGS ARE NOTED WITH DIMINISHED LUNG SOUNDS THROUGHOUT. ABDOMEN IS ROUND, SOFT, AND NON-TENDER WITH NORMAL BOWEL SOUNDS NOTED IN ALL QUADRANTS. NO UPPER OR LOWER EXTREMITY EDEMA NOTED. HIS VITALS THIS MORNING ARE: 97.6-81-18-93%-169/88. LABS WERE OBTAINED. WBC 5.2, RBC 4.02, HGB 12.2, HCT 36.2, SODIUM 142, POTASSIUM 3.3, CHLORIDE 103, BUN 11, CREATININE 0.69, GLUCOSE 110, CALCIUM 8.4, MAGNESIUM 1.6, AST 16, ALT 16, ALK PHOS 131, TOTAL PROTEIN 6.8, ALBUMIN 3.2. HE IS CURRENTLY RECEIVING NS AT 50 ML/HR, DUONEBS TID, AND HOME MEDICATIONS WERE RESUMED. WE WILL REPEAT A CHEST XRAY THIS MORNING. CASE MANAGEMENT IS ARRANGING PLACEMENT AT [facility]. OTHERWISE, WE WILL FOLLOW UP WITH AM LABS AND CONTINUE TO MONITOR. TIME SPENT ON CLINICAL ASSESSMENT, REVIEWING LABS AND IMAGING, DECISION MAKING, AND DOCUMENTATION GREATER THAN 45 MINUTES. - Past Medical Family Social History Past Med/Fam/Surg Hx: No changes since H&P Allergies: Allergies haloperidol [From Haldol] Adverse Reaction (Verified 02/09/22 16:13) DAUGHTER STATES MEDICATION HAS THE OPPOSITE EFFECT ON PT. - Review of Systems ROS: No change since H&P - Vital Signs and I&O's Vital Signs: Temperature 97.9 F Pulse Rate [Left Brachial] 70 Pulse Rate 56 Respiratory Rate 18 Blood Pressure [Left Arm] 168/88 Blood Pressure [Right Arm] 145/96 O2 Sat by Pulse Oximetry 93 Intake and Output: Intake & Output 02/09/22 02/10/22 02/11/22 02/12/22 11:59 11:59 11:59 11:59 Intake Total 780 / 780 1090 / 1090 240 / 240 Balance 780 / 780 1090 / 1090 240 / 240 - Physical Exam Oriented: Person, Place Eyes: Normal Ear: Normal Nose: Normal Throat: Normal Respiratory: Generalized, Diminished Cardiovascular: Normal : Normal Auscultation: Bowel Sounds: Normal Palpation: Normal Tenderness: Normal Skin: Normal Musculoskeletal: Normal Psychiatric: Normal Mood Description: Calm Affect: Normal Speech Pattern: Clear - Laboratory and Diagnostics Result Diagrams: 02/11/22 06:05 02/11/22 06:05 Labs: Laboratory WBC 5.2 X10^3/uL (3.6-10.0) 02/11/22 06:05 RBC 4.02 X10^6/uL (4.7-6.0) L 02/11/22 06:05 Hgb 12.2 g/dL (13.5-18.0) L 02/11/22 06:05 Hct 36.2 % (42.0-54.0) L 02/11/22 06:05 MCV 90.0 fL (80.0-100.0) 02/11/22 06:05 MCH 30.4 pg (27.0-34.0) 02/11/22 06:05 MCHC 33.8 g/dL (33.0-35.0) 02/11/22 06:05 RDW 15.6 % (11.6-16.5) 02/11/22 06:05 Plt Count 206 X10^3/uL (150.0-450.0) 02/11/22 06:05 MPV 6.7 fL (7.4-11.0) L 02/11/22 06:05 Neut % (Auto) 56.4 % (42.0-75.0) 02/11/22 06:05 Lymph % (Auto) 31.8 % (21.0-51.0) 02/11/22 06:05 [place] % (Auto) 6.5 % (0.0-13.0) 02/11/22 06:05 Eos % (Auto) 4.5 % (0.9-2.9) H 02/11/22 06:05 Baso % (Auto) 0.8 % (0.2-1.0) 02/11/22 06:05 Neut # (Auto) 2.9 x10^3/uL (2.2-4.8) 02/11/22 06:05 Lymph # (Auto) 1.7 X10^3/uL (1.3-2.9) 02/11/22 06:05 [place] # (Auto) 0.3 x10^3/uL (0.3-0.8) 02/11/22 06:05 Eos # (Auto) 0.2 x10^3/uL (0.0-0.2) 02/11/22 06:05 Baso # (Auto) 0.0 X10^3/uL (0.0-0.1) 02/11/22 06:05 Absolute Nucleated RBC 0.0 /100WBC 02/11/22 06:05 Sodium 142 mmol/L (136-145) 02/11/22 06:05 Corrected Sodium TNP 02/11/22 06:05 Potassium 3.3 mmol/L (3.5-5.1) L 02/11/22 06:05 Chloride 103 mmol/L (98-107) 02/11/22 06:05 Carbon Dioxide 33.0 mmol/L (21-32) H 02/11/22 06:05 BUN 11 mg/dL (7-18) 02/11/22 06:05 Creatinine 0.69 mg/dL (0.70-1.30) L 02/11/22 06:05 Est GFR (MDRD) Af Amer > 60 (>60) 02/11/22 06:05 Est GFR (MDRD) Non-Af > 60 (>60) 02/11/22 06:05 Glucose 110 mg/dL (65-99) H 02/11/22 06:05 Calcium 8.4 mg/dL (8.5-10.1) L 02/11/22 06:05 Corrected Calcium 9.0 mg/dL (8.5-10.1) 02/11/22 06:05 Magnesium 1.6 mg/dL (1.7-2.9) L 02/11/22 06:05 Total Bilirubin 0.30 mg/dL (0.2-1.0) 02/11/22 06:05 AST 16 Units/L (15-37) 02/11/22 06:05 ALT 16 Units/L (12-78) 02/11/22 06:05 Alkaline Phosphatase 131 Units/L (46-116) H 02/11/22 06:05 Total Protein 6.8 g/dL (6.4-8.2) 02/11/22 06:05 Albumin 3.2 g/dL (3.4-5.0) L 02/11/22 06:05 Globulin 3.6 g/dL (2.5-4.5) 02/11/22 06:05 Albumin/Globulin Ratio 0.9 Ratio (1.1-2.1) L 02/11/22 06:05 Specimen Type Clean catch urine 02/09/22 16:50 Urine Color Yellow (YELLOW) 02/09/22 16:50 Urine Appearance Clear (CLEAR) 02/09/22 16:50 Urine pH 5.0 (5.0 - 8.0) 02/09/22 16:50 Ur Specific [place] 1.025 (1.000-1.030) 02/09/22 16:50 Urine Protein 2+ (NEGATIVE) 02/09/22 16:50 Urine Glucose (UA) Negative (NEGATIVE) 02/09/22 16:50 Urine Ketones 1+ (NEGATIVE) 02/09/22 16:50 Urine Blood 1+ (NEGATIVE) 02/09/22 16:50 Urine Nitrite Negative (NEGATIVE) 02/09/22 16:50 Urine Bilirubin Negative (NEGATIVE) 02/09/22 16:50 Urine Urobilinogen Normal (NORMAL) 02/09/22 16:50 Ur Leukocyte Esterase Negative (NEGATIVE) 02/09/22 16:50 Urine RBC 0-2 /HPF (0-3) 02/09/22 16:50 Urine WBC None seen /HPF (0-5) 02/09/22 16:50 Ur Squamous Epith Cells Rare /HPF (NEGATIVE) 02/09/22 16:50 Urine Bacteria Trace /HPF (NEGATIVE) 02/09/22 16:50 Urine Mucus Rare /HPF (NEGATIVE) 02/09/22 16:50 Ur Culture Indicated? No/not indicated 02/09/22 16:50 - Plan (1) Generalized weakness Status: Acute Plan: NS AT 50 ML/HR, DUONEBS TID, AND HOME MEDICATIONS WERE RESUMED. CORRECTION PLACEMENT (2) Pleural effusion Status: Acute (3) Shortness of breath Status: Acute (4) Progressive dementia with uncertain etiology Status: Acute (5) Anemia Status: Chronic Qualifiers: Anemia type: iron deficiency Iron deficiency anemia type: chronic blood loss Qualified Code(s): D50.0 - Iron deficiency anemia secondary to blood loss (chronic) (6) Hyperlipidemia Status: Chronic Qualifiers: Hyperlipidemia type: mixed hyperlipidemia Qualified Code(s): E78.2 - Mixed hyperlipidemia (7) Hypertension Status: Chronic Qualifiers: Hypertension type: primary hypertension Qualified Code(s): I10 - Essential (primary) hypertension
[2022-02-11] MEDS: ELAVIL PO SCH (20:43)
[2022-02-11] MEDS: NORVASC TAB 5 MG PO SCH (20:43)
[2022-02-11] MEDS: ZyrTEC TAB 10 MG PO SCH (20:43)
[2022-02-11] MEDS: LASIX IVP SCH (20:54)
[2022-02-12] MEDS: GENTAMICIN SULF (OPHTH) AFFEYE SCH ×6 (02:09→21:19)
[2022-02-12] MEDS: DUONEB 0.5 MG/3 MG (3 mL) NEB SCH ×3 (06:24→20:15)
[2022-02-12 06:35] LABS: BASOPHILS % (AUTO) 0.9 % (0.2-1.0); EOSINOPHILS # (AUTO) 0.3 x10^3/uL (0.0-0.2); EOSINOPHILS % (AUTO) 5.5 % (0.9-2.9); HEMATOCRIT 34.5 % (42.0-54.0); HEMOGLOBIN 11.8 g/dL (13.5-18.0); LYMPHOCYTES # (AUTO) 1.9 X10^3/uL (1.3-2.9); MEAN CORPUSCULAR HEMOGLOBIN 30.6 pg (27.0-34.0); MEAN CORPUSCULAR HGB CONC 34.1 g/dL (33.0-35.0); MEAN CORPUSCULAR VOLUME 89.7 fL (80.0-100.0); MONOCYTES # (AUTO) 0.3 x10^3/uL (0.3-0.8); MONOCYTES % (AUTO) 5.9 % (0.0-13.0); NEUTROPHILS # (AUTO) 2.3 x10^3/uL (2.2-4.8); NEUTROPHILS % (AUTO) 47.7 % (42.0-75.0); RED BLOOD COUNT 3.85 X10^6/uL (4.7-6.0); RED CELL DISTRIBUTION WIDTH 15.1 % (11.6-16.5); WHITE BLOOD COUNT 4.8 X10^3/uL (3.6-10.0)
[2022-02-12 06:43] LABS: ALANINE AMINOTRANSFERASE 17 Units/L (12-78); ALKALINE PHOSPHATASE 125 Units/L (46-116); ASPARTATE AMINO TRANSFERASE 16 Units/L (15-37); BLOOD UREA NITROGEN 10 mg/dL (7-18); CALCIUM 8.3 mg/dL (8.5-10.1); CARBON DIOXIDE 31.9 mmol/L (21-32); CHLORIDE 103 mmol/L (98-107); COR CA(FOR HYPOALB) 9.1 mg/dL (8.5-10.1); MAGNESIUM 1.8 mg/dL (1.7-2.9); SODIUM 141 mmol/L (136-145); TOTAL PROTEIN 6.4 g/dL (6.4-8.2); eGFR NON BLACK RACES > 60 (>60)
[2022-02-12] MEDS ORDERED: BUTT CREAM (COMPOUND) ONE (09:01)
[2022-02-12] MEDS ORDERED: BUTT CREAM (COMPOUND) TOP PRN (09:06)
[2022-02-12] MEDS: FERROUS GLUCONATE PO SCH (09:26)
[2022-02-12] MEDS: ECOTRIN TAB 325 MG PO SCH (09:26)
[2022-02-12] MEDS: CYMBALTA PO SCH (09:27)
[2022-02-12] MEDS: SEROquel TAB 25 mg PO SCH ×2 (09:27→20:10)
[2022-02-12] MEDS: FLOMAX PO SCH (09:27)
[2022-02-12] MEDS: LASIX IVP SCH (09:27)
[2022-02-12] MEDS: PriLOSEC PO SCH (09:27)
[2022-02-12] MEDS: PEPCID TAB 20 MG PO SCH ×2 (09:28→20:10)
[2022-02-12] MEDS: K-DUR TAB 20 MEQ PO PRN (09:28)
[2022-02-12] MEDS: LOVENOX INJ 40 MG SYR SC SCH (09:28)
[2022-02-12] MEDS: QUINAPRIL 40 MG PO SCH ×2 (09:29→20:11)
[2022-02-12] MEDS: MAGNESIUM SULFATE 1 GRAM/100 mL PREMIX 1 G/100 ML BAG IV PRN ×2 (09:30→10:52)
--- NOTE | 2022-02-12 09:56 | RAD ---
CHEST, 1 VIEWHISTORY: SOB, FOLLOW UPStudy: Single view of the chest.Comparison:February 11, 2022Findings:The cardiomediastinal silhouette is normal. No change in the appearance of bilateral insterstitial and airspace opacities. Osseous structures demonstrate no acute abnormality.IMPRESSION:1. No change from prior.Electronically signed by: ORTIZ CAMPOS (Feb 12, 2022 09:55:03)
--- NOTE | 2022-02-12 11:45 | PCM.PROG ---
Progress Note - Progress Note for Day of Date of Exam: 02/12/22 - Subjective Subjective: WAS ADMITTED INPATIENT STATUS FOR TREATMENT OF GENERALIZED WEAKNESS, PLEURAL EFFUSION, SHORTNESS OF BREATH, HYPOTENSION, AND PROGRESSIVE DEMENTIA. TODAY, HE IS ALERT, SITTING UP IN BED ON MORNING ROUNDS. HE CONTINUES WITH COMPLAINTS OF SHORTNESS OF BREATH AND WEAKNESS THIS MORNING. NURSING STAFF REPORTS THAT HE WAS RESTLESS AND DISORIENTED THROUGHOUT THE NIGHT. ON EXAMINATION, HEART IS REGULAR IN RATE AND RHYTHM. LUNGS ARE NOTED WITH DIMINISHED LUNG SOUNDS THROUGHOUT. ABDOMEN IS ROUND, SOFT, AND NON-TENDER WITH NORMAL BOWEL SOUNDS NOTED IN ALL QUADRANTS. TRACE LOWER EXTREMITY EDEMA NOTED. HIS VITALS THIS MORNING ARE: 98.6-91-20-93%-182/99. LABS WERE OBTAINED. WBC 4.8, RBC 3.85, HGB 11.8, HCT 34.5, PLT COUNT 190, SODIUM 141, POTASSIUM 3.8, CHLORIDE 103, BUN 10, CREATININE 0.70, GLUCOSE 89, CALCIUM 8.3, MAGNESIUM 1.8, AST 16, ALT 17, ALK PHOS 125, TOTAL PROTEIN 6.4, ALBUMIN 3.0. CHEST XRAY WAS OBTAINED YESTERDAY AND REVEALED: Probable CHF and pulmonary edema, with slight worsening of CHF suspected. HE IS CURRENTLY RECEIVING DUONEBS TID AND HOME MEDICATIONS WERE RESUMED. TODAY, WE WILL ADMINISTER LASIX 40MG IV BID X 2 DOSES. CASE MANAGEMENT IS ARRANGING PLACEMENT AT [facility]. OTHERWISE, WE WILL FOLLOW UP WITH AM LABS AND CONTINUE TO MONITOR. TIME SPENT ON CLINICAL ASSESSMENT, REVIEWING LABS AND IMAGING, DECISION MAKING, AND DOCUMENTATION GREATER THAN 45 MINUTES. - Past Medical Family Social History Past Med/Fam/Surg Hx: No changes since H&P Allergies: Allergies haloperidol [From Haldol] Adverse Reaction (Verified 02/09/22 16:13) DAUGHTER STATES MEDICATION HAS THE OPPOSITE EFFECT ON PT. - Review of Systems ROS: No change since H&P - Vital Signs and I&O's Vital Signs: Temperature 98.6 F Pulse Rate [Left Brachial] 91 Pulse Rate 79 Respiratory Rate 20 Blood Pressure [Left Arm] 182/99 Blood Pressure [Right Arm] 145/96 O2 Sat by Pulse Oximetry 93 Intake and Output: Intake & Output 02/09/22 02/10/22 02/11/22 02/12/22 11:59 11:59 11:59 11:59 Intake Total 780 / 780 1090 / 1090 580 / 580 Balance 780 / 780 1090 / 1090 580 / 580 - Physical Exam Oriented: Person, Place Eyes: Normal Ear: Normal Nose: Normal Throat: Normal Respiratory: Generalized, Diminished Cardiovascular: Normal : Normal Auscultation: Bowel Sounds: Normal Palpation: Normal Tenderness: Normal Skin: Normal Musculoskeletal: Normal Psychiatric: Normal Mood Description: Calm Affect: Normal Speech Pattern: Clear - Laboratory and Diagnostics Result Diagrams: 02/12/22 05:15 02/12/22 05:15 Labs: Laboratory WBC 4.8 X10^3/uL (3.6-10.0) 02/12/22 05:15 RBC 3.85 X10^6/uL (4.7-6.0) L 02/12/22 05:15 Hgb 11.8 g/dL (13.5-18.0) L 02/12/22 05:15 Hct 34.5 % (42.0-54.0) L 02/12/22 05:15 MCV 89.7 fL (80.0-100.0) 02/12/22 05:15 MCH 30.6 pg (27.0-34.0) 02/12/22 05:15 MCHC 34.1 g/dL (33.0-35.0) 02/12/22 05:15 RDW 15.1 % (11.6-16.5) 02/12/22 05:15 Plt Count 190 X10^3/uL (150.0-450.0) 02/12/22 05:15 MPV 7.0 fL (7.4-11.0) L 02/12/22 05:15 Neut % (Auto) 47.7 % (42.0-75.0) 02/12/22 05:15 Lymph % (Auto) 40.0 % (21.0-51.0) 02/12/22 05:15 [place] % (Auto) 5.9 % (0.0-13.0) 02/12/22 05:15 Eos % (Auto) 5.5 % (0.9-2.9) H 02/12/22 05:15 Baso % (Auto) 0.9 % (0.2-1.0) 02/12/22 05:15 Neut # (Auto) 2.3 x10^3/uL (2.2-4.8) 02/12/22 05:15 Lymph # (Auto) 1.9 X10^3/uL (1.3-2.9) 02/12/22 05:15 [place] # (Auto) 0.3 x10^3/uL (0.3-0.8) 02/12/22 05:15 Eos # (Auto) 0.3 x10^3/uL (0.0-0.2) H 02/12/22 05:15 Baso # (Auto) 0.0 X10^3/uL (0.0-0.1) 02/12/22 05:15 Absolute Nucleated RBC 0.0 /100WBC 02/12/22 05:15 Sodium 141 mmol/L (136-145) 02/12/22 05:15 Corrected Sodium TNP 02/12/22 05:15 Potassium 3.8 mmol/L (3.5-5.1) 02/12/22 05:15 Chloride 103 mmol/L (98-107) 02/12/22 05:15 Carbon Dioxide 31.9 mmol/L (21-32) 02/12/22 05:15 BUN 10 mg/dL (7-18) 02/12/22 05:15 Creatinine 0.70 mg/dL (0.70-1.30) 02/12/22 05:15 Est GFR (MDRD) Af Amer > 60 (>60) 02/12/22 05:15 Est GFR (MDRD) Non-Af > 60 (>60) 02/12/22 05:15 Glucose 89 mg/dL (65-99) 02/12/22 05:15 Calcium 8.3 mg/dL (8.5-10.1) L 02/12/22 05:15 Corrected Calcium 9.1 mg/dL (8.5-10.1) 02/12/22 05:15 Magnesium 1.8 mg/dL (1.7-2.9) 02/12/22 05:15 Total Bilirubin 0.30 mg/dL (0.2-1.0) 02/12/22 05:15 AST 16 Units/L (15-37) 02/12/22 05:15 ALT 17 Units/L (12-78) 02/12/22 05:15 Alkaline Phosphatase 125 Units/L (46-116) H 02/12/22 05:15 Total Protein 6.4 g/dL (6.4-8.2) 02/12/22 05:15 Albumin 3.0 g/dL (3.4-5.0) L 02/12/22 05:15 Globulin 3.4 g/dL (2.5-4.5) 02/12/22 05:15 Albumin/Globulin Ratio 0.9 Ratio (1.1-2.1) L 02/12/22 05:15 Specimen Type Clean catch urine 02/09/22 16:50 Urine Color Yellow (YELLOW) 02/09/22 16:50 Urine Appearance Clear (CLEAR) 02/09/22 16:50 Urine pH 5.0 (5.0 - 8.0) 02/09/22 16:50 Ur Specific [place] 1.025 (1.000-1.030) 02/09/22 16:50 Urine Protein 2+ (NEGATIVE) 02/09/22 16:50 Urine Glucose (UA) Negative (NEGATIVE) 02/09/22 16:50 Urine Ketones 1+ (NEGATIVE) 02/09/22 16:50 Urine Blood 1+ (NEGATIVE) 02/09/22 16:50 Urine Nitrite Negative (NEGATIVE) 02/09/22 16:50 Urine Bilirubin Negative (NEGATIVE) 02/09/22 16:50 Urine Urobilinogen Normal (NORMAL) 02/09/22 16:50 Ur Leukocyte Esterase Negative (NEGATIVE) 02/09/22 16:50 Urine RBC 0-2 /HPF (0-3) 02/09/22 16:50 Urine WBC None seen /HPF (0-5) 02/09/22 16:50 Ur Squamous Epith Cells Rare /HPF (NEGATIVE) 02/09/22 16:50 Urine Bacteria Trace /HPF (NEGATIVE) 02/09/22 16:50 Urine Mucus Rare /HPF (NEGATIVE) 02/09/22 16:50 Ur Culture Indicated? No/not indicated 02/09/22 16:50 - Plan (1) CHF (congestive heart failure) Status: Acute Qualifiers: Heart failure type: unspecified Heart failure chronicity: acute Qualified Code(s): I50.9 - Heart failure, unspecified Plan: DUONEBS TID, LASIX 40MG IV BID X 2 DOSES, AND HOME MEDICATIONS WERE RESUMED. [facility]DC PLACEMENT (2) Generalized weakness Status: Acute (3) Pleural effusion Status: Acute (4) Shortness of breath Status: Acute (5) Progressive dementia with uncertain etiology Status: Acute (6) Anemia Status: Chronic Qualifiers: Anemia type: iron deficiency Iron deficiency anemia type: chronic blood loss Qualified Code(s): D50.0 - Iron deficiency anemia secondary to blood loss (chronic) (7) Hyperlipidemia Status: Chronic Qualifiers: Hyperlipidemia type: mixed hyperlipidemia Qualified Code(s): E78.2 - Mixed hyperlipidemia (8) Hypertension Status: Chronic Qualifiers: Hypertension type: primary hypertension Qualified Code(s): I10 - Essential (primary) hypertension
[2022-02-12] MEDS ORDERED: CATAPRES TAB 0.1 MG PO ONE (12:34)
[2022-02-12] MEDS ORDERED: CATAPRES TAB 0.1 MG ONE (12:36)
[2022-02-12] MEDS ORDERED: LASIX IVP SCH (17:00)
[2022-02-12] MEDS: ELAVIL PO SCH (20:10)
[2022-02-12] MEDS: ZyrTEC TAB 10 MG PO SCH (20:10)
[2022-02-12] MEDS: NORVASC TAB 5 MG PO SCH (20:10)
[2022-02-13] MEDS: GENTAMICIN SULF (OPHTH) AFFEYE SCH ×6 (02:03→21:17)
[2022-02-13] MEDS: DUONEB 0.5 MG/3 MG (3 mL) NEB SCH ×3 (05:15→21:00)
[2022-02-13 06:15] LABS: BASOPHILS # (AUTO) 0.1 X10^3/uL (0.0-0.1); BASOPHILS % (AUTO) 1.1 % (0.2-1.0); EOSINOPHILS # (AUTO) 0.3 x10^3/uL (0.0-0.2); EOSINOPHILS % (AUTO) 4.2 % (0.9-2.9); HEMATOCRIT 37.9 % (42.0-54.0); HEMOGLOBIN 12.7 g/dL (13.5-18.0); LYMPHOCYTES # (AUTO) 2.1 X10^3/uL (1.3-2.9); LYMPHOCYTES % (AUTO) 34.7 % (21.0-51.0); MEAN CORPUSCULAR HGB CONC 33.6 g/dL (33.0-35.0); MEAN CORPUSCULAR VOLUME 89.5 fL (80.0-100.0); MEAN PLATELET VOLUME 6.9 fL (7.4-11.0); MONOCYTES # (AUTO) 0.4 x10^3/uL (0.3-0.8); MONOCYTES % (AUTO) 5.9 % (0.0-13.0); NEUTROPHILS # (AUTO) 3.3 x10^3/uL (2.2-4.8); NEUTROPHILS % (AUTO) 54.1 % (42.0-75.0); RED BLOOD COUNT 4.23 X10^6/uL (4.7-6.0); RED CELL DISTRIBUTION WIDTH 15.2 % (11.6-16.5); WHITE BLOOD COUNT 6.1 X10^3/uL (3.6-10.0)
[2022-02-13 06:34] LABS: ALANINE AMINOTRANSFERASE 20 Units/L (12-78); ALBUMIN 3.3 g/dL (3.4-5.0); ALKALINE PHOSPHATASE 138 Units/L (46-116); ASPARTATE AMINO TRANSFERASE 18 Units/L (15-37); BLOOD UREA NITROGEN 14 mg/dL (7-18); CALCIUM 8.4 mg/dL (8.5-10.1); CARBON DIOXIDE 33.6 mmol/L (21-32); CHLORIDE 100 mmol/L (98-107); CREATININE 0.94 mg/dL (0.70-1.30); MAGNESIUM 1.9 mg/dL (1.7-2.9); SODIUM 139 mmol/L (136-145); TOTAL PROTEIN 7.1 g/dL (6.4-8.2); eGFR NON BLACK RACES > 60 (>60)
--- NOTE | 2022-02-13 08:08 | RAD ---
CHEST, 1 VIEWHISTORY: SOBStudy: Single view of the chest.Comparison:February 12, 2022Findings:The cardiomediastinal silhouette is normal. No change in the appearance of bilateral insterstitial and airspace opacities. Osseous structures demonstrate no acute abnormality.IMPRESSION:1. No change from prior.Electronically signed by: ORTIZ CAMPOS (Feb 13, 2022 08:05:54)
[2022-02-13] MEDS: FLOMAX PO SCH (08:40)
[2022-02-13] MEDS: FERROUS GLUCONATE PO SCH (08:40)
[2022-02-13] MEDS: SEROquel TAB 25 mg PO SCH ×2 (08:40→17:57)
[2022-02-13] MEDS: CYMBALTA PO SCH (08:40)
[2022-02-13] MEDS: ECOTRIN TAB 325 MG PO SCH (08:40)
[2022-02-13] MEDS: K-DUR TAB 20 MEQ PO PRN (08:40)
[2022-02-13] MEDS: PriLOSEC PO SCH (08:41)
[2022-02-13] MEDS: PEPCID TAB 20 MG PO SCH ×2 (08:41→20:03)
[2022-02-13] MEDS: QUINAPRIL 40 MG PO SCH ×2 (08:41→20:08)
[2022-02-13] MEDS: LOVENOX INJ 40 MG SYR SC SCH (08:42)
--- NOTE | 2022-02-13 09:19 | PCM.PROG ---
Progress Note - Progress Note for Day of Date of Exam: 02/13/22 - Subjective Subjective: WAS ADMITTED INPATIENT STATUS FOR TREATMENT OF GENERALIZED WEAKNESS, PLEURAL EFFUSION, SHORTNESS OF BREATH, HYPOTENSION, AND PROGRESSIVE DEMENTIA. TODAY, HE IS ALERT, SITTING UP IN BED ON MORNING ROUNDS. HE CONTINUES WITH COMPLAINTS OF SHORTNESS OF BREATH AND WEAKNESS THIS MORNING. NURSING STAFF REPORTS THAT HE WAS RESTLESS THROUGHOUT THE NIGHT. ON EXAMINATION, HEART IS REGULAR IN RATE AND RHYTHM. LUNGS ARE NOTED WITH DIMINISHED LUNG SOUNDS THROUGHOUT. ABDOMEN IS ROUND, SOFT, AND NON-TENDER WITH NORMAL BOWEL SOUNDS NOTED IN ALL QUADRANTS. TRACE LOWER EXTREMITY EDEMA NOTED. HIS VITALS THIS MORNING ARE: 98.3-84-20-97%-128/80. LABS WERE OBTAINED. WBC 6.1, RBC 4.23, HGB 12.7, HCT 37.9, SODIUM 139, POTASSIUM 3.5, CARBON DIOXIDE 33.6, GLUCOSE 97, CALCIUM 8.4, AST 18, ALT 20, ALK PHOS 138, TOTAL PROTEIN 7.1, ALBUMIN 3.3. CHEST XRAY WAS OBTAINED YESTERDAY AND REVEALED: The cardiomediastinal silhouette is normal. No change in the appearance of bilateral insterstitial and airspace opacities. Osseous structures demonstrate no acute abnormalityHE IS CURRENTLY RECEIVING DUONEBS TID AND HOME MEDICATIONS WERE RESUMED. TODAY, WE WILL START LASIX 20MG PO DAILY AND MAG OX 400MG PO DAILY. CASE MANAGEMENT IS ARRANGING PLACEMENT AT [facility]. OTHERWISE, WE WILL FOLLOW UP WITH AM LABS AND CONTINUE TO MONITOR. TIME SPENT ON CLINICAL ASSESSMENT, REVIEWING LABS AND IMAGING, DECISION MAKING, AND DOCUMENTATION GREATER THAN 45 MINUTES. - Past Medical Family Social History Past Med/Fam/Surg Hx: No changes since H&P Allergies: Allergies haloperidol [From Haldol] Adverse Reaction (Verified 02/09/22 16:13) DAUGHTER STATES MEDICATION HAS THE OPPOSITE EFFECT ON PT. - Review of Systems ROS: No change since H&P - Vital Signs and I&O's Vital Signs: Temperature 98.3 F Pulse Rate [Left Brachial] 84 Pulse Rate 65 Respiratory Rate 20 Blood Pressure [Left Arm] 128/80 Blood Pressure [Right Arm] 138/88 O2 Sat by Pulse Oximetry 97 Intake and Output: Intake & Output 02/10/22 02/11/22 02/12/22 02/13/22 11:59 11:59 11:59 11:59 Intake Total 780 / 780 1090 / 1090 580 / 580 680 / 680 Balance 780 / 780 1090 / 1090 580 / 580 680 / 680 - Physical Exam Oriented: Person, Place Eyes: Normal Ear: Normal Nose: Normal Throat: Normal Respiratory: Generalized, Diminished Cardiovascular: Normal : Normal Auscultation: Bowel Sounds: Normal Tenderness: Normal Skin: Normal Musculoskeletal: Normal Psychiatric: Normal Mood Description: Calm Affect: Normal Speech Pattern: Clear - Laboratory and Diagnostics Result Diagrams: 02/13/22 05:35 02/13/22 05:35 Labs: Laboratory WBC 6.1 X10^3/uL (3.6-10.0) 02/13/22 05:35 RBC 4.23 X10^6/uL (4.7-6.0) L 02/13/22 05:35 Hgb 12.7 g/dL (13.5-18.0) L 02/13/22 05:35 Hct 37.9 % (42.0-54.0) L 02/13/22 05:35 MCV 89.5 fL (80.0-100.0) 02/13/22 05:35 MCH 30.0 pg (27.0-34.0) 02/13/22 05:35 MCHC 33.6 g/dL (33.0-35.0) 02/13/22 05:35 RDW 15.2 % (11.6-16.5) 02/13/22 05:35 Plt Count 216 X10^3/uL (150.0-450.0) 02/13/22 05:35 MPV 6.9 fL (7.4-11.0) L 02/13/22 05:35 Neut % (Auto) 54.1 % (42.0-75.0) 02/13/22 05:35 Lymph % (Auto) 34.7 % (21.0-51.0) 02/13/22 05:35 [place] % (Auto) 5.9 % (0.0-13.0) 02/13/22 05:35 Eos % (Auto) 4.2 % (0.9-2.9) H 02/13/22 05:35 Baso % (Auto) 1.1 % (0.2-1.0) H 02/13/22 05:35 Neut # (Auto) 3.3 x10^3/uL (2.2-4.8) 02/13/22 05:35 Lymph # (Auto) 2.1 X10^3/uL (1.3-2.9) 02/13/22 05:35 [place] # (Auto) 0.4 x10^3/uL (0.3-0.8) 02/13/22 05:35 Eos # (Auto) 0.3 x10^3/uL (0.0-0.2) H 02/13/22 05:35 Baso # (Auto) 0.1 X10^3/uL (0.0-0.1) 02/13/22 05:35 Absolute Nucleated RBC 0.0 /100WBC 02/13/22 05:35 Sodium 139 mmol/L (136-145) 02/13/22 05:35 Corrected Sodium TNP 02/13/22 05:35 Potassium 3.5 mmol/L (3.5-5.1) 02/13/22 05:35 Chloride 100 mmol/L (98-107) 02/13/22 05:35 Carbon Dioxide 33.6 mmol/L (21-32) H 02/13/22 05:35 BUN 14 mg/dL (7-18) 02/13/22 05:35 Creatinine 0.94 mg/dL (0.70-1.30) 02/13/22 05:35 Est GFR (MDRD) Af Amer > 60 (>60) 02/13/22 05:35 Est GFR (MDRD) Non-Af > 60 (>60) 02/13/22 05:35 Glucose 97 mg/dL (65-99) 02/13/22 05:35 Calcium 8.4 mg/dL (8.5-10.1) L 02/13/22 05:35 Corrected Calcium 9.0 mg/dL (8.5-10.1) 02/13/22 05:35 Magnesium 1.9 mg/dL (1.7-2.9) 02/13/22 05:35 Total Bilirubin 0.30 mg/dL (0.2-1.0) 02/13/22 05:35 AST 18 Units/L (15-37) 02/13/22 05:35 ALT 20 Units/L (12-78) 02/13/22 05:35 Alkaline Phosphatase 138 Units/L (46-116) H 02/13/22 05:35 Total Protein 7.1 g/dL (6.4-8.2) 02/13/22 05:35 Albumin 3.3 g/dL (3.4-5.0) L 02/13/22 05:35 Globulin 3.8 g/dL (2.5-4.5) 02/13/22 05:35 Albumin/Globulin Ratio 0.9 Ratio (1.1-2.1) L 02/13/22 05:35 Specimen Type Clean catch urine 02/09/22 16:50 Urine Color Yellow (YELLOW) 02/09/22 16:50 Urine Appearance Clear (CLEAR) 02/09/22 16:50 Urine pH 5.0 (5.0 - 8.0) 02/09/22 16:50 Ur Specific [place] 1.025 (1.000-1.030) 02/09/22 16:50 Urine Protein 2+ (NEGATIVE) 02/09/22 16:50 Urine Glucose (UA) Negative (NEGATIVE) 02/09/22 16:50 Urine Ketones 1+ (NEGATIVE) 02/09/22 16:50 Urine Blood 1+ (NEGATIVE) 02/09/22 16:50 Urine Nitrite Negative (NEGATIVE) 02/09/22 16:50 Urine Bilirubin Negative (NEGATIVE) 02/09/22 16:50 Urine Urobilinogen Normal (NORMAL) 02/09/22 16:50 Ur Leukocyte Esterase Negative (NEGATIVE) 02/09/22 16:50 Urine RBC 0-2 /HPF (0-3) 02/09/22 16:50 Urine WBC None seen /HPF (0-5) 02/09/22 16:50 Ur Squamous Epith Cells Rare /HPF (NEGATIVE) 02/09/22 16:50 Urine Bacteria Trace /HPF (NEGATIVE) 02/09/22 16:50 Urine Mucus Rare /HPF (NEGATIVE) 02/09/22 16:50 Ur Culture Indicated? No/not indicated 02/09/22 16:50 - Plan (1) CHF (congestive heart failure) Status: Acute Qualifiers: Heart failure type: unspecified Heart failure chronicity: acute Qualified Code(s): I50.9 - Heart failure, unspecified Plan: DUONEBS TID, LASIX 20MG PO DAILY, MAG OX 400MG DAILY, AND HOME MEDICATIONS WERE RESUMED. [facility] PLACEMENT (2) Generalized weakness Status: Acute Plan: NS AT 50 ML/HR, DUONEBS TID, AND HOME MEDICATIONS WERE RESUMED. [facility]LTER PLACEMENT (3) Pleural effusion Status: Acute (4) Shortness of breath Status: Acute (5) Progressive dementia with uncertain etiology Status: Acute (6) Anemia Status: Chronic Qualifiers: Anemia type: iron deficiency Iron deficiency anemia type: chronic blood loss Qualified Code(s): D50.0 - Iron deficiency anemia secondary to blood loss (chronic) (7) Hyperlipidemia Status: Chronic Qualifiers: Hyperlipidemia type: mixed hyperlipidemia Qualified Code(s): E78.2 - Mixed hyperlipidemia (8) Hypertension Status: Chronic Qualifiers: Hypertension type: primary hypertension Qualified Code(s): I10 - Essential (primary) hypertension
[2022-02-13] MEDS: MAG-OX TAB PO SCH (10:00)
[2022-02-13] MEDS: LASIX PO SCH (10:00)
[2022-02-13] MEDS: ELAVIL PO SCH (20:02)
[2022-02-13] MEDS: ZyrTEC TAB 10 MG PO SCH (20:02)
[2022-02-13] MEDS: NORVASC TAB 5 MG PO SCH (20:03)
[2022-02-14] MEDS: GENTAMICIN SULF (OPHTH) AFFEYE SCH ×6 (01:17→22:11)
[2022-02-14] MEDS: DUONEB 0.5 MG/3 MG (3 mL) NEB SCH ×3 (05:35→21:04)
[2022-02-14] MEDS: MAG-OX TAB PO SCH (06:06)
[2022-02-14 06:27] LABS: BASOPHILS # (AUTO) 0.1 X10^3/uL (0.0-0.1); BASOPHILS % (AUTO) 1.4 % (0.2-1.0); EOSINOPHILS # (AUTO) 0.3 x10^3/uL (0.0-0.2); EOSINOPHILS % (AUTO) 4.8 % (0.9-2.9); HEMOGLOBIN 12.6 g/dL (13.5-18.0); LYMPHOCYTES # (AUTO) 2.4 X10^3/uL (1.3-2.9); LYMPHOCYTES % (AUTO) 40.7 % (21.0-51.0); MEAN CORPUSCULAR HEMOGLOBIN 30.5 pg (27.0-34.0); MEAN CORPUSCULAR VOLUME 89.8 fL (80.0-100.0); MEAN PLATELET VOLUME 6.9 fL (7.4-11.0); MONOCYTES # (AUTO) 0.4 x10^3/uL (0.3-0.8); MONOCYTES % (AUTO) 6.9 % (0.0-13.0); NEUTROPHILS # (AUTO) 2.7 x10^3/uL (2.2-4.8); NEUTROPHILS % (AUTO) 46.2 % (42.0-75.0); RED BLOOD COUNT 4.12 X10^6/uL (4.7-6.0); RED CELL DISTRIBUTION WIDTH 15.1 % (11.6-16.5); WHITE BLOOD COUNT 5.8 X10^3/uL (3.6-10.0)
[2022-02-14 06:36] LABS: ALANINE AMINOTRANSFERASE 21 Units/L (12-78); ALBUMIN 3.3 g/dL (3.4-5.0); ALKALINE PHOSPHATASE 135 Units/L (46-116); ASPARTATE AMINO TRANSFERASE 20 Units/L (15-37); BLOOD UREA NITROGEN 16 mg/dL (7-18); CALCIUM 8.7 mg/dL (8.5-10.1); CARBON DIOXIDE 34.9 mmol/L (21-32); CHLORIDE 100 mmol/L (98-107); COR CA(FOR HYPOALB) 9.3 mg/dL (8.5-10.1); MAGNESIUM 1.8 mg/dL (1.7-2.9); SODIUM 138 mmol/L (136-145); TOTAL PROTEIN 6.9 g/dL (6.4-8.2); eGFR NON BLACK RACES > 60 (>60)
--- NOTE | 2022-02-14 07:12 | RAD ---
HISTORYWeakness SOBSTUDYAP chestCOMPARISONOct2021FINDINGSHeart size remains upper-normal with dilated aorta and arteriosclerotic dilatation of the brachiocephalic vessels. The lungs are clear of active process. There is no evidence for pneumonia or pulmonary edema and no definite pleural effusion.IMPRESSIONNo change or acute findings.Electronically signed by: BECKY HOLDER (Feb 14, 2022 07:11:02)
[2022-02-14] MEDS: FERROUS GLUCONATE PO SCH (09:28)
[2022-02-14] MEDS: CYMBALTA PO SCH (09:28)
[2022-02-14] MEDS: ECOTRIN TAB 325 MG PO SCH (09:28)
[2022-02-14] MEDS: FLOMAX PO SCH (09:29)
[2022-02-14] MEDS: PEPCID TAB 20 MG PO SCH ×2 (09:29→22:07)
[2022-02-14] MEDS: LASIX PO SCH (09:29)
[2022-02-14] MEDS: PriLOSEC PO SCH (09:29)
[2022-02-14] MEDS: QUINAPRIL 40 MG PO SCH ×2 (09:30→22:05)
[2022-02-14] MEDS ORDERED: PROzac PO SCH (10:00)
[2022-02-14] MEDS: LOVENOX INJ 40 MG SYR SC SCH (13:23)
[2022-02-14] MEDS: SEROquel TAB 25 mg PO SCH ×2 (13:24→22:05)
[2022-02-14] MEDS: ATIVAN TAB 0.5 MG PO SCH ×2 (13:24→22:07)
[2022-02-14] MEDS: K-DUR TAB 20 MEQ PO PRN (13:25)
[2022-02-14] MEDS: ELAVIL PO SCH (22:06)
[2022-02-14] MEDS: NORVASC TAB 5 MG PO SCH (22:06)
[2022-02-14] MEDS: ZyrTEC TAB 10 MG PO SCH (22:06)
[2022-02-15] MEDS: GENTAMICIN SULF (OPHTH) AFFEYE SCH ×6 (02:00→21:28)
[2022-02-15] MEDS: DUONEB 0.5 MG/3 MG (3 mL) NEB SCH ×3 (05:25→21:00)
[2022-02-15 05:56] LABS: BASOPHILS # (AUTO) 0.1 X10^3/uL (0.0-0.1); BASOPHILS % (AUTO) 1.4 % (0.2-1.0); EOSINOPHILS # (AUTO) 0.3 x10^3/uL (0.0-0.2); EOSINOPHILS % (AUTO) 5.1 % (0.9-2.9); HEMATOCRIT 38.8 % (42.0-54.0); HEMOGLOBIN 12.8 g/dL (13.5-18.0); LYMPHOCYTES # (AUTO) 2.3 X10^3/uL (1.3-2.9); MEAN CORPUSCULAR HEMOGLOBIN 29.9 pg (27.0-34.0); MEAN CORPUSCULAR VOLUME 90.5 fL (80.0-100.0); MEAN PLATELET VOLUME 6.8 fL (7.4-11.0); MONOCYTES # (AUTO) 0.4 x10^3/uL (0.3-0.8); MONOCYTES % (AUTO) 6.6 % (0.0-13.0); NEUTROPHILS # (AUTO) 2.6 x10^3/uL (2.2-4.8); NEUTROPHILS % (AUTO) 45.9 % (42.0-75.0); RED BLOOD COUNT 4.29 X10^6/uL (4.7-6.0); RED CELL DISTRIBUTION WIDTH 15.4 % (11.6-16.5); WHITE BLOOD COUNT 5.6 X10^3/uL (3.6-10.0)
[2022-02-15 06:17] LABS: ALANINE AMINOTRANSFERASE 22 Units/L (12-78); ALBUMIN 3.3 g/dL (3.4-5.0); ALKALINE PHOSPHATASE 132 Units/L (46-116); ASPARTATE AMINO TRANSFERASE 19 Units/L (15-37); BLOOD UREA NITROGEN 16 mg/dL (7-18); CALCIUM 8.5 mg/dL (8.5-10.1); CARBON DIOXIDE 34.5 mmol/L (21-32); CHLORIDE 102 mmol/L (98-107); COR CA(FOR HYPOALB) 9.1 mg/dL (8.5-10.1); COR NA(FOR HYPERGLY) 141 mmol/L (136-145); CREATININE 0.76 mg/dL (0.70-1.30); SODIUM 140 mmol/L (136-145); TOTAL PROTEIN 6.9 g/dL (6.4-8.2); eGFR NON BLACK RACES > 60 (>60)
--- NOTE | 2022-02-15 08:12 | RAD ---
HISTORYSOB; WEAKNESSSTUDYCHEST, 1 [id number]/2022.TECHNIQUEAP view of the chestFINDINGSThe cardiac and mediastinal contours appear stable. Chronic right rib fractures noted. Mild right infrahilar patchy opacity. No definite pleural effusion or pneumothorax.IMPRESSIONMild right infrahilar patchy opacity may represent atelectasis or infiltrate.Electronically signed by: Adi Aly (Feb 15, 2022 08:10:47)
--- NOTE | 2022-02-15 12:00 | PCM.PROG ---
Progress Note - Progress Note for Day of Date of Exam: 02/14/22 - Subjective Subjective: WAS ADMITTED INPATIENT STATUS FOR TREATMENT OF GENERALIZED WEAKNESS, PLEURAL EFFUSION, SHORTNESS OF BREATH, HYPOTENSION, AND PROGRESSIVE DEMENTIA. TODAY, HE IS ALERT, SITTING UP IN BED ON MORNING ROUNDS. HE CONTINUES WITH COMPLAINTS OF SHORTNESS OF BREATH AND WEAKNESS THIS MORNING. NURSING STAFF REPORTS THAT HE CONTINUED TO BE SOMEWHAT RESTLESS THROUGHOUT THE NIGHT. ON EXAMINATION, HEART IS REGULAR IN RATE AND RHYTHM. LUNGS ARE NOTED WITH DIMINISHED LUNG SOUNDS THROUGHOUT. ABDOMEN IS ROUND, SOFT, AND NON-TENDER WITH NORMAL BOWEL SOUNDS NOTED IN ALL QUADRANTS. TRACE LOWER EXTREMITY EDEMA NOTED. HIS VITALS THIS MORNING ARE: 97.6-92-20-92%-137/89. LABS WERE OBTAINED. WBC 5.8, RBC 4.12, HGB 12.6, HCT 37.0, SODIUM 138, POTASSIUM 3.7, CHLORIDE 100, CARBON DIOXIDE 34.9, BUN 16, CREATININE 0.80, GLUCOSE 104, CALCIUM 8.7, AST 20, ALT 21, ALK PHOS 135, TOTAL PROTEIN 6.9, ALBUMIN 3.3. CHEST XRAY WAS OBTAINED YESTERDAY AND REVEALED: Heart size remains upper-normal with dilated aorta and arteriosclerotic dilatation of the brachiocephalic vessels. The lungs are clear of active process. There is no evidence for pneumonia or pulmonary edema and no definite pleural effusion. HE IS CURRENTLY RECEIVING DUONEBS TID, LASIX 20MG PO DAILY, MAG OX 400MG PO DAILY, AND HOME MEDICATIONS WERE RESUMED. TODAY, WE WILL DISCONTINUE THE CYMBALTA. WE WILL ADD PROZAC 20MG PO DAILY AND ATIVAN 0.5MG PO BID. CASE MANAGEMENT IS ARRANGING PLACEMENT AT [facility]. OTHERWISE, WE WILL FOLLOW UP WITH AM LABS AND CONTINUE TO MONITOR. TIME SPENT ON CLINICAL ASSESSMENT, REVIEWING LABS AND IMAGING, DECISION MAKING, AND DOCUMENTATION GREATER THAN 45 MINUTES. - Past Medical Family Social History Past Med/Fam/Surg Hx: No changes since H&P Allergies: Allergies haloperidol [From Haldol] Adverse Reaction (Verified 02/09/22 16:13) DAUGHTER STATES MEDICATION HAS THE OPPOSITE EFFECT ON PT. - Review of Systems ROS: No change since H&P - Vital Signs and I&O's Vital Signs: Temperature 98.3 F Pulse Rate [Left Brachial] 85 Pulse Rate 68 Respiratory Rate 20 Blood Pressure [Left Arm] 130/82 Blood Pressure [Right Arm] 169/64 O2 Sat by Pulse Oximetry 93 Intake and Output: Intake & Output 02/12/22 02/13/22 02/14/22 02/15/22 11:59 11:59 11:59 11:59 Intake Total 580 / 580 680 / 680 360 / 360 710 / 710 Balance 580 / 580 680 / 680 360 / 360 710 / 710 - Physical Exam Oriented: Person, Place Eyes: Normal Ear: Normal Nose: Normal Throat: Normal Respiratory: Generalized, Diminished Cardiovascular: Normal : Normal Auscultation: Bowel Sounds: Normal Palpation: Normal Tenderness: Normal Skin: Normal Musculoskeletal: Normal Psychiatric: Normal Mood Description: Calm Affect: Normal Speech Pattern: Clear - Laboratory and Diagnostics Result Diagrams: 02/15/22 05:38 02/15/22 05:38 Labs: Laboratory WBC 5.6 X10^3/uL (3.6-10.0) 02/15/22 05:38 RBC 4.29 X10^6/uL (4.7-6.0) L 02/15/22 05:38 Hgb 12.8 g/dL (13.5-18.0) L 02/15/22 05:38 Hct 38.8 % (42.0-54.0) L 02/15/22 05:38 MCV 90.5 fL (80.0-100.0) 02/15/22 05:38 MCH 29.9 pg (27.0-34.0) 02/15/22 05:38 MCHC 33.0 g/dL (33.0-35.0) 02/15/22 05:38 RDW 15.4 % (11.6-16.5) 02/15/22 05:38 Plt Count 202 X10^3/uL (150.0-450.0) 02/15/22 05:38 MPV 6.8 fL (7.4-11.0) L 02/15/22 05:38 Neut % (Auto) 45.9 % (42.0-75.0) 02/15/22 05:38 Lymph % (Auto) 41.0 % (21.0-51.0) 02/15/22 05:38 [place] % (Auto) 6.6 % (0.0-13.0) 02/15/22 05:38 Eos % (Auto) 5.1 % (0.9-2.9) H 02/15/22 05:38 Baso % (Auto) 1.4 % (0.2-1.0) H 02/15/22 05:38 Neut # (Auto) 2.6 x10^3/uL (2.2-4.8) 02/15/22 05:38 Lymph # (Auto) 2.3 X10^3/uL (1.3-2.9) 02/15/22 05:38 [place] # (Auto) 0.4 x10^3/uL (0.3-0.8) 02/15/22 05:38 Eos # (Auto) 0.3 x10^3/uL (0.0-0.2) H 02/15/22 05:38 Baso # (Auto) 0.1 X10^3/uL (0.0-0.1) 02/15/22 05:38 Absolute Nucleated RBC 0.1 /100WBC 02/15/22 05:38 Sodium 140 mmol/L (136-145) 02/15/22 05:38 Corrected Sodium 141 mmol/L (136-145) 02/15/22 05:38 Potassium 3.8 mmol/L (3.5-5.1) 02/15/22 05:38 Chloride 102 mmol/L (98-107) 02/15/22 05:38 Carbon Dioxide 34.5 mmol/L (21-32) H 02/15/22 05:38 BUN 16 mg/dL (7-18) 02/15/22 05:38 Creatinine 0.76 mg/dL (0.70-1.30) 02/15/22 05:38 Est GFR (MDRD) Af Amer > 60 (>60) 02/15/22 05:38 Est GFR (MDRD) Non-Af > 60 (>60) 02/15/22 05:38 Glucose 126 mg/dL (65-99) H 02/15/22 05:38 Calcium 8.5 mg/dL (8.5-10.1) 02/15/22 05:38 Corrected Calcium 9.1 mg/dL (8.5-10.1) 02/15/22 05:38 Magnesium 1.8 mg/dL (1.7-2.9) 02/14/22 05:38 Total Bilirubin 0.30 mg/dL (0.2-1.0) 02/15/22 05:38 AST 19 Units/L (15-37) 02/15/22 05:38 ALT 22 Units/L (12-78) 02/15/22 05:38 Alkaline Phosphatase 132 Units/L (46-116) H 02/15/22 05:38 Total Protein 6.9 g/dL (6.4-8.2) 02/15/22 05:38 Albumin 3.3 g/dL (3.4-5.0) L 02/15/22 05:38 Globulin 3.6 g/dL (2.5-4.5) 02/15/22 05:38 Albumin/Globulin Ratio 0.9 Ratio (1.1-2.1) L 02/15/22 05:38 Specimen Type Clean catch urine 02/09/22 16:50 Urine Color Yellow (YELLOW) 02/09/22 16:50 Urine Appearance Clear (CLEAR) 02/09/22 16:50 Urine pH 5.0 (5.0 - 8.0) 02/09/22 16:50 Ur Specific [place] 1.025 (1.000-1.030) 02/09/22 16:50 Urine Protein 2+ (NEGATIVE) 02/09/22 16:50 Urine Glucose (UA) Negative (NEGATIVE) 02/09/22 16:50 Urine Ketones 1+ (NEGATIVE) 02/09/22 16:50 Urine Blood 1+ (NEGATIVE) 02/09/22 16:50 Urine Nitrite Negative (NEGATIVE) 02/09/22 16:50 Urine Bilirubin Negative (NEGATIVE) 02/09/22 16:50 Urine Urobilinogen Normal (NORMAL) 02/09/22 16:50 Ur Leukocyte Esterase Negative (NEGATIVE) 02/09/22 16:50 Urine RBC 0-2 /HPF (0-3) 02/09/22 16:50 Urine WBC None seen /HPF (0-5) 02/09/22 16:50 Ur Squamous Epith Cells Rare /HPF (NEGATIVE) 02/09/22 16:50 Urine Bacteria Trace /HPF (NEGATIVE) 02/09/22 16:50 Urine Mucus Rare /HPF (NEGATIVE) 02/09/22 16:50 Ur Culture Indicated? No/not indicated 02/09/22 16:50 - Plan (1) CHF (congestive heart failure) Status: Acute Qualifiers: Heart failure type: unspecified Heart failure chronicity: acute Qualified Code(s): I50.9 - Heart failure, unspecified Plan: DUONEBS TID, LASIX 20MG PO DAILY, MAG OX 400MG DAILY, PROZAC 20MG PO DAILY, ATIVAN 0.5MG PO BID, AND HOME MEDICATIONS WERE RESUMED. [facility] PLAC[facility] (2) Generalized weakness Status: Acute Plan: NS AT 50 ML/HR, DUONEBS TID, AND HOME MEDICATIONS WERE RESUMED. [facility] PLACEMENT (3) Pleural effusion Status: Acute (4) Shortness of breath Status: Acute (5) Progressive dementia with uncertain etiology Status: Acute (6) Anemia Status: Chronic Qualifiers: Anemia type: iron deficiency Iron deficiency anemia type: chronic blood loss Qualified Code(s): D50.0 - Iron deficiency anemia secondary to blood loss (chronic) (7) Hyperlipidemia Status: Chronic Qualifiers: Hyperlipidemia type: mixed hyperlipidemia Qualified Code(s): E78.2 - Mixed hyperlipidemia (8) Hypertension Status: Chronic Qualifiers: Hypertension type: primary hypertension Qualified Code(s): I10 - Essential (primary) hypertension
[2022-02-15] MEDS: MAG-OX TAB PO SCH (15:23)
[2022-02-15] MEDS: FLOMAX PO SCH (15:24)
[2022-02-15] MEDS: ECOTRIN TAB 325 MG PO SCH (15:24)
[2022-02-15] MEDS: LASIX PO SCH (15:24)
[2022-02-15] MEDS: FERROUS GLUCONATE PO SCH (15:24)
[2022-02-15] MEDS: PEPCID TAB 20 MG PO SCH ×2 (15:25→20:35)
[2022-02-15] MEDS: QUINAPRIL 40 MG PO SCH ×2 (15:25→20:35)
[2022-02-15] MEDS: PriLOSEC PO SCH (15:25)
[2022-02-15] MEDS: ATIVAN TAB 0.5 MG PO SCH ×2 (15:27→21:27)
[2022-02-15] MEDS: SEROquel TAB 25 mg PO SCH ×2 (15:27→21:28)
[2022-02-15] MEDS: PROzac PO SCH (15:27)
[2022-02-15] MEDS: LOVENOX INJ 40 MG SYR SC SCH (15:33)
[2022-02-15] MEDS: ELAVIL PO SCH (20:34)
[2022-02-15] MEDS: ZyrTEC TAB 10 MG PO SCH (20:34)
[2022-02-15] MEDS: NORVASC TAB 5 MG PO SCH (20:34)
[2022-02-15] MEDS: PERCOCET TAB 5/325 MG PO PRN (20:36)
[2022-02-16] MEDS: GENTAMICIN SULF (OPHTH) AFFEYE SCH ×2 (02:52→05:17)
[2022-02-16 05:19] LABS: BASOPHILS # (AUTO) 0.1 X10^3/uL (0.0-0.1); BASOPHILS % (AUTO) 2.1 % (0.2-1.0); EOSINOPHILS # (AUTO) 0.4 x10^3/uL (0.0-0.2); EOSINOPHILS % (AUTO) 5.8 % (0.9-2.9); HEMATOCRIT 36.6 % (42.0-54.0); HEMOGLOBIN 12.3 g/dL (13.5-18.0); LYMPHOCYTES # (AUTO) 2.9 X10^3/uL (1.3-2.9); LYMPHOCYTES % (AUTO) 45.8 % (21.0-51.0); MEAN CORPUSCULAR HEMOGLOBIN 30.3 pg (27.0-34.0); MEAN CORPUSCULAR HGB CONC 33.5 g/dL (33.0-35.0); MEAN CORPUSCULAR VOLUME 90.3 fL (80.0-100.0); MEAN PLATELET VOLUME 7.3 fL (7.4-11.0); MONOCYTES # (AUTO) 0.4 x10^3/uL (0.3-0.8); MONOCYTES % (AUTO) 5.8 % (0.0-13.0); NEUTROPHILS # (AUTO) 2.6 x10^3/uL (2.2-4.8); NEUTROPHILS % (AUTO) 40.5 % (42.0-75.0); RED BLOOD COUNT 4.05 X10^6/uL (4.7-6.0); RED CELL DISTRIBUTION WIDTH 14.8 % (11.6-16.5)
[2022-02-16 05:36] LABS: ALANINE AMINOTRANSFERASE 24 Units/L (12-78); ALKALINE PHOSPHATASE 120 Units/L (46-116); ASPARTATE AMINO TRANSFERASE 20 Units/L (15-37); BLOOD UREA NITROGEN 17 mg/dL (7-18); CALCIUM 8.4 mg/dL (8.5-10.1); CARBON DIOXIDE 33.2 mmol/L (21-32); CHLORIDE 103 mmol/L (98-107); COR CA(FOR HYPOALB) 9.2 mg/dL (8.5-10.1); SODIUM 139 mmol/L (136-145); TOTAL PROTEIN 6.5 g/dL (6.4-8.2); eGFR NON BLACK RACES > 60 (>60)
[2022-02-16 06:07] LABS: WHITE BLOOD COUNT 6.7 X10^3/uL (3.6-10.0)
[2022-02-16 06:08] LABS: PLATELET MORPHOLOGY COMMENT NORMAL (NORMAL)
[2022-02-16] MEDS: DUONEB 0.5 MG/3 MG (3 mL) NEB SCH ×3 (06:15→20:00)
--- NOTE | 2022-02-16 07:35 | RAD ---
HISTORYWeakness, shortness of breathSTUDYChest AP [id number]/18/2022FINDINGSHear t is upper limits normal in size. No congestive heart failure is noted. The aorta is calcified. Lungs are well inflated and free of acute infiltrates. No pleural effusions are identified. Bony thorax is unremarkable.IMPRESSIONNo definite infiltratesElectronically signed by: ROBBIE BENTLEY (Feb 16, 2022 07:34:02)
--- NOTE | 2022-02-16 11:38 | PCM.PROG ---
Progress Note - Progress Note for Day of Date of Exam: 02/15/22 - Subjective Subjective: WAS ADMITTED INPATIENT STATUS FOR TREATMENT OF GENERALIZED WEAKNESS, PLEURAL EFFUSION, SHORTNESS OF BREATH, HYPOTENSION, AND PROGRESSIVE DEMENTIA. TODAY, HE IS ALERT, SITTING UP IN BED ON MORNING ROUNDS. HE DENIES CURRENT COMPLAINTS. NURSING STAFF REPORTS THAT HE RESTED BETTER THROUGHOUT THE NIGHT. ON EXAMINATION, HEART IS REGULAR IN RATE AND RHYTHM. LUNGS ARE NOTED WITH DIMINISHED LUNG SOUNDS THROUGHOUT. ABDOMEN IS ROUND, SOFT, AND NON-TENDER WITH NORMAL BOWEL SOUNDS NOTED IN ALL QUADRANTS. TRACE LOWER EXTREMITY EDEMA NOTED. HIS VITALS THIS MORNING ARE: 98.3-85-20-93%-169/64. LABS WERE OBTAINED. WBC 5.6, RBC 4.29, HGB 12.8, HCT 38.8, SODIUM 140, POTASSIUM 3.8, CHLORIDE 102, BUN 16, CREATININE 0.76, GLUCOSE 126, CALCIUM 8.5, AST 19, ALT 22, ALK PHOS 132, TOTAL PROTEIN 6.9, ALBUMIN 3.3. CHEST XRAY WAS OBTAINED YESTERDAY AND REVEALED: Mild right infrahilar patchy opacity may represent atelectasis or infiltrate. HE IS CURRENTLY RECEIVING DUONEBS TID, LASIX 20MG PO DAILY, MAG OX 400MG PO DAILY, PROZAC 20MG PO DAILY, ATIVAN 0.5MG PO BID, AND HOME MEDICATIONS WERE RESUMED. CASE MANAGEMENT IS ARRANGING PLACEMENT AT [facility]. OTHERWISE, WE WILL FOLLOW UP WITH AM LABS AND CONTINUE TO MONITOR. TIME SPENT ON CLINICAL ASSESSMENT, REVIEWING LABS AND IMAGING, DECISION MAKING, AND DOCUMENTATION GREATER THAN 45 MINUTES. - Past Medical Family Social History Past Med/Fam/Surg Hx: No changes since H&P Allergies: Allergies haloperidol [From Haldol] Adverse Reaction (Verified 02/09/22 16:13) DAUGHTER STATES MEDICATION HAS THE OPPOSITE EFFECT ON PT. - Review of Systems ROS: No change since H&P - Vital Signs and I&O's Vital Signs: Temperature 98.4 F Pulse Rate [Left Brachial] 85 Pulse Rate 76 Respiratory Rate 20 Blood Pressure [Left Arm] 130/82 Blood Pressure [Right Arm] 152/94 O2 Sat by Pulse Oximetry 94 Intake and Output: Intake & Output 02/13/22 02/14/22 02/15/22 02/16/22 11:59 11:59 11:59 11:59 Intake Total 680 / 680 360 / 360 710 / 710 435 / 435 Balance 680 / 680 360 / 360 710 / 710 435 / 435 - Physical Exam Oriented: Person, Place Eyes: Normal Ear: Normal Nose: Normal Throat: Normal Respiratory: Generalized, Diminished Cardiovascular: Normal : Normal Auscultation: Bowel Sounds: Normal Palpation: Normal Tenderness: Normal Skin: Normal Musculoskeletal: Normal Psychiatric: Normal Mood Description: Calm Affect: Normal Speech Pattern: Clear - Laboratory and Diagnostics Result Diagrams: 02/16/22 04:45 02/16/22 04:45 Labs: Laboratory WBC 6.7 X10^3/uL (3.6-10.0) 02/16/22 04:45 RBC 4.05 X10^6/uL (4.7-6.0) L 02/16/22 04:45 Hgb 12.3 g/dL (13.5-18.0) L 02/16/22 04:45 Hct 36.6 % (42.0-54.0) L 02/16/22 04:45 MCV 90.3 fL (80.0-100.0) 02/16/22 04:45 MCH 30.3 pg (27.0-34.0) 02/16/22 04:45 MCHC 33.5 g/dL (33.0-35.0) 02/16/22 04:45 RDW 14.8 % (11.6-16.5) 02/16/22 04:45 Plt Count 188 X10^3/uL (150.0-450.0) 02/16/22 04:45 Plt Count Comment Adequate (ADEQUATE) 02/16/22 04:45 MPV 7.3 fL (7.4-11.0) L 02/16/22 04:45 Neut % (Auto) 40.5 % (42.0-75.0) L 02/16/22 04:45 Lymph % (Auto) 45.8 % (21.0-51.0) 02/16/22 04:45 [place] % (Auto) 5.8 % (0.0-13.0) 02/16/22 04:45 Eos % (Auto) 5.8 % (0.9-2.9) H 02/16/22 04:45 Baso % (Auto) 2.1 % (0.2-1.0) H 02/16/22 04:45 Neut # (Auto) 2.6 x10^3/uL (2.2-4.8) 02/16/22 04:45 Lymph # (Auto) 2.9 X10^3/uL (1.3-2.9) 02/16/22 04:45 [place] # (Auto) 0.4 x10^3/uL (0.3-0.8) 02/16/22 04:45 Eos # (Auto) 0.4 x10^3/uL (0.0-0.2) H 02/16/22 04:45 Baso # (Auto) 0.1 X10^3/uL (0.0-0.1) 02/16/22 04:45 Absolute Nucleated RBC 0.2 /100WBC 02/16/22 04:45 Plt Morphology Comment Normal (NORMAL) 02/16/22 04:45 RBC Morphology Normal (NORMAL) 02/16/22 04:45 Sodium 139 mmol/L (136-145) 02/16/22 04:45 Corrected Sodium TNP 02/16/22 04:45 Potassium 3.8 mmol/L (3.5-5.1) 02/16/22 04:45 Chloride 103 mmol/L (98-107) 02/16/22 04:45 Carbon Dioxide 33.2 mmol/L (21-32) H 02/16/22 04:45 BUN 17 mg/dL (7-18) 02/16/22 04:45 Creatinine 0.80 mg/dL (0.70-1.30) 02/16/22 04:45 Est GFR (MDRD) Af Amer > 60 (>60) 02/16/22 04:45 Est GFR (MDRD) Non-Af > 60 (>60) 02/16/22 04:45 Glucose 107 mg/dL (65-99) H 02/16/22 04:45 Calcium 8.4 mg/dL (8.5-10.1) L 02/16/22 04:45 Corrected Calcium 9.2 mg/dL (8.5-10.1) 02/16/22 04:45 Magnesium 1.7 mg/dL (1.7-2.9) 02/16/22 04:45 Total Bilirubin 0.30 mg/dL (0.2-1.0) 02/16/22 04:45 AST 20 Units/L (15-37) 02/16/22 04:45 ALT 24 Units/L (12-78) 02/16/22 04:45 Alkaline Phosphatase 120 Units/L (46-116) H 02/16/22 04:45 B-Natriuretic Peptide 84.7 pg/mL (0-79) H 02/16/22 04:45 Total Protein 6.5 g/dL (6.4-8.2) 02/16/22 04:45 Albumin 3.0 g/dL (3.4-5.0) L 02/16/22 04:45 Globulin 3.5 g/dL (2.5-4.5) 02/16/22 04:45 Albumin/Globulin Ratio 0.9 Ratio (1.1-2.1) L 02/16/22 04:45 Specimen Type Clean catch urine 02/09/22 16:50 Urine Color Yellow (YELLOW) 02/09/22 16:50 Urine Appearance Clear (CLEAR) 02/09/22 16:50 Urine pH 5.0 (5.0 - 8.0) 02/09/22 16:50 Ur Specific [place] 1.025 (1.000-1.030) 02/09/22 16:50 Urine Protein 2+ (NEGATIVE) 02/09/22 16:50 Urine Glucose (UA) Negative (NEGATIVE) 02/09/22 16:50 Urine Ketones 1+ (NEGATIVE) 02/09/22 16:50 Urine Blood 1+ (NEGATIVE) 02/09/22 16:50 Urine Nitrite Negative (NEGATIVE) 02/09/22 16:50 Urine Bilirubin Negative (NEGATIVE) 02/09/22 16:50 Urine Urobilinogen Normal (NORMAL) 02/09/22 16:50 Ur Leukocyte Esterase Negative (NEGATIVE) 02/09/22 16:50 Urine RBC 0-2 /HPF (0-3) 02/09/22 16:50 Urine WBC None seen /HPF (0-5) 02/09/22 16:50 Ur Squamous Epith Cells Rare /HPF (NEGATIVE) 02/09/22 16:50 Urine Bacteria Trace /HPF (NEGATIVE) 02/09/22 16:50 Urine Mucus Rare /HPF (NEGATIVE) 02/09/22 16:50 Ur Culture Indicated? No/not indicated 02/09/22 16:50 - Plan (1) CHF (congestive heart failure) Status: Acute Qualifiers: Heart failure type: unspecified Heart failure chronicity: acute Qualified Code(s): I50.9 - Heart failure, unspecified Plan: DUONEBS TID, LASIX 20MG PO DAILY, MAG OX 400MG DAILY, PROZAC 20MG PO DAILY, ATIVAN 0.5MG PO BID, AND HOME MEDICATIONS WERE RESUMED. CARE HOME PLACEMENT (2) Generalized weakness Status: Acute (3) Pleural effusion Status: Acute (4) Shortness of breath Status: Acute (5) Progressive dementia with uncertain etiology Status: Acute (6) Anemia Status: Chronic Qualifiers: Anemia type: iron deficiency Iron deficiency anemia type: chronic blood loss Qualified Code(s): D50.0 - Iron deficiency anemia secondary to blood loss (chronic) (7) Hyperlipidemia Status: Chronic Qualifiers: Hyperlipidemia type: mixed hyperlipidemia Qualified Code(s): E78.2 - Mixed hyperlipidemia (8) Hypertension Status: Chronic Qualifiers: Hypertension type: primary hypertension Qualified Code(s): I10 - Essential (primary) hypertension
--- NOTE | 2022-02-16 11:39 | PCM.PROG ---
Progress Note - Progress Note for Day of Date of Exam: 02/16/22 - Subjective Subjective: WAS ADMITTED INPATIENT STATUS FOR TREATMENT OF GENERALIZED WEAKNESS, PLEURAL EFFUSION, SHORTNESS OF BREATH, HYPOTENSION, AND PROGRESSIVE DEMENTIA. TODAY, HE IS ALERT, SITTING UP IN BED ON MORNING ROUNDS. HE DENIES CURRENT COMPLAINTS. NURSING STAFF REPORTS THAT HE RESTED BETTER THROUGHOUT THE NIGHT. ON EXAMINATION, HE HAS REDNESS AND CLEAR DRAINAGE FROM BILATERAL EYES. HEART IS REGULAR IN RATE AND RHYTHM. LUNGS ARE NOTED WITH DIMINISHED LUNG SOUNDS THROUGHOUT. ABDOMEN IS ROUND, SOFT, AND NON-TENDER WITH NORMAL BOWEL SOUNDS NOTED IN ALL QUADRANTS. TRACE LOWER EXTREMITY EDEMA NOTED. HIS VITALS THIS MORNING ARE: 98.3-85-20-93%-169/64. LABS WERE OBTAINED. WBC 5.6, RBC 4.29, HGB 12.8, HCT 38.8, SODIUM 140, POTASSIUM 3.8, CHLORIDE 102, BUN 16, CREATININE 0.76, GLUCOSE 126, CALCIUM 8.5, AST 19, ALT 22, ALK PHOS 132, TOTAL PROTEIN 6.9, ALBUMIN 3.3. CHEST XRAY WAS OBTAINED YESTERDAY AND REVEALED: Mild right infrahilar patchy opacity may represent atelectasis or infiltrate. HE IS CURRENTLY RECEIVING DUONEBS TID, LASIX 20MG PO DAILY, MAG OX 400MG PO DAILY, PROZAC 20MG PO DAILY, ATIVAN 0.5MG PO BID, AND HOME MEDICATIONS WERE RESUMED. HE HAS BEEN USING GENTAMICIN EYE OINTMENT WITHOUT IMPROVEMENT IN EYE REDNESS AND DRAINAGE. WE WILL ADD ERYTHROMYCIN 1 APPLICATION QID X 7 DAYS. CASE MANAGEMENT IS ARRANGING PLACEMENT AT [facility]. OTHERWISE, WE WILL FOLLOW UP WITH AM LABS AND CONTINUE TO MONITOR. TIME SPENT ON CLINICAL ASSESSMENT, REVIEWING LABS AND IMAGING, DECISION MAKING, AND DOCUMENTATION GREATER THAN 45 MINUTES. - Past Medical Family Social History Past Med/Fam/Surg Hx: No changes since H&P Allergies: Allergies haloperidol [From Haldol] Adverse Reaction (Verified 02/09/22 16:13) DAUGHTER STATES MEDICATION HAS THE OPPOSITE EFFECT ON PT. - Review of Systems ROS: No change since H&P - Vital Signs and I&O's Vital Signs: Temperature 98.4 F Pulse Rate [Left Brachial] 85 Pulse Rate 76 Respiratory Rate 20 Blood Pressure [Left Arm] 130/82 Blood Pressure [Right Arm] 152/94 O2 Sat by Pulse Oximetry 94 Intake and Output: Intake & Output 02/13/22 02/14/22 02/15/22 02/16/22 11:59 11:59 11:59 11:59 Intake Total 680 / 680 360 / 360 710 / 710 435 / 435 Balance 680 / 680 360 / 360 710 / 710 435 / 435 - Physical Exam Oriented: Person, Place Eyes: Discharge, Redness Ear: Normal Nose: Normal Throat: Normal Respiratory: Generalized, Diminished Cardiovascular: Normal : Normal Auscultation: Bowel Sounds: Normal Tenderness: Normal Skin: Normal Musculoskeletal: Normal Psychiatric: Normal Mood Description: Calm Affect: Normal Speech Pattern: Clear - Laboratory and Diagnostics Result Diagrams: 02/16/22 04:45 02/16/22 04:45 Labs: Laboratory WBC 6.7 X10^3/uL (3.6-10.0) 02/16/22 04:45 RBC 4.05 X10^6/uL (4.7-6.0) L 02/16/22 04:45 Hgb 12.3 g/dL (13.5-18.0) L 02/16/22 04:45 Hct 36.6 % (42.0-54.0) L 02/16/22 04:45 MCV 90.3 fL (80.0-100.0) 02/16/22 04:45 MCH 30.3 pg (27.0-34.0) 02/16/22 04:45 MCHC 33.5 g/dL (33.0-35.0) 02/16/22 04:45 RDW 14.8 % (11.6-16.5) 02/16/22 04:45 Plt Count 188 X10^3/uL (150.0-450.0) 02/16/22 04:45 Plt Count Comment Adequate (ADEQUATE) 02/16/22 04:45 MPV 7.3 fL (7.4-11.0) L 02/16/22 04:45 Neut % (Auto) 40.5 % (42.0-75.0) L 02/16/22 04:45 Lymph % (Auto) 45.8 % (21.0-51.0) 02/16/22 04:45 [place] % (Auto) 5.8 % (0.0-13.0) 02/16/22 04:45 Eos % (Auto) 5.8 % (0.9-2.9) H 02/16/22 04:45 Baso % (Auto) 2.1 % (0.2-1.0) H 02/16/22 04:45 Neut # (Auto) 2.6 x10^3/uL (2.2-4.8) 02/16/22 04:45 Lymph # (Auto) 2.9 X10^3/uL (1.3-2.9) 02/16/22 04:45 [place] # (Auto) 0.4 x10^3/uL (0.3-0.8) 02/16/22 04:45 Eos # (Auto) 0.4 x10^3/uL (0.0-0.2) H 02/16/22 04:45 Baso # (Auto) 0.1 X10^3/uL (0.0-0.1) 02/16/22 04:45 Absolute Nucleated RBC 0.2 /100WBC 02/16/22 04:45 Plt Morphology Comment Normal (NORMAL) 02/16/22 04:45 RBC Morphology Normal (NORMAL) 02/16/22 04:45 Sodium 139 mmol/L (136-145) 02/16/22 04:45 Corrected Sodium TNP 02/16/22 04:45 Potassium 3.8 mmol/L (3.5-5.1) 02/16/22 04:45 Chloride 103 mmol/L (98-107) 02/16/22 04:45 Carbon Dioxide 33.2 mmol/L (21-32) H 02/16/22 04:45 BUN 17 mg/dL (7-18) 02/16/22 04:45 Creatinine 0.80 mg/dL (0.70-1.30) 02/16/22 04:45 Est GFR (MDRD) Af Amer > 60 (>60) 02/16/22 04:45 Est GFR (MDRD) Non-Af > 60 (>60) 02/16/22 04:45 Glucose 107 mg/dL (65-99) H 02/16/22 04:45 Calcium 8.4 mg/dL (8.5-10.1) L 02/16/22 04:45 Corrected Calcium 9.2 mg/dL (8.5-10.1) 02/16/22 04:45 Magnesium 1.7 mg/dL (1.7-2.9) 02/16/22 04:45 Total Bilirubin 0.30 mg/dL (0.2-1.0) 02/16/22 04:45 AST 20 Units/L (15-37) 02/16/22 04:45 ALT 24 Units/L (12-78) 02/16/22 04:45 Alkaline Phosphatase 120 Units/L (46-116) H 02/16/22 04:45 B-Natriuretic Peptide 84.7 pg/mL (0-79) H 02/16/22 04:45 Total Protein 6.5 g/dL (6.4-8.2) 02/16/22 04:45 Albumin 3.0 g/dL (3.4-5.0) L 02/16/22 04:45 Globulin 3.5 g/dL (2.5-4.5) 02/16/22 04:45 Albumin/Globulin Ratio 0.9 Ratio (1.1-2.1) L 02/16/22 04:45 Specimen Type Clean catch urine 02/09/22 16:50 Urine Color Yellow (YELLOW) 02/09/22 16:50 Urine Appearance Clear (CLEAR) 02/09/22 16:50 Urine pH 5.0 (5.0 - 8.0) 02/09/22 16:50 Ur Specific [place] 1.025 (1.000-1.030) 02/09/22 16:50 Urine Protein 2+ (NEGATIVE) 02/09/22 16:50 Urine Glucose (UA) Negative (NEGATIVE) 02/09/22 16:50 Urine Ketones 1+ (NEGATIVE) 02/09/22 16:50 Urine Blood 1+ (NEGATIVE) 02/09/22 16:50 Urine Nitrite Negative (NEGATIVE) 02/09/22 16:50 Urine Bilirubin Negative (NEGATIVE) 02/09/22 16:50 Urine Urobilinogen Normal (NORMAL) 02/09/22 16:50 Ur Leukocyte Esterase Negative (NEGATIVE) 02/09/22 16:50 Urine RBC 0-2 /HPF (0-3) 02/09/22 16:50 Urine WBC None seen /HPF (0-5) 02/09/22 16:50 Ur Squamous Epith Cells Rare /HPF (NEGATIVE) 02/09/22 16:50 Urine Bacteria Trace /HPF (NEGATIVE) 02/09/22 16:50 Urine Mucus Rare /HPF (NEGATIVE) 02/09/22 16:50 Ur Culture Indicated? No/not indicated 02/09/22 16:50 - Plan (1) CHF (congestive heart failure) Status: Acute Qualifiers: Heart failure type: unspecified Heart failure chronicity: acute Qualified Code(s): I50.9 - Heart failure, unspecified Plan: DUONEBS TID, LASIX 20MG PO DAILY, MAG OX 400MG DAILY, PROZAC 20MG PO DAILY, ATIVAN 0.5MG PO BID, AND HOME MEDICATIONS WERE RESUMED. JAIL PLACEMENT (2) Generalized weakness Status: Acute Plan: NS AT 50 ML/HR, DUONEBS TID, AND HOME MEDICATIONS WERE RESUMED. JAIL PLACEMENT (3) Pleural effusion Status: Acute (4) Shortness of breath Status: Acute (5) Progressive dementia with uncertain etiology Status: Acute (6) Conjunctivitis Status: Acute Qualifiers: Conjunctivitis type: unspecified Laterality: bilateral Qualified Code(s): H10.9 - Unspecified conjunctivitis (7) Anemia Status: Chronic Qualifiers: Anemia type: iron deficiency Iron deficiency anemia type: chronic blood loss Qualified Code(s): D50.0 - Iron deficiency anemia secondary to blood loss (chronic) (8) Hyperlipidemia Status: Chronic Qualifiers: Hyperlipidemia type: mixed hyperlipidemia Qualified Code(s): E78.2 - Mixed hyperlipidemia (9) Hypertension Status: Chronic Qualifiers: Hypertension type: primary hypertension Qualified Code(s): I10 - Essential (primary) hypertension
[2022-02-16] MEDS: ECOTRIN TAB 325 MG PO SCH (12:55)
[2022-02-16] MEDS: SEROquel TAB 25 mg PO SCH ×2 (12:55→21:46)
[2022-02-16] MEDS: PriLOSEC PO SCH (12:56)
[2022-02-16] MEDS: FERROUS GLUCONATE PO SCH (12:56)
[2022-02-16] MEDS: LASIX PO SCH (12:56)
[2022-02-16] MEDS: ATIVAN TAB 0.5 MG PO SCH ×2 (12:57→21:48)
[2022-02-16] MEDS: FLOMAX PO SCH (12:57)
[2022-02-16] MEDS: PROzac PO SCH (12:57)
[2022-02-16] MEDS: ILOTYCIN OPHTH OINT EACHEYE SCH ×4 (12:57→21:48)
[2022-02-16] MEDS: LOVENOX INJ 40 MG SYR SC SCH (12:58)
[2022-02-16] MEDS: PEPCID TAB 20 MG PO SCH ×2 (13:00→21:47)
[2022-02-16] MEDS: MAG-OX TAB PO SCH (13:30)
[2022-02-16] MEDS: QUINAPRIL 40 MG PO SCH ×2 (17:15→21:49)
[2022-02-16] MEDS: ZyrTEC TAB 10 MG PO SCH (21:46)
[2022-02-16] MEDS: NORVASC TAB 5 MG PO SCH (21:46)
[2022-02-16] MEDS: ELAVIL PO SCH (21:46)
[2022-02-17] MEDS: DUONEB 0.5 MG/3 MG (3 mL) NEB SCH ×3 (05:20→21:30)
[2022-02-17] MEDS: MAG-OX TAB PO SCH (06:00)
[2022-02-17 06:31] LABS: BASOPHILS # (AUTO) 0.1 X10^3/uL (0.0-0.1); BASOPHILS % (AUTO) 0.8 % (0.2-1.0); EOSINOPHILS # (AUTO) 0.3 x10^3/uL (0.0-0.2); EOSINOPHILS % (AUTO) 4.8 % (0.9-2.9); HEMATOCRIT 39.1 % (42.0-54.0); HEMOGLOBIN 13.2 g/dL (13.5-18.0); LYMPHOCYTES # (AUTO) 2.2 X10^3/uL (1.3-2.9); LYMPHOCYTES % (AUTO) 33.9 % (21.0-51.0); MEAN CORPUSCULAR HEMOGLOBIN 30.4 pg (27.0-34.0); MEAN CORPUSCULAR HGB CONC 33.8 g/dL (33.0-35.0); MONOCYTES # (AUTO) 0.4 x10^3/uL (0.3-0.8); MONOCYTES % (AUTO) 6.8 % (0.0-13.0); NEUTROPHILS # (AUTO) 3.4 x10^3/uL (2.2-4.8); NEUTROPHILS % (AUTO) 53.7 % (42.0-75.0); RED BLOOD COUNT 4.35 X10^6/uL (4.7-6.0); RED CELL DISTRIBUTION WIDTH 15.1 % (11.6-16.5); WHITE BLOOD COUNT 6.4 X10^3/uL (3.6-10.0)
[2022-02-17 06:48] LABS: ALANINE AMINOTRANSFERASE 26 Units/L (12-78); ALBUMIN 3.4 g/dL (3.4-5.0); ALKALINE PHOSPHATASE 132 Units/L (46-116); ASPARTATE AMINO TRANSFERASE 21 Units/L (15-37); BLOOD UREA NITROGEN 16 mg/dL (7-18); CALCIUM 8.5 mg/dL (8.5-10.1); CARBON DIOXIDE 33.1 mmol/L (21-32); CHLORIDE 101 mmol/L (98-107); COR NA(FOR HYPERGLY) 140 mmol/L (136-145); CREATININE 0.77 mg/dL (0.70-1.30); SODIUM 139 mmol/L (136-145); TOTAL PROTEIN 7.1 g/dL (6.4-8.2); eGFR NON BLACK RACES > 60 (>60)
[2022-02-17] MEDS: PERCOCET TAB 5/325 MG PO PRN (08:08)
--- NOTE | 2022-02-17 08:10 | RAD ---
HISTORYShortness of breathSTUDYChest AP [id number] heart is upper limits normal in size. No congestive heart failure is noted. Aorta is calcified. Maren are normal. Lung jackson are clear. No pleural effusions are identified. Bony thorax is unremarkable.IMPRESSIONNo definite acute infiltrates identifiedElectronically signed by: ROBBIE BENTLEY (Feb 17, 2022 08:09:00)
[2022-02-17] MEDS: PriLOSEC PO SCH (09:02)
[2022-02-17] MEDS: K-DUR TAB 20 MEQ PO PRN (09:02)
[2022-02-17] MEDS: ECOTRIN TAB 325 MG PO SCH (09:04)
[2022-02-17] MEDS: PEPCID TAB 20 MG PO SCH ×2 (09:04→21:32)
[2022-02-17] MEDS: FERROUS GLUCONATE PO SCH (09:05)
[2022-02-17] MEDS: ILOTYCIN OPHTH OINT EACHEYE SCH ×4 (09:05→21:37)
[2022-02-17] MEDS: LASIX PO SCH (09:05)
[2022-02-17] MEDS: FLOMAX PO SCH (09:10)
[2022-02-17] MEDS: LOVENOX INJ 40 MG SYR SC SCH (09:10)
[2022-02-17] MEDS: QUINAPRIL 40 MG PO SCH ×2 (09:12→21:33)
[2022-02-17 10:04] VITALS: BMI 25.4
--- NOTE | 2022-02-17 12:52 | PCM.PROG ---
Progress Note - Progress Note for Day of Date of Exam: 02/17/22 - Subjective Subjective: WAS ADMITTED INPATIENT STATUS FOR TREATMENT OF GENERALIZED WEAKNESS, PLEURAL EFFUSION, HYPOTENSION, AND PROGRESSIVE DEMENTIA. TODAY, HE IS LYING IN BED WITH EYES CLOSED ON MORNING ROUNDS. HE AWAKENS TO VERBAL STIMULI. HE DENIES CURRENT COMPLAINTS. NURSING STAFF REPORTS THAT HE RESTED BETTER THROUGHOUT THE NIGHT. ON EXAMINATION, HEART IS REGULAR IN RATE AND RHYTHM. LUNGS ARE NOTED WITH DIMINISHED LUNG SOUNDS THROUGHOUT. ABDOMEN IS ROUND, SOFT, AND NON-TENDER WITH NORMAL BOWEL SOUNDS NOTED IN ALL QUADRANTS. TRACE LOWER EXTREMITY EDEMA NOTED. HIS VITALS THIS MORNING ARE: 97 .3-80-20-93%-107/78. LABS WERE OBTAINED. WBC 6.4, RBC 4.35, HGB 13.2, HCT 39.1, SODIUM 139, POTASSIUM 3.6, CHLORIDE 101, CARBON DIOXIDE 33.1, BUN 16, CREATININE 0.77, GLUCOSE 125, CALCIUM 8.5, AST 21, ALT 26, ALK PHOS 132, TOTAL PROTEIN 7.1, ALBUMIN 3.4. CHEST XRAY WAS OBTAINED YESTERDAY AND REVEALED: The heart is upper limits normal in size. No congestive heart failure is noted. Aorta is calcified. Maren are normal. Lung jackson are clear. No pleural effusions are identified. Bony thorax is unremarkable. HE IS CURRENTLY RECEIVING DUONEBS TID, LASIX 20MG PO DAILY, ERYTHROMYCIN EYE OINTMENT 1 APPLICATION QID, MAG OX 400MG PO DAILY, PROZAC 20MG PO DAILY, ATIVAN 0.5MG PO BID, AND HOME MEDICATIONS WERE RESUMED. CASE MANAGEMENT IS ARRANGING PLACEMENT AT [facility]. OTHERWISE, WE WILL FOLLOW UP WITH AM LABS AND CONTINUE TO MONITOR. TIME SPENT ON CLINICAL ASSESSMENT, REVIEWING LABS AND IMAGING, DECISION MAKING, AND DOCUMENTATION GREATER THAN 45 MINUTES. - Past Medical Family Social History Past Med/Fam/Surg Hx: No changes since H&P Allergies: Allergies haloperidol [From Haldol] Adverse Reaction (Verified 02/09/22 16:13) DAUGHTER STATES MEDICATION HAS THE OPPOSITE EFFECT ON PT. - Review of Systems ROS: No change since H&P - Vital Signs and I&O's Vital Signs: Temperature 97.3 F Pulse Rate [Left Brachial] 80 Pulse Rate 96 Respiratory Rate 18 Blood Pressure [Left Arm] 107/78 Blood Pressure [Right Arm] 126/79 O2 Sat by Pulse Oximetry 93 Intake and Output: Intake & Output 02/15/22 02/16/22 02/17/22 02/18/22 11:59 11:59 11:59 11:59 Intake Total 710 / 710 435 / 435 580 / 580 Balance 710 / 710 435 / 435 580 / 580 - Physical Exam Oriented: Person, Place Eyes: Discharge, Redness Ear: Normal Nose: Normal Throat: Normal Respiratory: Generalized, Diminished Cardiovascular: Normal : Normal Auscultation: Bowel Sounds: Normal Palpation: Normal Tenderness: Normal Skin: Normal Musculoskeletal: Normal Psychiatric: Normal Mood Description: Calm Affect: Normal Speech Pattern: Clear - Laboratory and Diagnostics Result Diagrams: 02/17/22 05:52 02/17/22 05:52 Labs: Laboratory WBC 6.4 X10^3/uL (3.6-10.0) 02/17/22 05:52 RBC 4.35 X10^6/uL (4.7-6.0) L 02/17/22 05:52 Hgb 13.2 g/dL (13.5-18.0) L 02/17/22 05:52 Hct 39.1 % (42.0-54.0) L 02/17/22 05:52 MCV 90.0 fL (80.0-100.0) 02/17/22 05:52 MCH 30.4 pg (27.0-34.0) 02/17/22 05:52 MCHC 33.8 g/dL (33.0-35.0) 02/17/22 05:52 RDW 15.1 % (11.6-16.5) 02/17/22 05:52 Plt Count 184 X10^3/uL (150.0-450.0) 02/17/22 05:52 Plt Count Comment Adequate (ADEQUATE) 02/16/22 04:45 MPV 7.0 fL (7.4-11.0) L 02/17/22 05:52 Neut % (Auto) 53.7 % (42.0-75.0) 02/17/22 05:52 Lymph % (Auto) 33.9 % (21.0-51.0) 02/17/22 05:52 [place] % (Auto) 6.8 % (0.0-13.0) 02/17/22 05:52 Eos % (Auto) 4.8 % (0.9-2.9) H 02/17/22 05:52 Baso % (Auto) 0.8 % (0.2-1.0) 02/17/22 05:52 Neut # (Auto) 3.4 x10^3/uL (2.2-4.8) 02/17/22 05:52 Lymph # (Auto) 2.2 X10^3/uL (1.3-2.9) 02/17/22 05:52 [place] # (Auto) 0.4 x10^3/uL (0.3-0.8) 02/17/22 05:52 Eos # (Auto) 0.3 x10^3/uL (0.0-0.2) H 02/17/22 05:52 Baso # (Auto) 0.1 X10^3/uL (0.0-0.1) 02/17/22 05:52 Absolute Nucleated RBC 0.1 /100WBC 02/17/22 05:52 Plt Morphology Comment Normal (NORMAL) 02/16/22 04:45 RBC Morphology Normal (NORMAL) 02/16/22 04:45 Sodium 139 mmol/L (136-145) 02/17/22 05:52 Corrected Sodium 140 mmol/L (136-145) 02/17/22 05:52 Potassium 3.6 mmol/L (3.5-5.1) 02/17/22 05:52 Chloride 101 mmol/L (98-107) 02/17/22 05:52 Carbon Dioxide 33.1 mmol/L (21-32) H 02/17/22 05:52 BUN 16 mg/dL (7-18) 02/17/22 05:52 Creatinine 0.77 mg/dL (0.70-1.30) 02/17/22 05:52 Est GFR (MDRD) Af Amer > 60 (>60) 02/17/22 05:52 Est GFR (MDRD) Non-Af > 60 (>60) 02/17/22 05:52 Glucose 125 mg/dL (65-99) H 02/17/22 05:52 Calcium 8.5 mg/dL (8.5-10.1) 02/17/22 05:52 Corrected Calcium TNP 02/17/22 05:52 Magnesium 1.7 mg/dL (1.7-2.9) 02/16/22 04:45 Total Bilirubin 0.30 mg/dL (0.2-1.0) 02/17/22 05:52 AST 21 Units/L (15-37) 02/17/22 05:52 ALT 26 Units/L (12-78) 02/17/22 05:52 Alkaline Phosphatase 132 Units/L (46-116) H 02/17/22 05:52 B-Natriuretic Peptide 84.7 pg/mL (0-79) H 02/16/22 04:45 Total Protein 7.1 g/dL (6.4-8.2) 02/17/22 05:52 Albumin 3.4 g/dL (3.4-5.0) 02/17/22 05:52 Globulin 3.7 g/dL (2.5-4.5) 02/17/22 05:52 Albumin/Globulin Ratio 0.9 Ratio (1.1-2.1) L 02/17/22 05:52 Specimen Type Clean catch urine 02/09/22 16:50 Urine Color Yellow (YELLOW) 02/09/22 16:50 Urine Appearance Clear (CLEAR) 02/09/22 16:50 Urine pH 5.0 (5.0 - 8.0) 02/09/22 16:50 Ur Specific [place] 1.025 (1.000-1.030) 02/09/22 16:50 Urine Protein 2+ (NEGATIVE) 02/09/22 16:50 Urine Glucose (UA) Negative (NEGATIVE) 02/09/22 16:50 Urine Ketones 1+ (NEGATIVE) 02/09/22 16:50 Urine Blood 1+ (NEGATIVE) 02/09/22 16:50 Urine Nitrite Negative (NEGATIVE) 02/09/22 16:50 Urine Bilirubin Negative (NEGATIVE) 02/09/22 16:50 Urine Urobilinogen Normal (NORMAL) 02/09/22 16:50 Ur Leukocyte Esterase Negative (NEGATIVE) 02/09/22 16:50 Urine RBC 0-2 /HPF (0-3) 02/09/22 16:50 Urine WBC None seen /HPF (0-5) 02/09/22 16:50 Ur Squamous Epith Cells Rare /HPF (NEGATIVE) 02/09/22 16:50 Urine Bacteria Trace /HPF (NEGATIVE) 02/09/22 16:50 Urine Mucus Rare /HPF (NEGATIVE) 02/09/22 16:50 Ur Culture Indicated? No/not indicated 02/09/22 16:50 - Plan (1) CHF (congestive heart failure) Status: Acute Qualifiers: Heart failure type: unspecified Heart failure chronicity: acute Qualified Code(s): I50.9 - Heart failure, unspecified Plan: DUONEBS TID, LASIX 20MG PO DAILY, MAG OX 400MG DAILY, PROZAC 20MG PO DAILY, ATIVAN 0.5MG PO BID, AND HOME MEDICATIONS WERE RESUMED. GROUP HOME PLACEMENT (2) Generalized weakness Status: Acute Plan: NS AT 50 ML/HR, DUONEBS TID, AND HOME MEDICATIONS WERE RESUMED. GROUP HOME PLACEMENT (3) Pleural effusion Status: Acute (4) Shortness of breath Status: Acute (5) Progressive dementia with uncertain etiology Status: Acute (6) Conjunctivitis Status: Acute Qualifiers: Conjunctivitis type: unspecified Laterality: bilateral Qualified Code(s): H10.9 - Unspecified conjunctivitis (7) Anemia Status: Chronic Qualifiers: Anemia type: iron deficiency Iron deficiency anemia type: chronic blood loss Qualified Code(s): D50.0 - Iron deficiency anemia secondary to blood loss (chronic) (8) Hyperlipidemia Status: Chronic Qualifiers: Hyperlipidemia type: mixed hyperlipidemia Qualified Code(s): E78.2 - Mixed hyperlipidemia (9) Hypertension Status: Chronic Qualifiers: Hypertension type: primary hypertension Qualified Code(s): I10 - Essential (primary) hypertension
[2022-02-17] MEDS: SEROquel TAB 25 mg PO SCH ×2 (15:00→21:32)
[2022-02-17] MEDS: ATIVAN TAB 0.5 MG PO SCH ×2 (16:05→21:32)
[2022-02-17] MEDS: PROzac PO SCH (16:05)
[2022-02-17] MEDS: ZyrTEC TAB 10 MG PO SCH (21:31)
[2022-02-17] MEDS: NORVASC TAB 5 MG PO SCH (21:32)
[2022-02-17] MEDS: ELAVIL PO SCH (21:32)
[2022-02-18] MEDS: DUONEB 0.5 MG/3 MG (3 mL) NEB SCH (05:30)
[2022-02-18] MEDS: MAG-OX TAB PO SCH (06:00)
[2022-02-18 06:42] LABS: BASOPHILS % (AUTO) 0.8 % (0.2-1.0); EOSINOPHILS # (AUTO) 0.3 x10^3/uL (0.0-0.2); EOSINOPHILS % (AUTO) 5.8 % (0.9-2.9); HEMOGLOBIN 13.1 g/dL (13.5-18.0); LYMPHOCYTES # (AUTO) 2.2 X10^3/uL (1.3-2.9); LYMPHOCYTES % (AUTO) 36.5 % (21.0-51.0); MEAN CORPUSCULAR HEMOGLOBIN 30.3 pg (27.0-34.0); MEAN CORPUSCULAR HGB CONC 33.7 g/dL (33.0-35.0); MEAN CORPUSCULAR VOLUME 89.9 fL (80.0-100.0); MEAN PLATELET VOLUME 7.1 fL (7.4-11.0); MONOCYTES # (AUTO) 0.4 x10^3/uL (0.3-0.8); MONOCYTES % (AUTO) 7.3 % (0.0-13.0); NEUTROPHILS # (AUTO) 2.9 x10^3/uL (2.2-4.8); NEUTROPHILS % (AUTO) 49.6 % (42.0-75.0); RED BLOOD COUNT 4.34 X10^6/uL (4.7-6.0); RED CELL DISTRIBUTION WIDTH 15.2 % (11.6-16.5); WHITE BLOOD COUNT 5.9 X10^3/uL (3.6-10.0)
[2022-02-18 06:52] LABS: ALANINE AMINOTRANSFERASE 23 Units/L (12-78); ALBUMIN 3.3 g/dL (3.4-5.0); ALKALINE PHOSPHATASE 123 Units/L (46-116); ASPARTATE AMINO TRANSFERASE 17 Units/L (15-37); BLOOD UREA NITROGEN 19 mg/dL (7-18); CALCIUM 8.6 mg/dL (8.5-10.1); CARBON DIOXIDE 32.7 mmol/L (21-32); CHLORIDE 103 mmol/L (98-107); COR CA(FOR HYPOALB) 9.2 mg/dL (8.5-10.1); COR NA(FOR HYPERGLY) 143 mmol/L (136-145); CREATININE 0.89 mg/dL (0.70-1.30); SODIUM 142 mmol/L (136-145); TOTAL PROTEIN 6.9 g/dL (6.4-8.2); eGFR NON BLACK RACES > 60 (>60)
[2022-02-18] MEDS: ECOTRIN TAB 325 MG PO SCH (08:41)
[2022-02-18] MEDS: FLOMAX PO SCH (08:41)
[2022-02-18] MEDS: PriLOSEC PO SCH (08:41)
[2022-02-18] MEDS: FERROUS GLUCONATE PO SCH (08:42)
[2022-02-18] MEDS: LASIX PO SCH (08:42)
[2022-02-18] MEDS: PEPCID TAB 20 MG PO SCH (08:42)
[2022-02-18] MEDS: QUINAPRIL 40 MG PO SCH (08:44)
[2022-02-18] MEDS: ILOTYCIN OPHTH OINT EACHEYE SCH (08:44)
[2022-02-18] MEDS: LOVENOX INJ 40 MG SYR SC SCH (08:48)
[2022-02-18 09:38] VITALS: BP 151/77
== END 2022-02-18 13:20 | DRG 315 ==
LOC: MED/SURG 15:09
PROVIDERS: ADMIT Internal Medicine; ATTEND Internal Medicine
DX: J90 Pleural effusion, not elsewhere classified; R06.02 Shortness of breath; E78.2 Mixed hyperlipidemia; Z20.822 Contact with and (suspected) exposure to COVID-19; E11.65 Type 2 diabetes mellitus with hyperglycemia; I50.9 Heart failure, unspecified; I10 Essential (primary) hypertension; M06.8A Other specified rheumatoid arthritis, other specified site; D50.0 Iron deficiency anemia secondary to blood loss (chronic); R53.1 Weakness; H10.89 Other conjunctivitis; K21.9 Gastro-esophageal reflux disease without esophagitis; I95.89 Other hypotension; F03.90 Unspecified dementia, unspecified severity, without behavioral disturbance, psychotic disturbance, mood disturbance, and anxiety